=== PATIENT | female | born 2000 | race Caucasian/White ===

== ENCOUNTER 2018-01-02 09:07 | Emergency (ER) | payer SELFPAY ==
[2018-01-02 09:58] LABS: Absolute Lymphocytes (CBC) 2.3 K/uL (0.7-4.9); Absolute Monocytes 0.6 K/uL (0.1-1.3); Absolute Neutrophil 5.9 K/uL (1.8-8.0); Basophils % 0.5 % (0-1.3); Eosinophils % 4.2 % (0-4.4); Hematocrit 41.3 % (36.0-45.0); Lymphocytes % 24.9 % (15.3-44.8); MCV 90.1 fL (80-100); MPV 7.9 fL (7.6-11.3); Monocytes % 6.5 % (3.3-12.3); RBC Red Blood Cell Count 4.58 M/uL (3.86-4.86)
[2018-01-02 10:07] LABS: BUN Blood Urea Nitrogen 8 mg/dL (7-18); Bicarbonate 25 mmol/L (21-32); Glucose Level 84 mg/dL (74-106); Potassium 4.1 mmol/L (3.5-5.1); Sodium Level 141 mmol/L (136-145)
[2018-01-02] MEDS ORDERED: TETANUS & DIPHTHERIA TOX,ADULT 0.5 ML VIAL ONE (10:13)
--- NOTE | 2018-01-02 10:28 | RAD REPORT ---
EXAM DESCRIPTION: RAD - Foot Right 3 View - 01/02/2018 10:10 am CLINICAL HISTORY: puncture, r/o fb Puncture wound to right foot with pain COMPARISON: No comparisons FINDINGS: No fracture, dislocation or radiopaque foreign body involving the right foot is seen. Mild hallux valgus.
[2018-01-02 11:09] LABS: Urine Specific Gravity >1.030 (1.005-1.030)
[2018-01-02] MEDS ORDERED: DOXYCYCLINE 100 MG CAP PO ONE (11:26)
[2018-01-02] MEDS ORDERED: SMZ./TMP. 800/160 MG TABLET ONE (11:26)
--- NOTE | 2018-01-02 11:27 | EDPHYS ---
Physician Documentation [facility] Name: Tyra Fowler Age: 17 yrs Sex: Female : 2000 Arrival Date: 01/02/2018 Time: 09:11 Bed 11 Private MD: None, None ED Physician Veto Faye HPI: 01/02 09:38 This 17 yrs old Female presents to ER via Wheelchair with complaints of jmm Puncture Wound To Foot. 09:38 The patient presents with an injury, pain. The complaints affect the right foot. Onset: jmm The symptoms/episode began/occurred acutely, 2 day(s) ago. Modifying factors: The symptoms are alleviated by nothing, the symptoms are aggravated by weight bearing. This is a 17 year old female that presents to the ED with right foot pain after [place] a piece of [place] the [place]. Patient was no wearing shoes. Unsure of tetanus immunization. patient complains of pain and swelling but denies fever. . Historical: - Allergies: : unknown antibiotic; iw - Immunization history:: Adult Immunizations unknown. - Ebola Screening: : Patient negative for fever greater than or equal to 101.5 degrees Fahrenheit, and additional compatible Ebola Virus Disease symptoms Patient denies exposure to infectious person Patient denies travel to an Ebola-affected area in the 21 days before illness onset No symptoms or risks identified at this time. - Social history:: Smoking status: unknown. ROS: 09:38 Constitutional: Negative for fever, chills, and weight loss, Eyes: Negative for injury, jmm pain, redness, and discharge, Cardiovascular: Negative for chest pain, palpitations, and edema, Respiratory: Negative for shortness of breath, cough, wheezing, and pleuritic chest pain. 09:38 Skin: Positive for puncture. 09:38 All other systems are negative. Exam: 09:38 Head/Face: atraumatic. Eyes: EOMI, no conjunctival erythema appreciated ENT: Moist jmm Mucus Membranes Neck: Trachea midline, Supple Chest/axilla: Normal chest wall appearance and motion. Cardiovascular: Regular rate and rhythm. No edema appreciated Respiratory: Normal respirations, no respiratory distress appreciated 09:38 Constitutional: The patient appears in no acute distress, alert, awake. 09:38 Musculoskeletal/extremity: ROM: intact in all extremities. 09:38 Skin: two punctures noted to the ball of the right foot, ttp, swelling is appreciated. erythema noted to the dorsum of the foot, TTP. 09:38 Neuro: Orientation: is normal, Mentation: is normal, Memory: is normal. 09:38 Psych: Behavior/mood is pleasant, cooperative. Vital Signs: 09:40 BP 128 / 74; Pulse 67; Resp 16; Temp 98.2; Pulse Ox 100% ; Pain 9/10; iw MDM: 09:34 Patient medically screened. [facility] 11:01 Data reviewed: vital signs, nurses notes. [facility] 11:22 Data reviewed: lab test result(s). [facility] 11:25 ED course: PE findings concerning for cellulitis. Labs unremarkable. Patient prescribed [facility] oral antibiotics and given strict return precautions. Patient understood and agrees with the plan of care. . 01/02 09:35 Order name: CBC with Diff; Complete Time: 11:45 [facility] 01/02 09:35 Order name: BMP; Complete Time: 10:18 [facility] 01/02 09:35 Order name: Foot Right 3 View XRAY; Complete Time: 10:48 [facility] 01/02 10:28 Order name: Urine --Ancillary (enter results); Complete Time: 11:12 01/02 10:25 Order name: CBC Smear Scan; Complete Time: 11:45 [facility] 01/02 09:35 Order name: Urine Test (obtain specimen); Complete Time: 10:01 [facility] Administered Medications: 10:07 Drug: Tetanus-Diphtheria Toxoid Adult 0.5 ml {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 Exp: 01/26/2020. Lot #: [id number]. } Route: IM; Site: right deltoid; 10:49 Follow up: Response: No adverse reaction 11:26 Drug: Bactrim (160 mg-800 mg (DS) 1 tablet Route: PO; 11:26 Drug: Doxycycline 100 mg Route: PO; Disposition: 16:38 Co-signature as Attending Physician, Veto Faye MD. rn Disposition: 01/02/18 11:26 Discharged to Home. Impression: Cellulitis of the right foot. - Condition is Stable. - Discharge Instructions: Cellulitis, Adult. - Prescriptions for Doxycycline Hyclate 100 mg Oral Tablet - take 1 tablet by ORAL route every 12 hours; 20 tablet. Bactrim DS 800- 160 mg Oral Tablet - take 1 tablet by ORAL route every 12 hours for 10 days; 20 tablet. Ultracet 37.5- 325 mg Oral Tablet - take 1 tablet by ORAL route every 6 hours - for up to 5 days; do not exceed 8 tablets per day.; 12 tablet. - Medication Reconciliation Form, Thank You Letter, Antibiotic Education, Prescription Opioid Use form. - Follow up: Private Physician; When: 2 - 3 days; Reason: Recheck today's complaints, Continuance of care, Re-evaluation by your physician. Signatures: Dispatcher [employer] EDElif Berger RN RN dm5 Brown Ellis PA PA jmm Williams, Irene, RN RN iw Nieto, Roman, MD MD rn Smirch, Shelby, RN RN ss Corrections: (The following items were deleted from the chart) 11:25 09:38 Skin: two punctures noted to the ball of the right foot, ttp, swelling is cecelia appreciated. cecelia 11:53 11:26 01/02/2018 11:26 Discharged to Home. Impression: Cellulitis of the right foot. dm5 Condition is Stable. Forms are Medication Reconciliation Form, Thank You Letter, Antibiotic Education, Prescription Opioid Use. Follow up: Private Physician; When: 2 - 3 days; Reason: Recheck today's complaints, Continuance of care, Re-evaluation by your physician. cecelia
--- NOTE | 2018-01-02 11:27 | ER ---
Nurse's Notes [facility] Name: Tyra Fowler Age: 17 yrs Sex: Female : 2000 Arrival Date: 01/02/2018 Time: 09:11 Bed 11 Private MD: None, None Diagnosis: Cellulitis of the right foot Presentation: 01/02 09:22 Presenting complaint: Patient states: stepped [place] a [place] the [place], was iw barefoot, now has pain, swelling to foot, unable to bear weight. Care prior to arrival: None. 09:22 Acuity: ARNJIT 4 iw 09:22 Method Of Arrival: Wheelchair iw 09:36 Transition of care: patient was not received from another setting of care. Onset of iw symptoms was December 31, 2017. Risk Assessment: Do you want to hurt yourself or someone else? Patient reports no desire to harm self or others. Initial Sepsis Screen: Does the patient meet any 2 criteria? No. Patient's initial sepsis screen is negative. Does the patient have a suspected source of infection? No. Patient's initial sepsis screen is negative. Historical: - Allergies: : unknown antibiotic; iw - Immunization history:: Adult Immunizations unknown. - Ebola Screening: : Patient negative for fever greater than or equal to 101.5 degrees Fahrenheit, and additional compatible Ebola Virus Disease symptoms Patient denies exposure to infectious person Patient denies travel to an Ebola-affected area in the 21 days before illness onset No symptoms or risks identified at this time. - Social history:: Smoking status: unknown. Screenin:55 Abuse screen: Denies threats or abuse. Denies injuries from another. Nutritional ss screening: No deficits noted. Tuberculosis screening: No symptoms or risk factors identified. Never had TB. Fall Risk None identified. Assessment: 10:20 General: Appears in no apparent distress. Behavior is calm, cooperative. Pain: iw Complains of pain in right foot. Neuro: No deficits noted. Level of Consciousness is awake, alert, obeys commands. 10:55 Reassessment: Patient appears in no apparent distress at this time. Patient and/or ss family updated on plan of care and expected duration. Pain level reassessed. Patient is alert, oriented x 3, equal unlabored respirations, skin warm/dry/pink. Cardiovascular: Capillary refill < 3 seconds is brisk in bilateral fingers. Respiratory: Respiratory effort is even, unlabored. EENT: Nares are clear Throat is clear. Derm: Skin is dry, Skin is pink, warm \T\ dry. normal. Musculoskeletal: Circulation, motion, and sensation intact. Range of motion: intact in all extremities, Swelling present in right foot. Vital Signs: 09:40 BP 128 / 74; Pulse 67; Resp 16; Temp 98.2; Pulse Ox 100% ; Pain 9/10; iw ED Course: 09:11 Patient arrived in ED. sb2 09:12 None, None is Private Physician. sb2 09:22 Marci Alonso, RN is Primary Nurse. iw 09:22 Brown Ellis PA is PHCP. jmm 09:22 Veto Faye MD is Attending Physician. jmm 09:22 Triage completed. iw 09:37 Arm band placed on. iw 10:07 X-ray completed. Portable x-ray completed in exam room. Patient tolerated procedure jb2 well. 10:11 Foot Right 3 View XRAY In Process Unspecified. EDMS 10:49 No provider procedures requiring assistance completed. Patient did not have IV access ss during this emergency room visit. 10:55 Patient has correct armband on for positive identification. Bed in low position. Call ss light in reach. 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 Exp: ss 01/26/2020. Lot #: [id number]. } Route: IM; Site: right deltoid; 10:49 Follow up: Response: No adverse reaction ss 11:26 Drug: Bactrim (160 mg-800 mg (DS) 1 tablet Route: PO; ss 11:26 Drug: Doxycycline 100 mg Route: PO; ss Outcome: 11:26 Discharge ordered by . jmm 11:53 Patient left the ED. dm5 Signatures: Dispatcher [employer] EDMS Elif Munguia, RN DESTIN dm5 Brown Ellis PA PA jmm Buechter, Jesse jb2 Marci Alonso, RN DESTIN Martha Anne RN RN Azucena Mcdowell sb2
[2018-01-02 11:36] LABS: Platelet Estimate ADEQ; Urine White Blood Cell Casts OK
[2018-01-02 11:37] LABS: Blood Morphology Comment NOT SEEN (NOT SEEN)
== END 2018-01-02 11:53 | disposition home or self-care (01) ==
LOC: ER 09:07
DX: L03.115 Cellulitis of right lower limb (principal); Z23 Encounter for immunization; W45.0XXA Nail entering through skin, initial encounter; Y92.832 Beach as the place of occurrence of the external cause
CPT/HCPCS: 36415; 80048; 81025; 85025; 90714; 99283

== ENCOUNTER 2018-01-05 15:38 | Inpatient (IN) | payer BC, SELFPAY ==
[2018-01-05] MEDS ORDERED: NA CHLORIDE 0.9% 1,000 ML ONE (17:30)
[2018-01-05 17:33] LABS: Absolute Lymphocytes (CBC) 2.4 K/uL (0.7-4.9); Absolute Monocytes 0.4 K/uL (0.1-1.3); Absolute Neutrophil 4.6 K/uL (1.8-8.0); Basophils % 0.5 % (0-1.3); Eosinophils % 5.2 % (0-4.4); Lymphocytes % 30.4 % (15.3-44.8); MCH 32.4 pg (27.0-35.0); MCV 90.6 fL (80-100); MPV 7.4 fL (7.6-11.3); Monocytes % 5.3 % (3.3-12.3); RBC Red Blood Cell Count 4.49 M/uL (3.86-4.86)
[2018-01-05 17:35] LABS: Hematocrit 42.7 % (36.0-45.0)
--- NOTE | 2018-01-05 17:41 | RAD REPORT ---
EXAM DESCRIPTION: RAD - Foot Right 3 View - 01/05/2018 5:23 pm CLINICAL HISTORY: Pain and swelling following puncture wound COMPARISON: January 02 FINDINGS: No fracture, dislocation or periosteal reaction. No acute or destructive bone process. No air or foreign body in the soft tissues. No air or foreign body in the soft tissues. IMPRESSION: No new bone finding. No air or foreign body in the soft tissues.
[2018-01-05 17:57] LABS: Potassium 3.9 mmol/L (3.5-5.1)
[2018-01-05] MEDS ORDERED: ONDANSETRON 4 MG/2 ML VIAL IV PRN (18:14)
[2018-01-05] MEDS ORDERED: ACETAMINOPHEN 500 MG TAB PO PRN (18:14)
--- NOTE | 2018-01-05 18:17 | EDPHYS ---
Physician Documentation [facility] Name: Tyra Fowler Age: 17 yrs Sex: Female : 2000 Arrival Date: 01/05/2018 Time: 15:43 Bed 6 Private MD: ED Physician Otoniel Henry HPI: 01/05 18:21 This 17 yrs old Female presents to ER via Wheelchair with complaints of Foot snw Pain. 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 - Social history:: Smoking status: Patient/guardian denies using tobacco. - Ebola Screening: : Patient negative for fever greater than or equal to 101.5 degrees Fahrenheit, and additional compatible Ebola Virus Disease symptoms Patient denies exposure to infectious person Patient denies travel to an Ebola-affected area in the 21 days before illness onset No symptoms or risks identified at this time. ROS: 18:16 Constitutional: Negative for fever, chills, and weight loss, Eyes: Negative for injury, snw pain, redness, and discharge, ENT: Negative for injury, pain, and discharge, Neck: Negative for injury, pain, and swelling, Cardiovascular: Negative for chest pain, palpitations, and edema, Respiratory: Negative for shortness of breath, cough, wheezing, and pleuritic chest pain, Abdomen/GI: Negative for abdominal pain, nausea, vomiting, diarrhea, and constipation, Back: Negative for injury and pain, : Negative for injury, bleeding, discharge, and swelling, MS/Extremity: Negative for injury and deformity, Neuro: Negative for headache, weakness, numbness, tingling, and seizure, Psych: Negative for depression, anxiety, suicide ideation, homicidal ideation, and hallucinations. 18:16 Skin: Positive for cellulitis, ecchymosis, erythema, swelling, of the right foot. Exam: 16:33 Constitutional: This is a well developed, well nourished patient who is awake, alert, snw and in no acute distress. Head/Face: Normocephalic, atraumatic. Eyes: Pupils equal round and reactive to light, extra-ocular motions intact. Lids and lashes normal. Conjunctiva and sclera are non-icteric and not injected. Cornea within normal limits. Periorbital areas with no swelling, redness, or edema. ENT: Nares patent. No nasal discharge, no septal abnormalities noted. Tympanic membranes are normal and external auditory canals are clear. Oropharynx with no redness, swelling, or masses, exudates, or evidence of obstruction, uvula midline. Mucous membranes moist. Neck: Trachea midline, no thyromegaly or masses palpated, and no cervical lymphadenopathy. Supple, full range of motion without nuchal rigidity, or vertebral point tenderness. No Meningismus. Chest/axilla: Normal chest wall appearance and motion. Nontender with no deformity. No lesions are appreciated. Cardiovascular: Regular rate and rhythm with a normal S1 and S2. No gallops, murmurs, or rubs. Normal PMI, no JVD. No pulse deficits. Respiratory: Lungs have equal breath sounds bilaterally, clear to auscultation and percussion. No rales, rhonchi or wheezes noted. No increased work of breathing, no retractions or nasal flaring. Abdomen/GI: Soft, non-tender, with normal bowel sounds. No distension or tympany. No guarding or rebound. No evidence of tenderness throughout. Back: No spinal tenderness. No costovertebral tenderness. Full range of motion. Skin: Warm, dry with normal turgor. Normal color with no rashes, no lesions, and no evidence of cellulitis. Neuro: Awake and alert, GCS 15, oriented to person, place, time, and situation. Cranial nerves II-XII grossly intact. Motor strength 5/5 in all extremities. Sensory grossly intact. Cerebellar exam normal. Normal gait. Psych: Awake, alert, with orientation to person, place and time. Behavior, mood, and affect are within normal limits. 16:33 Musculoskeletal/extremity: Extremities: grossly normal except: noted in the right foot: erythema, pain, swelling, tenderness, two scabbed puncture wounds to plantar surface, surgical scar (Jan 2017) to right lateral ankle, ROM: intact in all extremities, Circulation is intact in all extremities. marked tenderness 16:33 Skin: Appearance: normal except for affected area, right foot. Vital Signs: 16:08 BP 106 / 74; Pulse 98; Resp 16; Temp 98.4; Pulse Ox 98% on R/A; Weight 58.97 kg; Height aj 5 ft. 4 in. (162.56 cm); 17:00 BP 114 / 88; Pulse 95; Resp 15; Pulse Ox 99% ; bp 18:00 BP 108 / 82; Pulse 77; Resp 16; Pulse Ox 99% ; bp 19:39 BP 108 / 83; Pulse 73; Resp 16; Temp 98.4; Pulse Ox 99% on R/A; ak1 16:08 Body Mass Index 22.31 (58.97 kg, 162.56 cm) aj MDM: 16:20 Patient medically screened. snw 18:00 Physician consultation: Gregory Jimenez MD was called at 18:00, was contacted at 18:00, snw regarding consult, declines Consult - consider Ortho. 18:00 Physician consultation: Fausto Mike MD was called at 18:20, was contacted at 18:20, snw regarding consult, Declines consult - consider podiatry. 18:20 Data reviewed: vital signs, nurses notes. Data interpreted: Pulse oximetry: on room air snw is 99 %. Interpretation: normal. Counseling: I had a detailed discussion with the patient and/or guardian regarding: the historical points, exam findings, and any diagnostic results supporting the discharge/admit diagnosis, lab results, radiology results, the need for further work-up and treatment in the hospital. Physician consultation: Osmel Hamilton DO was called at 18:20, was contacted at 18:20, regarding admission, would like medications started, Zosyn. 19:44 ED course: Dr. Mike in to evaluate wound. [facility] 01/05 16:38 Order name: Basic Metabolic Panel; Complete Time: 18:08 [facility] 01/05 16:38 Order name: CBC with Diff; Complete Time: 17:39 [facility] 01/05 16:38 Order name: Blood Culture Adult (2) [facility] 01/05 16:38 Order name: Procalcitonin; Complete Time: 18:34 w 01/05 16:38 Order name: Lactate; Complete Time: 18:08 [facility] 01/05 18:20 Order name: Basic Metabolic Panel [facility] 01/05 18:20 Order name: Basic Metabolic Panel [facility] 01/05 18:20 Order name: Basic Metabolic Panel [facility] 01/05 18:20 Order name: Basic Metabolic Panel [facility] 01/05 18:20 Order name: Magnesium [facility] 01/05 18:20 Order name: Magnesium [facility] 01/05 18:20 Order name: Magnesium [facility] 01/05 18:20 Order name: Magnesium [facility] 01/05 18:44 Order name: Urine Dipstick--Ancillary (enter results) ms 01/05 16:13 Order name: Foot Right 3 View XRAY; Complete Time: 17:47 bp 01/05 16:38 Order name: IV Saline Lock; Complete Time: 17:25 snw 01/05 16:38 Order name: Labs collected and sent; Complete Time: 17:25 snw 01/05 18:21 Order name: CONS Pharmacy Consult [facility] 01/05 18:21 Order name: CONS Physician Consult [facility] 01/05 18:44 Order name: Urine --Ancillary (enter results) ms 01/05 19:00 Order name: Urine --Ancillary; Complete Time: 19:10 [facility] 01/05 19:00 Order name: Urine Dipstick-Ancillary; Complete Time: 19:10 [facility] Administered Medications: 17:25 Drug: NS 0.9% 1000 ml Route: IV; Rate: 125 ml/hr; Site: right antecubital; bp 19:39 Follow up: Response: No adverse reaction; IV Status: Infusion continued upon admission ea 18:30 Drug: TORadol 30 mg Route: IVP; Site: right antecubital; bp 19:45 Follow up: Response: No adverse reaction ak1 19:01 Drug: Zosyn 3.375 grams Route: IVPB; Infused Over: 60 mins; Site: right antecubital; bp 19:44 Follow up: IV Status: Completed infusion ak1 19:44 Drug: vancoMYCIN 1 grams Route: IVPB; Infused Over: 2 hrs; Site: right antecubital; ak1 19:45 Follow up: IV Status: Infusion continued upon admission ak1 Disposition: 01/06 07:44 Co-signature as Attending Physician, Otoniel Henry MD I agree with the assessment and kdr plan of care. Disposition: 01/05/18 18:16 Hospitalization ordered by Osmel Hamilton for Inpatient Admission. Preliminary diagnosis is Infected plantar puncture wound with failed outpatient therapy - right. - Bed requested for Telemetry/MedSurg (Inpatient). - Status is Inpatient Admission. ak1 - Condition is Stable. - Problem is new. - Symptoms have worsened. UTI on Admission? No Signatures: Dispatcher [employer] EDJosy Becker RN RN Jennifer Mackay RN Otoniel Mendoza MD MD kdr Therrien, Shelly, PROCESSING ANALYST-C PROCESSING ANALYST-Csnw Daly Cedeño RN RN ak1 Ottoniel Malin RN RN Ramona Grover RN, ea Corrections: (The following items were deleted from the chart) 01/05 19:12 18:16 Hospitalization Ordered by Osmel Hamilton DO for Inpatient Admission. Preliminary diagnosis is Infected plantar puncture wound with failed outpatient therapy - right. Bed requested for Telemetry/MedSurg (Inpatient). Status is Inpatient Admission. Condition is Stable. Problem is new. Symptoms have worsened. UTI on Admission? No. snw 20:15 19:12 01/05/2018 18:16 Hospitalization Ordered by Osmel Hamilton DO for Inpatient ak1 Admission. Preliminary diagnosis is Infected plantar puncture wound with failed outpatient therapy - right. Bed requested for Telemetry/MedSurg (Inpatient). Status is Inpatient Admission. Condition is Stable. Problem is new. Symptoms have worsened. UTI on Admission? No. kl
--- NOTE | 2018-01-05 18:17 | ER ---
Nurse's Notes [facility] Name: Tyra Fowler Age: 17 yrs Sex: Female : 2000 Arrival Date: 01/05/2018 Time: 15:43 Bed 6 Private MD: Diagnosis: Infected plantar puncture wound with failed outpatient therapy - right Presentation: 01/05 16:06 Presenting complaint: Patient states: Pain and swelling to right foot after stepping on aj a nail 4 days ago. Seen in this ER on Tuesday for same complaint and given RX and tetanus. Transition of care: patient was not received from another setting of care. Onset of symptoms was January 01, 2018. Risk Assessment: Do you want to hurt yourself or someone else? Patient reports no desire to harm self or others. Initial Sepsis Screen: Does the patient meet any 2 criteria? No. Patient's initial sepsis screen is negative. Does the patient have a suspected source of infection? No. Patient's initial sepsis screen is negative. Care prior to arrival: None. 16:06 Method Of Arrival: Wheelchair 16:06 Acuity: RANJIT 3 Triage Assessment: 16:08 General: Appears in no apparent distress. comfortable, Behavior is calm, cooperative, aj appropriate for age. Pain: Complains of pain in right foot. Neuro: Level of Consciousness is awake, alert, obeys commands, Oriented to person, place, time, situation, Appropriate for age. Respiratory: Airway is patent Respiratory effort is even, unlabored, Respiratory pattern is regular, symmetrical. Derm: Skin is intact, is healthy with good turgor, Skin is pink, warm \T\ dry. normal. Musculoskeletal: Swelling present in right foot. 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 - Social history:: Smoking status: Patient/guardian denies using tobacco. - Ebola Screening: : Patient negative for fever greater than or equal to 101.5 degrees Fahrenheit, and additional compatible Ebola Virus Disease symptoms Patient denies exposure to infectious person Patient denies travel to an Ebola-affected area in the 21 days before illness onset No symptoms or risks identified at this time. Screenin:43 Abuse screen: Denies threats or abuse. Denies injuries from another. Nutritional bp screening: No deficits noted. Tuberculosis screening: No symptoms or risk factors identified. Fall Risk None identified. Assessment: 16:13 General: Appears in no apparent distress. uncomfortable, slender, Behavior is calm, bp cooperative, appropriate for age. 16:41 Pain: Complains of pain in right foot. Neuro: Level of Consciousness is awake, alert, bp obeys commands, Oriented to person, place, time, situation, Appropriate for age. Cardiovascular: No deficits noted. Respiratory: Airway is patent Respiratory effort is even, unlabored, Respiratory pattern is regular, symmetrical. GI: No signs and/or symptoms were reported involving the gastrointestinal system. : No signs and/or symptoms were reported regarding the genitourinary system. EENT: No deficits noted. Derm: Wound noted right foot. Musculoskeletal: Circulation, motion, and sensation intact. Range of motion: intact in all extremities, Swelling present in right foot. 18:00 Reassessment: ABX INFUSING, DISPO PENDING. bp 18:40 Reassessment: ADMIT ON HOLD FOR ORTHO EVAL, ADMIT VS TRANSFER. bp Vital Signs: 16:08 BP 106 / 74; Pulse 98; Resp 16; Temp 98.4; Pulse Ox 98% on R/A; Weight 58.97 kg; Height aj 5 ft. 4 in. (162.56 cm); 17:00 BP 114 / 88; Pulse 95; Resp 15; Pulse Ox 99% ; bp 18:00 BP 108 / 82; Pulse 77; Resp 16; Pulse Ox 99% ; bp 19:39 BP 108 / 83; Pulse 73; Resp 16; Temp 98.4; Pulse Ox 99% on R/A; ak1 16:08 Body Mass Index 22.31 (58.97 kg, 162.56 cm) ED Course: 15:43 Patient arrived in ED. mr 16:08 Triage completed. aj 16:08 [facility]C [facility] snw 16:08 Otoniel Henry MD is Attending Physician. snw 16:08 Arm band placed on left wrist. Patient placed in an exam room. aj 16:10 Ottoniel Malin, RN is Primary Nurse. bp 16:43 Patient has correct armband on for positive identification. Bed in low position. Call bp light in reach. Side rails up X2. 17:24 Foot Right 3 View XRAY In Process Unspecified. EDMS 17:25 Inserted saline lock: 20 gauge in right antecubital area, using aseptic technique. bp Blood collected. 18:13 Osmel Hamilton DO is Hospitalizing Provider. snw 19:42 No provider procedures requiring assistance completed. Patient admitted, IV remains in ak1 place. Administered Medications: 17:25 Drug: NS 0.9% 1000 ml Route: IV; Rate: 125 ml/hr; Site: right antecubital; bp 19:39 Follow up: Response: No adverse reaction; IV Status: Infusion continued upon admission ea 18:30 Drug: TORadol 30 mg Route: IVP; Site: right antecubital; bp 19:45 Follow up: Response: No adverse reaction ak1 19:01 Drug: Zosyn 3.375 grams Route: IVPB; Infused Over: 60 mins; Site: right antecubital; bp 19:44 Follow up: IV Status: Completed infusion ak1 19:44 Drug: vancoMYCIN 1 grams Route: IVPB; Infused Over: 2 hrs; Site: right antecubital; ak1 19:45 Follow up: IV Status: Infusion continued upon admission ak1 Outcome: 18:16 Decision to Hospitalize by Provider. snw 19:42 Admitted to Med/surg accompanied by tech, via wheelchair, room 216, with chart. ak1 19:42 Condition: good 19:42 Instructed on the need for admit. 20:15 Patient left the ED. ak1 Signatures: Dispatcher [employer] EDMS Jennifer Cordero, RN RN Andie Ross, NURSE ORTHO-C NURSE ORTHO-Csnw Mayelin Unger Daly Cedeño, RN RN ak1 Ramona Grover, Ottoniel Aleman RN, ea, RN RN bp Corrections: (The following items were deleted from the chart) 16:42 16:13 General: Appears in no apparent distress. uncomfortable, slender, Behavior is bp bp
[2018-01-05] MEDS ORDERED: KETOROLAC 30 MG/ML INJ ONE (18:32)
[2018-01-05] MEDS: PIPER/TAZO/NS 3.375gm 3.375 GM/100 ML BAG IVPB SCH (18:45)
[2018-01-05 18:59] LABS: Urine Blood NEGATIVE (NEG); Urine Glucose NEGATIVE (NEG); Urine Protein NEGATIVE (NEG); Urine Specific Gravity 1.025 (1.005-1.030)
[2018-01-05] MEDS ORDERED: VANCOMYCIN/NS 1 gm 1 GM/250 ML BAG IV SCH (21:00)
[2018-01-05] MEDS: NA CHLORIDE 0.9% 1,000 ML IV SCH (21:51)
[2018-01-06] MEDS: TRAMADOL HCL 50 MG TAB PO PRN ×2 (00:01→11:25)
[2018-01-06] MEDS: PIPER/TAZO/NS 3.375gm 3.375 GM/100 ML BAG IVPB SCH ×3 (00:49→16:24)
--- NOTE | 2018-01-06 03:58 | CON ---
CONSULTATION IN EMERGENCY ROOM Reason For Consultation: Consultation is regarding cellulitis, right foot. History: This 17-year-old female was injured on 12/31/2017, when [place] the beach and stepped on a board that had 2 nails in it that punctured her right forefoot. One puncture is just proximal to the fourth webspace and the other puncture is proximal to the second webspace on the plantar aspect of the forefoot. She came to the emergency room 2 days later with complaints of swelling and pain and inability to ambulate on her right foot. She was evaluated with negative laboratory findings and x-ray, and treated with oral tablets, Bactrim DS bid, and doxycycline 100 mg b.i.d. x 10 days. The patient has returned to the emergency room 3 days later, 5 days after injury with persistent swelling, failure of outpatient p.o. antibiotic therapy. 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 The patient has had a dropfoot possibly since that procedure or before. She indicated that the dropfoot was a problem before she stepped on the nail. Allergies: THERE ARE NO KNOWN ALLERGIES. Past Medical History: Negative except for irregular menses. 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 This was done in [place] by a internet security specialist as a tertiary referral in 2016. Review of Systems: A 10-point review is negative. Physical Examination: Vital Signs: Stable with blood pressure 106/74, pulse 78, respirations 16, temperature 98.4, pulse oximeter is 98% on room air. General: This is a well-nourished, well-developed 17-year-old female, in no acute distress. HEENT: Within normal limits. Neck: Supple. Chest: Clear to auscultation. Heart: Regular rate and rhythm. Abdomen: Soft and nontender. Active bowel sounds are present. Genital and Rectal: Exams are deferred. Extremities: On examination of the right foot and lower extremity, the patient has very cold and slightly clammy right foot. It takes some palpable search to find a dorsal pedis pulse that is 1+. There is also very weak posterior tibialis pulse. The patient has a partial dropfoot with ability to dorsiflex slightly the 4 smaller toes. The big toe does not seem to have dorsiflexion power at all and the patient does not demonstrate dorsiflexion at the ankle. She gives history of that dropfoot being a problem for quite some time well before she stepped on the board on the beach. 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 The patient describes it as insertion of the joint. The patient had recovered from that and was happy with her outcome prior to stepping on a nail while at the beach on last Tuesday. There were 2 nails passed through the board that she stepped on with punctures occurring proximal to the second and fourth web spaces approximately 1-2 cm proximal to the web spaces. She continues to have tenderness to palpation and swelling in the forefoot. The swelling does not seem to extend into the area of the ankle. The punctures are quite tender as well. There is no dramatic protuberance suggesting an abscess collection. As mentioned, the entire foot is cool to the touch. Circulation impairment may have preexisted the recent injury as well as the patient states that her foot is always cold and always has been cold. With the congenital coalition, there may be a vascular impairment as well. The patient is in the emergency room and has been started on Zosyn IV 3.375 g and vancomycin 1 g IV. Lab work done on admission showed a white count on of 9.2. The white count on this admission 01/05 is 7.8. Neutrophil percentage was 64%, and has dropped to 59%. Lactic acid is 1.0. Procalcitonin is less than 0.05. X-rays taken 01/02 and 01/05 show no bony abnormality, no fracture dislocation, no foreign body or gas noted. Assessment: This patient has cellulitis of the right foot from deep puncture by contaminated nails poking through boards on the beach. She has had partial treatment Bactrim DS tablets b.i.d. and doxycycline 100 mg tablets p.o. b.i.d. Plan: The patient is admitted to be kept n.p.o. Recommendation is for MRI scan to be done as soon as possible in the morning to ascertain whether there are fluid collections that can be drained. The patient is admitted and will be observed closely for indications for immediate incision, drainage and irrigation. CHRISTIANE/UNIQUE Voice ID: [id number] Report ID: [id number] MTDD
[2018-01-06] MEDS: NA CHLORIDE 0.9% 1,000 ML IV SCH ×2 (05:00→15:00)
[2018-01-06 05:23] LABS: Absolute Lymphocytes (CBC) 3.2 K/uL (0.7-4.9); Absolute Monocytes 0.5 K/uL (0.1-1.3); Basophils % 0.8 % (0-1.3); Eosinophils % 5.8 % (0-4.4); Hematocrit 38.3 % (36.0-45.0); Lymphocytes % 44.9 % (15.3-44.8); MCH 32.5 pg (27.0-35.0); MCV 90.2 fL (80-100); MPV 7.5 fL (7.6-11.3); Monocytes % 7.2 % (3.3-12.3); RBC Red Blood Cell Count 4.25 M/uL (3.86-4.86)
[2018-01-06 05:44] LABS: BUN Blood Urea Nitrogen 11 mg/dL (7-18); Bicarbonate 24 mmol/L (21-32); Glucose Level 76 mg/dL (74-106); Magnesium 2.1 mg/dL (1.8-2.4); Potassium 4.1 mmol/L (3.5-5.1); Sodium Level 141 mmol/L (136-145)
--- NOTE | 2018-01-06 06:51 | P.HP ---
Certification for Inpatient Patient admitted to: Inpatient With expected LOS: >2 Midnights Patient will require the following post-hospital care: None Practitioner: I am a practitioner with admitting privileges, knowledge of patient current condition, hospital course, and medical plan of care. Services: Services provided to patient in accordance with Admission requirements found in Title 42 Section 412.3 of the Code of Federal Regulations Patient History Date of Service: 01/05/18 Reason for admission: Cellulitis of the foot History of Present Illness: Patient is a 17-year-old female who came to the hospital with cellulitis of the right foot. Patient has stepped on 2 nails while walking on the beach. Apparently the nails were on a board/plank, and she stepped on it. She has severe pain and swelling. The swelling got worse over the next 24 hr. She decided to come to the ER for further evaluation. In the ER she was treated with IV antibiotics. Apparently she had a reaction to the antibiotic she was given. Will monitor her closely at this time. Make sure she gets her tetanus shot as well. Allergies vancomycin Allergy (Verified 01/05/18 22:51) Itching Home Medications: NK [No Home Meds] 01/06/18 - Past Medical/Surgical History Has patient received pneumonia vaccine in the past: No Diabetic: No Past Medical History: Patient denies medical history -: right foot sx - Family History Mother Family History: Reviewed- Non-Contributory - Social History Smoking Status: Never smoker Alcohol use: Yes Place of Residence: Home Review of Systems 10-point ROS is otherwise unremarkable Physical Examination - Vital Signs Temperature: 97.4 F Blood Pressure: 100/56 Pulse: 79 Respirations: 16 Pulse Ox (%): 99 - Physical Exam General: Alert, In no apparent distress, Oriented x3 HEENT: Atraumatic, PERRLA, Mucous membr. moist/pink, EOMI, Sclerae nonicteric Neck: Supple, 2+ carotid pulse no bruit, No LAD, Without JVD or thyroid abnormality Respiratory: Clear to auscultation bilaterally, Normal air movement Cardiovascular: Regular rate/rhythm, Normal S1 S2, No murmurs Gastrointestinal: Normal bowel sounds, Soft and benign, Non-distended, No tenderness Musculoskeletal: No clubbing, No swelling, No tenderness Integumentary: Skin lesion, Tenderness/swelling, Erythema, No ulcers Neurological: Normal gait, Normal speech, Normal strength at 5/5 x4 extr, Normal tone, Sensation intact, Cranial nerves 3-12 intact, Normal affect Lymphatics: No axilla or inguinal lymphadenopathy - Studies Laboratory Data (last 24 hrs) 01/05/18 17:15: WBC 7.8 D, Hgb 14.6, Hct 42.7, Plt Count 231 01/05/18 17:15: Sodium 139, Potassium 3.9, BUN 12, Creatinine 1.00, Glucose 87 Assessment & Plan - Problems (Diagnosis) (1) Cellulitis Current Visit: Yes Status: Acute (2) Puncture wound of skin from metal nail Current Visit: Yes Status: Acute - Plan 1. Continue with IV antibiotic 2. Continue with local wound care 3. Ortho Surgical consultation 4. Gentle IV hydration 5. Monitor CBC 6. Tetanus given 7. Pain control 8. GI and DVT prophylaxis Discharge Plan: Home Plan to discharge in: Greater than 2 days - Advance Directives Does patient have a Living Will: No Does patient have a Durable POA for Healthcare: No - Code Status/Comfort Care Code Status Assessed: Yes Code Status: Full Code Critical Care: No Time Spent Managing PTS Care (In Minutes): 50
[2018-01-06 07:45] LABS: Platelet Estimate ADEQ
[2018-01-06 07:46] LABS: Blood Morphology Comment NOT SEEN (NOT SEEN)
[2018-01-06] MEDS: LINEZOLID 600 MG IVPB 600 MG/300 ML BAG IV SCH ×2 (08:54→21:03)
[2018-01-06] MEDS ORDERED: INFLUENZA VACCINE (for 3y+) 0.5 ML DOSE IMVAC ONE (09:00)
--- NOTE | 2018-01-06 09:19 | P.PN ---
Date of Service: 01/06/18 S: PATIENT IS SLEEPING COMFORTABLY THIS MORNING. SHE IS INDICATING LESS PAIN THAN LAST NIGHT. IN DISCUSSING HISTORY IN MORE DETAIL, THE PATIENT HAS INDICATED HER RIGHT PERONEAL PALSY OCCURRED IMMEDIATELY AFTER THE SURGERY 2 YEARS AGO FOR TALOCALCANEAL COALITION. SHE WENT TO THERAPY FOR 3 MONTHS BEFORE RETURN OF FULL DORSIFLEXION FOR RIGHT ANKLE AND TOES. SHE NOW INDICATES THAT HER FOOT WAS FUNCTIONING NORMALLY WHEN SHE STEPPED ON THE BOARD WITH THE TWO NAILS THAT PUNCTURED HER FOREFOOT ON TUESDAY. BY TUESDAY SHE DESCRIBES HER FOOT WAS DROOPING AND NOT RESPONDING TO HER EFFORTS CAUSING HER TO GO TO THE EMERGENCY ROOM FOR THE FIRST VISIT ON TUESDAY. O: AFEBRILE, VSS,WBC DECREASING TO 7.2 WITH NEUT. 41%. ON INSPECTION THE RIGHT FOREFOOT SWELLING IS VERY SUBTLE WITH SLIGHT ERYTHEMA WHEN COMPARED TO THE LEFT FOOT. THE FOOT IS WARMER EQUAL TO THAT OF THE LEFT FOOT WITH DORSAL PEDIS AND POSTERIOR TIBIALIS PULSES 1+. INSPECTING THE PLANTAR ASPECT OF THE FOOT THERE IS NO ERYTHEMATOUS RING AROUND THE 2 SCABS THAT HAVE FORMED WHERE NAIL PUNCTURES OCCURRED. THERE IS NO BULGING OR DISTENTION OF SKIN IN THE IMMEDIATE AREA AROUND THE PUNCTURES. OVERNIGHT THERE HAS BEEN MARKED IMPROVEMENT IN ABILITY TO DEMONSTRATE DORSIFLEXION FOR THE RIGHT FOOT. NOW THE BIG TOE IS RESPONDING ALONG WITH THE 4 SMALLER TOES. A SLIGHT STROKING OF THE PLANTAR ASPECT OF THE FOOT CAUSES A SIGNIFICANT WITHDRAWAL WITH ALL TOES RAISING 30-40 AND ANKLE DORSIFLEXING 40 WITH VISIBLE TENSION IN THE ANTERIOR TIBIALIS TENDON. SENSATION IS INTACT TO LIGHT TOUCH THROUGHOUT LOWER LEG, ANKLE AND FOOT , AND THE FIRST WEBSPACE HAS NORMAL SENSATION TO TOUCH AND PINCH. DR. JODY BURROWS WAS KIND ENOUGH TO GIVE ME A WET READ OF MRI SCAN RIGHT FOOT PENDING FINAL REPORT TO INDICATE THERE WERE NO FLUID COLLECTIONS SUGGESTING ABSCESS AND NO BONY REACTIONS TO INDICATE INFECTION OR NAIL PUNCTURE DAMAGE. A: PATIENT IS IMPROVING ON IV ANTIBIOTIC THERAPY. P: PATIENT MAY HAVE A DIET. WE WILL CONTINUE CLOSE OBSERVATION, BUT IT IS LOOKING LIKE FASCIOTOMY OR I&D IS UNLIKELY TO BE NECESSARY. PATIENT HAS BEEN ENCOURAGED TO WORK AT [employer] TO IMPROVE RANGE OF MOTION RIGHT ANKLE AND FOOT.
--- NOTE | 2018-01-06 10:26 | RAD REPORT ---
EXAM DESCRIPTION: MRI - Foot Right W/Wo Con - 01/05/2018 11:43 pm CLINICAL HISTORY: Right foot pain and swelling. Puncture wound. COMPARISON: January 05, 2018 x-ray TECHNIQUE: Axial, sagittal, and coronal magnetic images of the right foot obtained. 13 cc MultiHance administered intravenously FINDINGS: Puncture wound to the lateral forefoot is seen. Diffuse edema is present within the subcut aneous tissues No abnormal signal within the bones is seen to suggest osteomyelitis. Abnormal enhancement is visualized within the plantar subcutaneous tissues of forefoot at the punctur e sites. A drainable fluid collection/abscess is not seen IMPRESSION: Cellulitis No evidence of a drainable abscess/osteomyelitis
--- NOTE | 2018-01-06 10:33 | P.PN ---
Subjective Date of Service: 01/06/18 Primary Care Provider: None Chief Complaint: Cellulitis of the foot Subjective: Improving Physical Examination - Vital Signs Temperature: 96.9 F Blood Pressure: 101/55 Pulse: 65 Respirations: 16 Pulse Ox (%): 100 - Physical Exam General: Alert, In no apparent distress, Oriented x3, Cooperative HEENT: Atraumatic Neck: Supple Respiratory: Clear to auscultation bilaterally, Normal air movement Cardiovascular: Normal pulses, Regular rate/rhythm Gastrointestinal: Normal bowel sounds, Soft and benign, Non-distended, No tenderness, No masses, No rebound, No guarding Integumentary: Other (Swelling to the right foot improved. Erythema also improved. Function once noted to the plantar surface. Better range of motion noted to the foot) Neurological: Normal speech, Normal strength at 5/5 x4 extr, Normal tone - Studies Laboratory Data (last 24 hrs) 01/05/18 17:15: WBC 7.8 D, Hgb 14.6, Hct 42.7, Plt Count 231 01/05/18 17:15: Sodium 139, Potassium 3.9, BUN 12, Creatinine 1.00, Glucose 87 Medications List Reviewed: Yes Assessment & Plan Discharge Plan: Home Plan to discharge in: 72 Hours Physician Review Additional Text: Impression: Cellulitis of the right foot from and deep puncture wound by contaminated nails Plan: Cellulitis of the right foot from and deep puncture wound by contaminated nails : Will continue with IV antibiotic therapy. Will continue with pain control. MRI shows no osteomyelitis or collection of fluid. Case discussed at length with orthopedics. No need for intervention at this time. Will continue to monitor closely. Will reassess tomorrow. Time Spent Managing Pts Care (In Minutes): 55
[2018-01-06] MEDS: HYDROCODONE/APAP 7.5/325 MG TAB PO PRN (21:04)
[2018-01-07] MEDS: NA CHLORIDE 0.9% 1,000 ML IV SCH ×2 (00:18→10:18)
[2018-01-07] MEDS: PIPER/TAZO/NS 3.375gm 3.375 GM/100 ML BAG IVPB SCH ×3 (00:19→18:28)
[2018-01-07] MEDS: TRAMADOL HCL 50 MG TAB PO PRN (00:27)
[2018-01-07 05:01] LABS: Absolute Lymphocytes (CBC) 2.2 K/uL (0.7-4.9); Absolute Monocytes 0.4 K/uL (0.1-1.3); Absolute Neutrophil 2.7 K/uL (1.8-8.0); Basophils % 0.9 % (0-1.3); Hematocrit 35.4 % (36.0-45.0); Lymphocytes % 39.3 % (15.3-44.8); MCH 32.8 pg (27.0-35.0); MCV 90.7 fL (80-100); MPV 7.5 fL (7.6-11.3)
[2018-01-07 05:07] LABS: BUN Blood Urea Nitrogen 7 mg/dL (7-18); Bicarbonate 25 mmol/L (21-32); Glucose Level 111 mg/dL (74-106); Magnesium 1.9 mg/dL (1.8-2.4); Potassium 3.9 mmol/L (3.5-5.1); Sodium Level 141 mmol/L (136-145)
[2018-01-07] MEDS: LINEZOLID 600 MG IVPB 600 MG/300 ML BAG IV SCH ×2 (09:33→20:35)
--- NOTE | 2018-01-07 10:30 | P.PN ---
Date of Service: 01/07/18 S: PATIENT IN BEDSIDE CHAIR. C/O 9/10 PAIN WHEN AWAKENS AFTER PAIN PILL. HAS ONLY TAKEN 1 NORCO 7.5MG AND 3 TRAMADOL 50MG SINCE ADMISSION. IV MORPHINE NOT USED. O: AFEBRILE,TEMP HOVERED AROUND 97.0 ALL DAY YESTERDAY, DIASTOLIC~50-55 mg/HG, PULSE~100(70 THIS AM) ,WBC DOWN TO 5.7 W/ NEUT. 47%. 01/05/18 LACTIC ACID WAS 1.0/PROCALCITONIN<0.05. ON INSPECTION, THE RIGHT FOREFOOT SWELLING IS MILDLY INCREASED FROM YESTERDAY WITH NO ERYTHEMA. DORSAL PEDIS AND POSTERIOR TIBIALIS PULSES THREADY FOR BOTH LOWER EXTREMITIES. INSPECTING THE PLANTAR ASPECT OF THE FOOT THERE ARE STILL NO ERYTHEMATOUS RINGS OR PROTUBERANCE AROUND THE 2 SCABS THAT HAVE FORMED WHERE NAIL PUNCTURES OCCURRED. PATIENT CAN STILL DEMONSTRATE DORSIFLEXION FOR THE RIGHT FOOT TOES AND ANKLE, BUT NOT WELL YESTERDAY~30*. SENSATION REMAINS INTACT TO LIGHT TOUCH THROUGHOUT LOWER LEG, ANKLE AND FOOT, AND THE FIRST WEBSPACE HAS NORMAL SENSATION. FINAL REPORT MRI INDICATES THERE WERE NO FLUID COLLECTIONS SUGGESTING ABSCESS AND NO BONY REACTIONS TO INDICATE INFECTION OR NAIL PUNCTURE DAMAGE, BUT DIFFUSE EDEMA IS PRESENT IN SUBCUTANEOUS TISSUES AND PUNCTURE SITES. A: PATIENT IS IMPROVING MORE SLOWLY ON IV ANTIBIOTIC THERAPY VANC & ZOSYN. CONCERN PROMPTED NPO AFTER MIDNIGHT. LAB ORDERED BUT BUMPED TO 12 I INTENDED ADDITION TO ROUTINE DRAW 01/07 AND DIDN'T NOTE PRDER ADDED TO TUESDAY'S DRAW. P: PATIENT ADVISED THAT ADDITIONAL LABS TO BE DONE TO INCLUDE REPEAT LACTATE & PROCALCITONIN PLUS SEDRATE AND T-RP. MAY ORDER DIET FOR LUNCH DEPENDING ON RESULTS. MUST SEE STEADY IMPROVEMENT. TRANSFER TO HIGHER LEVEL OF CARE FOR EXPERIENCED OPERATIVE INTERVENTION DISCUSSED WITH PATIENT WHO WAS ALONE IN ROOM. CONTINUE CLOSE OBSERVATION. PATIENT WILL CONTINUE TO WORK AT [employer] TO IMPROVE RANGE OF MOTION RIGHT ANKLE AND FOOT. ADDENDUM: SEDIMENTATION RATE 11 mm/HR;C-RP< 2.90. NL <3.00; PROCALCITONIN STILL <O.O5; LACTIC ACID 0.8 DOWN FROM 1.0. AUTHORIZED DIET.
--- NOTE | 2018-01-07 13:16 | P.PN ---
Subjective Date of Service: 01/07/18 Primary Care Provider: None Chief Complaint: Cellulitis of the foot Subjective: Doing well Physical Examination - Vital Signs Temperature: 97.8 F Blood Pressure: 87/48 Pulse: 70 Respirations: 20 Pulse Ox (%): 97 - Physical Exam General: Alert, In no apparent distress, Oriented x3, Cooperative HEENT: Atraumatic Neck: Supple Respiratory: Clear to auscultation bilaterally, Normal air movement Cardiovascular: Normal pulses, Regular rate/rhythm Gastrointestinal: Normal bowel sounds, Soft and benign, Non-distended, No tenderness, No masses, No rebound, No guarding Integumentary: Other (Swelling to the right foot improved. Dorsiflexion also improved. Still with pain. Erythema improved.) Neurological: Normal speech, Normal strength at 5/5 x4 extr, Normal tone, Normal affect - Studies Medications List Reviewed: Yes Assessment & Plan Discharge Plan: Home Plan to discharge in: 48 Hours Physician Review Additional Text: Impression: Cellulitis of the right foot from deep puncture wound by contaminated nails Plan: Cellulitis of the right foot from deep puncture wound by contaminated nails: Will continue with IV antibiotic therapy. Will continue with pain control. Encourage physical therapy with increased dorsiflexion. Repeat lab shows no significant change. MRI shows no osteomyelitis or collection of fluid. Will follow along with orthopedics. If no improvement or worsening patient still may require transfer to higher level of care center to further evaluate and possibly treat with debridement. Will discuss further with orthopedics. Time Spent Managing Pts Care (In Minutes): 55
[2018-01-07] MEDS: ENOXAPARIN 40 MG/0.4 ML SQ SCH ×2 (18:30→20:34)
[2018-01-07] MEDS: HYDROCODONE/APAP 7.5/325 MG TAB PO PRN (20:32)
[2018-01-07] MEDS: MORPHINE 2 MG/ML SYR IV PRN (22:20)
[2018-01-08] MEDS ORDERED: PIPER/TAZO/NS 3.375gm 3.375 GM/100 ML BAG ONE (00:22)
[2018-01-08] MEDS: PIPER/TAZO/NS 3.375gm 3.375 GM/100 ML BAG IVPB SCH ×3 (00:40→17:09)
[2018-01-08] MEDS: MORPHINE 2 MG/ML SYR IV PRN (04:04)
[2018-01-08 05:43] LABS: Absolute Lymphocytes (CBC) 2.5 K/uL (0.7-4.9); Absolute Monocytes 0.4 K/uL (0.1-1.3); Absolute Neutrophil 2.5 K/uL (1.8-8.0); Hematocrit 36.4 % (36.0-45.0); Lymphocytes % 42.6 % (15.3-44.8); MCH 31.7 pg (27.0-35.0); MPV 7.3 fL (7.6-11.3); Monocytes % 7.3 % (3.3-12.3); RBC Red Blood Cell Count 4.09 M/uL (3.86-4.86)
[2018-01-08 05:58] LABS: BUN Blood Urea Nitrogen 7 mg/dL (7-18); Bicarbonate 27 mmol/L (21-32); C-Reactive Protein < 2.90 mg/L (<3.00); Glucose Level 86 mg/dL (74-106); Magnesium 2.2 mg/dL (1.8-2.4); Potassium 3.6 mmol/L (3.5-5.1); Sodium Level 141 mmol/L (136-145)
[2018-01-08] MEDS: LINEZOLID 600 MG IVPB 600 MG/300 ML BAG IV SCH ×2 (09:36→20:53)
--- NOTE | 2018-01-08 11:00 | P.PN ---
Date of Service: 01/08/18 S: PATIENT IN BED ASLEEP ON LEFT SIDE. PAIN CHART HAD ALONG STRETCH OF ZEROS YESTERDAY, BUT LAST NIGHT C/O PAIN IN FOOT RADIATING TO HIP AND 1ST TIME WAS GIVEN IV MORPHINE. O: AFEBRILE, VSS. 01/05/18 LACTIC ACID WAS 1.0/PROCALCITONIN<0.05. ON INSPECTION, THE RIGHT FOREFOOT HAS NO SWELLING TODAY/NO ERYTHEMA. NO TENDERNESS TO PALPATION OF CALF, ANTERIOR COMPARTMENT OR ANKLE. STILL NO ERYTHEMA OR PROTUBERANCE AROUND THE NAIL PUNCTURE SITES. PATIENT UPON AWAKENING CAN DEMONSTRATE LIMITED DORSIFLEXION FOR THE RIGHT FOOT, TOES AND ANKLE. SENSATION REMAINS INTACT TO LIGHT TOUCH THROUGHOUT LOWER LEG, ANKLE AND FOOT, AND THE FIRST WEBSPACE HAS NORMAL SENSATION. SEDIMENTATION RATE 11 mm/HR; C-RP < 2.90. NL <3.00; PROCALCITONIN STILL <O.O5; LACTIC ACID 0.8 DOWN FROM 1.0. AUTHORIZED DIET. A: PATIENT TO BE CONVERTED TO P.O. ABX. DISCUSSED WITH DR. MALONEY. PATIENT WILL NEED POSTERIOR SPLINT. ALSO DISCUSSED TREATMENT OF SYMPTOMS WITH NEURONTIN. P: CONTINUE CLOSE OBSERVATION. PATIENT WILL CONTINUE TO WORK AT [employer] FOR NOW TO IMPROVE RANGE OF MOTION RIGHT ANKLE AND FOOT. PREPARING FOR TRANSITION TO OUTPATIENT F/U.
--- NOTE | 2018-01-08 14:58 | P.PN ---
Subjective Date of Service: 01/08/18 Primary Care Provider: None Chief Complaint: Cellulitis of the foot Subjective: Other (Patient reports improvement in pain. Some nerve pain noted) Physical Examination - Vital Signs Temperature: 97.8 F Blood Pressure: 96/53 Pulse: 69 Respirations: 16 Pulse Ox (%): 100 - Physical Exam General: Alert, In no apparent distress, Oriented x3, Cooperative HEENT: Atraumatic Neck: Supple Respiratory: Clear to auscultation bilaterally, Normal air movement Cardiovascular: Normal pulses, Regular rate/rhythm Gastrointestinal: Normal bowel sounds, Soft and benign, Non-distended Integumentary: Other (Erythema, swelling to the right foot improved. Dorsiflexion also improved. Less pain with palpation.) Neurological: Normal speech, Normal strength at 5/5 x4 extr, Normal tone, Normal affect - Studies Medications List Reviewed: Yes Assessment & Plan Discharge Plan: Home Plan to discharge in: 24 Hours Physician Review Additional Text: Impression: Cellulitis of the right foot from deep puncture wound by contaminated nails Neuropathy Plan: Cellulitis of the right foot from deep puncture wound by contaminated nails: Will continue with IV antibiotic therapy. Pain seems to be better controlled. Some neuropathy noted. Will start Neurontin 100 mg 1 pill twice daily. Case discussed at length with orthopedics. Possible discharge tomorrow. Will consult infectious disease for recommendations of antibiotics at discharge. MRI shows no osteomyelitis or collection of fluid. Patient will require splint at discharge. I will turn the service over to Dr. Cain tomorrow. I will go over the plan of care with her. Neuropathy: Will start Neurontin 100 mg 1 pill twice daily Time Spent Managing Pts Care (In Minutes): 55
[2018-01-08] MEDS: GABAPENTIN 100 MG CAP PO SCH ×2 (16:02→20:53)
[2018-01-08] MEDS: ENOXAPARIN 40 MG/0.4 ML SQ SCH ×2 (17:00→21:30)
[2018-01-08] MEDS: HYDROCODONE/APAP 7.5/325 MG TAB PO PRN (18:16)
[2018-01-09] MEDS: PIPER/TAZO/NS 3.375gm 3.375 GM/100 ML BAG IVPB SCH ×3 (00:24→16:09)
[2018-01-09] MEDS: LINEZOLID 600 MG IVPB 600 MG/300 ML BAG IV SCH (09:00)
[2018-01-09] MEDS: GABAPENTIN 100 MG CAP PO SCH (10:24)
[2018-01-09] MEDS: TRAMADOL HCL 50 MG TAB PO PRN (12:35)
[2018-01-09] MEDS: ENOXAPARIN 40 MG/0.4 ML SQ SCH (16:11)
--- NOTE | 2018-01-09 17:14 | P.DS ---
Admission Date: 01/05/18 Discharge Date: 01/09/18 Primary Care Provider: None Disposition: ROUTINE DISCHARGE Discharge Condition: GOOD Reason for Admission: Cellulitis of the foot Consultations: Orthopedics Brief History of Present Illness: Patient is a 17-year-old female who came to the hospital with cellulitis of the right foot. Patient has stepped on 2 nails [place] walking [place] the beach. Apparently the nails were on a board/plank, and she stepped on it. She has severe pain and swelling. The swelling got worse over the next 24 hr. She decided to come to the ER for further evaluation. In the ER she was treated with IV antibiotics. Apparently she had a reaction to the antibiotic she was given. Will monitor her closely at this time. Make sure she gets her tetanus shot as well. Hospital Course: Overall during the hospital stay patient remained stable Patient was initially admitted to the hospital for infected foot injury status post puncture wound on the beach failed outpatient therapy. Patient was admitted to the hospital with orthopedic consult here in the hospital. Patient did not need any surgical intervention while here in the hospital. Patient was kept on IV antibiotics here in the hospital and did overall well here in the hospital. Patient was given a tetanus shot here in the hospital as well. Patient was initially kept on IV Zosyn and was switched over to oral Augmentin on the day of discharge. Once patient was trying to get up patient noticed that she was having some for purple discoloration of her lower extremities. Ultrasound of the lower extremity was done to evaluate for the arterial flow which was negative for any obstruction. Patient then was discharged home under stable condition. And was asked to continue taking her Augmentin for total of 14 days. Vital Signs/Physical Exam: Temp Pulse Resp BP Pulse Ox 97 F 85 16 95/53 L 97 01/09/18 12:00 01/09/18 12:00 01/09/18 12:00 01/09/18 12:00 01/09/18 12:00 General: Alert, In no apparent distress HEENT: Atraumatic, PERRLA, EOMI Neck: Supple, JVD not distended Respiratory: Clear to auscultation bilaterally, Normal air movement Cardiovascular: Regular rate/rhythm, Normal S1 S2 Gastrointestinal: Normal bowel sounds, No tenderness Musculoskeletal: No tenderness Integumentary: No rashes Neurological: Normal speech, Normal tone, Normal affect Lymphatics: No axilla or inguinal lymphadenopathy Laboratory Data at Discharge: WBC 5.8 K/uL (4.3-10.9) 01/08/18 04:51 Hgb 13.0 g/dL (12.0-15.0) 01/08/18 04:51 Hct 36.4 % (36.0-45.0) 01/08/18 04:51 Plt Count 187 K/uL (152-406) 01/08/18 04:51 Sodium 141 mmol/L (136-145) 01/08/18 04:51 Potassium 3.6 mmol/L (3.5-5.1) 01/08/18 04:51 BUN 7 mg/dL (7-18) 01/08/18 04:51 Creatinine 0.60 mg/dL (0.55-1.3) 01/08/18 04:51 Glucose 86 mg/dL (74-106) 01/08/18 04:51 Magnesium 2.2 mg/dL (1.8-2.4) 01/08/18 04:51 Home Medications: Amoxicillin/Potassium Clav [Augmentin 875-125 Tablet] 1 each PO BID #28 tablet 01/09/18 New Medications: Amoxicillin/Potassium Clav [Augmentin 875-125 Tablet] 1 each PO BID #28 tablet Diet: Regular Activity: Ad karissa Followup: Gorge Espinoza MD [ACTIVE - CAN ADMIT] - Fausto Mike MD [ACTIVE - CAN ADMIT] -
--- NOTE | 2018-01-09 17:35 | RAD REPORT ---
EXAM DESCRIPTION: US - Lower Extremity Artery Uni Ltd - 01/09/2018 5:11 pm CLINICAL HISTORY: Right foot pain leg pain COMPARISON: None FINDINGS: Right common femoral artery, superficial femoral artery, popliteal artery, posterior tibia l artery and dorsalis pedis arteries demonstrate triphasic blood flow. A significant stenosis not seen. An occlusion not noted IMPRESSION: Unremarkable exam
--- NOTE | 2018-01-09 18:34 | P.PN ---
Date of Service: 01/09/18 S: PATIENT MUCH IMPROVED TODAY, ANIMATED ABOUT GOING HOME THIS EVENING. TODAY HER CONCERNS ARE FOCUSED ON A PURPLISH HUE TO HER FOREFOOT WHEN IT'S PLACED IN A DEPENDENT POSITION. O: AFEBRILE, VSS. ON INSPECTION, THE RIGHT FOREFOOT HAS NO SWELLING OR ERYTHEMA. STILL NO TENDERNESS TO PALPATION OF CALF, ANTERIOR COMPARTMENT OR ANKLE. TAKING HER FOOT OUT FROM UNDER COVERS AND PLACING IT FOR EXAM DEMONSTRATED DORSIFLEXION FOR TOES AND ANKLE AND MARKEDLY DECREASED SENSITIVITY. ONLY PRESSURE ON THE AREA IMMEDIATELY AROUND THE NAIL PUNCTURES STILL CAUSE THE WITHDRAWAL SYMPTOM. A: PATIENT CONVERTED TO P.O. AUGMENTIN. DISCUSSED FOLLOW UP CARE WITH DR. DRAPER. PATIENT DOES NOT NEED POSTERIOR SPLINT. NEURONTIN 100 mg MAY HAVE HELPED WITH THIS DRAMATIC TURNAROUND. P: OUTPATIENT F/U MY OFFICE IN 1-2 WEEKS. DISCUSSED FENCER'S STRETCH EXERCISES AND INITIATION OF PARTIAL WEIGHT BEARING TOLERATED.
--- NOTE | 2018-01-10 20:13 | CON ---
Date of Consultation: 01/09/2018 Subjective: This is a 17-year-old female, who is coming in with cellulitis of right foot after henry ing on some nails at the beach. The patient denies any headache, nausea, vomiting, chest pain, abdom inal pain, constipation, or diarrhea. Feels much better. Her swelling and discomfort has gone down significantly. She came in with worsening pain of 24 hours. The patient was started on IV antibioti cs. Past Medical History: None. Social History: Nonsmoker and nondrinker. Family History: Noncontributory. Medications: Zosyn. See MARs for other medications. Allergies: VANCOMYCIN CAUSES RASH. Review of Systems: A 10-point review was performed. Objective: Vital Signs: Temperature 98, pulse 78, respirations 16, blood pressure 130/70. HEENT: Unremarkable. Neck: Supple. Lungs: Clear to auscultation. Heart: S1, S2. Regular. Abdomen: Soft, nontender. Bowel sounds positive. Extremities: Trace edema to the right foot with erythematous changes on the plantar aspect of foot. Laboratory Data: Shows WBC 5.8, hemoglobin 13, platelets are 187. Chemistry shows sodium 141, potas sium 3.6, chloride 109 bicarb 27, BUN 7, creatinine 0.6, glucose is 90. Blood cultures are negative for 24 hour. Assessment And Plan: Right foot cellulitis status post stepping on nails. We will recommend Augment in for total of 2 weeks. Continue antibiotic and wound care. [facility] and the surgical team will follow the patient as needed. Thank you, Dr. Linda Cain for consult. SOHEILA/UNIQUE Voice ID: [id number] Report ID: [id number]
== END 2018-01-09 19:45 | disposition home or self-care (01) | DRG 603 ==
LOC: ER 15:38 → ERHOLD 18:14 → 2ND 19:44
PROVIDERS: ADMIT Family Medicine; ATTEND Family Medicine
DX: L03.115 Cellulitis of right lower limb (principal); S91.331D Puncture wound without foreign body, right foot, subsequent encounter; W22.8XXD Striking against or struck by other objects, subsequent encounter; G62.9 Polyneuropathy, unspecified
CPT/HCPCS: 36415; 80048; 81003; 81025; 83605; 83735; 84145; 85025; 85652; 86140; 87040; 93926; 96361; 96365; 96375; 97163; 99285; A9577; G0008; J1650; J2020; J2270; J2405; J2543; J3370; J7030; Q2035

== ENCOUNTER 2018-01-13 13:32 | Emergency (ER) | payer BC ==
[2018-01-13] MEDS ORDERED: NA CHLORIDE 0.9% 1,000 ML ONE ×2 (14:56→16:35)
[2018-01-13 15:46] LABS: BUN Blood Urea Nitrogen 9 mg/dL (7-18); Bicarbonate 27 mmol/L (21-32); Glucose Level 85 mg/dL (74-106); Sodium Level 138 mmol/L (136-145)
[2018-01-13 16:55] LABS: Urine Blood NEGATIVE (NEG); Urine Glucose NEGATIVE (NEG); Urine Protein 1+ (NEG); Urine Specific Gravity 1.025 (1.005-1.030)
--- NOTE | 2018-01-13 17:21 | EDPHYS ---
Physician Documentation [facility] Name: Tyra Fowler Age: 17 yrs Sex: Female : 2000 Arrival Date: 01/13/2018 Time: 13:37 Bed 17 Private MD: None, None ED Physician Otoniel Henry HPI: 01/13 16:29 This 17 yrs old Female presents to ER via Ambulatory with complaints of Foot snw Pain, Vomiting/Diarrhea. 16:29 The patient presents with pain, s/p injury, infection last week. Pt now c/o severe snw nausea, vomiting.. Context: The problem was sustained at home. Onset: The symptoms/episode began/occurred 4 day(s) ago, and became persistent. Associated signs and symptoms: The patient has no apparent associated signs or symptoms. Severity of symptoms: At their worst the symptoms were moderate. It is unknown whether or not the patient has had similar symptoms in the past. The patient has been recently seen at the [facility] Emergency Department, last week, still taking po antibiotics. 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 - Social history:: Smoking status: Patient/guardian denies using tobacco. - Ebola Screening: : No symptoms or risks identified at this time. ROS: 16:27 Constitutional: Negative for fever, chills, and weight loss, Eyes: Negative for injury, snw pain, redness, and discharge, ENT: Negative for injury, pain, and discharge, Neck: Negative for injury, pain, and swelling, Cardiovascular: Negative for chest pain, palpitations, and edema, Respiratory: Negative for shortness of breath, cough, wheezing, and pleuritic chest pain, Back: Negative for injury and pain, : Negative for injury, bleeding, discharge, and swelling, Skin: Negative for injury, rash, and discoloration, Neuro: Negative for headache, weakness, numbness, tingling, and seizure. 16:27 Abdomen/GI: Positive for nausea and vomiting. 16:27 MS/extremity: Positive for pain, of the right foot. Exam: 16:26 Constitutional: This is a well developed, well nourished patient who is awake, alert, snw and in no acute distress. Head/Face: Normocephalic, atraumatic. Eyes: Pupils equal round and reactive to light, extra-ocular motions intact. Lids and lashes normal. Conjunctiva and sclera are non-icteric and not injected. Cornea within normal limits. Periorbital areas with no swelling, redness, or edema. ENT: Nares patent. No nasal discharge, no septal abnormalities noted. Tympanic membranes are normal and external auditory canals are clear. Oropharynx with no redness, swelling, or masses, exudates, or evidence of obstruction, uvula midline. Mucous membranes moist. Neck: Trachea midline, no thyromegaly or masses palpated, and no cervical lymphadenopathy. Supple, full range of motion without nuchal rigidity, or vertebral point tenderness. No Meningismus. Chest/axilla: Normal chest wall appearance and motion. Nontender with no deformity. No lesions are appreciated. Respiratory: Lungs have equal breath sounds bilaterally, clear to auscultation and percussion. No rales, rhonchi or wheezes noted. No increased work of breathing, no retractions or nasal flaring. Abdomen/GI: Soft, non-tender, with normal bowel sounds. No distension or tympany. No guarding or rebound. No evidence of tenderness throughout. Back: No spinal tenderness. No costovertebral tenderness. Full range of motion. Skin: Warm, dry with normal turgor. Normal color with no rashes, no lesions, and no evidence of cellulitis. ecchymosis to foot improved, edema improved, no evidence of erythema MS/ Extremity: Pulses equal, no cyanosis. Neurovascular intact. Full, normal range of motion. Neuro: Awake and alert, GCS 15, oriented to person, place, time, and situation. Cranial nerves II-XII grossly intact. Motor strength 5/5 in all extremities. Sensory grossly intact. Cerebellar exam normal. Normal gait. Psych: Awake, alert, with orientation to person, place and time. Behavior, mood, and affect are within normal limits. 16:26 Cardiovascular: Rate: tachycardic, Rhythm: regular, Pulses: no pulse deficits are appreciated. Vital Signs: 13:42 BP 112 / 87; Pulse 117; Resp 16; Temp 98.1; Pulse Ox 98% on R/A; Pain 8/10; hb 15:00 BP 111 / 74; Pulse 94; Resp 16; Pulse Ox 99% on R/A; Pain 8/10; em 16:00 BP 105 / 73; Pulse 96; Resp 16; Pulse Ox 100% on R/A; Pain 0/10; em 17:19 BP 103 / 68; Pulse 99; Resp 16; Pulse Ox 99% on R/A; Pain 0/10; em MDM: 15:34 Patient medically screened. snw 17:25 Data reviewed: vital signs, nurses notes. Data interpreted: Pulse oximetry: on room air snw is 100 %. Interpretation: normal. Counseling: I had a detailed discussion with the patient and/or guardian regarding: the historical points, exam findings, and any diagnostic results supporting the discharge/admit diagnosis, lab results, the need for outpatient follow up, to return to the emergency department if symptoms worsen or persist or if there are any questions or concerns that arise at home. Special discussion: I discussed in detail with the patient the higher chance of wound infection based on his presenting history. Based on the history and exam findings, there is no indication for further emergent testing or inpatient evaluation. I discussed with the patient/guardian the need to see the primary care provider for further evaluation of the symptoms. 01/13 14:45 Order name: Urine Dipstick--Ancillary (enter results); Complete Time: 17:19 sg 01/13 14:45 Order name: Urine --Ancillary (enter results); Complete Time: 17:19 sg 01/13 15:23 Order name: Chem 7; Complete Time: 16:07 iw Administered Medications: 15:24 Drug: NS 0.9% 1000 ml Route: IV; Rate: 1 bolus; Site: left antecubital; em 16:30 Follow up: IV Status: Completed infusion; IV Intake: 1000ml em 16:36 Drug: NS 0.9% 1000 ml Route: IV; Rate: 1 bolus; Site: left antecubital; em 17:24 Follow up: IV Status: Completed infusion; IV Intake: 1000ml em Disposition: 18:16 Co-signature as Attending Physician, Otoniel Henry MD I agree with the assessment and kdr plan of care. Disposition: 01/13/18 17:20 Discharged to Home. Impression: Volume depletion, Vomiting. - Condition is Stable. - Discharge Instructions: Dehydration, Adult, Nausea and Vomiting, Adult, Rehydration, Adult. - Prescriptions for Zofran 4 mg Oral Tablet - take 1 tablet by ORAL route every 12 hours As needed; 20 tablet. - Medication Reconciliation Form, Thank You Letter, Antibiotic Education, Prescription Opioid Use form. - Follow up: Private Physician; When: 2 - 3 days; Reason: Recheck today's complaints, Continuance of care, Re-evaluation by your physician. Follow up: Emergency Department; When: As needed; Reason: Worsening of condition. Signatures: Dispatcher [employer] EDOtoniel Hernandez MD MD [facility] Andie Jarquin, WATER QUALITY ASSISTANT-C WATER QUALITY ASSISTANT-Csnw Adis Pete, RETAIL PERFORMANCE COACH RETAIL PERFORMANCE COACH em Grace Benton, RN RN Corrections: (The following items were deleted from the chart) 17:40 17:20 01/13/2018 17:20 Discharged to Home. Impression: Volume depletion; Vomiting. em Condition is Stable. Forms are Medication Reconciliation Form, Thank You Letter, Antibiotic Education, Prescription Opioid Use. Follow up: Private Physician; When: 2 - 3 days; Reason: Recheck today's complaints, Continuance of care, Re-evaluation by your physician. Follow up: Emergency Department; When: As needed; Reason: Worsening of condition. snw
--- NOTE | 2018-01-13 17:21 | ER ---
Nurse's Notes [facility] Name: Tyra Fowler Age: 17 yrs Sex: Female : 2000 Arrival Date: 01/13/2018 Time: 13:37 Bed 17 Private MD: None, None Diagnosis: Volume depletion;Vomiting Presentation: 01/13 13:38 Presenting complaint: Patient states: N/V/D x 4 days. On amoxicillin Day 4 for foot hb infection. Transition of care: patient was not received from another setting of care. Onset of symptoms was January 10, 2018. Risk Assessment: Do you want to hurt yourself or someone else? Patient reports no desire to harm self or others. Care prior to arrival: None. 13:38 Method Of Arrival: Ambulatory hb 13:38 Acuity: RANJIT 3 hb 15:44 Initial Sepsis Screen: Does the patient meet any 2 criteria? No. Patient's initial em sepsis screen is negative. Does the patient have a suspected source of infection? No. Patient's initial sepsis screen is negative. 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 - Social history:: Smoking status: Patient/guardian denies using tobacco. - Ebola Screening: : No symptoms or risks identified at this time. Screenin:44 Abuse screen: Denies threats or abuse. Nutritional screening: No deficits noted. em Tuberculosis screening: No symptoms or risk factors identified. Fall Risk None identified. Assessment: 14:30 General: Appears in no apparent distress. comfortable, Behavior is calm, cooperative. em Pain: Complains of pain in right foot Pain currently is 8 out of 10 on a pain scale. Neuro: Level of Consciousness is awake, alert, obeys commands, Oriented to person, place, time, situation. Cardiovascular: Capillary refill < 3 seconds Patient's skin is warm and dry. Respiratory: Airway is patent Respiratory effort is even, unlabored, Respiratory pattern is regular, symmetrical. GI: Abdomen is flat, Reports diarrhea, nausea, vomiting. : Urine is clear. EENT: No signs and/or symptoms were reported regarding the EENT system. Derm: Skin is intact, Skin is pink, warm \T\ dry. Musculoskeletal: Circulation, motion, and sensation intact. Capillary refill < 3 seconds, Range of motion: limited in right ankle Swelling absent. 14:45 Reassessment: Patient appears in no apparent distress at this time. I agree with above iw assessment by Adis Pete LVN. 15:30 Reassessment: Patient appears in no apparent distress at this time. Patient and/or em family updated on plan of care and expected duration. Pain level reassessed. Patient is alert, oriented x 3, equal unlabored respirations, skin warm/dry/pink. 16:00 Reassessment: Patient appears in no apparent distress at this time. Patient and/or em family updated on plan of care and expected duration. Pain level reassessed. Patient is alert, oriented x 3, equal unlabored respirations, skin warm/dry/pink. Patient denies pain at this time. Patient states feeling better. Patient states symptoms have improved. 17:19 Reassessment: Patient appears in no apparent distress at this time. Patient and/or em family updated on plan of care and expected duration. Pain level reassessed. Patient is alert, oriented x 3, equal unlabored respirations, skin warm/dry/pink. Patient denies pain at this time. Patient states feeling better. Vital Signs: 13:42 BP 112 / 87; Pulse 117; Resp 16; Temp 98.1; Pulse Ox 98% on R/A; Pain 8/10; hb 15:00 BP 111 / 74; Pulse 94; Resp 16; Pulse Ox 99% on R/A; Pain 8/10; em 16:00 BP 105 / 73; Pulse 96; Resp 16; Pulse Ox 100% on R/A; Pain 0/10; em 17:19 BP 103 / 68; Pulse 99; Resp 16; Pulse Ox 99% on R/A; Pain 0/10; em ED Course: 13:37 Patient arrived in ED. mr 13:37 None, None is Private Physician. mr 13:42 Triage completed. hb 13:42 Arm band placed on right wrist. hb 14:00 Patient has correct armband on for positive identification. Placed in gown. Bed in low em position. Call light in reach. Side rails up X2. 14:29 Andie Jarquin FNP-C is [facility]. snw 14:29 Otoniel Henry MD is Attending Physician. snw 14:31 Adis Pete LVN is Primary Nurse. em 15:30 Missed attempt(s): 22 gauge in right antecubital area. Bleeding controlled, band aid em applied, catheter tip intact. 15:30 Initial lab(s) drawn, by me, sent to lab. Inserted saline lock: 20 gauge in left em antecubital area, using aseptic technique. Blood collected. 17:29 No provider procedures requiring assistance completed. IV discontinued, intact, em bleeding controlled, No redness/swelling at site. Pressure dressing applied. Administered Medications: 15:24 Drug: NS 0.9% 1000 ml Route: IV; Rate: 1 bolus; Site: left antecubital; em 16:30 Follow up: IV Status: Completed infusion; IV Intake: 1000ml em 16:36 Drug: NS 0.9% 1000 ml Route: IV; Rate: 1 bolus; Site: left antecubital; em 17:24 Follow up: IV Status: Completed infusion; IV Intake: 1000ml em Intake: 16:30 IV: 1000ml; Total: 1000ml. em 17:24 IV: 1000ml; Total: 2000ml. em Outcome: 17:20 Discharge ordered by MD. snw 17:39 Discharged to home with crutches. em 17:39 Condition: good 17:39 Discharge instructions given to patient, Instructed on discharge instructions, follow up and referral plans. medication usage, Demonstrated understanding of instructions, follow-up care, medications, Prescriptions given X 1. 17:40 Patient left the ED. em Signatures: Andie Jarquin, PHOTOGRAPHS CURATOR-C PHOTOGRAPHS CURATOR-Csnw Mayelin Unger Adis Pete LVN LVN em Marci Alonso RN RN Grace Benton RN RN Corrections: (The following items were deleted from the chart) 17:20 14:30 General: Appears in no apparent distress. comfortable, Behavior is calm, em cooperative, Denies fever, em 17:20 14:30 Pain: Complains of pain in right foot em em 17:20 14:30 Neuro: Level of Consciousness is awake, alert, obeys commands, Oriented to em person, place, time, situation, em 17:20 14:30 Cardiovascular: Capillary refill < 3 seconds Patient's skin is warm and dry. em em 17:20 14:30 Respiratory: Airway is patent Respiratory effort is even, unlabored, Respiratory em pattern is regular, symmetrical, Breath sounds are clear bilaterally. em : 14:30 GI: Abdomen is obese, em em : 14:30 : No signs and/or symptoms were reported regarding the genitourinary system. em em : 14:30 EENT: No signs and/or symptoms were reported regarding the EENT system. em em : 14:30 Derm: Wound noted right foot and left foot em em : 14:30 Musculoskeletal: Range of motion: intact in all extremities, Swelling present in em right leg and left leg em : 16:49 Reassessment: Patient appears in no apparent distress at this time. Patient em and/or family updated on plan of care and expected duration. Pain level reassessed. Patient is alert, oriented x 3, equal unlabored respirations, skin warm/dry/pink. ultrasound at bedside em
== END 2018-01-13 17:40 | disposition home or self-care (01) ==
LOC: ER 13:32
DX: E86.9 Volume depletion, unspecified (principal); R11.10 Vomiting, unspecified
CPT/HCPCS: 36415; 80048; 81003; 81025; 96360; 96361; 99284; J7030

== ENCOUNTER 2018-04-15 16:48 | Emergency (ER) | payer BC ==
--- OUTSIDE RECORDS SUMMARY | 2018-04-15 16:56 | XMS REPORT ---
:2000 [facility] Organization [facility] Address [address] [place] [address] Dr. Wilkinson [address] [place] [id number] Care Team Providers Name Role Phone Unavailable Unavailable Unavailable Problems This patient has no known problems. Allergies, Adverse Reactions, Alerts This patient has no known allergies or adverse reactions. Medications This patient has no known medications.
--- NOTE | 2018-04-15 18:18 | ER ---
Nurse's Notes [facility] Name: Tyra Fowler Age: 18 yrs Sex: Female : 2000 Arrival Date: 04/15/2018 Time: 16:48 Bed 14 Private MD: Diagnosis: Acute bronchitis Presentation: 04/15 17:19 Presenting complaint: Patient states: cough, cold, congestion since Tuesday, chest ch pains, feels tight, getting little worse each day. Transition of care: patient was not received from another setting of care. Onset of symptoms was April 11, 2018. Risk Assessment: Do you want to hurt yourself or someone else? Patient reports no desire to harm self or others. Initial Sepsis Screen: Does the patient meet any 2 criteria? No. Patient's initial sepsis screen is negative. Does the patient have a suspected source of infection? No. Patient's initial sepsis screen is negative. Care prior to arrival: None. 17:19 Method Of Arrival: Ambulatory 17:19 Acuity: RANJIT 4 Triage Assessment: 17:21 Headache History: The patient has had previous headaches and this one is similar to previous episodes. General: Appears in no apparent distress. comfortable, Behavior is calm, cooperative, appropriate for age. Pain: Complains of pain in head, throat and chest Pain currently is 3 out of 10 on a pain scale. Neuro: No deficits noted. 17:50 Pain: Pain began Tuesday Also complains of headache. 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 - Social history:: Smoking status: Patient/guardian denies using tobacco, Patient/guardian denies using alcohol, street drugs. - Ebola Screening: : Patient negative for fever greater than or equal to 101.5 degrees Fahrenheit, and additional compatible Ebola Virus Disease symptoms Patient denies exposure to infectious person Patient denies travel to an Ebola-affected area in the 21 days before illness onset No symptoms or risks identified at this time. Screenin:50 Abuse screen: Denies threats or abuse. Nutritional screening: No deficits noted. rb1 Tuberculosis screening: No symptoms or risk factors identified. Fall Risk None identified. Assessment: 17:50 General: Appears in no apparent distress. comfortable, Behavior is calm, cooperative. rb1 Neuro: Level of Consciousness is awake, alert, obeys commands, Oriented to person, place, time, situation. Cardiovascular: Capillary refill < 3 seconds is brisk in bilateral fingers. Respiratory: Reports cough that is Airway is patent Respiratory effort is even, unlabored, Respiratory pattern is regular, symmetrical. EENT: Reports nasal congestion. Derm: Skin is pink, warm \T\ dry. Musculoskeletal: Range of motion: intact in all extremities. 17:50 Pain: Complains of pain in chest and throat and head Pain currently is 3 out of 10 on a [facility] pain scale. Vital Signs: 17:21 BP 100 / 73; Pulse 79; Resp 14; Temp 98.5(O); Pulse Ox 99% on R/A; Weight 56.7 kg; ch Height 5 ft. 3 in. (160.02 cm); Pain 8/10; 17:21 Body Mass Index 22.14 (56.70 kg, 160.02 cm) ED Course: 16:48 Patient arrived in ED. as 17:20 Triage completed. 17:21 Arm band placed on left wrist. Patient placed in waiting room. 17:47 Brown Ellis PA is [facility]. [facility] 17:47 Armani Gale MD is Attending Physician. [facility] 17:50 Patient has correct armband on for positive identification. Bed in low position. Call [facility] light in reach. Side rails up X 1. Pulse ox on. NIBP on. 18:30 Sofia Baltazar, RN is Primary Nurse. [facility] 18:30 No provider procedures requiring assistance completed. Patient did not have IV access [facility] during this emergency room visit. Administered Medications: No medications were administered Outcome: 18:17 Discharge ordered by . [facility] 18:43 Discharged to home ambulatory. [facility] 18:43 Condition: stable [facility] 18:43 Discharge instructions given to patient, Instructed on discharge instructions, follow up and referral plans. medication usage, Demonstrated understanding of instructions, follow-up care, medications, Prescriptions given X 2. 18:43 Patient left the ED. [facility] Signatures: Qing Ribera RN RN Brown Ellis PA PA Aneta Harrell as Sofia Baltazar RN RN rb1 Corrections: (The following items were deleted from the chart) 18:46 18:45 Pain: Also complains of rb1 rb1 18:49 18:48 Patient left the ED. rb1 rb1
--- NOTE | 2018-04-15 18:18 | EDPHYS ---
Physician Documentation [facility] Name: Tyra Fowler Age: 18 yrs Sex: Female : 2000 Arrival Date: 04/15/2018 Time: 16:48 Bed 14 Private MD: ED Physician Armani Gale HPI: 04/15 18:08 This 18 yrs old Female presents to ER via Ambulatory with complaints of jmm Headache, Chest Tightness. 18:08 The patient or guardian reports cough. Onset: The symptoms/episode began/occurred jmm gradually, 3 day(s) ago. Associated signs and symptoms: Pertinent positives: chest pain, with cough. This is a 18 year old female with a history of asthma that presents to the ED with complaints of cough, congestion, chills, chest pain beginning 3 days ago. patient states coworkers have been diagnosed with the flu. . 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 - Social history:: Smoking status: Patient/guardian denies using tobacco, Patient/guardian denies using alcohol, street drugs. - Ebola Screening: : Patient negative for fever greater than or equal to 101.5 degrees Fahrenheit, and additional compatible Ebola Virus Disease symptoms Patient denies exposure to infectious person Patient denies travel to an Ebola-affected area in the 21 days before illness onset No symptoms or risks identified at this time. ROS: 18:08 Cardiovascular: Negative for chest pain, palpitations, and edema. jmm 18:08 Constitutional: Positive for body aches, chills. 18:08 Cardiovascular: Positive for chest pain, with cough. 18:08 Respiratory: Positive for cough. 18:08 Neuro: Positive for headache. 18:08 All other systems are negative. Exam: 18:08 Constitutional: This is a well developed, well nourished patient who is awake, alert, jmm and in no acute distress. Head/Face: atraumatic. Eyes: EOMI, no conjunctival erythema appreciated ENT: Moist Mucus Membranes Neck: Trachea midline, Supple Chest/axilla: Normal chest wall appearance and motion. 18:08 Cardiovascular: Rate: normal, Rhythm: regular. 18:08 Respiratory: the patient does not display signs of respiratory distress, Respirations: normal, Breath sounds: are clear throughout. 18:08 Abdomen/GI: Inspection: abdomen appears normal. 18:08 Back: ROM is normal. 18:08 Musculoskeletal/extremity: ROM: intact in all extremities. 18:08 Skin: Appearance: Color: normal in color. 18:08 Neuro: Orientation: is normal, Mentation: is normal, Memory: is normal. 18:08 Psych: Behavior/mood is pleasant, cooperative. Vital Signs: 17:21 BP 100 / 73; Pulse 79; Resp 14; Temp 98.5(O); Pulse Ox 99% on R/A; Weight 56.7 kg; ch Height 5 ft. 3 in. (160.02 cm); Pain 8/10; 17:21 Body Mass Index 22.14 (56.70 kg, 160.02 cm) ch MDM: 17:49 Patient medically screened. [facility] 18:15 Data reviewed: vital signs, nurses notes. Counseling: I had a detailed discussion with cecelia the patient and/or guardian regarding: the historical points, exam findings, and any diagnostic results supporting the discharge/admit diagnosis, the need for outpatient follow up, to return to the emergency department if symptoms worsen or persist or if there are any questions or concerns that arise at home. ED course: Patient is alert and non toxic in appearance in the ED. I do not suspect acs. Chest pain is with cough. Patient will be prescribed oral antibiotics and given strict return precautions. patient understood and agrees with the plan of care. . 03/ 17:16 Order name: Flu; Complete Time: 18:15 04/15 17:16 Order name: Strep; Complete Time: 18:15 04/15 17:16 Order name: EKG; Complete Time: 17:17 04/15 17:16 Order name: EKG - Nurse/Tech; Complete Time: 17:16 04/15 18:13 Order name: Throat Culture EDMS Administered Medications: No medications were administered Disposition: 04/15/18 18:17 Discharged to Home. Impression: Acute bronchitis. - Condition is Stable. - Discharge Instructions: Acute Bronchitis, Adult. - Prescriptions for Zithromax Z- Latrell 250 mg Oral Tablet - take 1 tablet by ORAL route as directed for 5 days Day 1 - take two (2) tablets one time. Day 2, 3, 4 , 5 take one (1) tablet once daily.; 6 tablet. Albuterol Sulfate 90 mcg/actuation - inhale 1-2 puff by INHALATION route every 4-6 hours; 1 Inhaler. - Medication Reconciliation Form, Thank You Letter, Antibiotic Education, Prescription Opioid Use form. - Follow up: Private Physician; When: 2 - 3 days; Reason: Recheck today's complaints, Continuance of care, Re-evaluation by your physician. Addendum: 04/17/2018 09:30 Co-signature as Attending Physician, Armani Gale MD I agree with the assessment and c arias plan of care. Signatures: Dispatcher [employer] Qing Dennison, RN RN Armani Adler MD MD cha Mickail, Joel, PA PA Sofia Gonzalez, RN RN rb1 Corrections: (The following items were deleted from the chart) 04/15 18:48 18:17 04/15/2018 18:17 Discharged to Home. Impression: Acute bronchitis. Condition is rb1 Stable. Forms are Medication Reconciliation Form, Thank You Letter, Antibiotic Education, Prescription Opioid Use. Follow up: Private Physician; When: 2 - 3 days; Reason: Recheck today's complaints, Continuance of care, Re-evaluation by your physician. cecelia
--- NOTE | 2018-04-16 05:55 | EKG ---
Test Date: 2018-04-15 Test Time: 17:13:45 Entertainment Manager: MILLIE MEASUREMENT RESULTS: Intervals: Rate: 79 OK: 146 QRSD: 84 QT: 378 QTc: 433 New Point: P: 51 OK: 146 QRS: 67 T: 51 INTERPRETIVE STATEMENTS: Normal sinus rhythm Possible Left atrial enlargement Borderline ECG No previous ECG available for comparison Electronically Signed On 04-16-18 05:54:37 CDT by Boubacar Nagy
== END 2018-04-15 18:48 | disposition home or self-care (01) ==
LOC: ER 16:48
DX: J20.9 Acute bronchitis, unspecified (principal); Z88.3 Allergy status to other anti-infective agents
CPT/HCPCS: 87070; 87081; 87804; 93005; 99283

== ENCOUNTER 2018-04-17 11:24 | Emergency (ER) | payer BC ==
--- OUTSIDE RECORDS SUMMARY | 2018-04-17 11:26 | XMS REPORT ---
:2000 [facility] Address [address] [place] [address] Dr. Wilkinson [address] [place] [id number] Care Team Providers Name Role Phone Unavailable Unavailable Unavailable Problems This patient has no known problems. Allergies, Adverse Reactions, Alerts This patient has no known allergies or adverse reactions. Medications This patient has no known medications.
[2018-04-17 13:09] LABS: Absolute Lymphocytes (CBC) 2.5 K/uL (0.7-4.9); Absolute Monocytes 0.4 K/uL (0.1-1.3); Absolute Neutrophil 4.8 K/uL (1.8-8.0); Basophils % 0.2 % (0-1.3); Eosinophils % 2.6 % (0-4.4); Hematocrit 45.3 % (36.0-45.0); Lymphocytes % 31.1 % (15.3-44.8); MPV 7.4 fL (7.6-11.3); Monocytes % 5.6 % (3.3-12.3)
--- NOTE | 2018-04-17 13:10 | RAD REPORT ---
EXAM DESCRIPTION: RAD - Chest Single View - 04/17/2018 1:04 pm CLINICAL HISTORY: Cough;Dyspnea Chest pain. COMPARISON: No comparisons FINDINGS: Portable technique limits examination quality. The lungs are grossly clear. The heart is normal in size. No displaced fractures. IMPRESSION: No acute intrathoracic process suspected.
[2018-04-17 13:21] LABS: ALT/SGPT 17 U/L (12-78); AST/SGOT 14 U/L (15-37); Albumin 4.5 g/dL (3.4-5.0); Alkaline Phosphatase 103 U/L (45-117); BUN Blood Urea Nitrogen 8 mg/dL (7-18); Bicarbonate 26 mmol/L (21-32); Bilirubin Direct 0.1 mg/dL (0-0.2); Bilirubin Total 0.6 mg/dL (0.2-1.0); Glucose Level 82 mg/dL (74-106); Lipase 121 U/L (73-393); Potassium 3.9 mmol/L (3.5-5.1); Protein, Total 8.7 g/dL (6.4-8.2); Sodium Level 138 mmol/L (136-145)
[2018-04-17 13:22] LABS: Urine Blood NEGATIVE (NEG); Urine Glucose NEGATIVE (NEG); Urine Protein NEGATIVE (NEG); Urine pH 5.5 (5.0-7.0)
[2018-04-17 13:38] LABS: Urine Bacteria 20-50 /HPF (<20); Urine Culture Reflex Order REFLEXED; Urine Mucus 2+ /HPF (NONE SEEN); Urine RBC <5 /HPF (NONE SEEN)
[2018-04-17] MEDS ORDERED: NA CHLORIDE 0.9% 1,000 ML ONE (13:40)
--- NOTE | 2018-04-17 14:54 | RAD REPORT ---
EXAM DESCRIPTION: CT - Stone Protocol - 04/17/2018 2:35 pm CLINICAL HISTORY: Flank pain. lower abd pain, UTI COMPARISON: No comparisons TECHNIQUE: Axial images were obtained without oral or IV contrast. Lack of contrast limits solid org an and vascular assessment. The [id number] spans the entirety of the system partially obscuring uppermost abdomen and lung bases. Coronal reformatted images were obtained and reviewed. All CT scans are performed using dose optimization technique as appropriate and may include automated exposure control or mA/KV adjustment according to patient size. FINDINGS: The lower lung ram are clear. Imaged portions of the liver and spleen show no suspicious findings on non-contrast imaging. The panc reas and adrenal glands are normal. No pathologic lymphadenopathy in the abdomen or pelvis. No urinary tract stones or obstructive uropathy. No bowel obstruction, free air, free fluid or abscess. Normal appendix noted. Chronic bilateral spondylolysis L5-S1. Bilateral cystic adnexal masses are present, likely ovarian in origin, on the left measuring 8.6 x 6. 7 cm and on the right measuring 10.2 x 7.9 cm. IMPRESSION: Large bilateral adnexal cystic masses are present, likely arising from the ovaries. Pelv ic ultrasound follow-up could be obtained further workup is clinically desired. Otherwise, unremarkable study.
--- NOTE | 2018-04-17 16:17 | RAD REPORT ---
EXAM DESCRIPTION: US - Transvaginal Study Probe - 04/17/2018 3:48 pm CLINICAL HISTORY: Abdominal pain, pelvic pain COMPARISON: CT study same date TECHNIQUE: Endovaginal sonography was performed. FINDINGS: Endometrial stripe is 10 mm with no mass or polyp identifiable. Normal endometrium - myome trium interface. No myometrial mass. Uterus is 6.6 x 3.8 x 4.7 cm. Large bilateral adnexal cysts are identified matching the CT finding. No sonographic finding for calc ification or fat component. A thin rim of ovarian tissue is identifiable along 1 edge of each of the cystic masses. Doppler evaluation was able to demonstrate blood flow. A normal shaped ovary was not s een. No blood or fluid in the cul de sac. IMPRESSION: Large 8-10 cm cystic masses almost certainly ovarian in origin. Blood flow was identifia ble along with thin rim of ovarian tissue on 1 edge of each cyst. 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 No ovarian abnormality.
--- NOTE | 2018-04-17 16:37 | EDPHYS ---
Physician Documentation [facility] Name: Tyra Fowler Age: 18 yrs Sex: Female : 2000 Arrival Date: 04/17/2018 Time: 11:27 Bed 16 Private MD: None, None ED Physician Veto Faye HPI: 04/17 12:27 This 18 yrs old Female presents to ER via Ambulatory with complaints of rn Abdominal Pain. 12:27 The patient presents with abdominal pain. Onset: The symptoms/episode began/occurred 1 rn week(s) ago. The symptoms do not radiate. Associated signs and symptoms: Pertinent positives: nausea. Modifying factors: The symptoms are alleviated by nothing, the symptoms are aggravated by coughing, touching the area. Severity of pain: At its worst the pain was mild in the emergency department the pain is unchanged. The patient has not experienced similar symptoms in the past. Reports seen recently, told had bronchitis, has been having cough and intermittent abd pain for 1 week, abd pain is cramping, lower, and happening more frequently, reports last menstrual cycle 1 month ago, last preg test she took was 2 months ago, no vaginal discharge, no urinary symptoms. No trauma. No fever. . 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 - Social history:: Smoking status: Patient/guardian denies using tobacco. - Ebola Screening: : Patient denies exposure to infectious person Patient denies travel to an Ebola-affected area in the 21 days before illness onset. - Family history:: not pertinent. - Hospitalizations: : No recent hospitalization is reported. ROS: 12:29 Constitutional: Negative for fever, chills, and weight loss, Eyes: Negative for injury, rn pain, redness, and discharge, Cardiovascular: Negative for chest pain, palpitations, and edema, Respiratory: Negative for wheezing Abdomen/GI: + abd cramping, no vomiting/diarrhea Back: Negative for injury and pain, : Negative for injury, bleeding, discharge, and swelling, MS/Extremity: Negative for injury and deformity, Skin: Negative for injury, rash, and discoloration, Neuro: Negative for headache, weakness, numbness, tingling, and seizure. Exam: 12:29 Constitutional: This is a well developed, well nourished patient who is awake, alert, rn and in no acute distress. Head/Face: Normocephalic, atraumatic. ENT: MMM Cardiovascular: Regular rate and rhythm. No pulse deficits. Respiratory: Lungs have equal breath sounds bilaterally, clear to auscultation. No increased work of breathing, no retractions or nasal flaring. Abdomen/GI: soft, mild RLQ/suprapubic/LLQ tenderness, no rebound/masses, + firmer lower abd. Skin: Warm, dry MS/ Extremity: Pulses equal, no cyanosis. Neurovascular intact. Full, normal range of motion. Equal circumference. Neuro: Awake and alert, GCS 15, oriented to person, place, time, and situation. Motor strength 5/5 in all extremities. Sensory grossly intact. Vital Signs: 11:37 BP 111 / 89; Pulse 71; Resp 16; Temp 97.6(TE); Pulse Ox 100% on R/A; Weight 56.7 kg; ss Pain 8/10; 13:24 BP 104 / 92; Pulse 81; Resp 18; Pulse Ox 100% on R/A; hj 15:04 BP 100 / 71; Pulse 85; Resp 18; Pulse Ox 100% on R/A; hj 16:41 BP 102 / 75; Pulse 84; Resp 18; Pulse Ox 100% on R/A; hj MDM: 12:09 Patient medically screened. rn 14:19 Differential diagnosis: appendicitis, diverticulitis, gastroesophageal reflux disease, rn non-specific abd pain, urinary tract infection. Data reviewed: vital signs, nurses notes, lab test result(s), and as a result, I will discharge patient. 16:35 Counseling: I had a detailed discussion with the patient and/or guardian regarding: the rn historical points, exam findings, and any diagnostic results supporting the discharge/admit diagnosis, lab results, radiology results, the need for outpatient follow up, to return to the emergency department if symptoms worsen or persist or if there are any questions or concerns that arise at home. Special discussion: Based on the patient's Hx, exam, and Dx evaluation, there is no indication for emergent surgery or inpatient Tx. It is understood by the patient/guardian that if the Sx's persist or worsen they need to return immediately for re-evaluation. I discussed with the patient/guardian in detail that at this point there is no indication for admission to the hospital. It is understood, however, that if the symptoms persist or worsen the patient needs to return immediately for re-evaluation. Based on the history and exam findings, there is no indication for further emergent testing or inpatient evaluation. I discussed with the patient/guardian the need to see the OB Gyne specialist for further evaluation of the symptoms. 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 04/17 12:26 Order name: Basic Metabolic Panel; Complete Time: 13:27 rn 04/17 12:26 Order name: CBC with Diff; Complete Time: 13:27 rn 04/17 12:26 Order name: Hepatic Function; Complete Time: 13:27 04/17 12:26 Order name: Lipase; Complete Time: 13:27 rn 04/17 12:26 Order name: Urine Microscopic Only; Complete Time: 14:18 rn 04/17 13:21 Order name: Urine Dipstick--Ancillary (enter results); Complete Time: 13:27 04/17 12:29 Order name: XRAY Chest (1 view); Complete Time: 13:27 rn 04/17 13:21 Order name: Urine --Ancillary (enter results); Complete Time: 13:27 04/17 13:40 Order name: Urine Culture [facility] 04/17 14:20 Order name: CT Stone Protocol; Complete Time: 14:58 rn 04/17 15:47 Order name: Transvaginal Study Probe; Complete Time: 16:34 [facility] 04/17 12:26 Order name: IV Saline Lock; Complete Time: 13:19 rn 04/17 12:26 Order name: Labs collected and sent; Complete Time: 13:19 rn 04/17 12:26 Order name: Urine Test (obtain specimen); Complete Time: 12:47 rn 04/17 12:26 Order name: Urine Dipstick-Ancillary (obtain specimen); Complete Time: 12:47 rn Administered Medications: 13:31 Drug: NS 0.9% 1000 ml Route: IV; Rate: 1000 ml; Site: right hand; 16:28 Drug: Macrobid 100 mg Route: PO; 16:35 Follow up: Response: No adverse reaction Disposition: 04/17/18 16:36 Discharged to Home. Impression: Urinary tract infection, site not specified, Bilateral cystic masses of ovaries. - Condition is Stable. - Discharge Instructions: Ovarian Cyst, Urinary Tract Infection, Adult. - Prescriptions for Macrobid 100 mg Oral Capsule - take 1 capsule by ORAL route every 12 hours for 7 days; 14 capsule. - Medication Reconciliation Form, Thank You Letter, Antibiotic Education, Prescription Opioid Use form. - Follow up: Christine Sumner MD; When: 1 week; Reason: Recheck today's complaints, Re-evaluation by your physician. - Problem is new. - Symptoms have improved. Signatures: Dispatcher [employer] [facility] Veto Faye MD MD rn Calderon, Audri RN RN aa5 Martha Anne RN RN ss Joaquin, Henry, RN RN Corrections: (The following items were deleted from the chart) 15:47 15:00 Pelvis Complete+US.RAD.BRZ ordered. [facility] 16:37 16:36 04/17/2018 16:36 Discharged to Home. Impression: Urinary tract infection, site rn not specified; Bilateral cystic masses of ovaries. Condition is Stable. Forms are Medication Reconciliation Form, Thank You Letter, Antibiotic Education, Prescription Opioid Use. Follow up: Private Physician; When: As needed; Reason: Recheck today's complaints, Re-evaluation by your physician. Problem is new. Symptoms have improved. rn 16:55 16:37 04/17/2018 16:36 Discharged to Home. Impression: Urinary tract infection, site aa5 not specified; Bilateral cystic masses of ovaries. Condition is Stable. Discharge Instructions: Ovarian Cyst, Urinary Tract Infection, Adult. Prescriptions for Macrobid 100 mg Oral Capsule - take 1 capsule by ORAL route every 12 hours for 7 days; 14 capsule. and Forms are Medication Reconciliation Form, Thank You Letter, Antibiotic Education, Prescription Opioid Use. Follow up: Christine Sumner; When: 1 week; Reason: Recheck today's complaints, Re-evaluation by your physician. Problem is new. Symptoms have improved. rn
--- NOTE | 2018-04-17 16:37 | ER ---
Nurse's Notes [facility] Name: Tyra Fowler Age: 18 yrs Sex: Female : 2000 Arrival Date: 04/17/2018 Time: 11:27 Bed 16 Private MD: None, None Diagnosis: Urinary tract infection, site not specified;Bilateral cystic masses of ovaries Presentation: 04/17 11:34 Presenting complaint: Patient states: diagnosed with bronchitis in ED 2 days ago. Pt ss reports that her cough has gotten better, but her chest is hurting on deep breathing and also c/o intermittent abd tightness. Transition of care: patient was not received from another setting of care. Onset of symptoms was April 12, 2018. Risk Assessment: Do you want to hurt yourself or someone else? Patient reports no desire to harm self or others. Initial Sepsis Screen: Does the patient meet any 2 criteria? No. Patient's initial sepsis screen is negative. Does the patient have a suspected source of infection? No. Patient's initial sepsis screen is negative. Care prior to arrival: None. 11:34 Method Of Arrival: Ambulatory ss 11:34 Acuity: RANJIT 4 ss 11:34 Note Pt reports she was given prescriptions, but is unable to pay for her prescriptions.ss Triage Assessment: 13:20 General: Appears in no apparent distress. uncomfortable, Behavior is calm, cooperative, hj appropriate for age. Pain: Complains of pain in abdomen. EENT: No signs and/or symptoms were reported regarding the EENT system. Neuro: Level of Consciousness is awake, alert, obeys commands, Oriented to person, place, time, situation, Appropriate for age. Cardiovascular: Capillary refill < 3 seconds Patient's skin is warm and dry. Respiratory: Airway is patent Respiratory effort is even, unlabored, Respiratory pattern is regular, symmetrical. GI: Reports lower abdominal pain, upper abdominal pain. : No signs and/or symptoms were reported regarding the genitourinary system. Derm: No signs and/or symptoms reported regarding the dermatologic system. Musculoskeletal: No signs and/or symptoms reported regarding the musculoskeletal system. 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 - Social history:: Smoking status: Patient/guardian denies using tobacco. - Ebola Screening: : Patient denies exposure to infectious person Patient denies travel to an Ebola-affected area in the 21 days before illness onset. - Family history:: not pertinent. - Hospitalizations: : No recent hospitalization is reported. Screenin:20 Abuse screen: Denies threats or abuse. Denies injuries from another. Nutritional hj screening: No deficits noted. Tuberculosis screening: No symptoms or risk factors identified. Fall Risk None identified. Assessment: 13:22 GI: Bowel sounds Abd is soft and non tender. hj 14:40 Reassessment: Patient and/or family updated on plan of care and expected duration. Pain hj level reassessed. Patient is alert, oriented x 3, equal unlabored respirations, skin warm/dry/pink. awaiting results and POC;. 15:04 Reassessment: provider in room;. hj 16:41 Reassessment: Patient and/or family updated on plan of care and expected duration. Pain hj level reassessed. Patient is alert, oriented x 3, equal unlabored respirations, skin warm/dry/pink. D/C instructions given;. Vital Signs: 11:37 BP 111 / 89; Pulse 71; Resp 16; Temp 97.6(TE); Pulse Ox 100% on R/A; Weight 56.7 kg; ss Pain 8/10; 13:24 BP 104 / 92; Pulse 81; Resp 18; Pulse Ox 100% on R/A; hj 15:04 BP 100 / 71; Pulse 85; Resp 18; Pulse Ox 100% on R/A; hj 16:41 BP 102 / 75; Pulse 84; Resp 18; Pulse Ox 100% on R/A; hj ED Course: 11:27 Patient arrived in ED. mr 11:27 None, None is Private Physician. mr 11:36 Triage completed. ss 11:37 Arm band placed on right wrist. ss 12:09 Veto Faye MD is Attending Physician. rn 12:31 Olivier Casanova, DESTIN is Primary Nurse. hj 12:47 Initial lab(s) drawn, by nh, sent to lab. Inserted saline lock: 24 gauge in right hj antecubital area, using aseptic technique. Blood collected. 12:55 Radiology exam delayed due to IV insertion attempt and/or patient not having sw appropriate IV at this time. 13:00 Missed attempt(s): 24 gauge in left hand. IV discontinued, intact, bleeding controlled, pc1 No redness/swelling at site. Pressure dressing applied. 13:04 X-ray completed. Portable x-ray completed in exam room. Patient tolerated procedure mh1 well. 13:05 XRAY Chest (1 view) In Process Unspecified. EDMS 13:18 Inserted saline lock: 24 gauge in right hand, using aseptic technique. hj 13:22 Patient has correct armband on for positive identification. Placed in gown. Bed in low hj position. Call light in reach. Side rails up X 1. 14:34 CT completed. Patient tolerated procedure well. Patient moved to CT via wheelchair. Patient moved back from CT. 14:35 CT Stone Protocol In Process Unspecified. EDMS 15:47 Transvaginal Study Probe In Process Unspecified. EDMS 16:37 Christine Sumner MD is Referral Physician. rn 16:42 No provider procedures requiring assistance completed. hj Administered Medications: 13:31 Drug: NS 0.9% 1000 ml Route: IV; Rate: 1000 ml; Site: right hand; hj 16:28 Drug: Macrobid 100 mg Route: PO; hj 16:35 Follow up: Response: No adverse reaction Outcome: 16:36 Discharge ordered by . rn 16:42 Discharged to home ambulatory. hj 16:42 Condition: stable 16:42 Discharge instructions given to patient, Instructed on discharge instructions, follow up and referral plans. medication usage, Demonstrated understanding of instructions, follow-up care, medications, Prescriptions given X 1. 16:55 Patient left the ED. aa5 Signatures: Dispatcher [employer] EDLA Mayelin Unger Martha mh1 Sindhu Christianson Roman, MD MD rn Calderon, Audri RN RN aa5 Martha Anne RN RN ss Warren, Shannon sw Joaquin, Henry, RN RN hj Cantu, Patrick pc1
[2018-04-17] MEDS ORDERED: NITROFURAN MACRO 100 MG CAP PO ONE (16:40)
== END 2018-04-17 16:55 | disposition home or self-care (01) ==
LOC: ER 11:24
DX: N39.0 Urinary tract infection, site not specified (principal); N83.202 Unspecified ovarian cyst, left side; N83.201 Unspecified ovarian cyst, right side; Z88.3 Allergy status to other anti-infective agents
CPT/HCPCS: 36415; 71045; 74176; 76377; 76830; 80048; 80076; 81003; 81015; 81025; 83690; 85025; 87086; 87088; 99284; J7030

== ENCOUNTER 2018-04-19 16:59 | Day surgery (SDC) | payer BC ==
--- OUTSIDE RECORDS SUMMARY | 2018-04-19 17:02 | XMS REPORT ---
:2000 [facility] Address [address] [place] [address] Dr. Wilkinson [address] [place] [id number] Care Team Providers Name Role Phone Unavailable Unavailable Unavailable Problems This patient has no known problems. Allergies, Adverse Reactions, Alerts This patient has no known allergies or adverse reactions. Medications This patient has no known medications.
[2018-04-19 17:25] LABS: Absolute Lymphocytes (CBC) 2.7 K/uL (0.7-4.9); Absolute Monocytes 0.5 K/uL (0.1-1.3); Absolute Neutrophil 8.2 K/uL (1.8-8.0); Basophils % 0.4 % (0-1.3); Eosinophils % 1.4 % (0-4.4); Lymphocytes % 23.5 % (15.3-44.8); MPV 7.2 fL (7.6-11.3); Monocytes % 4.5 % (3.3-12.3); RBC Red Blood Cell Count 4.71 M/uL (3.86-4.86)
[2018-04-19 17:26] LABS: Specific Gravity >= 1.030 (1.005-1.030); Urine Appearance CLOUDY; Urine Bilirubin NEGATIVE (NEG); Urine Blood NEGATIVE (NEG); Urine Color YELLOW; Urine Glucose NEGATIVE (NEG); Urine Protein NEGATIVE (NEG); Urine Specific Gravity >=1.030 (1.005-1.030); Urine Urobilinogen 0.2 mg/dL (0.2-1.0); Urine pH 5.5 (5.0-7.0)
[2018-04-19 17:28] LABS: Urine Microscopic Reflex ORDER UMIC
[2018-04-19 17:40] LABS: Urine Bacteria >50 /HPF (<20); Urine Culture Reflex Order REFLEXED; Urine RBC NONE SEEN /HPF (NONE SEEN)
[2018-04-19] MEDS ORDERED: MIDAZOLAM HCL 2 MG/2 ML INJ ONE (17:41)
[2018-04-19] MEDS ORDERED: GLYCOPYRROLATE 0.2 MG/ML SYR ONE (17:41)
[2018-04-19] MEDS ORDERED: PROPOFOL 200 MG/20 ML VIAL IV ONE (17:41)
[2018-04-19] MEDS ORDERED: FENTANYL CITR 100 MCG/2 ML ONE (17:41)
[2018-04-19] MEDS ORDERED: NEOSTIGMINE 1 MG/ML -10 ML VIAL ONE (17:42)
[2018-04-19] MEDS ORDERED: ONDANSETRON 4 MG/2 ML VIAL ONE (17:42)
[2018-04-19] MEDS ORDERED: MORPHINE 10 MG/ML VIAL ONE (17:42)
[2018-04-19] MEDS ORDERED: ROCURONIUM 50 MG/5 ML VIAL IV ONE ×2 (17:44→20:06)
[2018-04-19] MEDS ORDERED: LIDOCAINE 1% MPF 5 ML VIAL ONE (17:44)
[2018-04-19] MEDS: Ringers Lactate 1,000 ML IV ONE ×2 (17:46→18:26)
[2018-04-19] MEDS ORDERED: SCOPOLAMINE HYDROBROMIDE PATCH TD ONE (18:36)
[2018-04-19] MEDS ORDERED: KETOROLAC 30 MG/ML INJ ONE (20:44)
[2018-04-19] MEDS: HYDROMORPHONE HCL 1 MG/ML INJ ONE ×2 (21:20→21:25)
[2018-04-19] MEDS ORDERED: Ringers Lactate 1,000 ML IV ONE (21:46)
[2018-04-19] MEDS ORDERED: HYDROMORPHONE HCL 1 MG/ML INJ ONE (21:46)
[2018-04-19] MEDS ORDERED: HYDROCODONE/APAP 5/325 MG TAB PO PRN (23:21)
[2018-04-19] MEDS ORDERED: MEPERIDINE HCL 50 MG/ML AMP IM PRN (23:23)
[2018-04-19] MEDS ORDERED: Ringers Lactate 1,000 ML IV SCH (23:45)
[2018-04-20] MEDS: HYDROCODONE/APAP 5/325 MG TAB PO PRN ×3 (00:12→10:25)
--- NOTE | 2018-04-20 06:15 | OP ---
Date of Procedure: 04/19/2018 Surgeon: Christine Sumner MD Administrative Associate: No Bennett. Preoperative Diagnoses: Pelvic pain, bilateral ovarian cysts, possible torsion. Postoperative Diagnoses: Pelvic pain, bilateral ovarian cysts, no torsion. Anesthesia: General endotracheal. Ebl: 150. Specimens: Left and right ovarian cysts, left ovarian capsule, and pelvic washings. Complications: No complications. Drains: No drains. Condition: The patient's condition is stable. Findings: Uterus is small. Larger right ovarian cyst sitting in the posterior cul-de-sac and the le ft ovarian cyst, smaller, sitting in the abdominal cavity lower part. The ovarian capsule smooth on both. No abnormal peritoneal fluid. Liver, gallbladder, appendix unremarkable. Indications: The patient is a 18-year-old, presented with recent onset pelvic pain starting last Tue, got much worse on Tuesday, went to the hospital on Tuesday and back on Tuesday. She was sca nned and found to have bilateral ovarian cysts; one was 10 cm, the other was 8.7 cm, both simple and no free fluid or other abnormal findings like septations. On exam, the masses were palpable abdominally and the patient was in a lot of pain, was unable to katey n sleep well at times. So, we discussed about the options of observation with the elective surgery and if torsion present th at it would be more appropriate to do surgery right away, and the patient wanted to proceed with the surgery immediately. So she was consented for laparoscopy, pelvic washings, bilateral ovarian cystec blas with preservation of the ovaries. She was worried about her family history of ovarian cancer an d so she was reassured that we would send everything to pathology, it is extremely unlikely to have o varian malignancy at this age. Description Of Procedure: After informed consent was verified, the patient was taken back to the OR, placed in supine fashion on the operating table. After general anesthesia was given, she was placed in a dorsal lithotomy position. Both arms were tucked by her sides. Abdomen, vulva, vagina and per ineum were prepped and draped in a sterile fashion. Mora was placed to drain the bladder and diagno stic VCare was introduced into the uterus in the usual fashion and Mora attached to the drainage bag and this area was draped. A 1 cm supraumbilical incision about 5 cm above the umbilicus was made in the midline with the scalpe l. Fascia was dissected, incised, tagged with 0 Vicryl sutures. Then, S retractors placed after per itoneum was entered bluntly. Linwood was introduced. Site of entry was checked and was unremarkable. Upper abdominal surfaces were normal and no fluid. Peritoneal surfaces were all normal. The patie nt was placed in Trendelenburg position. The masses were easily visible but due to the size of them decided to not put a suprapubic port, instead 2 left-sided incisions were made for 5 ports and on the right lower quadrant port for the 5 mm. All the trocars were placed and then a laparoscopic needle was taken and the drainage of the right ovarian cyst was done first, then the left ovarian cyst after pelvic washings were performed with the laparoscopic needle. Then, a tie was placed on each one to hold the fluid in while we were able to dissect. On the left side, the dissection was started with t he monopolar scissors. Incision extended about 5 cm to get access to the cyst wall and the cyst wall was peeled off in a systematic fashion. However, the cyst wall was much more adherent and the base of the cyst wall was mostly at the level of the entry of the infundibulopelvic ligament and the bleed ing started to be heavier. So at this point, the bleeders were coagulated with the help of bipolar c autery. Then after the cyst was peeled, the rest of the capsule in 2 or 3 [address] was coagulated for hemostasis. There was excellent hemostasis. Thorough irrigation and suction were performed. Moved onto the opposite side. The laparoscopic tie was removed and the incision extended from the level of the ovarian capsule. An incision about 7 cm was made. The capsule was held with the help of the 2 trocars and then pulled away with the help of the [place]. It was completely from the base without being peeled on the right side. Once this was all removed, hemostasis was secured with the help of a medium tip bipolar. The ovarian capsule was brought together at the caudal end with the he lp of a grasper and the incision lined up very evenly. So after thorough irrigation and suction were performed, Interceed was placed and this was wrapped. On the opposite side a small part of the ovarian capsule that was excessive and cut in a fashion such that it was a dog-ear was excised with the help of the monopolar scissors. Then, the ovarian capsul e brought together with a buried [id number] 3-0 Vicryl on the FS2 needle. Then, once the needle was removed the rest of it was wrapped in Interceed. After thorough irrigation and suction were per formed, there was excellent hemostasis. No evidence of any electrical, mechanical or thermal injury to the bowel or the ureters. All these were placed in a bag and removed through the umbilical incision. Then all the trocars were removed under direct vision. Fascia closed at the umbilicus with a 0 Vicryl stitch, simple 0 Vicryl in the subcutaneous tissues, interrupted 4-0 Vicryl in all the subcuticular plane. VCare, Mora rem yen. The patient recovered from anesthesia. Instrument, needle and sponge counts x2 were correct a t the end of the case. The patient tolerated the procedure well. She will follow up with me in 1 we ek. She will stay overnight because it is late and she may not have a ride. Prescriptions were give n, instructions were given. GONZALES/UNIQUE Voice ID: [id number] Report ID: [id number]
[2018-04-20] MEDS ORDERED: IBUPROFEN 200 MG TAB PO PRN (07:10)
== END 2018-04-20 11:20 | disposition home or self-care (01) ==
LOC: OR 16:59 → 2ND-WC 18:41 → OR 04-20 11:20
PROVIDERS: ATTEND Obstetrics & Gynecology
PROC: 0UB24ZZ Excision of Bilateral Ovaries, Percutaneous Endoscopic Approach (ICD-10-PCS; principal; 2018-04-19 17:30)
DX: D27.0 Benign neoplasm of right ovary (principal); D27.1 Benign neoplasm of left ovary; N83.02 Follicular cyst of left ovary; R10.2 Pelvic and perineal pain; Z80.41 Family history of malignant neoplasm of ovary
CPT/HCPCS: 36415; 81003; 81015; 81025; 85025; 86850; 86900; 86901; 88108; 88305; J1170; J2175; J2250; J2405; J2704; J2710; J3010

== ENCOUNTER 2018-05-04 18:45 | Emergency (ER) | payer BC ==
--- OUTSIDE RECORDS SUMMARY | 2018-05-04 18:47 | XMS REPORT ---
:2000 [facility] Address [address] [place] [address] Dr. Wilkinson [address] [place] [id number] Care Team Providers Name Role Phone Unavailable Unavailable Unavailable Problems This patient has no known problems. Allergies, Adverse Reactions, Alerts This patient has no known allergies or adverse reactions. Medications This patient has no known medications.
[2018-05-04 20:15] LABS: Absolute Lymphocytes (CBC) 2.2 K/uL (0.7-4.9); Absolute Monocytes 0.4 K/uL (0.1-1.3); Absolute Neutrophil 6.7 K/uL (1.8-8.0); Basophils % 0.4 % (0-1.3); Eosinophils % 1.6 % (0-4.4); Hematocrit 39.9 % (36.0-45.0); Monocytes % 3.9 % (3.3-12.3); RBC Red Blood Cell Count 4.46 M/uL (3.86-4.86)
[2018-05-04 20:43] LABS: BUN Blood Urea Nitrogen 9 mg/dL (7-18); Bicarbonate 27 mmol/L (21-32); Glucose Level 66 mg/dL (74-106); Potassium 3.7 mmol/L (3.5-5.1); Sodium Level 139 mmol/L (136-145)
[2018-05-04 20:47] LABS: HCG, Quantitative 9189 mIU/mL (1-3)
[2018-05-04 21:27] LABS: Urine Blood NEGATIVE (NEG); Urine Glucose NEGATIVE (NEG); Urine Protein NEGATIVE (NEG); Urine Specific Gravity 1.025 (1.005-1.030); Urine pH 5.5 (5.0-7.0)
--- NOTE | 2018-05-04 21:54 | EDPHYS ---
Physician Documentation [facility] Name: Tyra Fowler Age: 18 yrs Sex: Female : 2000 Arrival Date: 05/04/2018 Time: 18:47 Bed 17 Private MD: ED Physician Candido Tompkins HPI: 05/04 19:37 This 18 yrs old Female presents to ER via Ambulatory with complaints of kb Abdominal Pain - unknown weeks . 19:37 The patient presents to the emergency department with abdominal pain, of the right kb lower quadrant and left lower quadrant, that started today, described as constant, nausea and vomiting. course: care: none, Leakage of Fluid: none appreciated, Ultrasound: the patient has not had an ultrasound, Risk/complications: no obvious risks or complications are appreciated. Previous pregnancies: in previous pregnancies patient has had. Associated signs and symptoms: Pertinent positives: abdominal pain, nausea, Pertinent negatives: chest pain, diarrhea, dysuria, fever, frequency, ruptured membranes, seizure, shortness of breath, vaginal bleeding, vaginal discharge, vomiting. The patient has not experienced similar symptoms in the past. The patient has been recently seen by a physician:. Pt reports she went for a post-op follow up yesterday with Dr Sumner and her test came back positive. Had cysts removed from both ovaries 3 weeks ago. Today had lower abd pain and nausea. 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 - Social history:: Smoking status: Patient/guardian denies using tobacco. - Ebola Screening: : No symptoms or risks identified at this time. ROS: 19:34 Constitutional: Negative for fever, chills, and weight loss, Cardiovascular: Negative kb for chest pain, palpitations, and edema, Respiratory: Negative for shortness of breath, cough, wheezing, and pleuritic chest pain, Back: Negative for injury and pain, : Negative for injury, bleeding, discharge, and swelling, MS/Extremity: Negative for injury and deformity, Skin: Negative for injury, rash, and discoloration, Neuro: Negative for headache, weakness, numbness, tingling, and seizure. 19:34 Abdomen/GI: Positive for abdominal pain, nausea, Negative for diarrhea. Exam: 19:36 Constitutional: This is a well developed, well nourished patient who is awake, alert, kb and in no acute distress. Head/Face: Normocephalic, atraumatic. Neck: Trachea midline, no thyromegaly or masses palpated, and no cervical lymphadenopathy. Supple, full range of motion without nuchal rigidity, or vertebral point tenderness. No Meningismus. Chest/axilla: Normal chest wall appearance and motion. Nontender with no deformity. No lesions are appreciated. Cardiovascular: Regular rate and rhythm with a normal S1 and S2. No gallops, murmurs, or rubs. Normal PMI, no JVD. No pulse deficits. Respiratory: Lungs have equal breath sounds bilaterally, clear to auscultation and percussion. No rales, rhonchi or wheezes noted. No increased work of breathing, no retractions or nasal flaring. Back: No spinal tenderness. No costovertebral tenderness. Full range of motion. Skin: Warm, dry with normal turgor. Normal color with no rashes, no lesions, and no evidence of cellulitis. MS/ Extremity: Pulses equal, no cyanosis. Neurovascular intact. Full, normal range of motion. Neuro: Awake and alert, GCS 15, oriented to person, place, time, and situation. Cranial nerves II-XII grossly intact. Motor strength 5/5 in all extremities. Sensory grossly intact. Cerebellar exam normal. Normal gait. 19:36 Abdomen/GI: Inspection: abdomen appears normal, Bowel sounds: normal, in all quadrants, Palpation: soft, in all quadrants, mild abdominal tenderness, in the right lower quadrant and left lower quadrant. Vital Signs: 19:09 BP 106 / 77; Pulse 92; Resp 16; Temp 98.4; Pulse Ox 100% on R/A; Weight 67.13 kg (R); hb Height 5 ft. 4 in. (162.56 cm); Pain 9/10; 20:27 BP 107 / 66; Pulse 80; Resp 16; Pulse Ox 99% on R/A; mt 22:00 BP 111 / 84; Pulse 79; Resp 16; Pulse Ox 99% on R/A; jb4 19:09 Body Mass Index 25.40 (67.13 kg, 162.56 cm) hb MDM: 19:17 Patient medically screened. kb 19:36 Data reviewed: vital signs, nurses notes. Data interpreted: Pulse oximetry: on room air kb is 100 %. Interpretation: normal. 21:41 Data reviewed: old medical records, Hcg level done yesterday, [id number]. kb 21:52 Counseling: I had a detailed discussion with the patient and/or guardian regarding: the kb historical points, exam findings, and any diagnostic results supporting the discharge/admit diagnosis, lab results, radiology results, the need for outpatient follow up, an OB/Gyne specialist, to return to the emergency department if symptoms worsen or persist or if there are any questions or concerns that arise at home. 05/04 19:17 Order name: Quantitative Hcg; Complete Time: 20:56 kb 05/04 19:17 Order name: Abo/rh Typing; Complete Time: 21:36 kb 05/04 19:17 Order name: Basic Metabolic Panel; Complete Time: 20:56 kb 05/04 19:17 Order name: CBC with Diff; Complete Time: 20:25 kb 05/04 20:28 Order name: Urine Dipstick--Ancillary (enter results); Complete Time: 21:28 mw2 05/04 20:28 Order name: Urine --Ancillary (enter results); Complete Time: 21:28 2 05/04 19:17 Order name: Urine Test (obtain specimen); Complete Time: 20:16 kb 05/04 19:17 Order name: IV Saline Lock; Complete Time: 20:09 kb 05/04 19:17 Order name: Labs collected and sent; Complete Time: 20:08 kb 05/04 19:17 Order name: NPO; Complete Time: 19:21 kb 05/04 19:17 Order name: Urine Dipstick-Ancillary (obtain specimen); Complete Time: 20:16 kb 05/04 20:57 Order name: US Transvaginal Ob kb Administered Medications: No medications were administered Disposition: 05/04/18 21:53 Discharged to Home. Impression: Less than 8 weeks gestation of . - Condition is Stable. - Discharge Instructions: First Trimester of , [id number]. - Medication Reconciliation Form, Thank You Letter, Antibiotic Education, Prescription Opioid Use form. - Follow up: Emergency Department; When: As needed; Reason: Worsening of condition. Follow up: Private Physician; When: 2 - 3 days; Reason: Recheck today's complaints, Continuance of care, Re-evaluation by your physician. Signatures: Dispatcher [employer] EDGricel Sylvester, POOLROOM TABLE ATTENDANT-C POOLROOM TABLE ATTENDANT-CkGrace Gibbs, RN RN Chapo Kat RN RN jb4 Corrections: (The following items were deleted from the chart) 19:43 19:37 Pt reports she went for a post-op follow up yesterday with Dr Sumner and her kb test came back positive. Had cysts removed from both ovaries 3 weeks ago. . kb 22:17 21:53 05/04/2018 21:53 Discharged to Home. Impression: Less than 8 weeks gestation of jb4 . Condition is Stable. Forms are Medication Reconciliation Form, Thank You Letter, Antibiotic Education, Prescription Opioid Use. Follow up: Emergency Department; When: As needed; Reason: Worsening of condition. Follow up: Private Physician; When: 2 - 3 days; Reason: Recheck today's complaints, Continuance of care, Re-evaluation by your physician. kb
--- NOTE | 2018-05-04 21:54 | ER ---
Nurse's Notes [facility] Name: Tyra Fowler Age: 18 yrs Sex: Female : 2000 Arrival Date: 05/04/2018 Time: 18:47 Bed 17 Private MD: Diagnosis: Less than 8 weeks gestation of Presentation: 05/04 19:07 Presenting complaint: Patient states: Just found out she was yesterday; States hb today she began having pelvic cramping, denies any discharge; States urinary frequency, nausea. Transition of care: patient was not received from another setting of care. Onset of symptoms was May 04, 2018. Risk Assessment: Do you want to hurt yourself or someone else? Patient reports no desire to harm self or others. Initial Sepsis Screen: Does the patient meet any 2 criteria? No. Patient's initial sepsis screen is negative. Does the patient have a suspected source of infection? No. Patient's initial sepsis screen is negative. Care prior to arrival: None. 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 - Social history:: Smoking status: Patient/guardian denies using tobacco. - Ebola Screening: : No symptoms or risks identified at this time. Screenin:10 Abuse screen: Denies threats or abuse. Denies injuries from another. Nutritional hb screening: No deficits noted. Tuberculosis screening: No symptoms or risk factors identified. Fall Risk None identified. Assessment: 19:45 General: Appears in no apparent distress. uncomfortable, Behavior is calm, cooperative, jb4 appropriate for age. Pain: Complains of pain in abdomen Pain does not radiate. Pain currently is 5 out of 10 on a pain scale. Quality of pain is described as crampy. Neuro: Level of Consciousness is awake, alert, obeys commands, Oriented to person, place, time, situation. Cardiovascular: Patient's skin is warm and dry. Respiratory: Airway is patent Respiratory effort is even, unlabored, Respiratory pattern is regular, symmetrical. GI: Abdomen is flat, non-distended, Bowel sounds present X 4 quads. Abd is soft X 4 quads Abdomen is tender to palpation X 4 quads. Reports lower abdominal pain, upper abdominal pain, nausea. : Reports discharge, from vagina that is white. EENT: No signs and/or symptoms were reported regarding the EENT system. Derm: Skin is intact, Skin is pink, warm \T\ dry. Musculoskeletal: Circulation, motion, and sensation intact. 20:45 Reassessment: Patient appears in no apparent distress at this time. Patient and/or jb4 family updated on plan of care and expected duration. Pain level reassessed. Patient is alert, oriented x 3, equal unlabored respirations, skin warm/dry/pink. 21:45 Reassessment: Ultrasound at the bedside. jb4 22:14 Reassessment: Patient appears in no apparent distress at this time. Patient and/or jb4 family updated on plan of care and expected duration. Pain level reassessed. Patient is alert, oriented x 3, equal unlabored respirations, skin warm/dry/pink. Vital Signs: 19:09 BP 106 / 77; Pulse 92; Resp 16; Temp 98.4; Pulse Ox 100% on R/A; Weight 67.13 kg (R); hb Height 5 ft. 4 in. (162.56 cm); Pain 9/10; 20:27 BP 107 / 66; Pulse 80; Resp 16; Pulse Ox 99% on R/A; mt 22:00 BP 111 / 84; Pulse 79; Resp 16; Pulse Ox 99% on R/A; jb4 19:09 Body Mass Index 25.40 (67.13 kg, 162.56 cm) ED Course: 18:47 Patient arrived in ED. ss4 19:08 Triage completed. 19:17 Chapo Kat, RN is Primary Nurse. jb4 19:17 Gricel Wilson FNP-C [facility]. kb 19:17 Candido Tompkins MD is Attending Physician. kb 20:00 Patient has correct armband on for positive identification. Placed in gown. Bed in low jb4 position. Call light in reach. Side rails up X 1. Pulse ox on. NIBP on. 20:00 Arm band placed on right wrist. jb4 20:00 Inserted saline lock: 24 gauge in left hand, using aseptic technique. Blood collected. jb4 Missed attempt(s): 20 gauge in right antecubital area. 21:53 US Transvaginal Ob In Process Unspecified. EDMS 22:16 No provider procedures requiring assistance completed. IV discontinued, intact, jb4 bleeding controlled. Administered Medications: No medications were administered Outcome: :53 Discharge ordered by . kb 22:16 Discharged to home ambulatory. jb4 22:16 Condition: stable 22:16 Discharge instructions given to patient, Instructed on discharge instructions, follow up and referral plans. Demonstrated understanding of instructions, follow-up care. 22:17 Patient left the ED. jb4 Signatures: Dispatcher [employer] EDMS Gricel Wilson, HVAC TECHNICIAN RESIDENTIAL-C HVAC TECHNICIAN RESIDENTIAL-CkGrace Gibbs RN Chapo Reed RN DESTIN jb4 Madisyn Leary mt, Stephanie ss4
--- NOTE | 2018-05-04 22:40 | RAD REPORT ---
EXAM DESCRIPTION: US - Transvaginal OB - 05/04/2018 9:53 pm CLINICAL HISTORY: with abdominal pain COMPARISON: April 17, 2018 FINDINGS: The uterus 6 x 3 x 5 centimeters. A gestational sac is present within the endometrium. Wi thin this is a yolk sac and pole with a crown-rump length 2 millimeters. Cardiac activity is no t seen The ovaries are normal in size and echotexture. An adnexal mass is not noted. The right ovarian cyst has been resected. No significant free fluid is seen. IMPRESSION: Intrauterine with an estimated gestational age 5 weeks 5 days JUAN M 12/30/2018. Cardiac activity was not detected probably secondary to the early gestation. As a demise can a lso have this appearance it is recommended that patient have a followup ultrasound in 1 week for re-e valuation.
== END 2018-05-04 22:17 | disposition home or self-care (01) ==
LOC: ER 18:45
DX: O26.891 Other specified pregnancy related conditions, first trimester (principal); R10.32 Left lower quadrant pain; R10.31 Right lower quadrant pain; R11.0 Nausea; O99.511 Diseases of the respiratory system complicating pregnancy, first trimester; J45.909 Unspecified asthma, uncomplicated; Z3A.01 Less than 8 weeks gestation of pregnancy; Z88.1 Allergy status to other antibiotic agents
CPT/HCPCS: 36415; 76817; 80048; 81003; 81025; 84702; 85025; 86900; 86901; 99284

== ENCOUNTER 2018-05-11 14:20 | Emergency (ER) | payer BC ==
--- OUTSIDE RECORDS SUMMARY | 2018-05-11 14:21 | XMS REPORT ---
:2000 Author Organization [facility] Address [address] [place] [address] Dr. Wilkinson [address] [place] [id number] Care Team Providers Name Role Phone Unavailable Unavailable Unavailable Problems This patient has no known problems. Allergies, Adverse Reactions, Alerts This patient has no known allergies or adverse reactions. Medications This patient has no known medications.
[2018-05-11] MEDS ORDERED: NA CHLORIDE 0.9% 1,000 ML ONE (14:48)
[2018-05-11] MEDS ORDERED: PROMETHAZINE 25 MG/ML VIAL ONE (14:48)
[2018-05-11 15:05] LABS: Absolute Lymphocytes (CBC) 2.8 K/uL (0.7-4.9); Absolute Monocytes 0.6 K/uL (0.1-1.3); Absolute Neutrophil 6.5 K/uL (1.8-8.0); Basophils % 0.6 % (0-1.3); Eosinophils % 1.9 % (0-4.4); Hematocrit 42.1 % (36.0-45.0); Lymphocytes % 27.5 % (15.3-44.8); MPV 7.5 fL (7.6-11.3); Monocytes % 5.7 % (3.3-12.3); RBC Red Blood Cell Count 4.71 M/uL (3.86-4.86)
[2018-05-11 15:13] LABS: BUN Blood Urea Nitrogen 10 mg/dL (7-18); Bicarbonate 25 mmol/L (21-32); Glucose Level 73 mg/dL (74-106); Potassium 3.7 mmol/L (3.5-5.1); Sodium Level 137 mmol/L (136-145)
[2018-05-11 15:59] LABS: Urine Bacteria 20-50 /HPF (<20); Urine RBC <5 /HPF (NONE SEEN)
[2018-05-11 16:00] LABS: Urine Culture Reflex Order REFLEXED; Urine Mucus 1+ /HPF (NONE SEEN)
[2018-05-11 16:00] LABS: Urine Blood NEGATIVE (NEG); Urine Glucose NEGATIVE (NEG); Urine Protein 2+ (NEG); Urine pH 7.5 (5.0-7.0)
[2018-05-11] MEDS ORDERED: CEFTRIAXONE/SWI 1gm 1 GM/10 ML SYR ONE (16:52)
--- NOTE | 2018-05-11 17:06 | EDPHYS ---
Physician Documentation [facility] Name: Tyra Fowler Age: 18 yrs Sex: Female : 2000 Arrival Date: 05/11/2018 Time: 14:23 Bed 7 Private MD: ED Physician Veto Faye HPI: 05/11 15:21 This 18 yrs old Female presents to ER via Ambulatory with complaints of jr8 Vomiting, . 15:21 The patient presents to the emergency department with nausea, vomiting. Onset: The jr8 symptoms/episode began/occurred gradually, 2 week(s) ago. Possible causes: . The symptoms are aggravated by food , The symptoms are alleviated by nothing. Associated signs and symptoms: The patient has no apparent associated signs or symptoms. Severity of symptoms: At their worst the symptoms were mild in the emergency department the symptoms are unchanged. The patient has not experienced similar symptoms in the past. The patient has not recently seen a physician. 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 - Ebola Screening: : No symptoms or risks identified at this time. - Social history:: Smoking status: Patient/guardian denies using tobacco, Patient/guardian denies using alcohol. ROS: 15:21 Eyes: Negative for injury, pain, redness, and discharge, ENT: Negative for injury, jr8 pain, and discharge, Neck: Negative for injury, pain, and swelling, Cardiovascular: Negative for chest pain, palpitations, and edema, Respiratory: Negative for shortness of breath, cough, wheezing, and pleuritic chest pain, Back: Negative for injury and pain, : Negative for injury, bleeding, discharge, and swelling, MS/Extremity: Negative for injury and deformity, Skin: Negative for injury, rash, and discoloration, Neuro: Negative for headache, weakness, numbness, tingling, and seizure. 15:21 Abdomen/GI: Positive for nausea and vomiting, Negative for abdominal pain, diarrhea, abdominal cramps, abdominal distension, anorexia, dysphagia, hematemesis, black/tarry stool, rectal pain, rectal bleeding, bowel incontinence, flatulence. Exam: 15:21 Eyes: Pupils equal round and reactive to light, extra-ocular motions intact. Lids and jr8 lashes normal. Conjunctiva and sclera are non-icteric and not injected. Cornea within normal limits. Periorbital areas with no swelling, redness, or edema. ENT: Nares patent. No nasal discharge, no septal abnormalities noted. Tympanic membranes are normal and external auditory canals are clear. Oropharynx with no redness, swelling, or masses, exudates, or evidence of obstruction, uvula midline. Mucous membranes moist. Neck: Trachea midline, no thyromegaly or masses palpated, and no cervical lymphadenopathy. Supple, full range of motion without nuchal rigidity, or vertebral point tenderness. No Meningismus. Cardiovascular: Regular rate and rhythm with a normal S1 and S2. No gallops, murmurs, or rubs. Normal PMI, no JVD. No pulse deficits. Respiratory: Lungs have equal breath sounds bilaterally, clear to auscultation and percussion. No rales, rhonchi or wheezes noted. No increased work of breathing, no retractions or nasal flaring. Abdomen/GI: Soft, non-tender, with normal bowel sounds. No distension or tympany. No guarding or rebound. No evidence of tenderness throughout. Back: No spinal tenderness. No costovertebral tenderness. Full range of motion. Skin: Warm, dry with normal turgor. Normal color with no rashes, no lesions, and no evidence of cellulitis. MS/ Extremity: Pulses equal, no cyanosis. Neurovascular intact. Full, normal range of motion. Neuro: Awake and alert, GCS 15, oriented to person, place, time, and situation. Cranial nerves II-XII grossly intact. Motor strength 5/5 in all extremities. Sensory grossly intact. Cerebellar exam normal. Normal gait. Vital Signs: 14:45 BP 106 / 94; Pulse 78; Resp 18; Temp 97.4(O); Pulse Ox 100% on R/A; Weight 60.78 kg; hj Height 5 ft. 4 in. (162.56 cm); Pain 0/10; 15:45 BP 110 / 89; Pulse 75; Resp 18; Pulse Ox 100% on R/A; hj 16:18 BP 99 / 78; Pulse 76; Resp 18; Pulse Ox 99% on R/A; hj 17:00 BP 99 / 76; Pulse 72; Resp 18; Pulse Ox 100% on R/A; hj 14:45 Body Mass Index 23.00 (60.78 kg, 162.56 cm) MDM: 14:28 Patient medically screened. 8 16:40 Data reviewed: vital signs, nurses notes, lab test result(s). Data interpreted: Pulse jr8 oximetry: on room air is 99 %. Interpretation: normal. Counseling: I had a detailed discussion with the patient and/or guardian regarding: the historical points, exam findings, and any diagnostic results supporting the discharge/admit diagnosis, lab results, the need for outpatient follow up, an OB/Gyne specialist, to return to the emergency department if symptoms worsen or persist or if there are any questions or concerns that arise at home. Response to treatment: the patient's symptoms have markedly improved after treatment. ED course: Patient feeling hungry. VS stable. Labs WNL. UTI present. Will send home on antibiotics and nausea medicine. To f/u for next available appointment . 05/11 14:32 Order name: CBC with Diff [facility] 05/11 14:32 Order name: Basic Metabolic Panel [facility] 05/11 14:32 Order name: CBC with Automated Diff; Complete Time: 15:49 [facility] 05/11 14:32 Order name: Basic Metabolic Panel; Complete Time: 15:21 [facility] 05/11 15:35 Order name: Urine Microscopic Only; Complete Time: 16:36 [facility] 05/11 15:39 Order name: Urine Dipstick--Ancillary (enter results); Complete Time: 16:36 05/11 14:32 Order name: Urine Test (obtain specimen); Complete Time: 15:27 [facility] 05/11 14:32 Order name: Urine Dipstick-Ancillary (obtain specimen); Complete Time: 15:27 [facility] 05/11 14:32 Order name: IV; Complete Time: 14:42 [facility] 05/11 15:39 Order name: Urine --Ancillary (enter results); Complete Time: 16:36 05/11 16:01 Order name: Urine Culture EDMS Administered Medications: 14:32 Drug: NS 0.9% 1000 ml Route: IV; Rate: 1000 ml; Site: right hand; 15:27 Follow up: IV Status: Completed infusion hj 14:32 Drug: Promethazine 12.5 mg Route: IVP; Site: right hand; hj 15:27 Follow up: Response: No adverse reaction; Nausea is decreased hj 16:36 Drug: Rocephin 1 grams Route: IV; Rate: calculated rate; Site: right hand; hj 16:44 Follow up: IV Status: Completed infusion hj Disposition: 05/11/18 17:05 Discharged to Home. Impression: Vomiting of , unspecified, Urinary tract infection, site not specified. - Condition is Stable. - Discharge Instructions: Morning Sickness, [id number], Urinary Tract Infection, Adult. - Prescriptions for promethazine 25 mg Oral Tablet - take 1 tablet by ORAL route every 6 hours As needed; 20 tablet. Macrobid 100 mg Oral Capsule - take 1 capsule by ORAL route every 12 hours for 7 days; 14 capsule. - Medication Reconciliation Form, Thank You Letter, Antibiotic Education, Prescription Opioid Use form. - Follow up: Private Physician; When: 2 - 3 days; Reason: Recheck today's complaints, Continuance of care, Re-evaluation by your physician. - Problem is new. - Symptoms have improved. Addendum: 05/15/2018 07:04 Co-signature as Attending Physician, Veto Faye MD. r n Signatures: Dispatcher [employer] EDVeto Frazier MD MD rn Calderon, Audri RN RN aa5 Dale James PA PA jr8 Olivier Casanova RN RN hj Corrections: (The following items were deleted from the chart) 05/11 17:19 17:05 05/11/2018 17:05 Discharged to Home. Impression: Vomiting of , hj unspecified; Urinary tract infection, site not specified. Condition is Stable. Forms are Medication Reconciliation Form, Thank You Letter, Antibiotic Education, Prescription Opioid Use. Follow up: Private Physician; When: 2 - 3 days; Reason: Recheck today's complaints, Continuance of care, Re-evaluation by your physician. Problem is new. Symptoms have improved. jr8
--- NOTE | 2018-05-11 17:06 | ER ---
Nurse's Notes [facility] Name: Tyra Fowler Age: 18 yrs Sex: Female : 2000 Arrival Date: 05/11/2018 Time: 14:23 Bed 7 Private MD: Diagnosis: Vomiting of , unspecified;Urinary tract infection, site not specified Presentation: 05/11 14:29 Presenting complaint: Patient states: reports being 5-7 weeks . Pt reports aa5 vomiting x 1 week ago. Pt states "I can't keep anything down, everything I eat I throw up". Transition of care: patient was not received from another setting of care. Onset of symptoms was May 2018. Risk Assessment: Do you want to hurt yourself or someone else? Patient reports no desire to harm self or others. Initial Sepsis Screen: Does the patient meet any 2 criteria? No. Patient's initial sepsis screen is negative. Does the patient have a suspected source of infection? No. Patient's initial sepsis screen is negative. Care prior to arrival: None. 14:29 Method Of Arrival: Ambulatory aa5 14:29 Acuity: RANJIT 3 aa5 Triage Assessment: 14:32 General: Appears in no apparent distress. uncomfortable, Behavior is calm, cooperative, hj appropriate for age. Pain: Denies pain. GI: Reports nausea, vomiting. 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 - Ebola Screening: : No symptoms or risks identified at this time. - Social history:: Smoking status: Patient/guardian denies using tobacco, Patient/guardian denies using alcohol. Screenin:32 Abuse screen: Denies threats or abuse. Denies injuries from another. Nutritional hj screening: No deficits noted. Tuberculosis screening: No symptoms or risk factors identified. Fall Risk None identified. Assessment: 14:32 GI: Abdomen is non-distended. hj 14:32 General: Appears in no apparent distress. uncomfortable, Behavior is calm, cooperative, hj appropriate for age. Pain: Denies pain. Neuro: Level of Consciousness is awake, alert, obeys commands, Oriented to person, place, time, situation, Appropriate for age. Cardiovascular: Capillary refill < 3 seconds Patient's skin is warm and dry. Respiratory: Airway is patent Respiratory effort is even, unlabored, Respiratory pattern is regular, symmetrical. : No signs and/or symptoms were reported regarding the genitourinary system. EENT: No signs and/or symptoms were reported regarding the EENT system. Derm: No signs and/or symptoms reported regarding the dermatologic system. Musculoskeletal: No signs and/or symptoms reported regarding the musculoskeletal system. 14:49 Reassessment: Patient and/or family updated on plan of care and expected duration. Pain hj level reassessed. Patient is alert, oriented x 3, equal unlabored respirations, skin warm/dry/pink. awaiting results and POC:. 15:30 Reassessment: Patient and/or family updated on plan of care and expected duration. Pain hj level reassessed. Patient is alert, oriented x 3, equal unlabored respirations, skin warm/dry/pink. resting comfortably; awaiting POC:. 16:16 Reassessment: Patient and/or family updated on plan of care and expected duration. Pain hj level reassessed. Patient is alert, oriented x 3, equal unlabored respirations, skin warm/dry/pink. awaiting POC:. 17:00 Reassessment: Patient and/or family updated on plan of care and expected duration. Pain hj level reassessed. Patient is alert, oriented x 3, equal unlabored respirations, skin warm/dry/pink. eating crackers and drinking juice; able to tolerate it;. Vital Signs: 14:45 BP 106 / 94; Pulse 78; Resp 18; Temp 97.4(O); Pulse Ox 100% on R/A; Weight 60.78 kg; Height 5 ft. 4 in. (162.56 cm); Pain 0/10; 15:45 BP 110 / 89; Pulse 75; Resp 18; Pulse Ox 100% on R/A; hj 16:18 BP 99 / 78; Pulse 76; Resp 18; Pulse Ox 99% on R/A; hj 17:00 BP 99 / 76; Pulse 72; Resp 18; Pulse Ox 100% on R/A; hj 14:45 Body Mass Index 23.00 (60.78 kg, 162.56 cm) ED Course: 14:23 Patient arrived in ED. mr 14:25 Olivier Casanova, RN is Primary Nurse. hj 14:28 Dale James PA is PHCP. jr8 14:28 Veto Faye MD is Attending Physician. jr8 14:29 Arm band placed on. aa5 14:31 Triage completed. aa5 14:32 Patient has correct armband on for positive identification. Placed in gown. Bed in low hj position. Call light in reach. Side rails up X 1. 14:45 Initial lab(s) drawn, by me, sent to lab. Inserted saline lock: 24 gauge in right hand, hj using aseptic technique. Blood collected. 17:13 No provider procedures requiring assistance completed. IV discontinued, intact, hj bleeding controlled, No redness/swelling at site. Pressure dressing applied. Administered Medications: 14:32 Drug: NS 0.9% 1000 ml Route: IV; Rate: 1000 ml; Site: right hand; hj 15:27 Follow up: IV Status: Completed infusion hj 14:32 Drug: Promethazine 12.5 mg Route: IVP; Site: right hand; hj 15:27 Follow up: Response: No adverse reaction; Nausea is decreased hj 16:36 Drug: Rocephin 1 grams Route: IV; Rate: calculated rate; Site: right hand; hj 16:44 Follow up: IV Status: Completed infusion hj Outcome: 17:05 Discharge ordered by . jr8 17:13 Discharged to home ambulatory. hj 17:13 Condition: stable 17:13 Discharge instructions given to patient, Instructed on discharge instructions, follow up and referral plans. medication usage, Demonstrated understanding of instructions, follow-up care, medications, Prescriptions given X 2. 17:19 Patient left the ED. Signatures: Mayelin Unger mr MartLuciana, RN RN aa5 Dale James PA PA jr8 Olivier Casanova, RN RN
== END 2018-05-11 17:19 | disposition home or self-care (01) ==
LOC: ER 14:20
DX: O23.41 Unspecified infection of urinary tract in pregnancy, first trimester (principal); Z3A.01 Less than 8 weeks gestation of pregnancy; Z88.3 Allergy status to other anti-infective agents
CPT/HCPCS: 36415; 80048; 81003; 81015; 81025; 85025; 87086; 87088; 96361; 96374; 96375; 99284; J0696; J2550; J7030

== ENCOUNTER 2018-06-02 14:34 | Emergency (ER) | payer BC, OTHER ==
--- OUTSIDE RECORDS SUMMARY | 2018-06-02 14:36 | XMS REPORT ---
:2000 [facility] Address [address] [place] [address] Dr. Wilkinson [address] [place] [id number] Care Team Providers Name Role Phone Unavailable Unavailable Unavailable Problems This patient has no known problems. Allergies, Adverse Reactions, Alerts This patient has no known allergies or adverse reactions. Medications This patient has no known medications.
[2018-06-02] MEDS ORDERED: NA CHLORIDE 0.9% 1,000 ML ONE (15:14)
[2018-06-02 16:06] LABS: Urine Blood 3+ (NEG); Urine Glucose NEGATIVE (NEG); Urine Protein 1+ (NEG)
[2018-06-02 16:34] LABS: Absolute Lymphocytes (CBC) 2.2 K/uL (0.7-4.9); Absolute Monocytes 0.5 K/uL (0.1-1.3); Absolute Neutrophil 7.2 K/uL (1.8-8.0); Basophils % 0.4 % (0-1.3); Eosinophils % 1.8 % (0-4.4); Hematocrit 41.5 % (36.0-45.0); Lymphocytes % 21.9 % (15.3-44.8); MPV 7.3 fL (7.6-11.3); Monocytes % 4.8 % (3.3-12.3)
[2018-06-02] MEDS ORDERED: ACETAMINOPHEN 500 MG TAB ONE (16:54)
--- NOTE | 2018-06-02 17:00 | RAD REPORT ---
EXAM DESCRIPTION: US - Transvaginal OB - 06/02/2018 4:37 pm CLINICAL HISTORY: with vaginal bleeding COMPARISON: May 18, 2018 FINDINGS: The uterus 8 x 6 x 8 centimeters. pole is present within the endometrium measuring 2.6 centimeters. Cardiac activity 167 beats per minute. Ovaries are normal in size and echotexture. Right and left adnexal unremarkable No significant free fluid IMPRESSION: Single live intrauterine with an estimated gestational age 9 weeks 3 days JUAN M 01/02/2019
[2018-06-02 17:17] LABS: BUN Blood Urea Nitrogen 6 mg/dL (7-18); Bicarbonate 25 mmol/L (21-32); Glucose Level 75 mg/dL (74-106); HCG, Quantitative 79461 mIU/mL (1-3); Sodium Level 140 mmol/L (136-145)
--- NOTE | 2018-06-02 17:19 | EDPHYS ---
Physician Documentation [facility] Name: Tyra Fowler Age: 18 yrs Sex: Female : 2000 Arrival Date: 06/02/2018 Time: 14:37 Bed 26 Private MD: ED Physician Ivon Mckeon HPI: 06/02 15:36 This 18 yrs old Female presents to ER via Ambulatory with complaints of kb Vaginal Bleeding, + Preg <12wks, Abdominal Pain. 15:36 The patient presents to the emergency department with vaginal bleeding, that is kb moderate, with no clots. The estimated gestational age is 9 weeks. course: care: private OB physician, Dr. Mendez, Leakage of Fluid: none appreciated, Ultrasound: the patient had an ultrasound, which was normal. Previous pregnancies: the patient has never been . Associated signs and symptoms: Pertinent positives: vaginal bleeding. The patient has not experienced similar symptoms in the past. The patient has not recently seen a physician. Pt reports she was watching tv and felt the urge to urinate. States she got up and there was blood all over the sheets. Pt is [address] Mendez . 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 - Social history:: Smoking status: Patient/guardian denies using tobacco. - Ebola Screening: : No symptoms or risks identified at this time. ROS: 15:40 Constitutional: Negative for fever, chills, and weight loss, Cardiovascular: Negative kb for chest pain, palpitations, and edema, Respiratory: Negative for shortness of breath, cough, wheezing, and pleuritic chest pain, Abdomen/GI: Negative for abdominal pain, nausea, vomiting, diarrhea, and constipation, Back: Negative for injury and pain, MS/Extremity: Negative for injury and deformity, Skin: Negative for injury, rash, and discoloration, Neuro: Negative for headache, weakness, numbness, tingling, and seizure. 15:40 : Positive for vaginal bleeding. Exam: 15:40 Constitutional: This is a well developed, well nourished patient who is awake, alert, kb and in no acute distress. Head/Face: Normocephalic, atraumatic. Chest/axilla: Normal chest wall appearance and motion. Nontender with no deformity. No lesions are appreciated. Cardiovascular: Regular rate and rhythm with a normal S1 and S2. No gallops, murmurs, or rubs. Normal PMI, no JVD. No pulse deficits. Respiratory: Lungs have equal breath sounds bilaterally, clear to auscultation and percussion. No rales, rhonchi or wheezes noted. No increased work of breathing, no retractions or nasal flaring. Abdomen/GI: Soft, non-tender, with normal bowel sounds. No distension or tympany. No guarding or rebound. No evidence of tenderness throughout. Back: No spinal tenderness. No costovertebral tenderness. Full range of motion. Skin: Warm, dry with normal turgor. Normal color with no rashes, no lesions, and no evidence of cellulitis. MS/ Extremity: Pulses equal, no cyanosis. Neurovascular intact. Full, normal range of motion. Neuro: Awake and alert, GCS 15, oriented to person, place, time, and situation. Cranial nerves II-XII grossly intact. Motor strength 5/5 in all extremities. Sensory grossly intact. Cerebellar exam normal. Normal gait. Vital Signs: 14:48 BP 108 / 82; Pulse 113; Resp 18; Temp 97.5(TE); Pulse Ox 98% on R/A; Weight 66.22 kg; hj Height 5 ft. 3 in. (160.02 cm); Pain 0/10; 16:35 BP 110 / 81; Pulse 89; Resp 18 S; Pulse Ox 98% on R/A; ca1 17:20 BP 105 / 79; Pulse 91; Resp 18 S; Pulse Ox 100% on R/A; ca1 14:48 Body Mass Index 25.86 (66.22 kg, 160.02 cm) MDM: 14:54 Patient medically screened. kb 15:40 Data reviewed: vital signs, nurses notes. Data interpreted: Pulse oximetry: on room air kb is 98 %. Interpretation: normal. 16:39 ED course: US revealed IUP [id number] with FHT 167 per US tech. Pt educated on results and kb that she needs to follow up with Dr Mendez. . 17:18 Counseling: I had a detailed discussion with the patient and/or guardian regarding: the kb historical points, exam findings, and any diagnostic results supporting the discharge/admit diagnosis, lab results, radiology results, the need for outpatient follow up, an OB/Gyne specialist, to return to the emergency department if symptoms worsen or persist or if there are any questions or concerns that arise at home. ED course: Pt educated on bed and pelvic rest and to follow up with DR Mendez. Educated to return for any concerns or worsening symtpoms. 06/02 14:48 Order name: Quantitative Hcg; Complete Time: 17:17 kb 06/02 14:48 Order name: Abo/rh Typing kb 06/02 14:48 Order name: Basic Metabolic Panel; Complete Time: 17:17 kb 06/02 14:48 Order name: CBC with Diff; Complete Time: 16:39 kb 06/02 15:33 Order name: Urine Dipstick--Ancillary (enter results) ms 06/02 15:33 Order name: Urine --Ancillary (enter results); Complete Time: 16:10 ms 06/02 14:48 Order name: IV Saline Lock; Complete Time: 15:05 kb 06/02 14:48 Order name: Labs collected and sent; Complete Time: 15:05 kb 06/02 14:48 Order name: NPO; Complete Time: 15:05 kb 06/02 14:48 Order name: Urine Dipstick-Ancillary (obtain specimen); Complete Time: 15:49 kb 06/02 14:58 Order name: US Transvaginal Ob; Complete Time: 17:00 kb 06/02 15:56 Order name: Urine Dipstick-Ancillary; Complete Time: 16:10 EDMS 06/02 15:58 Order name: Labs - recollect needed; Complete Time: 16:30 ms Administered Medications: 16:44 Drug: Tylenol 1000 mg Route: PO; ca1 17:20 Follow up: Response: No adverse reaction; Pain is decreased ca1 17:27 Not Given (Patient Refused): NS 0.9% 1000 ml IV at 1000 ml once ca1 Disposition: 06/02/18 17:18 Discharged to Home. Impression: 9 weeks gestation of , Threatened . - Condition is Stable. - Discharge Instructions: First Trimester of , [id number], Threatened Miscarriage, [id number], Pelvic Rest. - Medication Reconciliation Form, Thank You Letter, Antibiotic Education, Prescription Opioid Use form. - Follow up: Emergency Department; When: As needed; Reason: Worsening of condition. Follow up: Private Physician; When: 2 - 3 days; Reason: Recheck today's complaints, Continuance of care, Re-evaluation by your physician. Addendum: 06/07/2018 14:18 Co-signature as Attending Physician, Ivon Mckeon MD. m a2 Signatures: Dispatcher [employer] EDGricel Sylvester, [facility] [employer] POLICY NURSE-Racquel Bradley msaqOlivier goodson, RN RN Ivon Mckeon MD MD ma2 Ana Maria Rome RN RN ca1 Corrections: (The following items were deleted from the chart) 06/02 17:29 17:18 06/02/2018 17:18 Discharged to Home. Impression: 9 weeks gestation of ; ca1 Threatened . Condition is Stable. Forms are Medication Reconciliation Form, Thank You Letter, Antibiotic Education, Prescription Opioid Use. Follow up: Emergency Department; When: As needed; Reason: Worsening of condition. Follow up: Private Physician; When: 2 - 3 days; Reason: Recheck today's complaints, Continuance of care, Re-evaluation by your physician. kb
--- NOTE | 2018-06-02 17:19 | ER ---
Nurse's Notes [facility] Name: Tyra Fowler Age: 18 yrs Sex: Female : 2000 Arrival Date: 06/02/2018 Time: 14:37 Bed 26 Private MD: Diagnosis: 9 weeks gestation of ;Threatened Presentation: 06/02 14:46 Presenting complaint: Patient states: LMP- 03/19/18, today i was laying down and went to the bathroom and i saw blood all over, reports abd pain; denies N/V; been taking zofran PO at night time; reports dark red blood;. Transition of care: patient was not received from another setting of care. Onset of symptoms was June 02, 2018. Risk Assessment: Do you want to hurt yourself or someone else? Patient reports no desire to harm self or others. Initial Sepsis Screen: Does the patient meet any 2 criteria? No. Patient's initial sepsis screen is negative. Does the patient have a suspected source of infection? No. Patient's initial sepsis screen is negative. Care prior to arrival: None. 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 - Social history:: Smoking status: Patient/guardian denies using tobacco. - Ebola Screening: : No symptoms or risks identified at this time. Screenin:00 Abuse screen: Denies threats or abuse. Denies injuries from another. Nutritional ca1 screening: No deficits noted. Tuberculosis screening: No symptoms or risk factors identified. Fall Risk None identified. Assessment: 15:00 General: Appears in no apparent distress. uncomfortable, Behavior is calm, cooperative, ca1 appropriate for age. Pain: Complains of pain in left lower quadrant Pain does not radiate. Pain currently is 8 out of 10 on a pain scale. Quality of pain is described as crampy, Pain began 1 hour ago. Neuro: Level of Consciousness is awake, alert, obeys commands, Oriented to person, place, time, situation. Cardiovascular: Heart tones S1 S2 present Capillary refill < 3 seconds Patient's skin is warm and dry. Respiratory: Airway is patent Respiratory effort is even, unlabored, Respiratory pattern is regular, symmetrical, Breath sounds are clear bilaterally. GI: Abdomen is round non-distended, Bowel sounds present X 4 quads. Abd is soft X 4 quads Abdomen is tender to palpation in left lower quadrant. : Urine is blood tinged, Reports vaginal bleeding that is brown, moderate flow, since 1400 today. EENT: No deficits noted. No signs and/or symptoms were reported regarding the EENT system. Derm: Skin is intact, is healthy with good turgor, Skin is pink, warm \T\ dry. Musculoskeletal: Circulation, motion, and sensation intact. Capillary refill < 3 seconds. 16:31 Reassessment: Patient appears in no apparent distress at this time. Patient and/or ca1 family updated on plan of care and expected duration. Pain level reassessed. Patient is alert, oriented x 3, equal unlabored respirations, skin warm/dry/pink. IV missed attempts 5x, called lab to draw blood. Put IV insertion on hold. Notified provider. 17:20 Reassessment: Patient appears in no apparent distress at this time. Patient is alert, ca1 oriented x 3, equal unlabored respirations, skin warm/dry/pink. Patient states feeling better. Vital Signs: 14:48 BP 108 / 82; Pulse 113; Resp 18; Temp 97.5(TE); Pulse Ox 98% on R/A; Weight 66.22 kg; hj Height 5 ft. 3 in. (160.02 cm); Pain 0/10; 16:35 BP 110 / 81; Pulse 89; Resp 18 S; Pulse Ox 98% on R/A; ca1 17:20 BP 105 / 79; Pulse 91; Resp 18 S; Pulse Ox 100% on R/A; ca1 14:48 Body Mass Index 25.86 (66.22 kg, 160.02 cm) Vitals: 16:33 Heart Tones 167. ca1 ED Course: 14:37 Patient arrived in ED. rg4 14:40 Gricel Wilson FNP-C is [facility]. kb 14:40 Ivon Mckeon MD is Attending Physician. kb 14:48 Triage completed. hj 14:50 Arm band placed on right wrist. hj 14:51 Acob, Ana Maria, RN is Primary Nurse. ca1 15:00 Patient has correct armband on for positive identification. Placed in gown. Bed in low ca1 position. Call light in reach. Side rails up X 1. Pulse ox on. NIBP on. Warm blanket given. 15:15 Radiology exam delayed due to IV insertion attempt and/or patient not having aa4 appropriate IV at this time. 15:30 Missed attempt(s): 20 gauge in left antecubital area. Bleeding controlled, band aid ca1 applied, catheter tip intact. 16:01 Missed attempt(s): 20 gauge in right antecubital area. cm6 16:02 Missed attempt(s): 20 gauge in right hand. cm6 16:36 US Transvaginal Ob In Process Unspecified. EDMS 17:28 No provider procedures requiring assistance completed. Patient did not have IV access ca1 during this emergency room visit. Administered Medications: 16:44 Drug: Tylenol 1000 mg Route: PO; ca1 17:20 Follow up: Response: No adverse reaction; Pain is decreased ca1 17:27 Not Given (Patient Refused): NS 0.9% 1000 ml IV at 1000 ml once ca1 Outcome: 17:18 Discharge ordered by . kb 17:28 Discharged to home ambulatory, with significant other. ca1 17:28 Condition: stable 17:28 Discharge instructions given to patient, Instructed on discharge instructions, follow up and referral plans. Demonstrated understanding of instructions, follow-up care, medications. 17:29 Patient left the ED. ca1 Signatures: Dispatcher [employer] EDTN Gricel Wilson, JIGNESH BEEBEP-Jennifer Dunlap aa4 Olivier Casanova RN RN hj Garcia, Rubi rg4 Ana Maria Rome RN RN ca1 My Kam cm6 Corrections: (The following items were deleted from the chart) 14:50 14:46 Presenting complaint: Patient states: LMP- 03/19/18, today i was laying down and hj went to the bathroom and i saw blood all over, denies abd pain; denies N/V; been taking zofran PO at night time; reports dark red blood; hj 14:50 14:48 Pulse 113bpm; Resp 18bpm; Pulse Ox 98% RA; Temp 97.5F Temporal; 66.22 kg; Height hj 5 ft. 3 in.; BMI: 25.8; Pain 0/10; hj
== END 2018-06-02 17:29 | disposition home or self-care (01) ==
LOC: ER 14:34
DX: O20.0 Threatened abortion (principal); Z3A.09 9 weeks gestation of pregnancy; Z88.3 Allergy status to other anti-infective agents
CPT/HCPCS: 36415; 76817; 80048; 81003; 81025; 84702; 85025; 86900; 86901; 99284; J7030

== ENCOUNTER 2018-06-05 15:34 | Emergency (ER) | payer BC, OTHER ==
--- OUTSIDE RECORDS SUMMARY | 2018-06-05 15:36 | XMS REPORT ---
:2000 [facility] Address [address] [place] [address] Dr. Wilkinson [address] [place] [id number] Care Team Providers Name Role Phone Unavailable Unavailable Unavailable Problems This patient has no known problems. Allergies, Adverse Reactions, Alerts This patient has no known allergies or adverse reactions. Medications This patient has no known medications.
[2018-06-05 16:48] LABS: Absolute Lymphocytes (CBC) 2.7 K/uL (0.7-4.9); Absolute Monocytes 0.9 K/uL (0.1-1.3); Absolute Neutrophil 8.9 K/uL (1.8-8.0); Basophils % 0.3 % (0-1.3); Eosinophils % 0.5 % (0-4.4); Hematocrit 37.9 % (36.0-45.0); Lymphocytes % 21.5 % (15.3-44.8); MPV 7.2 fL (7.6-11.3); Monocytes % 6.8 % (3.3-12.3); RBC Red Blood Cell Count 4.25 M/uL (3.86-4.86)
[2018-06-05] MEDS ORDERED: METOCLOPRAMIDE 10 MG/2mL INJ ONE (16:56)
[2018-06-05] MEDS ORDERED: NA CHLORIDE 0.9% 1,000 ML ONE (16:56)
[2018-06-05 17:04] LABS: ALT/SGPT 15 U/L (12-78); AST/SGOT 11 U/L (15-37); Albumin 4.1 g/dL (3.4-5.0); Alkaline Phosphatase 58 U/L (45-117); BUN Blood Urea Nitrogen 6 mg/dL (7-18); Bicarbonate 23 mmol/L (21-32); Bilirubin Direct 0.1 mg/dL (0-0.2); Bilirubin Total 0.4 mg/dL (0.2-1.0); Glucose Level 77 mg/dL (74-106); Lipase 70 U/L (73-393); Potassium 3.6 mmol/L (3.5-5.1); Protein, Total 7.4 g/dL (6.4-8.2); Sodium Level 138 mmol/L (136-145)
--- NOTE | 2018-06-05 17:24 | RAD REPORT ---
EXAM DESCRIPTION: US - Abdomen Exam Limited - 06/05/2018 5:17 pm CLINICAL HISTORY: Abdominal pain COMPARISON: CT study April 2018 FINDINGS: No gallstones, sludge or other abnormalities within the gallbladder lumen. There is no wal l thickening or pericholecystic fluid. No common duct stone or biliary tree dilatation identified. IMPRESSION: Normal gallbladder and biliary tree ultrasound.
[2018-06-05] MEDS ORDERED: DIPHENHYDRAMINE 50 MG/ML VIAL ONE (18:04)
--- NOTE | 2018-06-05 19:19 | ER ---
Nurse's Notes [facility] Name: Tyra Fowler Age: 18 yrs Sex: Female : 2000 Arrival Date: 06/05/2018 Time: 15:36 Bed 26 Private MD: Diagnosis: Vomiting Presentation: 06/05 15:56 Presenting complaint: Patient states: "I was here Tuesday because I thought I was having aa5 a miscarriage but I wasn't but Dr. Mendez sent me here because she thinks it's my gallbladder". pt c/o upper abd pain, reports nausea/vomiting. Pt reports being 10 weeks . Transition of care: patient was not received from another setting of care. Onset of symptoms was May 2018. Risk Assessment: Do you want to hurt yourself or someone else? Patient reports no desire to harm self or others. Initial Sepsis Screen: Does the patient meet any 2 criteria? No. Patient's initial sepsis screen is negative. Does the patient have a suspected source of infection? No. Patient's initial sepsis screen is negative. Care prior to arrival: None. 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 - Social history:: Smoking status: Patient/guardian denies using tobacco. - Ebola Screening: : No symptoms or risks identified at this time. Screenin:24 Abuse screen: Denies threats or abuse. Denies injuries from another. Nutritional mg2 screening: No deficits noted. Tuberculosis screening: No symptoms or risk factors identified. Fall Risk IV access (20 points). Assessment: 16:44 General: Appears in no apparent distress. uncomfortable, Behavior is cooperative, mg2 anxious. Pain: Complains of pain in abdomen Pain radiates to back Pain currently is 8 out of 10 on a pain scale. Quality of pain is described as aching, Pain began gradually, 1 day ago. Is intermittent. Neuro: Level of Consciousness is awake, alert, obeys commands, Oriented to person, place, time, situation. Cardiovascular: Capillary refill < 3 seconds Patient's skin is warm and dry. Respiratory: Airway is patent Respiratory effort is even, unlabored, Respiratory pattern is regular, symmetrical. GI: Abdomen is flat, non-distended, Reports nausea, vomiting. : No signs and/or symptoms were reported regarding the genitourinary system. EENT: No signs and/or symptoms were reported regarding the EENT system. Derm: Skin is intact, is healthy with good turgor, Skin is pink, warm \\T\\ dry. normal. Musculoskeletal: Circulation, motion, and sensation intact. Capillary refill < 3 seconds. 19:26 Reassessment: Patient appears in no apparent distress at this time. Patient and/or mg2 family updated on plan of care and expected duration. Pain level reassessed. Patient is alert, oriented x 3, equal unlabored respirations, skin warm/dry/pink. Patient denies pain at this time. Patient states feeling better. Vital Signs: 15:57 BP 112 / 83; Pulse 93; Resp 16 S; Temp 98.2(TE); Pulse Ox 99% on R/A; Weight 69.31 kg aa5 (M); Height 5 ft. 3 in. (160.02 cm) (R); 19:25 BP 120 / 78; Pulse 90; Resp 18; Pulse Ox 100% on R/A; Pain 0/10; mg2 15:57 Body Mass Index 27.07 (69.31 kg, 160.02 cm) aa5 ED Course: 15:36 Patient arrived in ED. as 15:56 Arm band placed on. aa 15:57 Triage completed. [facility] 16:17 Lionel Rojas, DESTIN is Primary Nurse. rv 16:28 Brown Ellis PA is PHCP. [facility] 16:28 Veto Faye MD is Attending Physician. jmm 16:54 No provider procedures requiring assistance completed. Inserted saline lock: 22 gauge mg2 in right wrist, using aseptic technique. Blood collected. 16:55 Patient has correct armband on for positive identification. Pulse ox on. NIBP on. Door mg2 closed. 17:17 US Abdomen Limited In Process Unspecified. EDMS 19:19 Kiley Mendez MD is Referral Physician. [facility] 19:25 IV discontinued, intact, bleeding controlled, No redness/swelling at site. Pressure mg2 dressing applied. Administered Medications: 16:55 Drug: NS 0.9% 1000 ml Route: IV; Rate: 1 bolus; Site: right wrist; rv 19:22 Follow up: Response: No adverse reaction; IV Status: Completed infusion mg2 16:55 Drug: Reglan 10 mg {Note: INCORPORATED IN THE BOLUS.} Route: IVP; Site: right wrist; rv 19:21 Follow up: Response: No adverse reaction; Marked relief of symptoms mg2 17:54 Drug: Benadryl 12.5 mg Route: IVP; Site: right wrist; rv 19:21 Follow up: Response: No adverse reaction; Marked relief of symptoms mg2 Outcome: 19:19 Discharge ordered by MD. cecelia 19:26 Discharged to home ambulatory, with family. mg2 19:26 Condition: stable 19:26 Discharge instructions given to patient, family, Instructed on discharge instructions, follow up and referral plans. medication usage, Demonstrated understanding of instructions, follow-up care, medications, Prescriptions given X 1. 19:26 Patient left the ED. mg2 Signatures: Dispatcher [employer] EDMS Brown Ellis PA PA jmm Martinez, Amelia as Calderon, Audri, DESTIN RN aa5 Edvin Freitas RN RN mg2 Lionel Rojas, DESTIN RN rv Corrections: (The following items were deleted from the chart) 15:58 15:56 Presenting complaint: Patient states: "I was here Jaxon because I thought I was aa5 having a miscarriage but I wasn't but Dr. Mendez sent me here because she thinks it's my gallbladder". pt c/o upper abd pain, reports nausea/vomiting. aa5
--- NOTE | 2018-06-05 19:19 | EDPHYS ---
Physician Documentation [facility] Name: Tyra Fowler Age: 18 yrs Sex: Female : 2000 Arrival Date: 06/05/2018 Time: 15:36 Bed 26 Private MD: ED Physician Veto Faye HPI: 06/05 16:52 This 18 yrs old Female presents to ER via Ambulatory with complaints of jmm Epigastric Pain, Vomiting. 16:52 The patient presents with abdominal pain in the epigastric area. Onset: The jmm symptoms/episode began/occurred acutely, 1 day(s) ago. This is a 18 year old female currently 10 weeks IUP that presents to the ED with complaints of epigastric abdominal pain beginning last night with vomiting. Denies diarrhea. Patient was advised by OB to get US of gallbladder in the ED. . 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 - Social history:: Smoking status: Patient/guardian denies using tobacco. - Ebola Screening: : No symptoms or risks identified at this time. ROS: 16:52 Constitutional: Negative for fever, chills, and weight loss, Cardiovascular: Negative jmm for chest pain, palpitations, and edema, Respiratory: Negative for shortness of breath, cough, wheezing, and pleuritic chest pain. 16:52 Back: Negative for injury and pain, MS/Extremity: Negative for injury and deformity, Skin: Negative for injury, rash, and discoloration, Neuro: Negative for headache, weakness, numbness, tingling, and seizure. 16:52 Abdomen/GI: Positive for abdominal pain, nausea and vomiting. 16:52 All other systems are negative. Exam: 16:52 Constitutional: This is a well developed, well nourished patient who is awake, alert, jmm and in no acute distress. Head/Face: atraumatic. Eyes: EOMI, no conjunctival erythema appreciated ENT: Moist Mucus Membranes Neck: Trachea midline, Supple Chest/axilla: Normal chest wall appearance and motion. Cardiovascular: Regular rate and rhythm. No edema appreciated Respiratory: Normal respirations, no respiratory distress appreciated 16:52 Abdomen/GI: Inspection: abdomen appears normal, Bowel sounds: normal, Palpation: soft, moderate abdominal tenderness, in the left upper quadrant. 16:52 Musculoskeletal/extremity: ROM: intact in all extremities. 16:52 Skin: Appearance: Color: normal in color. 16:52 Neuro: Orientation: is normal, Mentation: is normal, Memory: is normal. 16:52 Psych: Behavior/mood is pleasant, cooperative. Vital Signs: 15:57 BP 112 / 83; Pulse 93; Resp 16 S; Temp 98.2(TE); Pulse Ox 99% on R/A; Weight 69.31 kg aa5 (M); Height 5 ft. 3 in. (160.02 cm) (R); 19:25 BP 120 / 78; Pulse 90; Resp 18; Pulse Ox 100% on R/A; Pain 0/10; mg2 15:57 Body Mass Index 27.07 (69.31 kg, 160.02 cm) aa5 MDM: 16:40 Patient medically screened. cecelia 19:13 Data reviewed: vital signs, nurses notes. Counseling: I had a detailed discussion with cecelia the patient and/or guardian regarding: the historical points, exam findings, and any diagnostic results supporting the discharge/admit diagnosis, radiology results, the need for outpatient follow up, to return to the emergency department if symptoms worsen or persist or if there are any questions or concerns that arise at home. ED course: Patient is able to tolerate PO in the ED. Patient states she feels much better. I do not currently suspect an acute intrabdominal process. Patient advised to follow up with OB for reevaluation. patient understood and agrees with the plan of care. . 06/05 16:24 Order name: Basic Metabolic Panel; Complete Time: 17:11 [facility] [place] 06/05 16:24 Order name: CBC with Diff; Complete Time: 17:11 [facility] [place] 06/05 16:24 Order name: Creatinine for Radiology; Complete Time: 17:11 [facility] [place] 06/05 16:24 Order name: Hepatic Function; Complete Time: 17:11 [facility] [place] 06/05 16:24 Order name: Lipase; Complete Time: 17: [facility] [place] 06/05 16:41 Order name: US Abdomen Limited; Complete Time: 17:27 [facility] 06/05 16:24 Order name: IV Saline Lock; Complete Time: 16:44 mg2 06/05 16:24 Order name: Labs collected and sent; Complete Time: 16:44 mg2 06/05 18:33 Order name: PO challenge; Complete Time: 19:21 [facility] Administered Medications: 16:55 Drug: NS 0.9% 1000 ml Route: IV; Rate: 1 bolus; Site: right wrist; rv 19:22 Follow up: Response: No adverse reaction; IV Status: Completed infusion mg2 16:55 Drug: Reglan 10 mg {Note: INCORPORATED IN THE BOLUS.} Route: IVP; Site: right wrist; rv 19:21 Follow up: Response: No adverse reaction; Marked relief of symptoms mg2 17:54 Drug: Benadryl 12.5 mg Route: IVP; Site: right wrist; rv 19:21 Follow up: Response: No adverse reaction; Marked relief of symptoms mg2 Disposition: 06/05/18 19:19 Discharged to Home. Impression: Vomiting. - Condition is Stable. - Discharge Instructions: Nausea and Vomiting, Adult. - Prescriptions for Zofran ODT 4 mg Oral tablet,disintegrating - place 1 tablet by TRANSLINGUAL route every 4-6 hours; 20 tablet. - Medication Reconciliation Form, Thank You Letter, Antibiotic Education, Prescription Opioid Use form. - Follow up: Kiley Mendez MD; When: 2 - 3 days; Reason: Recheck today's complaints, Continuance of care, Re-evaluation by your physician. Addendum: 06/08/2018 07:57 Co-signature as Attending Physician, Veto Faye MD. r n Signatures: Dispatcher [employer] EDMS Brown Ellis [facility] Veto Faye MD MD rn Calderon, Audri RN RN aa5 Edvin Freitas RN RN mg2 Lionel Rojas RN RN rv Corrections: (The following items were deleted from the chart) 06/05 19:26 19:19 06/05/2018 19:19 Discharged to Home. Impression: Vomiting. Condition is Stable. mg2 Forms are Medication Reconciliation Form, Thank You Letter, Antibiotic Education, Prescription Opioid Use. Follow up: Kiley Mendez; When: 2 - 3 days; Reason: Recheck today's complaints, Continuance of care, Re-evaluation by your physician. juju
== END 2018-06-05 19:26 | disposition home or self-care (01) ==
LOC: ER 15:34
DX: O21.9 Vomiting of pregnancy, unspecified (principal); Z3A.10 10 weeks gestation of pregnancy; Z88.1 Allergy status to other antibiotic agents
CPT/HCPCS: 36415; 76705; 80048; 80076; 83690; 85025; J2765; J7030

== ENCOUNTER 2019-03-04 14:01 | Emergency (ER) | payer OTHER ==
--- OUTSIDE RECORDS SUMMARY | 2019-03-04 14:06 | XMS REPORT ---
:2000 [facility] Address [address] [place] [address] Care Team Providers Name Role Phone Unavailable Unavailable Unavailable Payers Payer Name Policy Type Policy Number Effective Date Expiration Date Problems This patient has no known problems. Allergies, Adverse Reactions, Alerts Allergy Name Allergy Status Severity Reaction(s) Onset Inactive Treating Comments Type Date Date Clinician jacque LEIVA Active [place] 2018-11 00:00:0 0 azithromycin DA Active [place] 2018-10 00:00:0 0 vancomycin DA Active [place] 2018-10 00:00:0 0 Medications This patient has no known medications. Results Test Description Test Time Test Comments Text Results Atomic Results Result Comments - CT ABDOMEN W/CONTRAST 2018-12-06 08:58:00 Patient Name: PARAM BOSWELL Unit No: [id number] EXAMS: CPT CODE: [id number] CT ABDOMEN W/CONTRAST 96225 EXAMINATION: CT scan of the abdomen with contrast 12/05/2018. CLINICAL HISTORY: Enlarged spleen. COMPARISON: Abdominal ultrasound 12/05/2018. TECHNIQUE: CT scan of the abdomen was performed following oral administration of contrast and intravenous administration of 125 mL of Isovue-300. Sagittal and coronal reformatted images were also reviewed. One or more of the following dose techniques were utilized; automated exposure control, adjustment of the mA and/or kV according to patient size, and/or utilization of iterative reconstruction technique. DLP: 170.94 mGy-cm. FINDINGS: The lung bases, liver, gallbladder, pancreas, adrenal glands, and kidneys are within normal limits in appearance. The spleen is moderately to markedly enlarged measuring 11.9 x 8.3 x 13.3 cm. This corresponds to splenic volume of 792 mL. The spleen is also malpositioned, located in the left mid to lower abdomen, consistent with wandering spleen. The splenic vascular pedicle is noted to be rotated. No focal splenic parenchymal abnormalities are evident. There is a moderate amount of retained fecal material throughout the visualized portions of the colon. The ascending colon is displaced medially by the spleen. The appendix is visualized and of normal appearance. There is no lymphadenopathy and no free fluid is evident in the abdomen. The abdominal aorta and IVC are within normal limits in appearance. The visualized osseous structures are within normal limits. The upper portion of the enlarged post uterus is visualized on the lower most images of the examination. IMPRESSION: 1. Moderate to marked splenomegaly. The spleen is located in the left mid to lower abdomen consistent with wandering spleen. The splenic vascular pedicle is rotated. The patient is at risk for [facility] NAME: PARAM BOSWELL Radiology Department PHYS: Michelle Alicea MD [address] : 2000 AGE: 18 SEX: F [place], [place] [address] LOC: Brianna.4602 A PHONE #: [phone] EXAM DATE: 12/05/2018 STATUS: DIS IN FAX #: [phone] RAD NO: Page 1 Signed Report 1 Patient Name: PARAM BOSWELL CRISTIAN Unit No: [id number] EXAMS: CPT CODE: [id number] CT ABDOMEN W/CONTRAST 56259 <Continued> splenic torsion/infarction. There is no evidence of that at this time. 2. Moderate amount of retained fecal material throughout the visualized portions of the colon. at 0858 Reported and signed by: Alyssa Boss MD CC: Michelle Virgen MD Technologist: Sonali Lee, CTDI: DLP: Trnscrbd D/ (0858) [facility] Radiology Department PHYS: Michelle Alicea MD [address] : 2000 AGE: 18 SEX: F [place] [address] LOC: F.4602 A PHONE #: [phone] EXAM DATE: 12/05/2018 STATUS: DIS IN FAX #: [phone] RAD NO: Page 2 Signed Report 1 Patient Name: PARAM BOSWELL Unit No: [id number] EXAMS: CPT CODE: [id number] CT ABDOMEN W/CONTRAST 70552 <Continued> Orig Print D/T: S: 12/06/2018 (0901) [facility] NAME: THEA BOSWELLANI FOSTER Radiology Department PHYS: Michelle Alicea MD [address] : 2000 AGE: 18 SEX: F [place], [place] [address] LOC: F.4602 A PHONE #: [phone] EXAM DATE: 12/05/2018 STATUS: DIS IN FAX #: [phone] RAD NO: Page 3 Signed Report 1 - ABDOMEN [facility] 2018-12-05 16:42:00 Patient Name: PARAM BOSWELL Unit No: [id number] EXAMS: CPT CODE: [id number] ABDOMEN LTD 71896 CLINICAL HISTORY: Enlarged spleen. COMPARISON: October 12, 2018. Limited real-time ultrasound examination was performed for evaluation of spleen. Spleen is enlarged and measures at least 14.7 cm in length. No focal abnormality is seen. Location of spleen is somewhat unusual and is more inferior and anterior than one would normally expect. Blood flow is identified within the spleen. Possibility of mild rotation or mild position of spleen is not excluded. Depending on clinical concern, further evaluation by means of computed tomography is recommended when clinically feasible. IMPRESSION: 1. Splenic enlargement without any focal abnormality. 2. Possible malposition of spleen. Computed tomography is recommended for further evaluation. at 1642 Reported and signed by: Marco Obrien MD CC: Michelle Virgen MD Technologist: Petrona Sykes RDMS Probe: Trnscrbd D/ (0232) DavidYOS Orig Print D/T: S: 12/05/2018 (1592) [facility] NAME: PARAM BOSWELL Radiology Department PHYS: Michelle Alicea MD [address] : 2000 AGE: 18 SEX: F [place] [address] LOC: F.4602 A PHONE #: [phone] EXAM DATE: 12/05/2018 STATUS: ADM IN FAX #: [phone] RAD NO: Page 1 Signed Report Patient Name: VIJICLAUDIAPARAM JUAREZ Unit No: [id number] EXAMS: CPT CODE: [id number] ABDOMEN LTD 59286 <Continued> [facility] NAME: PARAM BOSWELL Radiology Department PHYS: Michelle Alicea MD [address] : 2000 AGE: 18 SEX: F [place] [address] LOC: F.4602 A PHONE #: [phone] EXAM DATE: 12/05/2018 STATUS: ADM IN FAX #: [phone] RAD NO: Page 2 Signed Report [facility] 2018-12-05 14:06:00 ------ RUN DATE: 12/05/18 [facility] PAGE 1 RUN TIME: 1744 Specimen Inquiry RUN USER: INTERFACE PATIENT: PARAM BOSWELL LOC: ROBBIE U #: [id number] AGE/SX: 18/ ROOM: [facility] RE11/30/18REG DR: Michelle Virgen MD : [birth year] BED: A DIS: STATUS: ADM IN TLOC: SPEC #: [id number] RECD: 12/01/18 STATUS: FLAKO FATIMA #: [id number] MAGGIE: 12/01/18- SUBM DR: Michelle Virgen MD ENTERED: 12/04/18 SP TYPE: PLACIII OTHR DR: ORDERED: LEVEL V SURGICA CODES: [id number] - PLACENTA, NOS PROCEDURES: LEVEL V SURGICA (Incomplete) TISSUES: PLACENTA, NOS - PLACENTA CLINICAL HISTORY 18 year old, 36.5 weeks, [id number], vaginal delivery, prematurity (kr) FINAL DIAGNOSIS Placenta, young gestation: - late third trimester villous architecture - umbilical cord: paramarginal insertion, 3-vessel, 23 cm length - decreased placental weight: 357 gms (less than 10th percentile) CPT Code: 65189 cds/wpd 12/05/18 GROSS DESCRIPTION The specimen was received in a container, labeled with the patient's name, unit number and designated "placenta and cord". The following attributes are observed: Cord insertion: 2.5 cm from margin Cord length: 23 cm Number of vessels: 3 Cord color: Blue-barba Other cord findings: None surface findings: Steel blue, wrinkled, glistening Vasculature: Displays unremarkable blood vasculature Membranes rupture site: 5 cm to margin Membrane color: Barba Other membrane findings: Thickened and opaque The trimmed placental weight: 357 gm Disk measurement: 17 x 15 x 3.4 cm in greatest dimension Accessory lobes: None Maternal surface: Lobulated and intact Parenchyma: Red, beefy, and spongy CONTINUED ON NEXT PAGE RUN DATE: 12/05/18 [facility] PAGE 2 RUN TIME: 1744 Specimen Inquiry RUN USER: INTERFACE SPEC #: [id number] PATIENT: PARAM BOSWELLORA #[id number] (Continued) GROSS DESCRIPTION (Continued) Parenchyma lesions: None Cassettes: A1 through A4 hz/wpd 12/04/18 @ 1114 Signed Elver Retana Niels 12/05/18 1406 END OF REPORT CBC W/AUTO DIFF 2018-12-01 22:06:00 Test Item Value Reference Range Comments WHITE BLOOD CELL (test code=WBC) 15.8 K/mm3 6.6-12.1 RED BLOOD CELL (test code=RBC) 3.68 M/mm3 3.45-5.01 HEMOGLOBIN (test code=HGB) 11.0 g/dL 10.7-13.9 HEMATOCRIT (test code=HCT) 33.3 % 32.1-42.1 MEAN CELL VOLUME (test code=MCV) 91 fL 84.1-94.8 MEAN CELL HGB (test code=MCH) 29.9 pg 27-35 MEAN CELL HGB CONCETRATION (test code=MCHC) 33.0 gm/dL 32.2-34.1 RED CELL DISTRIBUTION WIDTH (test code=RDW) 13.4 % 12.4-16.5 PLATELET COUNT (test code=PLT) 115 K/mm3 133-385 IMMATURE PLATELET FRACTION (test code=IPF) 0.0 % 0.0-10.8 MEAN PLATELET VOLUME (test code=MPV) 9.7 fl 9.1-12.7 NEUTROPHIL % (test code=NT%) 89.3 % 56.5-79.4 LYMPHOCYTE % (test code=LY%) 6.1 % 14.3-34.3 MONOCYTE % (test code=MO%) 4.0 % 5.1-10.4 EOSINOPHIL % (test code=EO%) 0.1 % 0.1-3.0 BASOPHIL % (test code=BA%) 0.1 % 0.1-1.0 NEUTROPHIL # (test code=NT#) 14.1 K/mm3 LYMPHOCYTE # (test code=LY#) 1.0 K/mm3 MONOCYTE # (test code=MO#) 0.6 K/mm3 EOSINOPHIL # (test code=EO#) 0.01 K/mm3 BASOPHIL # (test code=BA#) 0.0 K/mm3 RBC MORPHOLOGY REQUIRED (test code=RBCM) NORMAL NORMAL PLATELET MORPHOLOGY REQUIRED (test code=PLTMR) NORMAL NORMAL AG HEPATITIS B [id number] 05:49:00 Test Item Value Reference Range Comments AG HEPATITIS B SURFACE (test code=HBSAG) NONREACTIVE NONREACTIVE IS CONSENT FORM SIGNED FOR HIV TESTING? YAB HEPATITIS C [id number] 05:49: 00 Test Item Value Reference Range Comments AB HEPATITIS C (test code=HCVAB) NONREACTIVE NONREACTIVE SIGNAL TO CUTOFF (test code=CUTOFF) 0.10 <0.80 IS CONSENT FORM SIGNED FOR HIV TESTING? YAB [id number] 05:49:00 Test Item Value Reference Range Comments AB TREPONEMA (test code=TREPAB) NONREACTIVE NONREACTIVE IS CONSENT FORM SIGNED FOR HIV TESTING? YAB HIV 1 05:49:00 Test Item Value Reference Range Comments AB HIV 1 2 (test NONREACTIVE NONREACTIVE Done by [employer] [place] 4th code=YDG71FQ) Gen HIV Ag/Ab Combo Screen IS CONSENT FORM SIGNED FOR HIV TESTING? YCBC W/AUTO [id number] 00:01:00 Test Item Value Reference Range Comments WHITE BLOOD CELL (test code=WBC) 12.4 K/mm3 6.6-12.1 RED BLOOD CELL (test code=RBC) 3.58 M/mm3 3.45-5.01 HEMOGLOBIN (test code=HGB) 10.6 g/dL 10.7-13.9 HEMATOCRIT (test code=HCT) 32.8 % 32.1-42.1 MEAN CELL VOLUME (test code=MCV) 92 fL 84.1-94.8 MEAN CELL HGB (test code=MCH) 29.6 pg 27-35 MEAN CELL HGB CONCETRATION (test code=MCHC) 32.3 gm/dL 32.2-34.1 RED CELL DISTRIBUTION WIDTH (test code=RDW) 13.4 % 12.4-16.5 PLATELET COUNT (test code=PLT) 140 K/mm3 133-385 IMMATURE PLATELET FRACTION (test code=IPF) 0.0 % 0.0-10.8 MEAN PLATELET VOLUME (test code=MPV) 9.5 fl 9.1-12.7 NEUTROPHIL % (test code=NT%) 74.7 % 56.5-79.4 LYMPHOCYTE % (test code=LY%) 18.9 % 14.3-34.3 MONOCYTE % (test code=MO%) 5.1 % 5.1-10.4 EOSINOPHIL % (test code=EO%) 0.3 % 0.1-3.0 BASOPHIL % (test code=BA%) 0.4 % 0.1-1.0 NEUTROPHIL # (test code=NT#) 9.3 K/mm3 LYMPHOCYTE # (test code=LY#) 2.3 K/mm3 MONOCYTE # (test code=MO#) 0.6 K/mm3 EOSINOPHIL # (test code=EO#) 0.04 K/mm3 BASOPHIL # (test code=BA#) 0.1 K/mm3 RBC MORPHOLOGY REQUIRED (test code=RBCM) NORMAL NORMAL PLATELET MORPHOLOGY REQUIRED (test code=PLTMR) NORMAL NORMAL - US FET BIO PH AR W/O [id number] 21:38:00 Patient Name: PARAM BOSWELL Unit No: [id number] EXAMS: CPT CODE: [id number] US FET BIO PH AR W/O NST 29291 PROCEDURE: BIOPHYSICAL PROFILE: INDICATION: 36.4 WKS CRAMPING, DFM COMPARISON: None FINDINGS: Limited scanning of the gravid uterus was performed as part of a biophysical profile. Presentation: Cephalic heart rate: 140 bpm Cervix: 2.3 cm YOVANI: 13.8 cm breathing movements: 2 Gross body movements: 2 tone: 2 Amniotic fluid volume: 2 IMPRESSION: BIOPHYSICAL PROFILE 09/14. SL : LS-H at 2138 Reported and signed by: Kobe Madrigal MD CC: Michelle Virgen MD Technologist: Corinne Dowling RDMS Probe: Trnscrbd D/ (2137) [email or web address] Orig Print D/T: S: (2141) [facility] NAME: THEA BOSWELLANI FOSTER Radiology Department PHYS: Michelle Alicea MD [address] : 2000 AGE: 18 SEX: F [place] [address] LOC: Jean MarieNESSA PHONE #: [phone] EXAM DATE: 11/30/2018 STATUS: REG ER FAX #: [phone] RAD NO: Page 1 Signed Report Patient Name: PARAM BOSWELL UnitNo: [id number] EXAMS: CPT CODE : [id number] US FET BIO PH AR W/O NST 17479 <Continued> [facility] NAME: ELBERTPARAM FOSTER Radiology Department PHYS : Michelle Alicea MD [address] : 2000 AGE : 18 SEX: F [place] [address] LOC : Jean MarieNESSA PHONE #: [phone] EXAM DATE: 11/30/2018 STATUS : REG ER FAX #: [phone] RAD NO: Page 2 Signed ReportURINALYSIS [id number] 20:15:00 Test Item Value Reference Range Comments UA COLOR (test code=COLU) YELLOW YELLOW UA APPEARANCE (test code=APPU) Slightly-Cloudy CLEAR UA GLUCOSE DIPSTICK (test code=DGLUU) NEGATIVE NEG UA BILIRUBIN DIPSTICK (test code=BILU) NEGATIVE NEG UA KETONE DIPSTICK (test code=KETU) 2+ NEG UA SPECIFIC GRAVITY (test code=SGU) 1.015 1.001-1.035 UA BLOOD DIPSTICK (test code=NANDINI) NEG NEG UA PH DIPSTICK (test code=LUNA) 6.0 5-9 UA PROTEIN DIPSTICK (test code=PROU) NEGATIVE NEG UA UROBILINIOGEN DIPSTICK (test code=URO) 4.0 mg/dL NEG UA NITRITE DIPSTICK (test code=ANDREINA) NEG NEG UA LEUKOCYTE ESTERASE DIPSTICK (test 2+ NEG code=LEUU) UA WBC (test code=WBCU) 5-10 #/hpf NONE SEEN UA RBC (test code=RBCU) NONE SEEN #/hpf NONE SEEN UA EPITHELIAL CELLS (test code=EPIU) MODERATE #/HPF RARE-FEW UA BACTERIA (test code=BACU) NEGATIVE /HPF RARE-FEW UA MUCUS (test code=MUCU) 2+ NONE SEEN URINE SAMPLE: CLEAN CATCHAMNISURE (ROM) [id number] 18:44:00 Test Item Value Reference Range Comments AMNISURE (ROM) TEST (test code=AMNI) NON-RUPTURED NON-RUPTURE : *Amnisure QC OK? YESURINALYSIS [id number] 15:24:00 Test Item Value Reference Range Comments UA COLOR (test code=COLU) YELLOW YELLOW UA APPEARANCE (test code=APPU) CLEAR CLEAR UA GLUCOSE DIPSTICK (test code=DGLUU) NEGATIVE NEG UA BILIRUBIN DIPSTICK (test code=BILU) NEGATIVE NEG UA KETONE DIPSTICK (test code=KETU) TRACE NEG UA SPECIFIC GRAVITY (test code=SGU) 1.025 1.001-1.035 UA BLOOD DIPSTICK (test code=NANDINI) NEG NEG UA PH DIPSTICK (test code=LUNA) 6.0 5-9 UA PROTEIN DIPSTICK (test code=PROU) NEGATIVE NEG UA UROBILINIOGEN DIPSTICK (test code=URO) 2.0 mg/dL NEG UA NITRITE DIPSTICK (test code=ANDREINA) NEG NEG UA LEUKOCYTE ESTERASE DIPSTICK (test code=LEUU) NEG NEG UA WBC (test code=WBCU) 3-5 #/hpf NONE SEEN UA RBC (test code=RBCU) 0-2 #/hpf NONE SEEN UA EPITHELIAL CELLS (test code=EPIU) RARE #/HPF RARE-FEW UA BACTERIA (test code=BACU) RARE /HPF RARE-FEW UA MUCUS (test code=MUCU) 3+ NONE SEEN URINE SAMPLE: CLEAN CATCHCOMPREHENSIVE METABOLIC [id number] 13:04:00 Test Item Value Reference Range Comments SODIUM (test code=NA) 139 mEq/L 135-145 POTASSIUM (test code=K) 4.1 mEq/L 3.5-5.0 CHLORIDE (test code=CL) 104 mEq/L 100-115 CARBON DIOXIDE (test code=CO2) 26 mEq/L 22-31 ANION GAP (test code=GAP) 13.20 10-20 GLUCOSE (test code=GLU) 75 mg/dL 65-110 BLOOD UREA NITROGEN (test code=BUN) 6 mg/dL 7-18 GLOMERULAR FILTRATION RATE (test code=GFR) 157 ml/min >60 CREATININE (test code=CREAT) 0.5 mg/dL 0.5-1.0 TOTAL PROTEIN (test code=PROT) 6.1 gm/dL 6.3-8.2 ALBUMIN (test code=ALB) 2.9 gm/dL 3.4-4.8 CALCIUM (test code=CA) 8.1 mg/dL 8.4-10.2 BILIRUBIN TOTAL (test code=BILT) 0.4 mg/dL 0.2-1.0 SGOT/AST (test code=AST) 14 units/L 15-37 SGPT/ALT (test code=ALT) 15 units/L 12-78 ALKALINE PHOSPHATASE TOTAL (test code=ALKP) 113 units/L 46-116 [id number] 13:04:00 Test Item Value Reference Range Comments AMYLASE (test code=KADEN) 34 units/L 30-110 [id number] 13:04:00 Test Item Value Reference Range Comments LIPASE (test code=LIP) 97 units/L 73-393 CBC W/AUTO [id number] 12:55:00 Test Item Value Reference Range Comments WHITE BLOOD CELL (test code=WBC) 14.8 K/mm3 6.6-12.1 RED BLOOD CELL (test code=RBC) 3.61 M/mm3 3.45-5.01 HEMOGLOBIN (test code=HGB) 10.8 g/dL 10.7-13.9 HEMATOCRIT (test code=HCT) 32.2 % 32.1-42.1 MEAN CELL VOLUME (test code=MCV) 89 fL 84.1-94.8 MEAN CELL HGB (test code=MCH) 29.9 pg 27-35 MEAN CELL HGB CONCETRATION (test code=MCHC) 33.5 gm/dL 32.2-34.1 RED CELL DISTRIBUTION WIDTH (test code=RDW) 13.2 % 12.4-16.5 PLATELET COUNT (test code=PLT) 138 K/mm3 133-385 IMMATURE PLATELET FRACTION (test code=IPF) 0.0 % 0.0-10.8 MEAN PLATELET VOLUME (test code=MPV) 9.6 fl 9.1-12.7 NEUTROPHIL % (test code=NT%) 84.3 % 56.5-79.4 LYMPHOCYTE % (test code=LY%) 11.0 % 14.3-34.3 MONOCYTE % (test code=MO%) 3.6 % 5.1-10.4 EOSINOPHIL % (test code=EO%) 0.1 % 0.1-3.0 BASOPHIL % (test code=BA%) 0.3 % 0.1-1.0 NEUTROPHIL # (test code=NT#) 12.5 K/mm3 LYMPHOCYTE # (test code=LY#) 1.6 K/mm3 MONOCYTE # (test code=MO#) 0.5 K/mm3 EOSINOPHIL # (test code=EO#) 0.02 K/mm3 BASOPHIL # (test code=BA#) 0.0 K/mm3 RBC MORPHOLOGY REQUIRED (test code=RBCM) NORMAL NORMAL PLATELET MORPHOLOGY REQUIRED (test code=PLTMR) NORMAL NORMAL AG HEPATITIS B [id number] 05:36:00 Test Item Value Reference Range Comments AG HEPATITIS B SURFACE (test code=HBSAG) NONREACTIVE NONREACTIVE IS CONSENT FORM SIGNED FOR HIV TESTING? YAB HEPATITIS C [id number] 05:36: 00 Test Item Value Reference Range Comments AB HEPATITIS C (test code=HCVAB) NONREACTIVE NONREACTIVE SIGNAL TO CUTOFF (test code=CUTOFF) 0.12 <0.80 IS CONSENT FORM SIGNED FOR HIV TESTING? YAB [id number] 05:36:00 Test Item Value Reference Range Comments AB TREPONEMA (test code=TREPAB) NONREACTIVE NONREACTIVE IS CONSENT FORM SIGNED FOR HIV TESTING? YAB HIV 1 05:36:00 Test Item Value Reference Range Comments AB HIV 1 2 (test NONREACTIVE NONREACTIVE Done by [employer] 4th code=FER35AW) Gen HIV Ag/Ab Combo Screen IS CONSENT FORM SIGNED FOR HIV TESTING? YAG HEPATITIS B [id number] 03:46: 00 Test Item Value Reference Range Comments AG HEPATITIS B SURFACE (test code=HBSAG) NONREACTIVE NONREACTIVE IS CONSENT FORM SIGNED FOR HIV TESTING? YAB HEPATITIS C [id number] 03:46: 00 Test Item Value Reference Range Comments AB HEPATITIS C (test code=HCVAB) NONREACTIVE SIGNAL TO CUTOFF (test code=CUTOFF) <0.80 IS CONSENT FORM SIGNED FOR HIV TESTING? YAB [id number] 03:46:00 Test Item Value Reference Range Comments AB TREPONEMA (test code=TREPAB) NONREACTIVE NONREACTIVE IS CONSENT FORM SIGNED FOR HIV TESTING? YAB HIV 1 03:46:00 Test Item Value Reference Range Comments AB HIV 1 2 (test code=ITU34ZP) NONREACTIVE IS CONSENT FORM SIGNED FOR HIV TESTING? YCBC W/AUTO [id number] 01:18:00 Test Item Value Reference Range Comments WHITE BLOOD CELL (test code=WBC) 14.6 K/mm3 6.6-12.1 RED BLOOD CELL (test code=RBC) 3.72 M/mm3 3.45-5.01 HEMOGLOBIN (test code=HGB) 11.3 g/dL 10.7-13.9 HEMATOCRIT (test code=HCT) 33.8 % 32.1-42.1 MEAN CELL VOLUME (test code=MCV) 91 fL 84.1-94.8 MEAN CELL HGB (test code=MCH) 30.4 pg 27-35 MEAN CELL HGB CONCETRATION (test code=MCHC) 33.4 gm/dL 32.2-34.1 RED CELL DISTRIBUTION WIDTH (test code=RDW) 13.6 % 12.4-16.5 PLATELET COUNT (test code=PLT) 141 K/mm3 133-385 IMMATURE PLATELET FRACTION (test code=IPF) 0.0 % 0.0-10.8 MEAN PLATELET VOLUME (test code=MPV) 9.3 fl 9.1-12.7 NEUTROPHIL % (test code=NT%) 75.2 % 56.5-79.4 LYMPHOCYTE % (test code=LY%) 17.8 % 14.3-34.3 MONOCYTE % (test code=MO%) 5.1 % 5.1-10.4 EOSINOPHIL % (test code=EO%) 0.6 % 0.1-3.0 BASOPHIL % (test code=BA%) 0.3 % 0.1-1.0 NEUTROPHIL # (test code=NT#) 11.0 K/mm3 LYMPHOCYTE # (test code=LY#) 2.6 K/mm3 MONOCYTE # (test code=MO#) 0.7 K/mm3 EOSINOPHIL # (test code=EO#) 0.09 K/mm3 BASOPHIL # (test code=BA#) 0.1 K/mm3 RBC MORPHOLOGY REQUIRED (test code=RBCM) NORMAL NORMAL PLATELET MORPHOLOGY REQUIRED (test code=PLTMR) NORMAL NORMAL URINALYSIS [id number] 19:10:00 Test Item Value Reference Range Comments UA COLOR (test code=COLU) ZARINA YELLOW UA APPEARANCE (test code=APPU) Slightly-Cloudy CLEAR UA GLUCOSE DIPSTICK (test code=DGLUU) NEGATIVE NEG UA BILIRUBIN DIPSTICK (test code=BILU) 1+ NEG UA KETONE DIPSTICK (test code=KETU) NEGATIVE NEG UA SPECIFIC GRAVITY (test code=SGU) 1.020 1.001-1.035 UA BLOOD DIPSTICK (test code=NANDINI) NEG NEG UA PH DIPSTICK (test code=LUNA) 7.0 5-9 UA PROTEIN DIPSTICK (test code=PROU) NEGATIVE NEG UA UROBILINIOGEN DIPSTICK (test code=URO) 4.0 mg/dL NEG UA NITRITE DIPSTICK (test code=ANDREINA) NEG NEG UA LEUKOCYTE ESTERASE DIPSTICK (test TRACE NEG code=LEUU) UA WBC (test code=WBCU) 6-10 #/hpf NONE SEEN UA RBC (test code=RBCU) 0-2 #/hpf NONE SEEN UA EPITHELIAL CELLS (test code=EPIU) FEW #/HPF RARE-FEW UA CALCIUM OXALATE CRYSTALS (test 0-2 #/LPF code=CAOXU) UA MUCUS (test code=MUCU) 4+ NONE SEEN URINE SAMPLE: CLEAN CATCHAG HEPATITIS B [id number] 03:27:00 Test Item Value Reference Range Comments AG HEPATITIS B SURFACE (test code=HBSAG) NONREACTIVE NONREACTIVE AB HEPATITIS C [id number] 03:27:00 Test Item Value Reference Range Comments AB HEPATITIS C (test code=HCVAB) NONREACTIVE NONREACTIVE SIGNAL TO CUTOFF (test code=CUTOFF) 0.12 <0.80 AB [id number] 03:27:00 Test Item Value Reference Range Comments AB TREPONEMA (test code=TREPAB) NONREACTIVE NONREACTIVE CBC W/AUTO [id number] 01:52:00 Test Item Value Reference Range Comments WHITE BLOOD CELL (test code=WBC) 13.7 K/mm3 6.6-12.1 RED BLOOD CELL (test code=RBC) 3.85 M/mm3 3.45-5.01 HEMOGLOBIN (test code=HGB) 11.6 g/dL 10.7-13.9 HEMATOCRIT (test code=HCT) 35.3 % 32.1-42.1 MEAN CELL VOLUME (test code=MCV) 92 fL 84.1-94.8 MEAN CELL HGB (test code=MCH) 30.1 pg 27-35 MEAN CELL HGB CONCETRATION (test code=MCHC) 32.9 gm/dL 32.2-34.1 RED CELL DISTRIBUTION WIDTH (test code=RDW) 13.2 % 12.4-16.5 PLATELET COUNT (test code=PLT) 163 K/mm3 133-385 IMMATURE PLATELET FRACTION (test code=IPF) 0.0 % 0.0-10.8 MEAN PLATELET VOLUME (test code=MPV) 10.0 fl 9.1-12.7 NEUTROPHIL % (test code=NT%) 69.9 % 56.5-79.4 LYMPHOCYTE % (test code=LY%) 21.9 % 14.3-34.3 MONOCYTE % (test code=MO%) 5.8 % 5.1-10.4 EOSINOPHIL % (test code=EO%) 1.0 % 0.1-3.0 BASOPHIL % (test code=BA%) 0.4 % 0.1-1.0 NEUTROPHIL # (test code=NT#) 9.6 K/mm3 LYMPHOCYTE # (test code=LY#) 3.0 K/mm3 MONOCYTE # (test code=MO#) 0.8 K/mm3 EOSINOPHIL # (test code=EO#) 0.13 K/mm3 BASOPHIL # (test code=BA#) 0.1 K/mm3 RBC MORPHOLOGY REQUIRED (test code=RBCM) NORMAL NORMAL PLATELET MORPHOLOGY REQUIRED (test code=PLTMR) NORMAL NORMAL - US PREG UT [id number] 11:57:00 Patient Name: PARAM BOSWELL Unit No: [id number] EXAMS: CPT CODE: [id number] US PREG UT TRANSVAGINAL [id number] [facility] [place] [address] [place], [place] [address] BIOPHYSICAL PROFILE ULTRASOUND REPORT Pat. Name: PARAM BOSWELL Pat. No: [id number] Study Date: 11/10/2018 11:20am , Age: 1 2000, 18 Pregnancies: 2, Para 0 LMP: 03/19/2018 GA by LMP: 33w5d GA Selected: 33w5d (LMP ) JUAN M: 12/24/2018 Referring MD: Michelle Virgen Structurer: Tarun Alonso RDMS, T CPT4: USPRUTTRVG Admitting MD: Michelle Virgen Hist/ Ind: SCAN 1 33 WEEKS DECREASED MOVEMENT Cervical Length: 2.2 cm Heart Rate: 151 bpm Amniotic Fluid Index: 15.1cm (08.2-24.7) Q1: 3.8cm Q2: 4.9cm Q3: 4.6cm Q4: 1.8cm Biophysical Profile: 09/14 Breathin Tone: 2 Movement: 2 AFV: 2 CLINICAL SUMMARY Type of Gestation: Young Intrauterine in vertex presentation. motion and organs seen: heart motion seen body and limb movements observed tone noted breathing movements observed Placental location: Posterior Placental maturity : Grade 2 There is no evidence of placenta previa. Amniotic fluid volume is normal. Uterus and adnexa: No significant abnormality is seen. Thank you for allowing us to participate in the care of this patient. Marco Obrien M.D. Electronic Signature 11/10/2018 11: 57am at 1157 * * Reported and signed by: Marco Obrien MD [facility] NAME: ELBERTPARAM Radiology Department PHYS: Michelle Alicea MD [address] : 2000 AGE: 18 SEX: F [place] [id number] LOC: Jean MarieNESSA PHONE #: [phone] EXAM DATE: STATUS: DEP ER FAX #: [phone] RAD NO: Page 1 Signed Report (CONTINUED) Patient Name: THEA BOSWELLANI FOSTER Unit No: [id number] EXAMS: CPT CODE: [id number] US PREG UT TRANSVAGINAL [address] <Continued> CC: Michelle Virgen MD Technologist: Tarun Alonso RDMS, KEVT Probe: [id number] Trnscrbd D/ (1157) [email or web address] Orig Print D /T: S: 11/15/2018 (1016) [facility] NAME: PARAM BOSWELL Radiology Department PHYS: Michelle Alicea MD [address] : 2000 AGE: 18 SEX: [place] [address] LOC : Jean MarieNESSA PHONE #: [phone] EXAM DATE: 11/10/2018 STATUS : DEP ER FAX #: [phone] RAD NO: Page 2 Signed Report Patient Name: THEA BOSWELLANI FOSTER Unit No: [id number] EXAMS: CPT CODE: [id number] US PREG UT TRANSVAGINAL 82548 <Continued> [facility] NAME: PARAM BOSWELL Radiology Department PHYS: Michelle Alicea MD [address] : 2000 AGE: 18 SEX: [place] [id number] LOC: CAROLIN PHONE #: [phone] EXAM DATE: 11/10/2018 STATUS: DEP ER FAX #: [phone] RAD NO: Page 3 Signed Report- US FET BIO PH AR W/O [id number] 11:57:00 Patient Name: PARAM BOSWELL Unit No: [id number] EXAMS: CPT CODE: [id number] US FET BIO PH AR W/O NST 06432 [facility] [address] [place], [place] [address] BIOPHYSICAL PROFILE ULTRASOUND REPORT Pat. Name: VIJIJANAE PARAM Pat. No: [id number] Study Date: 11/10/2018 11:20am , Age: 01 2000, 18 Pregnancies: 2, Para 0 LMP: 2018 GA by LMP: 33w5d GA Selected: 33w5d (LMP) JUAN M: 12/24/2018 Referring MD: MICHELLE VIRGEN Structurer: Tarun Alonso RDMS, RVT CPT4: USBPPWONST Admitting MD: MICHELLE VIRGEN Hist/Ind: SCAN 1 33 WEEKS DECREASED MOVEMENT Cervical Length: 2.2 cm Heart Rate: 151 bpm Amniotic Fluid Index: 15.1cm (08.2-24.7) Q1: 3.8cm Q2: 4.9cm Q3: 4.6cm Q4: 1.8cm Biophysical Profile: 09/14 Breathin Tone: 2 Movement: 2 AFV: 2 CLINICAL SUMMARY Type of Gestation: Young Intrauterine in vertex presentation. motion and organs seen: heart motion seen body and limb movements observed tone noted breathing movements observed Placental location: Posterior Placental maturity : Grade 2 There is no evidence of placenta previa. Amniotic fluid volume is normal. Uterus and adnexa: No significant abnormality is seen. Thank you for allowing us to participate in the care of this patient. Marco Obrien M.D. -------- --------- Electronic Signature 11/10/2018 11:57am at 1158 Reported and signed by: Marco Obrien MD [facility] NAME: PARAM BOSWELL Radiology Department PHYS: Michelle Alicea MD [address] : 2000 AGE: 18 SEX: F [place], [place] [address] LOC: FJamesNESSA PHONE #: [phone] EXAM DATE: 11/10/2018 STATUS: REG ER FAX #: [phone] RAD NO: Page 1 Signed Report (CONTINUED) Patient Name: PARAM BOSWELL Unit No: [id number] EXAMS: CPT CODE: [id number] US FET BIO PH AR W/O NST 96834 <Continued> CC: Michelle Virgen MD Technologist: Tarun Alonso RDMS, RVT Probe: Trnscrbd D / (0211) Serena Orig Print D/T: S: 11/10/2018 (1158) [facility] NAME: PARAM BOSWELL Radiology Department PHYS: Michelle Alicea MD [address] : 2000 AGE: 18 SEX: F [place], [place] [address] LOC: Jean MarieNESSA PHONE #: [phone] EXAM DATE: 11/10/2018 STATUS: REG ER FAX #: [phone] RAD NO: Page 2 Signed Report Patient Name: PARAM BOSWELL Unit No: [id number] EXAMS: CPT CODE: [id number] US FET BIO PH AR W/O NST 94212 < Continued> [facility] NAME: PARAM BOSWELL Radiology Department PHYS: Michelle Alicea MD [address] : 2000 AGE: 18 SEX : F [place], [place] [address] LOC: Jean MarieNESSA PHONE #: [phone] EXAM DATE: 11/10/2018 STATUS: REG ER FAX #: [phone] RAD NO: Page 3 Signed ReportURINALYSIS [id number] 13:24:00 Test Item Value Reference Range Comments UA COLOR (test code=COLU) ZARINA YELLOW UA APPEARANCE (test code=APPU) CLOUDY CLEAR UA GLUCOSE DIPSTICK (test code=DGLUU) NEGATIVE NEG UA BILIRUBIN DIPSTICK (test code=BILU) 1+ NEG UA KETONE DIPSTICK (test code=KETU) NEGATIVE NEG UA SPECIFIC GRAVITY (test code=SGU) 1.026 1.001-1.035 UA BLOOD DIPSTICK (test code=NANDINI) 1+ NEG UA PH DIPSTICK (test code=LUNA) 6.0 5-9 UA PROTEIN DIPSTICK (test code=PROU) 1+ NEG UA UROBILINIOGEN DIPSTICK (test code=URO) 4.0 mg/dL NEG UA NITRITE DIPSTICK (test code=ANDREINA) NEG NEG UA LEUKOCYTE ESTERASE DIPSTICK (test code=LEUU) 2+ NEG UA WBC (test code=WBCU) 11-15 #/hpf NONE SEEN UA RBC (test code=RBCU) 6-10 #/hpf NONE SEEN UA EPITHELIAL CELLS (test code=EPIU) RARE #/HPF RARE-FEW UA BACTERIA (test code=BACU) RARE /HPF RARE-FEW UA MUCUS (test code=MUCU) 4+ NONE SEEN URINE SAMPLE: CLEAN CATCHURINALYSIS [id number] 12:15:00 Test Item Value Reference Range Comments UA COLOR (test code=COLU) YELLOW YELLOW UA APPEARANCE (test code=APPU) CLEAR CLEAR UA GLUCOSE DIPSTICK (test code=DGLUU) NEGATIVE NEG UA BILIRUBIN DIPSTICK (test code=BILU) NEGATIVE NEG UA KETONE DIPSTICK (test code=KETU) 1+ NEG UA SPECIFIC GRAVITY (test code=SGU) 1.020 1.001-1.035 UA BLOOD DIPSTICK (test code=NANDINI) 2+ NEG UA PH DIPSTICK (test code=LUNA) 6.0 5-9 UA PROTEIN DIPSTICK (test code=PROU) NEGATIVE NEG UA UROBILINIOGEN DIPSTICK (test code=URO) NEGATIVE mg/dL NEG UA NITRITE DIPSTICK (test code=ANDREINA) NEG NEG UA LEUKOCYTE ESTERASE DIPSTICK (test NEG NEG code=LEUU) UA WBC (test code=WBCU) 0-2 #/hpf NONE SEEN UA RBC (test code=RBCU) 0-2 #/hpf NONE SEEN UA EPITHELIAL CELLS (test code=EPIU) RARE #/HPF RARE-FEW UA BACTERIA (test code=BACU) NEGATIVE /HPF RARE-FEW UA MUCUS (test code=MUCU) RARE NONE SEEN URINE SAMPLE: CLEAN CATCHCOMPREHENSIVE METABOLIC [id number] 11:47:00 Test Item Value Reference Range Comments SODIUM (test code=NA) 138 mEq/L 135-145 POTASSIUM (test code=K) 4.8 mEq/L 3.5-5.0 CHLORIDE (test code=CL) 104 mEq/L 100-115 CARBON DIOXIDE (test code=CO2) 25 mEq/L 22-31 ANION GAP (test code=GAP) 14.00 10-20 GLUCOSE (test code=GLU) 70 mg/dL 65-110 BLOOD UREA NITROGEN (test code=BUN) 4 mg/dL 7-18 GLOMERULAR FILTRATION RATE (test code=GFR) 284 ml/min >60 CREATININE (test code=CREAT) 0.3 mg/dL 0.5-1.0 TOTAL PROTEIN (test code=PROT) 6.6 gm/dL 6.3-8.2 ALBUMIN (test code=ALB) 3.0 gm/dL 3.4-4.8 CALCIUM (test code=CA) 8.1 mg/dL 8.4-10.2 BILIRUBIN TOTAL (test code=BILT) 0.4 mg/dL 0.2-1.0 SGOT/AST (test code=AST) 36 units/L 15-37 SGPT/ALT (test code=ALT) 13 units/L 12-78 ALKALINE PHOSPHATASE TOTAL (test code=ALKP) 81 units/L 46-116 BILIRUBIN [id number] 11:47:00 Test Item Value Reference Range Comments BILIRUBIN DIRECT (test code=BILD) <0.1 mg/dL <0.2 [id number] 11:47:00 Test Item Value Reference Range Comments AMYLASE (test code=KADEN) 35 units/L 30-110 [id number] 11:47:00 Test Item Value Reference Range Comments LIPASE (test code=LIP) 128 units/L 73-393 - US ABDOMEN [id number] 10:42:00 Patient Name: PARAM BOSWELL Unit No: [id number] EXAMS: CPT CODE: [id number] US ABDOMEN COMPLETE 88278 ABDOMEN ULTRASOUND COMPLETE 10/12/2018: COMPARISON: None CLINICAL HISTORY : ABDOMINAL PAIN FINDINGS: The liver has a normal sonographic appearance. No focal lesions are seen. Liver measured 15.3 cm in length. The gallbladder contains no calculi and the gallbladder wall is normal in thickness. The common bile duct measures 2.3 mm in diameter. Pancreas was poorly seen due to bowel gas. Both kidneys were seen. No hydronephrosis. The right kidney measures 11.2cm. The left kidney measures 9.2 cm. Spleen is normal in echogenicity. It measures 13.5 cm. Spleen is mildly enlarged. The visualized portions of the abdominal aorta and IVC are normal in caliber. No free fluid noted. IMPRESSION: Mild splenomegaly, otherwise negative abdominal sonogram. at 1042 Reported and signed by: Wilfrid Nielson MD CC: Michelle Virgen MD Technologist: Grace Rodrigues RDMS, RVT Probe: Trnscrbd D/ (1042) [id number] Orig Print D/T: S: 10/12/2018 (1045) [facility] NAME: PARAM BOSWELL Radiology Department PHYS:Michelle Alicea MD [address] : 2000 AGE: 18 SEX: [place] [address] LOC: F.031 A PHONE #: [phone] EXAM DATE: 10/12/2018 STATUS: ADM IN FAX #: [phone] RAD NO: Page 1 Signed Report Patient Name: PARAM BOSWELL Unit No: [id number] EXAMS: CPT CODE: [id number] US ABDOMEN COMPLETE 70591 <Continued> [facility] NAME: PARAM BOSWELL Radiology Department PHYS: Michelle Alicea MD [address] : 2000 AGE: 18 SEX: [place] [address] LOC: F.031 A PHONE #: [phone] EXAM DATE: 10/12/2018 STATUS: ADM IN FAX #: [phone] RAD NO: Page 2 Signed ReportDRUGS OF ABUSE [id number] 00:56:00 Test Item Value Reference Range Comments UR COCAINE (test code=COCAU) NEGATIVE NEGATIVE DETECTION CUT OFF: 150 ng/mL UR CANNABINOIDS (test code=CANU) NEGATIVE NEGATIVE DETECTION CUT OFF: 50 ng/ mL UR AMPHETAMINE (test code=AMPHU) NEGATIVE NEGATIVE DETECTION CUT OFF: 500 ng/mL UR BARBITURATE QUAL (test NEGATIVE NEGATIVE DETECTION CUT OFF: 200 code=BARBQLU) ng/mL UR BENZODIAZEPINE (test NEGATIVE NEGATIVE DETECTION CUT OFF: 150 code=BENZU) ng/mL UR OPIATES QUAL (test NEGATIVE NEGATIVE DETECTION CUT OFF: 100 code=OPIAQLU) ng/mL UR PHENCYCLIDINE (PCP) (test NEGATIVE NEGATIVE DETECTION CUT OFF: 25 ng/mL code=PHENCU) AG HEPATITIS B [id number] 23:17:00 Test Item Value Reference Range Comments AG HEPATITIS B SURFACE (test code=HBSAG) NONREACTIVE NONREACTIVE AB HEPATITIS C [id number] 23:17:00 Test Item Value Reference Range Comments AB HEPATITIS C (test code=HCVAB) NONREACTIVE NONREACTIVE SIGNAL TO CUTOFF (test code=CUTOFF) <0.02 <0.80 AB [id number] 23:17:00 Test Item Value Reference Range Comments AB TREPONEMA (test code=TREPAB) NONREACTIVE NONREACTIVE AG HEPATITIS B [id number] 22:51:00 Test Item Value Reference Range Comments AG HEPATITIS B SURFACE (test code=HBSAG) NONREACTIVE NONREACTIVE AB HEPATITIS C [id number] 22:51:00 Test Item Value Reference Range Comments AB HEPATITIS C (test code=HCVAB) NONREACTIVE SIGNAL TO CUTOFF (test code=CUTOFF) <0.80 AB [id number] 22:51:00 Test Item Value Reference Range Comments AB TREPONEMA (test code=TREPAB) NONREACTIVE NONREACTIVE COMPREHENSIVE METABOLIC [id number] 22:33:00 Test Item Value Reference Range Comments SODIUM (test code=NA) 138 mEq/L 135-145 POTASSIUM (test code=K) 4.8 mEq/L 3.5-5.0 CHLORIDE (test code=CL) 104 mEq/L 100-115 CARBON DIOXIDE (test code=CO2) 25 mEq/L 22-31 ANION GAP (test code=GAP) 14.00 10-20 GLUCOSE (test code=GLU) 70 mg/dL 65-110 BLOOD UREA NITROGEN (test code=BUN) 4 mg/dL 7-18 GLOMERULAR FILTRATION RATE (test code=GFR) 284 ml/min >60 CREATININE (test code=CREAT) 0.3 mg/dL 0.5-1.0 TOTAL PROTEIN (test code=PROT) 6.6 gm/dL 6.3-8.2 ALBUMIN (test code=ALB) 3.0 gm/dL 3.4-4.8 CALCIUM (test code=CA) 8.1 mg/dL 8.4-10.2 BILIRUBIN TOTAL (test code=BILT) 0.4 mg/dL 0.2-1.0 SGOT/AST (test code=AST) 36 units/L 15-37 SGPT/ALT (test code=ALT) 13 units/L 12-78 ALKALINE PHOSPHATASE TOTAL (test code=ALKP) 81 units/L 46-116 BILIRUBIN [id number] 22:33:00 Test Item Value Reference Range Comments BILIRUBIN DIRECT (test code=BILD) <0.1 mg/dL <0.2 CBC W/AUTO [id number] 22:17:00 Test Item Value Reference Range Comments WHITE BLOOD CELL (test code=WBC) 11.5 K/mm3 6.6-12.1 RED BLOOD CELL (test code=RBC) 3.71 M/mm3 3.45-5.01 HEMOGLOBIN (test code=HGB) 11.5 g/dL 10.7-13.9 HEMATOCRIT (test code=HCT) 34.2 % 32.1-42.1 MEAN CELL VOLUME (test code=MCV) 92 fL 84.1-94.8 MEAN CELL HGB (test code=MCH) 31.0 pg 27-35 MEAN CELL HGB CONCETRATION (test code=MCHC) 33.6 gm/dL 32.2-34.1 RED CELL DISTRIBUTION WIDTH (test code=RDW) 13.4 % 12.4-16.5 PLATELET COUNT (test code=PLT) 170 K/mm3 133-385 IMMATURE PLATELET FRACTION (test code=IPF) 0.0 % 0.0-10.8 MEAN PLATELET VOLUME (test code=MPV) 9.3 fl 9.1-12.7 NEUTROPHIL % (test code=NT%) 72.7 % 56.5-79.4 LYMPHOCYTE % (test code=LY%) 19.1 % 14.3-34.3 MONOCYTE % (test code=MO%) 5.2 % 5.1-10.4 EOSINOPHIL % (test code=EO%) 2.2 % 0.1-3.0 BASOPHIL % (test code=BA%) 0.3 % 0.1-1.0 NEUTROPHIL # (test code=NT#) 8.4 K/mm3 LYMPHOCYTE # (test code=LY#) 2.2 K/mm3 MONOCYTE # (test code=MO#) 0.6 K/mm3 EOSINOPHIL # (test code=EO#) 0.25 K/mm3 BASOPHIL # (test code=BA#) 0.0 K/mm3 RBC MORPHOLOGY REQUIRED (test code=RBCM) NORMAL NORMAL PLATELET MORPHOLOGY REQUIRED (test code=PLTMR) NORMAL NORMAL
[2019-03-04 14:51] LABS: Urine Blood 3+ (NEG); Urine Glucose NEGATIVE (NEG); Urine Specific Gravity 1.025 (1.005-1.030)
[2019-03-04 14:52] LABS: Urine Protein NEGATIVE (NEG); Urine pH 7.5 (5.0-7.0)
[2019-03-04 14:57] LABS: Basophils % 0.7 % (0-1.3); Hematocrit 36.1 % (36.0-45.0); Lymphocytes % 26.7 % (15.3-44.8); MPV 7.5 fL (7.6-11.3); RBC Red Blood Cell Count 4.25 M/uL (3.86-4.86)
[2019-03-04 15:23] LABS: BUN Blood Urea Nitrogen 8 mg/dL (7-18); Bicarbonate 27 mmol/L (21-32); Glucose Level 74 mg/dL (74-106); Potassium 3.7 mmol/L (3.5-5.1); Sodium Level 140 mmol/L (136-145)
[2019-03-04 15:51] LABS: HCG, Quantitative 14157 mIU/mL (1-3)
--- NOTE | 2019-03-04 16:09 | RAD REPORT ---
EXAM DESCRIPTION: US - Transvaginal OB - 03/04/2019 3:36 pm CLINICAL HISTORY: with pelvic pain and vaginal bleeding COMPARISON: None. FINDINGS: The uterus measures 8 x 5 x 5 centimeters. The endometrial stripe measures 9 millimeters. A gestational sac is not seen. The right ovary is normal in size and echotexture. The right adnexa unremarkable The left ovary was not visualized secondary to overlying bowel gas. Images of the left adnexa were no t obtained as the patient was in discomfort and wanted to an the exam. No significant free fluid is seen. IMPRESSION: Nonvisualization of a gestational sac within the endometrium. This could represent an ea rly IUP, or even an ectopic . This all should be correlated clinically and with ser ial beta HCG levels. Follow up ultrasound in 1 week recommended for re-evaluation
--- NOTE | 2019-03-04 16:28 | EDPHYS ---
Physician Documentation [facility] Name: Tyra Fowler Age: 18 yrs Sex: Female : 2000 Arrival Date: 03/04/2019 Time: 14:02 Bed 6 Private MD: ED Physician Otoniel Henry HPI: 03/04 15:19 This 18 yrs old Female presents to ER via Ambulatory with complaints of kb Vaginal Bleeding - unk wks preg. 15:19 The patient presents to the emergency department with abdominal pain, of the suprapubic kb area, that started today, vaginal bleeding. course: care: none, Leakage of Fluid: none appreciated, Ultrasound: the patient has not had an ultrasound, Risk/complications: no obvious risks or complications are appreciated. Previous pregnancies: in previous pregnancies patient has had vaginal delivery. Associated signs and symptoms: Pertinent positives: abdominal pain, vaginal bleeding. The patient has not experienced similar symptoms in the past. The patient has not recently seen a physician. Pt reports she is and started having bleeding and cramping at 1300 today. Reports she went to [facility] for diarrhea 2-3 weeks ago and they told her she was . Pt delivered first child in November 2018, stopped having vaginal bleeding 2-3 weeks later and never had a period so she isn't sure how far along she is. 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 - Coronavirus screen:: The patient has NOT traveled to [place], [place], or [place] in the past 14 days. Proceed with normal triage process as indicated. - Social history:: Smoking status: Patient denies any tobacco usage or history of. - Ebola Screening: : No symptoms or risks identified at this time. ROS: 15:18 Constitutional: Negative for fever, chills, and weight loss, Neck: Negative for injury, kb pain, and swelling, Cardiovascular: Negative for chest pain, palpitations, and edema, Respiratory: Negative for shortness of breath, cough, wheezing, and pleuritic chest pain, Back: Negative for injury and pain, MS/Extremity: Negative for injury and deformity, Skin: Negative for injury, rash, and discoloration, Neuro: Negative for headache, weakness, numbness, tingling, and seizure. 15:18 Abdomen/GI: Positive for abdominal cramps. 15:18 : Positive for vaginal bleeding. Exam: 15:18 Constitutional: This is a well developed, well nourished patient who is awake, alert, kb and in no acute distress. Head/Face: Normocephalic, atraumatic. Neck: Trachea midline, no thyromegaly or masses palpated, and no cervical lymphadenopathy. Supple, full range of motion without nuchal rigidity, or vertebral point tenderness. No Meningismus. Chest/axilla: Normal chest wall appearance and motion. Nontender with no deformity. No lesions are appreciated. Cardiovascular: Regular rate and rhythm with a normal S1 and S2. No gallops, murmurs, or rubs. Normal PMI, no JVD. No pulse deficits. Respiratory: Lungs have equal breath sounds bilaterally, clear to auscultation and percussion. No rales, rhonchi or wheezes noted. No increased work of breathing, no retractions or nasal flaring. Abdomen/GI: Soft, non-tender, with normal bowel sounds. No distension or tympany. No guarding or rebound. No evidence of tenderness throughout. Back: No spinal tenderness. No costovertebral tenderness. Full range of motion. Skin: Warm, dry with normal turgor. Normal color with no rashes, no lesions, and no evidence of cellulitis. MS/ Extremity: Pulses equal, no cyanosis. Neurovascular intact. Full, normal range of motion. Neuro: Awake and alert, GCS 15, oriented to person, place, time, and situation. Cranial nerves II-XII grossly intact. Motor strength 5/5 in all extremities. Sensory grossly intact. Cerebellar exam normal. Normal gait. Vital Signs: 14:23 BP 118 / 70; Pulse 91; Resp 16 S; Temp 98.2(O); Pulse Ox 98% on R/A; Weight 60.78 kg jl7 (R); Height 5 ft. 3 in. (160.02 cm) (R); Pain 8/10; 15:30 BP 115 / 70; Pulse 89; Resp 16 S; Pulse Ox 100% on R/A; jl7 14:23 Body Mass Index 23.74 (60.78 kg, 160.02 cm) jl7 MDM: 14:04 Patient medically screened. kb 15:18 Data reviewed: vital signs, nurses notes. Data interpreted: Pulse oximetry: on room air kb is 98 %. Interpretation: normal. Counseling: I had a detailed discussion with the patient and/or guardian regarding: the historical points, exam findings, and any diagnostic results supporting the discharge/admit diagnosis, lab results, radiology results, the need for outpatient follow up, an OB/Gyne specialist, to return to the emergency department if symptoms worsen or persist or if there are any questions or concerns that arise at home. 16:27 ED course: Pt has follow up appt with OB tomorrow. Will keep appt for reevaluation. No kb tenderness upon exam. . 03/04 14:24 Order name: Urine Dipstick--Ancillary (enter results); Complete Time: 14:57 ms 03/04 14:24 Order name: Urine --Ancillary (enter results); Complete Time: 14:57 ms 03/04 14:32 Order name: Quantitative Hcg; Complete Time: 15:51 kb 03/04 14:32 Order name: Abo/rh Typing; Complete Time: 15:51 kb 03/04 14:32 Order name: Basic Metabolic Panel; Complete Time: 15:51 kb 03/04 14:32 Order name: CBC with Diff; Complete Time: 15:04 kb 03/04 14:32 Order name: IV Saline Lock; Complete Time: 15:01 kb 03/04 14:32 Order name: Labs collected and sent; Complete Time: 15:01 kb 03/04 14:33 Order name: NPO; Complete Time: 14:38 kb 03/04 14:37 Order name: US Transvaginal Ob; Complete Time: 16:18 kb Administered Medications: No medications were administered Disposition: :26 Co-signature as Attending Physician, Otoniel Henry MD I agree with the assessment and kdr plan of care. Disposition: 03/04/19 16:28 Discharged to Home. Impression: Threatened . - Condition is Stable. - Discharge Instructions: Vaginal Bleeding During , First Trimester, Threatened Miscarriage, Erxq-iz-Wemm, Pelvic Rest. - Work release form, Medication Reconciliation Form, Thank You Letter, Antibiotic Education, Prescription Opioid Use form. - Follow up: Emergency Department; When: As needed; Reason: Worsening of condition. Follow up: Private Physician; When: 2 - 3 days; Reason: Recheck today's complaints, Continuance of care, Re-evaluation by your physician. Signatures: Dispatcher [employer] EDGricel Sylvester, HERBERT-C TOEING STOCKINGS-Otoniel Thornton MD MD kdr Leal, Jahala, RN RN jl7 Corrections: (The following items were deleted from the chart) 16:43 16:28 03/04/2019 16:28 Discharged to Home. Impression: Threatened . Condition jl7 is Stable. Forms are Medication Reconciliation Form, Thank You Letter, Antibiotic Education, Prescription Opioid Use. Follow up: Emergency Department; When: As needed; Reason: Worsening of condition. Follow up: Private Physician; When: 2 - 3 days; Reason: Recheck today's complaints, Continuance of care, Re-evaluation by your physician. kb
--- NOTE | 2019-03-04 16:28 | ER ---
Nurse's Notes [facility] Name: Tyra Fowler Age: 18 yrs Sex: Female : 2000 Arrival Date: 03/04/2019 Time: 14:02 Bed 6 Private MD: Diagnosis: Threatened Presentation: 03/04 14:20 Presenting complaint: Patient states: "I may be having a miscarriage." Pt reports jl7 cramping with vaginal bleeding since 1300 today, had a baby 3 months ago, no period since then. Went to [facility] 2 or 3 weeks ago with N/V/D and had a positive test. Transition of care: patient was not received from another setting of care. Onset of symptoms was March 04, 2019 at 13:00. Risk Assessment: Do you want to hurt yourself or someone else? Patient reports no desire to harm self or others. Initial Sepsis Screen: Does the patient meet any 2 criteria? No. Patient's initial sepsis screen is negative. Does the patient have a suspected source of infection? No. Patient's initial sepsis screen is negative. Care prior to arrival: None. 14:20 Method Of Arrival: Ambulatory [facility] 14:20 Acuity: RANJIT 3 jl7 Triage Assessment: 14:23 General: Appears in no apparent distress. uncomfortable, Behavior is calm, cooperative, jl7 appropriate for age. Pain: Complains of pain in right lower quadrant and left lower quadrant Pain does not radiate. Pain currently is 8 out of 10 on a pain scale. Quality of pain is described as crampy, Pain began 1 hour ago. Is continuous. Neuro: Level of Consciousness is awake, alert, obeys commands, Oriented to person, place, time, situation. Cardiovascular: Patient's skin is warm and dry. Respiratory: Airway is patent Respiratory effort is even, unlabored, Respiratory pattern is regular, symmetrical. GI: No signs and/or symptoms were reported involving the gastrointestinal system. : Reports vaginal bleeding that is bright red. Derm: Skin is pink, warm \\T\\ dry. 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 - Coronavirus screen:: The patient has NOT traveled to [place], [place], or [place] in the past 14 days. Proceed with normal triage process as indicated. - Social history:: Smoking status: Patient denies any tobacco usage or history of. - Ebola Screening: : No symptoms or risks identified at this time. Screenin:26 Abuse screen: Denies threats or abuse. Denies injuries from another. Nutritional jl7 screening: No deficits noted. Tuberculosis screening: No symptoms or risk factors identified. 15:00 Fall Risk IV access (20 points). Total Cardozo Fall Scale indicates No Risk (0-24 pts). jl7 Assessment: 14:26 General: see triage assessment. jl7 15:30 Reassessment: Patient appears in no apparent distress at this time. No changes from jl7 previously documented assessment. Patient and/or family updated on plan of care and expected duration. Pain level reassessed. Patient is alert, oriented x 3, equal unlabored respirations, skin warm/dry/pink. Vital Signs: 14:23 BP 118 / 70; Pulse 91; Resp 16 S; Temp 98.2(O); Pulse Ox 98% on R/A; Weight 60.78 kg jl7 (R); Height 5 ft. 3 in. (160.02 cm) (R); Pain 8/10; 15:30 BP 115 / 70; Pulse 89; Resp 16 S; Pulse Ox 100% on R/A; jl7 14:23 Body Mass Index 23.74 (60.78 kg, 160.02 cm) jl7 ED Course: 14:02 Patient arrived in ED. as 14:04 Gricel Wilson FNP-C [facility]. kb 14:04 Otoniel Henry MD is Attending Physician. kb 14:12 Lewis Domingo RN is Primary Nurse. jl7 14:23 Triage completed. jl7 14:23 Arm band placed on right wrist. jl7 14:26 Patient has correct armband on for positive identification. Bed in low position. Call jl7 light in reach. Side rails up X 1. Pulse ox on. NIBP on. 14:40 Urine collected: clean catch specimen, cloudy, blood tinged. jb1 15:29 Ultrasound completed. Patient tolerated poorly. Note: pt requested to end exam, unable sg3 to tolerate exam due to cramping pain. 15:36 US Transvaginal Ob In Process Unspecified. EDMS 16:43 No provider procedures requiring assistance completed. IV discontinued, intact, jl7 bleeding controlled, No redness/swelling at site. Pressure dressing applied. Administered Medications: No medications were administered Outcome: 16:28 Discharge ordered by . belkis 16:43 Discharged to home ambulatory. jl7 16:43 Condition: stable 16:43 Discharge instructions given to patient, Instructed on discharge instructions, follow up and referral plans. Demonstrated understanding of instructions, follow-up care. 16:43 Patient left the ED. jl7 Signatures: Dispatcher [employer] Andrew Lugo jb1 Gricel Wilson, TRUCK REPAIR SUPERVISOR-C TRUCK REPAIR SUPERVISOR-Aneta Bull Jahala, RN RN jl7 Naomi Pacheco sg3 Corrections: (The following items were deleted from the chart) 15:30 15:29 Ultrasound completed. Patient tolerated well. sg3 sg3
[2019-03-04 16:56] VITALS: TEMP 98.2
[2019-03-04 16:58] VITALS: BP 115/70; O2SAT 100
== END 2019-03-04 16:43 | disposition home or self-care (01) ==
LOC: ER 14:01
DX: O20.0 Threatened abortion (principal); Z3A.01 Less than 8 weeks gestation of pregnancy
CPT/HCPCS: 36415; 76817; 80048; 81003; 81025; 84702; 85025; 86900; 86901; 99283

== ENCOUNTER 2019-09-03 14:49 | Emergency (ER) | payer OTHER ==
[2019-09-03 16:02] VITALS: BP 117/84; TEMP 98.5; O2SAT 96
--- NOTE | 2019-09-03 21:31 | ER ---
Nurse's Notes [facility] Name: Tyra Fowler Age: 19 yrs Sex: Female : 2000 Arrival Date: 09/03/2019 Time: 14:50 Bed 6 Private MD: Diagnosis: Viral Respiratory Infection Presentation: 09/02 14:58 Chief complaint: Patient states: Exposed to covid positive co-worker this past weekend. ll1 Started to have abdominal cramping and nausea today. Coronavirus screen: Patient denies a cough. Patient denies shortness of breath or difficulty breathing. Patient reports a measured and/or subjective temperature greater than 100.4F. Patient denies travel on a cruise ship or to a country the [facility] currently lists as an affected area. Patient reports contact with known and/or suspected case of COVID-19. Patient instructed to continue to wear a mask when interacting with others. Patient moved to private room, placed in contact and droplet isolation with eye protection until further assessment. Ebola Screen: Patient denies travel to an Ebola-affected area in the 21 days before illness onset. Initial Sepsis Screen: Does the patient meet any 2 criteria? No. Patient's initial sepsis screen is negative. Risk Assessment: Do you want to hurt yourself or someone else? Patient reports no desire to harm self or others. Onset of symptoms was September 03, 2019. 14:58 Method Of Arrival: Ambulatory [facility] 14:58 Acuity: RANJIT 4 ll1 15:12 Initial Sepsis Screen: Does the patient have a suspected source of infection? No. sv Patient's initial sepsis screen is negative. Historical: - Allergies: 15:00 Vancomycin; ll1 15:00 Azithromycin; ll1 - PMHx: 15:00 Asthma; Depression; ll1 - PSHx: 15:00 cyst removal; foot surgery; ll1 - Immunization history:: Flu vaccine is up to date. - Social history:: Smoking status: Patient reports the use of cigarette tobacco products, denies chronic smoking, but will smoke occasionally, Patient uses alcohol, occasionally. only on a social basis. Patient/guardian denies using street drugs. Screenin:07 Abuse screen: Denies threats or abuse. Denies injuries from another. Nutritional sv screening: No deficits noted. Tuberculosis screening: No symptoms or risk factors identified. Fall Risk None identified. Assessment: 15:00 General: Appears in no apparent distress. comfortable, well groomed, well developed, sv Behavior is calm, cooperative, appropriate for age. Pain: Denies pain. Neuro: Level of Consciousness is awake, alert, obeys commands, Oriented to person, place, time, situation, Moves all extremities. Full function Gait is steady, Speech is normal. Respiratory: Airway is patent Respiratory effort is even, unlabored, Respiratory pattern is regular, symmetrical. GI: Reports nausea. Derm: Skin is pink, warm \T\ dry. 15:38 Reassessment: COVID-19 obtained and sent to lab. sv Vital Signs: 14:58 BP 117 / 84; Pulse 82; Resp 17; Temp 98.5; Pulse Ox 96% ; Pain 6/10; ll1 ED Course: 14:50 Patient arrived in ED. fj1 15:00 Triage completed. ll1 15:01 Arm band placed on Patient placed in an exam room, on a stretcher. ll1 15:06 Cassandra Odell RN is Primary Nurse. sv 15:07 Patient has correct armband on for positive identification. Bed in low position. Call sv light in reach. Door closed. Head of bed elevated. 15:08 Awaiting ED provider evaluation. sv 15:09 Brown Ellis PA is PHCP. cecelia 15:09 Veto Faye MD is Attending Physician. kranthi 15:16 Nurse Practitioner and/or Physician Electronic Engineering Technician to see patient. sv 15:38 No provider procedures requiring assistance completed. Patient did not have IV access sv during this emergency room visit. Administered Medications: No medications were administered Outcome: 15:27 Discharge ordered by . [facility] 15:38 Discharged to home ambulatory. sv 15:38 Condition: stable 15:38 Discharge instructions given to patient, Instructed on discharge instructions, follow up and referral plans. Demonstrated understanding of instructions, follow-up care. 15:39 Patient left the ED. sv Addendum: 09/05/2019 15:17 Addendum: COVID-19 Result: Negative result given to RN to notify pt. Attempted to d m5 contact pt regarding negative COVID-19 swab results. Left voice mail. Signatures: Elif Munguia RN RN dm5 Cassandra Odell RN RN Brown Ellis PA PA jmm James, Frank fj1 Susan Muhammad, RN RN ll1
--- NOTE | 2019-09-03 21:32 | EDPHYS ---
Physician Documentation [facility] Name: Tyra Fowler Age: 19 yrs Sex: Female : 2000 Arrival Date: 09/03/2019 Time: 14:50 Bed 6 Private MD: ED Physician Veto Faye HPI: 09/02 15:20 This 19 yrs old Female presents to ER via Ambulatory with complaints of jmm POSSIBLE EXPOSURE. 15:20 Onset: The symptoms/episode began/occurred today. Modifying factors: The symptoms are jmm alleviated by nothing. the symptoms are aggravated by nothing. Associated signs and symptoms: Pertinent negatives: fever. This is a 19 year old female with a history of asthma that presents to the ED with complaints of headache, chills, body aches, nausea beginning today. Patient states a coworker recently was diagnosed with COVID-19. . Historical: - Allergies: 15:00 Vancomycin; ll1 15:00 Azithromycin; ll1 - PMHx: 15:00 Asthma; Depression; ll1 - PSHx: 15:00 cyst removal; foot surgery; ll1 - Immunization history:: Flu vaccine is up to date. - Social history:: Smoking status: Patient reports the use of cigarette tobacco products, denies chronic smoking, but will smoke occasionally, Patient uses alcohol, occasionally. only on a social basis. Patient/guardian denies using street drugs. ROS: 15:20 Neck: Negative for injury, pain, and swelling, Cardiovascular: Negative for chest pain, jmm palpitations, and edema. 15:20 Constitutional: Positive for body aches, chills. 15:20 All other systems are negative. Exam: 15:20 Constitutional: This is a well developed, well nourished patient who is awake, alert, jmm and in no acute distress. Head/Face: atraumatic. Eyes: EOMI, no conjunctival erythema appreciated ENT: Moist Mucus Membranes Neck: Trachea midline, Supple Chest/axilla: Normal chest wall appearance and motion. Cardiovascular: Regular rate and rhythm. No edema appreciated Respiratory: Normal respirations, no respiratory distress appreciated Abdomen/GI: Non distended, soft Back: Normal ROM Skin: General appearance color normal MS/ Extremity: Moves all extremities, no obvious deformities appreciated, no edema noted to the lower extremities Neuro: Awake and alert, normal gait Psych: Behavior is normal, Mood is normal, Patient is cooperative and pleasant 15:20 Abdomen/GI: Inspection: abdomen appears normal, Bowel sounds: normal, Palpation: abdomen is soft and non-tender, in all quadrants. Vital Signs: 14:58 BP 117 / 84; Pulse 82; Resp 17; Temp 98.5; Pulse Ox 96% ; Pain 6/10; ll1 MDM: 15:20 Patient medically screened. [facility] 15:25 Data reviewed: vital signs, nurses notes. Counseling: I had a detailed discussion with cecelia the patient and/or guardian regarding: the historical points, exam findings, and any diagnostic results supporting the discharge/admit diagnosis, the need for outpatient follow up, to return to the emergency department if symptoms worsen or persist or if there are any questions or concerns that arise at home. ED course: Patient is alert and non toxic in appearance in the ED. No signs of resp distress. Patient is given strict return precautions. Patient understood and agrees with the plan of care. . 09/02 15:20 Order name: [facility] Administered Medications: No medications were administered Disposition: 16:22 Co-signature as Attending Physician, Veto Faye MD. rn Disposition: 09/03/19 15:27 Discharged to Home. Impression: Viral Respiratory Infection. - Condition is Stable. - Discharge Instructions: COVID-19. - Medication Reconciliation Form, Thank You Letter, Antibiotic Education, Prescription Opioid Use form. - Follow up: Private Physician; When: 2 - 3 days; Reason: Recheck today's complaints, Continuance of care, Re-evaluation by your physician. - Notes: Please supplement with 2500 IU of vitamin D daily, 50 mg of Zinc. Return to the ED if you develop increased shortness of breath. Signatures: Dispatcher [employer] EDMS Cassandra Odell RN RN sv Mickail, Joel, PA PA Veto Villafuerte MD MD rn Lewis, Lynsay, RN RN ll1 Corrections: (The following items were deleted from the chart) 15:39 15:27 09/03/2019 15:27 Discharged to Home. Impression: Viral Respiratory Infection. sv Condition is Stable. Discharge Instructions: COVID-19. Forms are Medication Reconciliation Form, Thank You Letter, Antibiotic Education, Prescription Opioid Use. Follow up: Private Physician; When: 2 - 3 days; Reason: Recheck today's complaints, Continuance of care, Re-evaluation by your physician. cecelia
--- OUTSIDE RECORDS SUMMARY | 2019-09-03 22:19 | XMS REPORT | Continuity of Care Document ---
:[address] [facility] t Address [address] [place] [address] [place] [address] Care Team Providers Name Role Phone Anita NAVARRO Attending Clinician Payers Payer Name Policy Type Policy Number Effective Date Expiration Date S ource Problems This patient has no known problems. Allergies, Adverse Reactions, Alerts Allergy Allergy Status Severity Reaction(s) Onset Inactive Treating Comm ents Source Name Type Date Date Clinician jacque LEIVA Active [place] 2018- [facility] [place] azithrom DA Active [place] 2018- [facility] [place] vancomyc DA Active [place] 2018-0 [facility] 10-11 [facility] [place] Medications This patient has no known medications. Procedures This patient has no known procedures. Encounters Start End Encounter Admission Attending Care Care Encounter Source Date/Time Date/Time Type Type Clinicians Facility Department ID 2019-08-16 2019-08-16 RAJ Jefferson [id number] 08:54:20 09:41:28 Visit Angus Chen [id number] [facility] [id number] [phone] 044 [facility] Results Test Description Test Time Test Comments Results Result [facility] e Comments - CT ABDOMEN 2018-12-06 Patient Name: W/CONTRAST 08:58:00 THEA BOSWELLIDI CRISTIAN Unit No: [id number] EXAMS: CPT CODE: [id number] CT ABDOMEN W/CONTRAST 10731 EXAMINATION: CT scan of the abdomen with [...] The patient is at risk for [facility] NAME: RAFFYJOSE MIGUELTHEA CARDOSOANI FOSTER Radiology Department PHYS: Michelle Alicea MD [address] : 2000 AGE: 18 SEX: F [place] [address] LOC: F.4602 A PHONE #: [phone] EXAM DATE: 12/05/2018 STATUS: DIS IN FAX #: [phone] RAD NO: Page 1 Signed Report 1 Patient Name: PARAM BOSWELL Unit No: [id number] EXAMS: CPT CODE: [id number] CT ABDOMEN W/CONTRAST 43664 <Continued> splenic torsion/infarction. There is no evidence of that at this time. 2. Moderate amount of retained fecal material throughout the visualized portions of the colon. at 0858 Reported and signed by: Alyssa Boss MD CC: Michelle Virgen MD Technologist: RT Ethel CTDI: DLP: Trnscrbd D/ (0858) [facility] PAR[facility] Radiology Department PHYS: Michelle Alicea MD [address] : 2000 AGE: 18 SEX: F [place] [address] LOC: Dalton2 A PHONE #: [phone] EXAM DATE: 12/05/2018 STATUS: DIS IN FAX #: [phone] RAD NO: Page 2 Signed Report 1 Patient Name: PARAM BOSWELL Unit No: [id number] EXAMS: CPT CODE: [id number] CT ABDOMEN W/CONTRAST 42346 <Continued> Orig Print D/T: S: 12/06/2018 (0901) [facility] NAME: PARAM BOSWELL CRISTIAN Radiology Department PHYS: Michelle Alicea MD [address] : 2000 AGE: 18 SEX: F [place], [place] [address] LOC: F.4602 A PHONE #: [phone] EXAM DATE: 12/05/2018 STATUS: DIS IN FAX #: [phone] RAD NO: Page 3 Signed Report 1 - US ABDOMEN LTD 2018-12-05 Patient Name: 16:42:00 PARAM BOSWELL Unit No: [id number] EXAMS: CPT CODE: [id number] ABDOMEN LTD 46712 CLINICAL HISTORY: Enlarged spleen. COMPARISON: October 12, [...] Technologist: Petrona Sykes RDMS Probe: Trnscrbd D/ (6622) t.SDR.YOS Orig Print D/T: S: 12/05/2018 (3931) [facility] NAME: KOLTONLARRYPARAM Radiology Department PHYS: Michelle Alicea MD [address] : 2000 AGE: 18 SEX: F [place] [address] LOC: F.4602 A PHONE #: [phone] EXAM DATE: 12/05/2018 STATUS: ADM IN FAX #: [phone] RAD NO: Page 1 Signed Report Patient Name: PARAM BOSWELL Unit No: [id number] EXAMS: CPT CODE: [id number] ABDOMEN LTD 98324 <Continued> [facility] NAME: KOLTONLARRYPARAM Radiology Department PHYS: Michelle Alciea MD [address] : 2000 AGE: 18 SEX: F [place] [address] LOC: Matilda A PHONE #: [phone] EXAM DATE: 12/05/2018 STATUS: ADM IN FAX #: [phone] RAD NO: Page 2 Signed Report PLACENTA THIRD 2018-12-05 TRIMESTER 14:06:00 --------RUN DATE: 12/05/18 [facility] PAGE 1 RUN TIME: 1744 Specimen Inquiry RUN USER: INTERFACE --------PATIENT: PARAM BOSWELL LOC: ROBBIE U #: [id number] AGE/SX: 18/F ROOM: [facility]11[facility]30[facility]: Michelle Virgen MD : [birth year] BED: A DIS: STATUS: ADM IN TLOC: -------- SPEC #: [id number] RECD: 12/01/186 STATUS: FLAKO FATIMA #: [id number] MAGGIE: 12/01/18- SUBM DR: Michelle Virgen MD ENTERED: 12/04/18-0756 SP TYPE: PLACIII OTHR DR: ORDERED: LEVEL V SURGICA CODES: [id number] - PLACENTA, NOS PROCEDURES: LEVEL V SURGICA (Incomplete) TISSUES: PLACENTA, NOS - PLACENTA CLINICAL HISTORY 18 year old, 36.5 weeks, [id number], vaginal delivery, prematurity (kr) FINAL DIAGNOSIS Placenta, young gestation: - late third trimester villous architecture - umbilical cord: paramarginal insertion, 3-vessel, 23 cm length - decreased placental weight: 357 gms (less than 10th percentile) CPT Code: 90189 cds/wpd 12/05/18 GROSS DESCRIPTION The specimen was [...] beefy, and spongy CONTINUED ON NEXT PAGE --------RUN DATE: 12/05/18 [facility] PAGE 2 RUN TIME: 1744 Specimen Inquiry RUN USER: INTERFACE --------SPEC #: [id number] PATIENT: PARAM BOSWELL #[id number] (Continued) GROSS DESCRIPTION (Continued) Parenchyma lesions: None Cassettes: A1 through A4 hz/wpd 12/04/18 @ 1114 Signed Elver Retana 12/05/18 1406 -------- END OF REPORT CBC W/AUTO DIFF 2018-12-01 22:06:00 Test Item Value Reference Range Interpretation Comme nts WHITE BLOOD CELL (test code = WBC) 15.8 K/mm3 6.6-12.1 H RED BLOOD CELL (test code = RBC) 3.68 M/mm3 3.45-5.01 N HEMOGLOBIN (test code = HGB) 11.0 g/dL 10.7-13.9 N HEMATOCRIT (test code = HCT) 33.3 % 32.1-42.1 N MEAN CELL VOLUME (test code = MCV) 91 fL 84.1-94.8 N MEAN CELL HGB (test code = MCH) 29.9 pg 27-35 N MEAN CELL HGB CONCETRATION (test code = MCHC) 33.0 gm/dL 32.2-34. 1 N RED CELL DISTRIBUTION WIDTH (test code = RDW) 13.4 % 12.4-16. 5 N PLATELET COUNT (test code = PLT) 115 K/mm3 133-385 L IMMATURE PLATELET FRACTION (test code = IPF) 0.0 % 0.0-10.8 N MEAN PLATELET VOLUME (test code = MPV) 9.7 fl 9.1-12.7 N NEUTROPHIL % (test code = NT%) 89.3 % 56.5-79.4 H LYMPHOCYTE % (test code = LY%) 6.1 % 14.3-34.3 L MONOCYTE % (test code = MO%) 4.0 % 5.1-10.4 L EOSINOPHIL % (test code = EO%) 0.1 % 0.1-3.0 N BASOPHIL % (test code = BA%) 0.1 % 0.1-1.0 N NEUTROPHIL # (test code = NT#) 14.1 K/mm3 LYMPHOCYTE # (test code = LY#) 1.0 K/mm3 MONOCYTE # (test code = MO#) 0.6 K/mm3 EOSINOPHIL # (test code = EO#) 0.01 K/mm3 BASOPHIL # (test code = BA#) 0.0 K/mm3 RBC MORPHOLOGY REQUIRED (test code = RBCM) NORMAL NORMAL PLATELET MORPHOLOGY REQUIRED (test code = PLTMR) NORMAL POLLY L AG HEPATITIS B [id number] 05:49:00 Test Item Value Reference Range Interpretation Comments AG HEPATITIS B SURFACE (test code NONREACTIVE NONREACTIVE = HBSAG) IS CONSENT FORM SIGNED FOR HIV TESTING? YAB HEPATITIS C [id number] 05:49:00 Test Item Value Reference Range Interpretation Comments AB HEPATITIS C (test code = NONREACTIVE NONREACTIVE HCVAB) SIGNAL TO CUTOFF (test code = 0.10 <0.80 N CUTOFF) IS CONSENT FORM SIGNED FOR HIV TESTING? YAB [id number] 05:49:00 Test Item Value Reference Range Interpretation Comments AB TREPONEMA (test code = TREPAB) NONREACTIVE NONREACTIVE IS CONSENT FORM SIGNED FOR HIV TESTING? YAB HIV 1 [id number] 05:49:00 Test Item Value Reference Range Interpretation Comments AB HIV 1 2 (test NONREACTIVE NONREACTIVE Done by Barrett Dempsey code = [id number]) 4th Gen HIV Ag/Ab Combo Screen IS CONSENT FORM SIGNED FOR HIV TESTING? YCBC W/AUTO [id number] 00:01:00 Test Item Value Reference Range Interpretation Comments WHITE BLOOD CELL (test code = WBC) 12.4 K/mm3 6.6-12.1 H RED BLOOD CELL (test code = RBC) 3.58 M/mm3 3.45-5.01 N HEMOGLOBIN (test code = HGB) 10.6 g/dL 10.7-13.9 L HEMATOCRIT (test code = HCT) 32.8 % 32.1-42.1 N MEAN CELL VOLUME (test code = MCV) 92 fL 84.1-94.8 N MEAN CELL HGB (test code = MCH) 29.6 pg 27-35 N MEAN CELL HGB CONCETRATION (test 32.3 gm/dL 32.2-34.1 N code = MCHC) RED CELL DISTRIBUTION WIDTH (test 13.4 % 12.4-16.5 N code = RDW) PLATELET COUNT (test code = PLT) 140 K/mm3 133-385 N IMMATURE PLATELET FRACTION (test 0.0 % 0.0-10.8 N code = IPF) MEAN PLATELET VOLUME (test code = 9.5 fl 9.1-12.7 N MPV) NEUTROPHIL % (test code = NT%) 74.7 % 56.5-79.4 N LYMPHOCYTE % (test code = LY%) 18.9 % 14.3-34.3 N MONOCYTE % (test code = MO%) 5.1 % 5.1-10.4 N EOSINOPHIL % (test code = EO%) 0.3 % 0.1-3.0 N BASOPHIL % (test code = BA%) 0.4 % 0.1-1.0 N NEUTROPHIL # (test code = NT#) 9.3 K/mm3 LYMPHOCYTE # (test code = LY#) 2.3 K/mm3 MONOCYTE # (test code = MO#) 0.6 K/mm3 EOSINOPHIL # (test code = EO#) 0.04 K/mm3 BASOPHIL # (test code = BA#) 0.1 K/mm3 RBC MORPHOLOGY REQUIRED (test code NORMAL NORMAL = RBCM) PLATELET MORPHOLOGY REQUIRED (test NORMAL NORMAL code = PLTMR) - US FET BIO PH MN W/O [id number] 21:38:00 Patient Name: PARAM BOSWELL Unit No: [id number] EXAMS: CPT CODE: [id number] US FET BIO PH MN W/O NST 37750 PROCEDURE: BIOPHYSICAL PROFILE: INDICATION: 36.4 WKS CRAMPING, DFM COMPARISON: None FINDINGS: Limited scanning of the gravid uterus was performed as part of a biophysical profile. Presentation: Cephalic heart rate: 140 bpm Cervix: 2.3 cm YOVANI: 13.8 cm breathing movements: 2 Gross body movements: 2 tone: 2 Amniotic fluid volume: 2 IMPRESSION: BIOPHYSICAL PROFILE 09/14. SL: LS-H at 2138 Reported and signed by: Kobe Madrigal MD CC: Michelle Virgen MD Technologist: Corinne Dowling RDMS Probe: Trnscrbd D/ (2137) t.SDR.LS1 Orig Print D/T: S: 11/30/2018 (2141) [facility] NAME: PARAM BOSWELL CRISTIAN Radiology Department PHYS: Michelle Alicea MD [address] : 2000 AGE: 18 SEX: F [place] [address] LOC: Brianna.NESSA PHONE #: [phone] EXAM DATE: 11/30/2018 STATUS: REG ER FAX #: [phone] RAD NO: Page 1 Signed Report Patient Name: PARAM BOSWELL UnitNo: [id number] EXAMS: CPT CODE: [id number] US FET BIO PH MN W/O NST 33839 <Continued> [facility] NAME: APRAM BOSWELL CRISTIAN Radiology Department PHYS: Michelle Alicea MD [address] : 2000 AGE: 18 SEX: F [place] [address] LOC: CAROLIN PHONE #: [phone] EXAM DATE: 11/30/2018 STATUS: LESIA ER FAX #: [phone] RAD NO: Page 2 Signed ReportURINALYSIS [id number] 20:15:00 Test Item Value Reference Range Interpretation Comments UA COLOR (test code = COLU) YELLOW YELLOW UA APPEARANCE (test code = Slightly-Cloudy CLEAR APPU) UA GLUCOSE DIPSTICK (test NEGATIVE NEG code = DGLUU) UA BILIRUBIN DIPSTICK (test NEGATIVE NEG code = BILU) UA KETONE DIPSTICK (test code 2+ NEG A = KETU) UA SPECIFIC GRAVITY (test 1.015 1.001-1.035 N code = SGU) UA BLOOD DIPSTICK (test code NEG NEG = NANDINI) UA PH DIPSTICK (test code = 6.0 5-9 LUNA) UA PROTEIN DIPSTICK (test NEGATIVE NEG code = PROU) UA UROBILINIOGEN DIPSTICK 4.0 mg/dL NEG A (test code = URO) UA NITRITE DIPSTICK (test NEG NEG code = ANDREINA) UA LEUKOCYTE ESTERASE 2+ NEG A DIPSTICK (test code = LEUU) UA WBC (test code = WBCU) 5-10 #/hpf NONE SEEN A UA RBC (test code = RBCU) NONE SEEN #/hpf NONE SEEN UA EPITHELIAL CELLS (test MODERATE #/HPF RARE-FEW A code = EPIU) UA BACTERIA (test code = NEGATIVE /HPF RARE-FEW BACU) UA MUCUS (test code = MUCU) 2+ NONE SEEN URINE SAMPLE: CLEAN CATCHAMNISURE (ROM) [id number] 18:44:00 Test Item Value Reference Range Interpretation Comments AMNISURE (ROM) TEST (test code = NON-RUPTURED NON-RUPTURE AMNI) : *Amnisure QC OK? YESURINALYSIS [id number] 15:24:00 Test Item Value Reference Range Interpretation Comments UA COLOR (test code = COLU) YELLOW YELLOW UA APPEARANCE (test code = APPU) CLEAR CLEAR UA GLUCOSE DIPSTICK (test code = NEGATIVE NEG DGLUU) UA BILIRUBIN DIPSTICK (test code = NEGATIVE NEG BILU) UA KETONE DIPSTICK (test code = TRACE NEG A KETU) UA SPECIFIC GRAVITY (test code = 1.025 1.001-1.035 N SGU) UA BLOOD DIPSTICK (test code = NEG NEG NANDINI) UA PH DIPSTICK (test code = LUNA) 6.0 5-9 UA PROTEIN DIPSTICK (test code = NEGATIVE NEG PROU) UA UROBILINIOGEN DIPSTICK (test 2.0 mg/dL NEG code = URO) UA NITRITE DIPSTICK (test code = NEG NEG ANDREINA) UA LEUKOCYTE ESTERASE DIPSTICK NEG NEG (test code = LEUU) UA WBC (test code = WBCU) 3-5 #/hpf NONE SEEN A UA RBC (test code = RBCU) 0-2 #/hpf NONE SEEN UA EPITHELIAL CELLS (test code = RARE #/HPF RARE-FEW EPIU) UA BACTERIA (test code = BACU) RARE /HPF RARE-FEW UA MUCUS (test code = MUCU) 3+ NONE SEEN URINE SAMPLE: CLEAN CATCHCOMPREHENSIVE METABOLIC [id number] 13:04:00 Test Item Value Reference Range Interpretation Comments SODIUM (test code = NA) 139 mEq/L 135-145 N POTASSIUM (test code = K) 4.1 mEq/L 3.5-5.0 N CHLORIDE (test code = CL) 104 mEq/L 100-115 N CARBON DIOXIDE (test code = CO2) 26 mEq/L 22-31 N ANION GAP (test code = GAP) 13.20 10-20 N GLUCOSE (test code = GLU) 75 mg/dL 65-110 N BLOOD UREA NITROGEN (test code = 6 mg/dL 7-18 L BUN) GLOMERULAR FILTRATION RATE (test 157 ml/min >60 N code = GFR) CREATININE (test code = CREAT) 0.5 mg/dL 0.5-1.0 N TOTAL PROTEIN (test code = PROT) 6.1 gm/dL 6.3-8.2 L ALBUMIN (test code = ALB) 2.9 gm/dL 3.4-4.8 L CALCIUM (test code = CA) 8.1 mg/dL 8.4-10.2 L BILIRUBIN TOTAL (test code = 0.4 mg/dL 0.2-1.0 N BILT) SGOT/AST (test code = AST) 14 units/L 15-37 L SGPT/ALT (test code = ALT) 15 units/L 12-78 N ALKALINE PHOSPHATASE TOTAL (test 113 units/L 46-116 N code = ALKP) [id number] 13:04:00 Test Item Value Reference Range Interpretation Comments AMYLASE (test code = KADEN) 34 units/L 30-110 N [id number] 13:04:00 Test Item Value Reference Range Interpretation Comments LIPASE (test code = LIP) 97 units/L 73-393 N CBC W/AUTO [id number] 12:55:00 Test Item Value Reference Range Interpretation Comments WHITE BLOOD CELL (test code = WBC) 14.8 K/mm3 6.6-12.1 H RED BLOOD CELL (test code = RBC) 3.61 M/mm3 3.45-5.01 N HEMOGLOBIN (test code = HGB) 10.8 g/dL 10.7-13.9 N HEMATOCRIT (test code = HCT) 32.2 % 32.1-42.1 N MEAN CELL VOLUME (test code = MCV) 89 fL 84.1-94.8 N MEAN CELL HGB (test code = MCH) 29.9 pg 27-35 N MEAN CELL HGB CONCETRATION (test 33.5 gm/dL 32.2-34.1 N code = MCHC) RED CELL DISTRIBUTION WIDTH (test 13.2 % 12.4-16.5 N code = RDW) PLATELET COUNT (test code = PLT) 138 K/mm3 133-385 N IMMATURE PLATELET FRACTION (test 0.0 % 0.0-10.8 N code = IPF) MEAN PLATELET VOLUME (test code = 9.6 fl 9.1-12.7 N MPV) NEUTROPHIL % (test code = NT%) 84.3 % 56.5-79.4 H LYMPHOCYTE % (test code = LY%) 11.0 % 14.3-34.3 L MONOCYTE % (test code = MO%) 3.6 % 5.1-10.4 L EOSINOPHIL % (test code = EO%) 0.1 % 0.1-3.0 N BASOPHIL % (test code = BA%) 0.3 % 0.1-1.0 N NEUTROPHIL # (test code = NT#) 12.5 K/mm3 LYMPHOCYTE # (test code = LY#) 1.6 K/mm3 MONOCYTE # (test code = MO#) 0.5 K/mm3 EOSINOPHIL # (test code = EO#) 0.02 K/mm3 BASOPHIL # (test code = BA#) 0.0 K/mm3 RBC MORPHOLOGY REQUIRED (test code NORMAL NORMAL = RBCM) PLATELET MORPHOLOGY REQUIRED (test NORMAL NORMAL code = PLTMR) AG HEPATITIS B [id number] 05:36:00 Test Item Value Reference Range Interpretation Comments AG HEPATITIS B SURFACE (test code NONREACTIVE NONREACTIVE = HBSAG) IS CONSENT FORM SIGNED FOR HIV TESTING? YAB HEPATITIS C [id number] 05:36:00 Test Item Value Reference Range Interpretation Comments AB HEPATITIS C (test code = NONREACTIVE NONREACTIVE HCVAB) SIGNAL TO CUTOFF (test code = 0.12 <0.80 N CUTOFF) IS CONSENT FORM SIGNED FOR HIV TESTING? YAB [id number] 05:36:00 Test Item Value Reference Range Interpretation Comments AB TREPONEMA (test code = TREPAB) NONREACTIVE NONREACTIVE IS CONSENT FORM SIGNED FOR HIV TESTING? YAB HIV 1 05:36:00 Test Item Value Reference Range Interpretation Comments AB HIV 1 2 (test NONREACTIVE NONREACTIVE Done by Barrett Martinezr code = [id number]) 4th Gen HIV Ag/Ab Combo Screen IS CONSENT FORM SIGNED FOR HIV TESTING? YAG HEPATITIS B [id number] 03:46:00 Test Item Value Reference Range Interpretation Comments AG HEPATITIS B SURFACE (test code NONREACTIVE NONREACTIVE = HBSAG) IS CONSENT FORM SIGNED FOR HIV TESTING? YAB HEPATITIS C [id number] 03:46:00 Test Item Value Reference Range Interpretation Comments AB HEPATITIS C (test code = HCVAB) NONREACTIVE SIGNAL TO CUTOFF (test code = CUTOFF) <0.80 IS CONSENT FORM SIGNED FOR HIV TESTING? YAB [id number] 03:46:00 Test Item Value Reference Range Interpretation Comments AB TREPONEMA (test code = TREPAB) NONREACTIVE NONREACTIVE IS CONSENT FORM SIGNED FOR HIV TESTING? YAB HIV 1 03:46:00 Test Item Value Reference Range Interpretation Comments AB HIV 1 2 (test code = [id number]) NONREACTIVE IS CONSENT FORM SIGNED FOR HIV TESTING? YCBC W/AUTO [id number] 01:18:00 Test Item Value Reference Range Interpretation Comments WHITE BLOOD CELL (test code = WBC) 14.6 K/mm3 6.6-12.1 H RED BLOOD CELL (test code = RBC) 3.72 M/mm3 3.45-5.01 N HEMOGLOBIN (test code = HGB) 11.3 g/dL 10.7-13.9 N HEMATOCRIT (test code = HCT) 33.8 % 32.1-42.1 N MEAN CELL VOLUME (test code = MCV) 91 fL 84.1-94.8 N MEAN CELL HGB (test code = MCH) 30.4 pg 27-35 N MEAN CELL HGB CONCETRATION (test 33.4 gm/dL 32.2-34.1 N code = MCHC) RED CELL DISTRIBUTION WIDTH (test 13.6 % 12.4-16.5 N code = RDW) PLATELET COUNT (test code = PLT) 141 K/mm3 133-385 N IMMATURE PLATELET FRACTION (test 0.0 % 0.0-10.8 N code = IPF) MEAN PLATELET VOLUME (test code = 9.3 fl 9.1-12.7 N MPV) NEUTROPHIL % (test code = NT%) 75.2 % 56.5-79.4 N LYMPHOCYTE % (test code = LY%) 17.8 % 14.3-34.3 N MONOCYTE % (test code = MO%) 5.1 % 5.1-10.4 N EOSINOPHIL % (test code = EO%) 0.6 % 0.1-3.0 N BASOPHIL % (test code = BA%) 0.3 % 0.1-1.0 N NEUTROPHIL # (test code = NT#) 11.0 K/mm3 LYMPHOCYTE # (test code = LY#) 2.6 K/mm3 MONOCYTE # (test code = MO#) 0.7 K/mm3 EOSINOPHIL # (test code = EO#) 0.09 K/mm3 BASOPHIL # (test code = BA#) 0.1 K/mm3 RBC MORPHOLOGY REQUIRED (test code NORMAL NORMAL = RBCM) PLATELET MORPHOLOGY REQUIRED (test NORMAL NORMAL code = PLTMR) URINALYSIS [id number] 19:10:00 Test Item Value Reference Range Interpretation Comments UA COLOR (test code = COLU) ZARINA YELLOW A UA APPEARANCE (test code = Slightly-Cloudy CLEAR APPU) UA GLUCOSE DIPSTICK (test NEGATIVE NEG code = DGLUU) UA BILIRUBIN DIPSTICK (test 1+ NEG A code = BILU) UA KETONE DIPSTICK (test code NEGATIVE NEG = KETU) UA SPECIFIC GRAVITY (test 1.020 1.001-1.035 N code = SGU) UA BLOOD DIPSTICK (test code NEG NEG = NANDINI) UA PH DIPSTICK (test code = 7.0 5-9 LUNA) UA PROTEIN DIPSTICK (test NEGATIVE NEG code = PROU) UA UROBILINIOGEN DIPSTICK 4.0 mg/dL NEG A (test code = URO) UA NITRITE DIPSTICK (test NEG NEG code = ANDREINA) UA LEUKOCYTE ESTERASE TRACE NEG A DIPSTICK (test code = LEUU) UA WBC (test code = WBCU) 6-10 #/hpf NONE SEEN A UA RBC (test code = RBCU) 0-2 #/hpf NONE SEEN UA EPITHELIAL CELLS (test FEW #/HPF RARE-FEW code = EPIU) UA CALCIUM OXALATE CRYSTALS 0-2 #/LPF (test code = CAOXU) UA MUCUS (test code = MUCU) 4+ NONE SEEN URINE SAMPLE: CLEAN CATCHAG HEPATITIS B [id number] 03:27:00 Test Item Value Reference Range Interpretation Comments AG HEPATITIS B SURFACE (test code NONREACTIVE NONREACTIVE = HBSAG) AB HEPATITIS C [id number] 03:27:00 Test Item Value Reference Range Interpretation Comments AB HEPATITIS C (test code = NONREACTIVE NONREACTIVE HCVAB) SIGNAL TO CUTOFF (test code = 0.12 <0.80 N CUTOFF) AB [id number] 03:27:00 Test Item Value Reference Range Interpretation Comments AB TREPONEMA (test code = TREPAB) NONREACTIVE NONREACTIVE CBC W/AUTO [id number] 01:52:00 Test Item Value Reference Range Interpretation Comments WHITE BLOOD CELL (test code = WBC) 13.7 K/mm3 6.6-12.1 H RED BLOOD CELL (test code = RBC) 3.85 M/mm3 3.45-5.01 N HEMOGLOBIN (test code = HGB) 11.6 g/dL 10.7-13.9 N HEMATOCRIT (test code = HCT) 35.3 % 32.1-42.1 N MEAN CELL VOLUME (test code = MCV) 92 fL 84.1-94.8 N MEAN CELL HGB (test code = MCH) 30.1 pg 27-35 N MEAN CELL HGB CONCETRATION (test 32.9 gm/dL 32.2-34.1 N code = MCHC) RED CELL DISTRIBUTION WIDTH (test 13.2 % 12.4-16.5 N code = RDW) PLATELET COUNT (test code = PLT) 163 K/mm3 133-385 N IMMATURE PLATELET FRACTION (test 0.0 % 0.0-10.8 N code = IPF) MEAN PLATELET VOLUME (test code = 10.0 fl 9.1-12.7 N MPV) NEUTROPHIL % (test code = NT%) 69.9 % 56.5-79.4 N LYMPHOCYTE % (test code = LY%) 21.9 % 14.3-34.3 N MONOCYTE % (test code = MO%) 5.8 % 5.1-10.4 N EOSINOPHIL % (test code = EO%) 1.0 % 0.1-3.0 N BASOPHIL % (test code = BA%) 0.4 % 0.1-1.0 N NEUTROPHIL # (test code = NT#) 9.6 K/mm3 LYMPHOCYTE # (test code = LY#) 3.0 K/mm3 MONOCYTE # (test code = MO#) 0.8 K/mm3 EOSINOPHIL # (test code = EO#) 0.13 K/mm3 BASOPHIL # (test code = BA#) 0.1 K/mm3 RBC MORPHOLOGY REQUIRED (test code NORMAL NORMAL = RBCM) PLATELET MORPHOLOGY REQUIRED (test NORMAL NORMAL code = PLTMR) - US PREG TX [id number] 11:57:00 Patient Name: PARAM BOSWELL Unit No: [id number] EXAMS: CPT CODE: [id number] US PREG [place] TRANSVAGINAL [address] [facility] [address], [place] [address] BIOPHYSICAL PROFILE ULTRASOUND REPORT Pat. Name: PARAM BOSWELL Pat. No: [id number] Study Date: 11/10/2018 11:20am , Age: 1 2000, 18 Pregnancies: 2, Para 0 LMP: 03/19/2018 GA by LMP: 33w5d GA Selected: 33w5d (LMP) JUAN M: 12/24/2018 Referring MD: Michelle Virgen Hollow Handle Bench Worker: Tarun Alonso RDMS, RVT CPT4: USPRUTTRVG Admitting MD: Michelle Virgen Hist/Ind: SCAN 1 33 WEEKS DECREASED MOVEMENT [...] patient. Marco Obrien M.D. Electronic Signature 11/10/2018 11:57am at 1157 Reported and signed by: Marco Obrien MD [facility] NAME: PARAM BOSWELL Radiology Department PHYS: Michelle Alicea MD [address] : 2000 AGE: 18 SEX: F [place] [id number] LOC: Jean MarieNESSA PHONE #: [phone] EXAM DATE: 11/10/2018 STATUS: DEP ER FAX #: [phone] RAD NO: Page 1 Signed Report (CONTINUED) Patient Name: PARAM BOSWELL Unit No: [id number] EXAMS: CPT CODE: [id number] US PREG UT TRANSVAGINAL [address] <Continued> CC: Michelle Virgen MD Technologist: Tarun Alonso RDMS, RVT Probe: [id number] Trnscrbd D/ (1157) Serena Orig Print D/T: S: 11/15/2018 (1016) [facility] NAME: RAFFYJOSE MIGUELTHEA CARDOSOANI FOSTER Radiology Department PHYS: Michelle Alicea MD [address] : 2000 AGE: 18 SEX: F [place] [id number] LOC: Jean MarieNESSA PHONE #: [phone] EXAM DATE: 11/10/2018 STATUS: DEP ER FAX #: [phone] RAD NO: Page 2 Signed Report Patient Name: PARAM BOSWELL Unit No: [id number] EXAMS: CPT CODE: [id number] US PREG UT TRANSVAGINAL [address] <Continued> [facility] NAME: RAFFYJOSE MIGUELJANAEPARAM FOSTER Radiology Department PHYS: Michelle Alicea MD [address] : 2000 AGE: 18 SEX: F [place] [id number] LOC: Jean MarieNESSA PHONE #: [phone] EXAM DATE: 11/10/2018 STATUS: DEP ER FAX #: [phone] RAD NO: Page 3 Signed Report- US FET BIO PH MN W/O [id number] 11:57:00 Patient Name: PARAM BOSWELL Unit No: [id number] EXAMS: CPT CODE: [id number] US FET BIO PH MN W/O NST [address] [facility] [address], [place] [address] BIOPHYSICAL PROFILE ULTRASOUND REPORT Pat. Name: PARAM BOSWELL Pat. No: [id number] Study Date: 11/10/2018 11:20am , Age: 1 2000, 18 Pregnancies: 2, Para 0 LMP: 03/19/2018 GA by LMP: 33w5d GA Selected: 33w5d (LMP) JUAN M: 12/24/2018 Referring MD: MICHELLE VIRGEN Hollow Handle Bench Worker: Tarun Alonso RDMS, T CPT4: [id number] Admitting MD: MICHELLE VIRGEN Hist/Ind: SCAN 1 33 WEEKS DECREASED MOVEMENT Cervical Length: 2.2 cm Heart Rate: 151 bpm Amniotic Fluid Index: 15.1cm (08.2- 24.7) Q1: 3.8cm Q2: 4.9cm Q3: 4.6cm Q4: [...] patient. Marco Obrien M.D. Electronic Signature 11/10/2018 11:57am at 1157 Reported and signed by: Marco Obrien MD [facility] NAME: THEA BOSWELLANI FOSTER Radiology Department PHYS: Mcihelle Alicea MD [address] : 2000 AGE: 18 SEX: F [place] [address] LOC: Jean MarieNESSA PHONE #: [phone] EXAM DATE: 11/10/2018 STATUS: REG ER FAX #: [phone] RAD NO: Page 1 Signed Report (CONTINUED) Patient Name: PARAM BOSWELL Unit No: [id number] EXAMS: CPT CODE: [id number] US FET BIO PH MN W/O NST 12900 <Continued> CC: Michelle Virgen MD Technologist: Tarun Alonso RDMS, RVT Probe: Trnscrbd D/ (1157) [email or web address] Orig Print D/T: S: 11/10/2018 (1158) [facility] NAME: ELBERTPARAM Radiology Department PHYS: Michelle Alicea MD [address] : 2000 AGE: 18 SEX: F [place] [address] LOC: Jean MarieNESSA PHONE #: [phone] EXAM DATE: 11/10/2018 STATUS: REG ER FAX #: [phone] RAD NO: Page 2 Signed Report Patient Name: PARAM BOSWELL Unit No: [id number] EXAMS: CPT CODE: [id number] US FET BIO PH MN W/O NST 18241 <Continued> [facility] NAME: PARAM BOSWELL Radiology Department PHYS: Michelle Alicea MD [address] : 2000 AGE: 18 SEX: F [place], [place] [address] LOC: Jean MarieNESSA PHONE #: [phone] EXAM DATE: 11/10/2018 STATUS: REG ER FAX #: [phone] RAD NO: Page 3 Signed ReportURINALYSIS [id number] 13:24:00 Test Item Value Reference Range Interpretation Comments UA COLOR (test code = COLU) ZARINA YELLOW A UA APPEARANCE (test code = APPU) CLOUDY CLEAR A UA GLUCOSE DIPSTICK (test code = NEGATIVE NEG DGLUU) UA BILIRUBIN DIPSTICK (test code 1+ NEG A = BILU) UA KETONE DIPSTICK (test code = NEGATIVE NEG KETU) UA SPECIFIC GRAVITY (test code = 1.026 1.001-1.035 N SGU) UA BLOOD DIPSTICK (test code = 1+ NEG A NANDINI) UA PH DIPSTICK (test code = LUNA) 6.0 5-9 UA PROTEIN DIPSTICK (test code = 1+ NEG A PROU) UA UROBILINIOGEN DIPSTICK (test 4.0 mg/dL NEG A code = URO) UA NITRITE DIPSTICK (test code = NEG NEG ANDREINA) UA LEUKOCYTE ESTERASE DIPSTICK 2+ NEG A (test code = LEUU) UA WBC (test code = WBCU) 11-15 #/hpf NONE SEEN A UA RBC (test code = RBCU) 6-10 #/hpf NONE SEEN A UA EPITHELIAL CELLS (test code = RARE #/HPF RARE-FEW EPIU) UA BACTERIA (test code = BACU) RARE /HPF RARE-FEW UA MUCUS (test code = MUCU) 4+ NONE SEEN URINE SAMPLE: CLEAN CATCHURINALYSIS [id number] 12:15:00 Test Item Value Reference Range Interpretation Comments UA COLOR (test code = COLU) YELLOW YELLOW UA APPEARANCE (test code = CLEAR CLEAR APPU) UA GLUCOSE DIPSTICK (test code NEGATIVE NEG = DGLUU) UA BILIRUBIN DIPSTICK (test NEGATIVE NEG code = BILU) UA KETONE DIPSTICK (test code 1+ NEG A = KETU) UA SPECIFIC GRAVITY (test code 1.020 1.001-1.035 N = SGU) UA BLOOD DIPSTICK (test code = 2+ NEG A NANDINI) UA PH DIPSTICK (test code = 6.0 5-9 LUNA) UA PROTEIN DIPSTICK (test code NEGATIVE NEG = PROU) UA UROBILINIOGEN DIPSTICK NEGATIVE mg/dL NEG (test code = URO) UA NITRITE DIPSTICK (test code NEG NEG = ANDREINA) UA LEUKOCYTE ESTERASE DIPSTICK NEG NEG (test code = LEUU) UA WBC (test code = WBCU) 0-2 #/hpf NONE SEEN UA RBC (test code = RBCU) 0-2 #/hpf NONE SEEN UA EPITHELIAL CELLS (test code RARE #/HPF RARE-FEW = EPIU) UA BACTERIA (test code = BACU) NEGATIVE /HPF RARE-FEW UA MUCUS (test code = MUCU) RARE NONE SEEN URINE SAMPLE: CLEAN CATCHCOMPREHENSIVE METABOLIC [id number] 11:47:00 Test Item Value Reference Range Interpretation Comments SODIUM (test code = NA) 138 mEq/L 135-145 N POTASSIUM (test code = K) 4.8 mEq/L 3.5-5.0 N CHLORIDE (test code = CL) 104 mEq/L 100-115 N CARBON DIOXIDE (test code = CO2) 25 mEq/L 22-31 N ANION GAP (test code = GAP) 14.00 10-20 N GLUCOSE (test code = GLU) 70 mg/dL 65-110 N BLOOD UREA NITROGEN (test code = 4 mg/dL 7-18 L BUN) GLOMERULAR FILTRATION RATE (test 284 ml/min >60 N code = GFR) CREATININE (test code = CREAT) 0.3 mg/dL 0.5-1.0 L TOTAL PROTEIN (test code = PROT) 6.6 gm/dL 6.3-8.2 N ALBUMIN (test code = ALB) 3.0 gm/dL 3.4-4.8 L CALCIUM (test code = CA) 8.1 mg/dL 8.4-10.2 L BILIRUBIN TOTAL (test code = BILT) 0.4 mg/dL 0.2-1.0 N SGOT/AST (test code = AST) 36 units/L 15-37 N SGPT/ALT (test code = ALT) 13 units/L 12-78 N ALKALINE PHOSPHATASE TOTAL (test 81 units/L 46-116 N code = ALKP) BILIRUBIN [id number] 11:47:00 Test Item Value Reference Range Interpretation Comments BILIRUBIN DIRECT (test code = <0.1 mg/dL <0.2 N BILD) [id number] 11:47:00 Test Item Value Reference Range Interpretation Comments AMYLASE (test code = KADEN) 35 units/L 30-110 N [id number] 11:47:00 Test Item Value Reference Range Interpretation Comments LIPASE (test code = LIP) 128 units/L 73-393 N - US ABDOMEN [id number] 10:42:00 Patient Name: PARAM BOSWELL Unit No: [id number] EXAMS: CPT CODE: [id number] US ABDOMEN COMPLETE 89716 ABDOMEN ULTRASOUND COMPLETE 10/12/2018: COMPARISON: None CLINICAL HISTORY: ABDOMINAL PAIN FINDINGS: The liver has a [...] [id number] Orig Print D/T: S: 10/12/2018 (1045) [facility] NAME: PARAM BOSWELL Radiology Department PHYS:Michelle Alicea MD [address] : 2000 AGE: 18 SEX: F [place], [place] [address] LOC: F.031 A PHONE #: [phone] EXAM DATE: 10/12/2018 STATUS: ADM IN FAX #: [phone] RAD NO: Page 1 Signed Report Patient Name: PARAM BOSWELL Unit No: [id number] EXAMS: CPT CODE: [id number] US ABDOMEN COMPLETE 84539 <Continued> [facility] NAME: PARAM BOSWELL Radiology Department PHYS: Michelle Alicea MD [address] : 2000 AGE: 18 SEX: F [place], [place] [address] LOC: F.031 A PHONE #: [phone] EXAM DATE: 10/12/2018 STATUS: ADM IN FAX #: [phone] RAD NO: Page 2 Signed ReportDRUGS OF ABUSE [id number] 00:56:00 Test Item Value Reference Range Interpretation Comments UR COCAINE (test code = NEGATIVE NEGATIVE DETE CTION CUT OFF: COCAU) 150 ng/mL UR CANNABINOIDS (test NEGATIVE NEGATIVE DETECT ION CUT OFF: code = CANU) 50 ng/mL UR AMPHETAMINE (test code NEGATIVE NEGATIVE DE TECTION CUT OFF: = AMPHU) 500 ng/mL UR BARBITURATE QUAL (test NEGATIVE NEGATIVE DE TECTION CUT OFF: code = BARBQLU) 200 ng/mL UR BENZODIAZEPINE (test NEGATIVE NEGATIVE DETE CTION CUT OFF: code = BENZU) 150 ng/mL UR OPIATES QUAL (test NEGATIVE NEGATIVE DETECT ION CUT OFF: code = OPIAQLU) 100 ng/mL UR PHENCYCLIDINE (PCP) NEGATIVE NEGATIVE DETEC TION CUT OFF: (test code = PHENCU) 25 ng/m L AG HEPATITIS B [id number] 23:17:00 Test Item Value Reference Range Interpretation Comments AG HEPATITIS B SURFACE (test code NONREACTIVE NONREACTIVE = HBSAG) AB HEPATITIS C [id number] 23:17:00 Test Item Value Reference Range Interpretation Comments AB HEPATITIS C (test code = NONREACTIVE NONREACTIVE HCVAB) SIGNAL TO CUTOFF (test code = <0.02 <0.80 N CUTOFF) AB [id number] 23:17:00 Test Item Value Reference Range Interpretation Comments AB TREPONEMA (test code = TREPAB) NONREACTIVE NONREACTIVE AG HEPATITIS B [id number] 22:51:00 Test Item Value Reference Range Interpretation Comments AG HEPATITIS B SURFACE (test code NONREACTIVE NONREACTIVE = HBSAG) AB HEPATITIS C [id number] 22:51:00 Test Item Value Reference Range Interpretation Comments AB HEPATITIS C (test code = HCVAB) NONREACTIVE SIGNAL TO CUTOFF (test code = CUTOFF) <0.80 AB [id number] 22:51:00 Test Item Value Reference Range Interpretation Comments AB TREPONEMA (test code = TREPAB) NONREACTIVE NONREACTIVE COMPREHENSIVE METABOLIC [id number] 22:33:00 Test Item Value Reference Range Interpretation Comments SODIUM (test code = NA) 138 mEq/L 135-145 N POTASSIUM (test code = K) 4.8 mEq/L 3.5-5.0 N CHLORIDE (test code = CL) 104 mEq/L 100-115 N CARBON DIOXIDE (test code = CO2) 25 mEq/L 22-31 N ANION GAP (test code = GAP) 14.00 10-20 N GLUCOSE (test code = GLU) 70 mg/dL 65-110 N BLOOD UREA NITROGEN (test code = 4 mg/dL 7-18 L BUN) GLOMERULAR FILTRATION RATE (test 284 ml/min >60 N code = GFR) CREATININE (test code = CREAT) 0.3 mg/dL 0.5-1.0 L TOTAL PROTEIN (test code = PROT) 6.6 gm/dL 6.3-8.2 N ALBUMIN (test code = ALB) 3.0 gm/dL 3.4-4.8 L CALCIUM (test code = CA) 8.1 mg/dL 8.4-10.2 L BILIRUBIN TOTAL (test code = BILT) 0.4 mg/dL 0.2-1.0 N SGOT/AST (test code = AST) 36 units/L 15-37 N SGPT/ALT (test code = ALT) 13 units/L 12-78 N ALKALINE PHOSPHATASE TOTAL (test 81 units/L 46-116 N code = ALKP) BILIRUBIN [id number] 22:33:00 Test Item Value Reference Range Interpretation Comments BILIRUBIN DIRECT (test code = <0.1 mg/dL <0.2 N BILD) CBC W/AUTO [id number] 22:17:00 Test Item Value Reference Range Interpretation Comments WHITE BLOOD CELL (test code = WBC) 11.5 K/mm3 6.6-12.1 N RED BLOOD CELL (test code = RBC) 3.71 M/mm3 3.45-5.01 N HEMOGLOBIN (test code = HGB) 11.5 g/dL 10.7-13.9 N HEMATOCRIT (test code = HCT) 34.2 % 32.1-42.1 N MEAN CELL VOLUME (test code = MCV) 92 fL 84.1-94.8 N MEAN CELL HGB (test code = MCH) 31.0 pg 27-35 N MEAN CELL HGB CONCETRATION (test 33.6 gm/dL 32.2-34.1 N code = MCHC) RED CELL DISTRIBUTION WIDTH (test 13.4 % 12.4-16.5 N code = RDW) PLATELET COUNT (test code = PLT) 170 K/mm3 133-385 N IMMATURE PLATELET FRACTION (test 0.0 % 0.0-10.8 N code = IPF) MEAN PLATELET VOLUME (test code = 9.3 fl 9.1-12.7 N MPV) NEUTROPHIL % (test code = NT%) 72.7 % 56.5-79.4 N LYMPHOCYTE % (test code = LY%) 19.1 % 14.3-34.3 N MONOCYTE % (test code = MO%) 5.2 % 5.1-10.4 N EOSINOPHIL % (test code = EO%) 2.2 % 0.1-3.0 N BASOPHIL % (test code = BA%) 0.3 % 0.1-1.0 N NEUTROPHIL # (test code = NT#) 8.4 K/mm3 LYMPHOCYTE # (test code = LY#) 2.2 K/mm3 MONOCYTE # (test code = MO#) 0.6 K/mm3 EOSINOPHIL # (test code = EO#) 0.25 K/mm3 BASOPHIL # (test code = BA#) 0.0 K/mm3 RBC MORPHOLOGY REQUIRED (test code NORMAL NORMAL = RBCM) PLATELET MORPHOLOGY REQUIRED (test NORMAL NORMAL code = PLTMR)
--- OUTSIDE RECORDS SUMMARY | 2019-09-03 22:19 | XMS REPORT | Summary of Care ---
:2000 Author Organization [facility] Address [address] [place] [id number] Care Team Providers Name Role Phone MD Anita Primary Care Provider Reason for Visit Reason Comments Refill Request Encounter Details Date Type Department Care Team Description 07/15/2019 Refill [facility] Pediatric and Angus Soni MD Refill Request Adult Primary Care- [address] [facility] [address] [place] [address] [address] [place] [address] [phone] Allergies Active Allergy Reactions Severity Noted Date Comments Kiwi Anaphylaxis High 08/02/2018 Macrolide Antibiotics Itching 12/22/2018 Vancomycin Itching 12/22/2018 documented as of this encounter (statuses as of 07/19/2019) Medications Medication Sig Dispensed Refills Start Date End Date Status vit Take by mouth 0 Ac tive calc,iron,folic daily. ( VITAMIN ORAL) lactobacillus Take 1 capsule 14 capsule 0 12/26/2018 Active combination no.4 by mouth (PROBIOTIC) 3 daily. billion cell CapIndications: Furuncle doxycycline 100 mg Take 1 capsule 20 capsule 0 01/02/2019 Active capsuleIndications: by mouth 2 Skin infection, (two) times Furuncle, Urinary daily. incontinence, unspecified type ondansetron (ZOFRAN Take 1 tablet 10 tablet 0 01/17/2019 Active ODT) 4 mg by mouth every disintegrating 8 (eight) tabletIndications: hours as Viral URI with cough needed for Nausea and Vomiting (N/V). ibuprofen 600 mg Take 1 tablet 30 tablet 0 01/17/2019 Active tabletIndications: by mouth every Viral URI with cough 6 (six) hours as needed for Pain (scale 4-6). benzonatate 100 mg Take 1 capsule 20 capsule 0 01/17/2019 Active capsuleIndications: by mouth 3 Viral URI with cough (three) times daily as needed for Cough. SERTRALINE 100 mg TAKE 1 TABLET 90 tablet 0 07/19/2019 Active tabletIndications: BY MOUTH EVERYDAY AT depression, Anxiety, BEDTIME Panic disorder SERTraline (ZOLOFT) Take 1 tablet 90 tablet 1 01/09/201907/18 Discontinued 100 mg by mouth at 0 tabletIndications: bedtime. depression, Anxiety, Panic disorder documented as of this encounter (statuses as of 07/19/2019) Active Problems Problem Noted Date Contusion of left knee, initial encounter 01/09/2019 depression 01/09/2019 Anxiety 01/09/2019 Panic disorder 01/09/2019 Sprain of left knee, initial encounter 01/09/2019 Skin infection 12/30/2018 Urinary incontinence, unspecified type 12/26/2018 Furuncle 12/26/2018 documented as of this encounter (statuses as of 07/19/2019) Social History Tobacco Use Types Packs/Day Years Used Date Never Smoker Smokeless Tobacco: Never Used Alcohol Use Drinks/Week oz/Week Comments Yes socially Sex Assigned at Date Recorded Not on file Job Start Date Occupation Industry Not on file Not on file Not on file Travel History Travel Start Travel End No recent travel history available. documented as of this encounter Last Filed Vital Signs Not on filedocumented in this encounter Plan of Treatment Health Maintenance Due Date Last Done Comments MENINGOCOCCAL B VACCINES (1 of 2 2008 - Risk Bexsero 2-dose series) DTaP,Tdap,and Td Vaccines (1 - 2009 Tdap) HPV VACCINES (1 - Female 2-dose 2009 series) WELL CARE VISIT: 12-21 YEARS 2010 (yearly) CHLAMYDIA SCREENING 2014 PAP SMEAR 2019 INFLUENZA VACCINE (Season Ended) 2019 Depression Screening 02/17/2020 02/16/2019 MENINGOCOCCAL VACCINE Aged Out No longer eligible based on patient's age to complete this topic PNEUMOCOCCAL 0-64 YEARS COMBINED Aged Out No longer eligible based on SERIES patient's age to complete this topic VARICELLA VACCINES Discontinued documented as of this encounter Results Not on filedocumented in this encounter Visit Diagnoses Diagnosis depression Mental disorders of mother, complicating , childbirth, or the puerperium, unspecified as to episode of care Anxiety Anxiety state, unspecified Panic disorder Panic disorder without agoraphobia documented in this encounter Insurance Payer Benefit Plan / Subscriber ID Effective Phone Address [facility] xxxxxxxxx 2019-Daniel [address] [employer] HEALTH CHOICE - HE[place] [id number] 1 MANAGED MEDICAID [place], [place] [id number] documented as of this encounter
--- OUTSIDE RECORDS SUMMARY | 2019-09-03 22:19 | XMS REPORT | Summary of Care ---
:2000 Author Organization [facility] Address [address] [place] [id number] Care Team Providers Name Role Phone MD Anita Primary Care Provider Reason for Visit Reason Comments DYSURIA VAGINAL ITCHING Encounter Details Date Type Department Care Team Description 08/01/2019 Urgent Care [facility] Family Andrew Kelley PA-C [address] [place] [address] Dysuria (Primary Dx); Medicine - [place] Provider, [facility] Missed period; [address] [place] [address] Acute cyst itis with hematuria; Drive Vagina, [place] [address] Allergies Active Allergy Reactions Severity Noted Date Comments Kiwi Anaphylaxis High 08/02/2018 Macrolide Antibiotics Itching 12/22/2018 Vancomycin Itching 12/22/2018 documented as of this encounter (statuses as of 08/01/2019) Medications Medication Sig Dispensed Refills Start Date End Date Status vit Take by mouth 0 Ac tive calc,iron,folic daily. ( VITAMIN ORAL) lactobacillus Take 1 capsule 14 capsule 0 12/26/2018 Active combination no.4 by mouth daily. (PROBIOTIC) 3 billion cell CapIndications: Furuncle doxycycline 100 mg Take 1 capsule 20 capsule 0 01/02/2019 Active capsuleIndications: by mouth 2 Skin infection, (two) times Furuncle, Urinary daily. incontinence, unspecified type ondansetron (ZOFRAN Take 1 tablet 10 tablet 0 01/17/2019 Active ODT) 4 mg by mouth every disintegrating 8 (eight) hours tabletIndications: as needed for Viral URI with cough Nausea and Vomiting (N/V). ibuprofen 600 mg [...] tablet 0 07/19/2019 Active tabletIndications: BY MOUTH depression, EVERYDAY AT Anxiety, Panic BEDTIME disorder hydrOXYzine 50 mg 0 07/23/2019 A ctive tablet traZODone 50 mg tablet 0 07/23/2019 Active escitalopram oxalate 0 07/23/2019 Active 10 mg tablet fluconazole 150 mg Take 1 tablet 3 tablet 0 08/01/20192019 Active tabletIndications: by mouth every Vagina, candidiasis 72 (seventy-two) hours for 3 doses. Nitrofurantoin&Nit. Take 1 capsule 20 capsule 0 08/01/201905/2019 Active Macrocryst 100 mg by mouth 2 capsuleIndications: (two) times Acute cystitis with daily for 10 hematuria days. documented as of this encounter (statuses as of 08/01/2019) Active Problems Problem Noted Date Contusion of left knee, initial encounter 01/09/2019 depression 01/09/2019 Anxiety 01/09/2019 Panic disorder 01/09/2019 Sprain of left knee, initial encounter 01/09/2019 Skin infection 12/30/2018 Urinary incontinence, unspecified type 12/26/2018 Furuncle 12/26/2018 documented as of this encounter (statuses as of 08/01/2019) Social History Tobacco Use Types Packs/Day Years Used Date Current Some Day Smoker Smokeless Tobacco: Never Used Alcohol Use Drinks/Week oz/Week Comments Yes socially Sex Assigned at Date Recorded Not on file Job Start Date Occupation Industry Not on file Not on file Not on file Travel History Travel Start Travel End No recent travel history available. COVID-19 Exposure Response Date Recorded In the last month, have you been in contact with No / Unsure 08/01/2019 11:35 AM CDT someone who was confirmed or suspected to have Coronavirus / COVID-19? documented as of this encounter Last Filed Vital Signs Vital Sign Reading Time Taken Comments Blood Pressure 108/73 08/01/2019 11:48 AM CDT Pulse 77 08/01/2019 11:48 AM CDT Temperature 36.5 C (97.7 F) 08/01/2019 11:48 AM CDT Respiratory Rate 18 08/01/2019 11:48 AM CDT Oxygen Saturation 99% 08/01/2019 11:48 AM CDT Inhaled Oxygen Concentration - - Weight 61.2 kg (135 lb) 08/01/2019 11:48 AM CDT Height 162.6 cm (5' 4") 08/01/2019 11:48 AM CDT Body Mass Index 23.17 08/01/2019 11:48 AM CDT documented in this encounter Progress Notes Daly Hernandez PA-C - 08/01/2019 11:40 AM CDT Cc: Chief Complaint Patient presents with DYSURIA VAGINAL ITCHING Tyra Fowler is a 19 year old female. HPI Patient here for dysuria and vag itching x 1 month and staying the same. Does have whitish discharge. Denies fever, chills, body aches, abd pain, NVD. Her LMP was 2 months ago. She has been sexually active without protection. She is not concerned about std's. Allergies Tyra is allergic to kiwi; mycins [macrolide antibiotics]; and vancomycin. Medications Outpatient Medications Prior to Visit Medication Sig Dispense Refill escitalopram oxalate 10 mg tablet hydrOXYzine 50 mg tablet traZODone 50 mg tablet SERTRALINE 100 mg tablet TAKE 1 TABLET BY MOUTH EVERYDAY AT BEDTIME 90 tablet 0 benzonatate 100 mg capsule Take 1 capsule by mouth 3 (three) times daily as needed for Cough. 20capsule 0 ibuprofen 600 mg tablet Take 1 tablet by mouth every 6 (six) hours as needed for Pain (scale 4-6). 30 tablet 0 ondansetron (ZOFRAN ODT) 4 mg disintegrating tablet Take 1 tablet by mouth every 8 (eight) hoursas needed for Nausea and Vomiting (N/V). 10 tablet 0 doxycycline 100 mg capsule Take 1 capsule by mouth 2 (two) times daily. 20 capsule 0 lactobacillus combination no.4 (PROBIOTIC) 3 billion cell Cap Take 1 capsule by mouth daily. 14 capsule 0 vit calc,iron,folic ( VITAMIN ORAL) Take by mouth daily. No facility-administered medications prior to visit. Histories Past Medical History: Diagnosis Date ADHD Anxiety 01/09/2019 Asthma depression 01/09/2019 Urinary incontinence, unspecified type 12/26/2018 Past Surgical History: Procedure Laterality Date LEG/ANKLE SURGERY PROC UNLISTED 01/2017 Social History Socioeconomic History Marital status: Single Spouse name: Not on file Number of children: Not on file Years of education: Not on file Highest education level: Not on file Occupational History Not on file Social Needs Financial resource strain: Not on file Food insecurity: Worry: Not on file Inability: Not on file Transportation needs: Medical: Not on file Non-medical: Not on file Tobacco Use Smoking status: Current Some Day Smoker Smokeless tobacco: Never Used Substance and Sexual Activity Alcohol use: Yes Comment: socially Drug use: No Sexual activity: Yes Partners: Male control/protection: None Comment: been with partner about 5 weeks Lifestyle Physical activity: Days per week: Not on file Minutes per session: Not on file Stress: Not on file Relationships Social connections: Talks on phone: Not on file Gets together: Not on file Attends buddhism service: Not on file Active member of club or organization: Not on file Attends meetings of clubs or organizations: Not on file Relationship status: Not on file Intimate partner violence: Fear of current or ex partner: Not on file Emotionally abused: Not on file Physically abused: Not on file Forced sexual activity: Not on file Other Topics Concern Not on file Social History Narrative Not on file Family History Problem Relation Age of Onset Arthritis Father High cholesterol Father Heart Father Hypertension Father Breast Cancer Paternal Grandmother unsure of age Asthma NoFHx defects NoFHx Colon Cancer NoFHx Ovarian Cancer NoFHx Uterine Cancer NoFHx Cancer NoFHx Diabetes NoFHx Depression NoFHx Genetic NoFHx Mental retardation NoFHx Neurological NoFHx Osteoporosis NoFHx Psychiatry NoFHx Review of Systems Constitutional: Negative for chills and fever. HENT: Negative for ear pain and sore throat. Respiratory: Negative for cough and shortness of breath. Cardiovascular: Negative for chest pain and palpitations. Gastrointestinal: Negative. Genitourinary: Positive for dysuria and vaginal discharge. Negative for frequency. Vaginal itching Musculoskeletal: Negative for myalgias. Neurological: Negative for headaches. Psychiatric/Behavioral: The patient is not nervous/anxious. All other systems reviewed and are negative. Vital Signs BP 108/73 | Pulse 77 | Temp 36.5 C (97.7 F) (Oral) | Resp 18 | Ht 5' 4" (1.626 m) | Wt 135 lb (61.2 kg) | SpO2 99% | BMI 23.17 kg/m Physical Exam Constitutional: She is oriented to person, place, and time. She appears well- developed and well-nourished. HENT: Right Ear: External ear normal. Left Ear: External ear normal. Nose: Nose normal. Mouth/Throat: Oropharynx is clear and moist. No oropharyngeal exudate. Eyes: Pupils are equal, round, and reactive to light. Neck: Normal range of motion. Cardiovascular: Normal rate and regular rhythm. Pulmonary/Chest: Effort normal and breath sounds normal. Abdominal: Soft. There is no tenderness. Genitourinary: Genitourinary Comments: refused Musculoskeletal: Normal range of motion. Neurological: She is alert and oriented to person, place, and time. Psychiatric: She has a normal mood and affect. Her behavior is normal. Judgment and thought content normal. Nursing note and vitals reviewed. Assessment/Plan 1. Dysuria - POCT URINALYSIS W SPECIFIC GRAVITY 2. Missed period - POCT TEST 3. Acute cystitis with hematuria - URINE CULTURE - Nitrofurantoin&Nit. Macrocryst 100 mg capsule; Take 1 capsule by mouth 2 (two) times daily for10 days. Dispense: 20 capsule; Refill: 0 4. Vagina, candidiasis - fluconazole 150 mg tablet; Take 1 tablet by mouth every 72 (seventy-two) hours for 3 doses. Dispense: 3 tablet; Refill: 0 ER warnings and home care instructions given Return in about 2 weeks (around 08/15/2019), or if symptoms worsen or fail to improve. Mila Wallace RN - 08/01/2019 11:40 AM CDT Tyra Fowler is a 19 year old female Chief Complaint Patient presents with DYSURIA VAGINAL ITCHING Vitals: 08/01/19 1148 BP: 108/73 Pulse: 77 Resp: 18 Temp: 36.5 C (97.7 F) TempSrc: Oral SpO2: 99% Weight: 135 lb (61.2 kg) Height: 5' 4" (1.626 m) [id number] [place] - [address] [address] Patient AAOx4 and in no acute distress. All Vitals taken, allergies and all medications reviewed, fall risk assessed. Pain level 0. documented in this encounter Plan of Treatment Date Type Specialty Care Team Description 08/16/2019 Office Visit Family Medicine Angus Howard MD [address] [place] [address] Dr Valdivia [place], [place] [address] [phone] Name Type Priority Associated Diagnoses Order S chedule URINE CULTURE LAB Routine Acute cystitis with hematur ia Ordered: 08/01/2019 Health Maintenance Due Date Last Done Comments [...] VACCINES Discontinued documented as of this encounter Procedures Procedure Name Priority Date/Time Associated Comments Diagnosis POCT URINALYSIS STAT 08/01/2019 11:55 AM Dysuria Resul ts for this CDT procedure are i n the results section. POCT TEST Routine 08/01/2019 11:53 AM Missed period Results for this CDT procedure are i n the results section. documented in this encounter Results POCT URINALYSIS W SPECIFIC GRAVITY (08/01/2019 11:55 AM CDT) Pathologist Sig nature POCT U SP GRAV 1.025 1.005 - 1.025 mg/dl POCT PH U 5 5 - 8 mg/dl POCT U LEUK EST ++ Negative - Negative POCT U NIT neg Negative - Negative POCT U PROT neg Negative - Negative POCT U GLU norm Negative - Negative POCT U KETONE neg Negative - Negative POCT U UROBILI norm 0.2 - 1 mg/dl POCT U BILI neg Negative - Negative POCT U BLD trace Negative - Negative POCT U COLOR yellow POCT U APPEAR cloudy Specimen Urine - URINE, CLEAN CATCH Narrative Performed At accurate development and interpretation of all interna l controls POCT TEST (08/01/2019 11:53 AM CDT) Pathologist Sig nature POCT PREG Negative On board controls acceptable Yes with C Line POCT PREG LOT # POCT PREG TEST DATE Specimen Urine - URINE, CLEAN CATCH Narrative Performed At accurate development and interpretation of all interna l controls documented in this encounter Visit Diagnoses Diagnosis Dysuria - Primary Missed period Irregular menstrual cycle Acute cystitis with hematuria Acute cystitis Vagina, candidiasis Candidiasis of vulva and vagina documented in this encounter Insurance Payer Benefit Plan / Subscriber ID Effective Phone Address [facility] xxxxxxxxx 2019-Prese [address] Medic aid HEALTH CHOICE - HEALTH CHOICE nt [id number] 1 MANAGED MEDICAID [place], [place]ID [phone] documented as of this encounter
--- OUTSIDE RECORDS SUMMARY | 2019-09-03 22:20 | XMS REPORT | Summary of Care ---
:2000 Author Organization [facility] Address [address] [place] [address] Care Team Providers Name Role Phone MD Anita Primary Care Provider Encounter Details Date Type Department Care Team Description 08/16/2019 Orders Only [facility] Doctor Unassigned, No [address] [facility] [place] [address] [address] [place] [address] Allergies Active Allergy Reactions Severity Noted Date Comments Kiwi Anaphylaxis High 08/02/2018 Macrolide Antibiotics Itching 12/22/2018 Vancomycin Itching 12/22/2018 documented as of this encounter (statuses as of 08/16/2019) Medications Medication Sig Dispensed Refills Start Date End Date Status vit Take by mouth 0 Ac tive calc,iron,folic daily. ( VITAMIN ORAL) lactobacillus Take 1 capsule 14 capsule 0 12/26/2018 Active combination no.4 by mouth daily. (PROBIOTIC) 3 billion cell CapIndications: Furuncle doxycycline 100 mg Take 1 capsule 20 capsule 0 01/02/2019 Active capsuleIndications: by mouth 2 (two) Skin infection, times daily. Furuncle, Urinary incontinence, unspecified type ondansetron (ZOFRAN Take 1 tablet by 10 tablet 0 01/17/2019 Active ODT) 4 mg mouth every 8 disintegrating (eight) hours as tabletIndications: needed for Viral URI with cough Nausea and Vomiting (N/V). ibuprofen 600 mg Take 1 tablet by 30 tablet 0 01/17/2019 Active tabletIndications: mouth every 6 Viral URI with cough (six) hours as needed for Pain (scale 4-6). benzonatate 100 mg Take 1 capsule 20 capsule 0 01/17/2019 Active capsuleIndications: by mouth 3 Viral URI with cough (three) times daily as needed for Cough. SERTRALINE 100 mg TAKE 1 TABLET BY 90 tablet 0 07/19/2019 Active tabletIndications: MOUTH EVERYDAY depression, AT BEDTIME Anxiety, Panic disorder hydrOXYzine 50 mg 0 07/23/2019 A ctive tablet traZODone 50 mg tablet 0 07/23/2019 Active escitalopram oxalate 10 0 07/23/2019 Active mg tablet documented as of this encounter (statuses as of 08/16/2019) Active Problems Problem Noted Date Contusion of left knee, initial encounter 01/09/2019 depression 01/09/2019 Anxiety 01/09/2019 Panic disorder 01/09/2019 Sprain of left knee, initial encounter 01/09/2019 Skin infection 12/30/2018 Urinary incontinence, unspecified type 12/26/2018 Furuncle 12/26/2018 documented as of this encounter (statuses as of 08/16/2019) Social History Tobacco Use Types Packs/Day Years [...] been in contact with No / Unsure 08/16/2019 8:51 AM CDT someone who was confirmed or suspected to have Coronavirus / COVID-19? documented as of this encounter Last Filed Vital Signs Not on filedocumented in this encounter Plan of Treatment Date Type Specialty Care Team Description 08/16/2019 Office Visit Family Medicine Angus Howard MD [address] [place] [address] Dr [place], [place] [address] [phone] Health Maintenance Due Date Last Done Comments PNEUMOCOCCAL 0-64 YEARS COMBINED 2004 SERIES (1 of 1 - PPSV23) MENINGOCOCCAL B VACCINES (1 of 2 2008 - Risk Bexsero 2-dose series) DTaP,Tdap,and Td Vaccines (1 - 2009 Tdap) HPV VACCINES (1 - Female 2-dose 2009 series) WELL CARE VISIT: 12-21 YEARS 2010 (yearly) CHLAMYDIA SCREENING 2014 PAP SMEAR 2019 INFLUENZA VACCINE (#1) 2019 Depression Screening 02/17/2020 02/16/2019 MENINGOCOCCAL VACCINE Aged Out No longer eligible based on patient's age to complete this topic VARICELLA VACCINES Discontinued documented as of this encounter Procedures Procedure Name Priority Date/Time Associated Diagnosis Comme nts ASSIGNMENT OF BENEFITS Routine 08/16/2019 8:53 AM CDT documented in this encounter Results Not on filedocumented in this encounter Insurance Payer Benefit Plan / Subscriber ID Effective Phone Address T e Group Dates [employer] xxxxxxxxx 2019-Prese [address]OX Medic aid HEALTH CHOICE - HEALTH CHOICE nt [id number] 1 [facility] MEDICAID [place], [place]ID [phone] documented as of this encounter
--- OUTSIDE RECORDS SUMMARY | 2019-09-03 22:20 | XMS REPORT | Summary of Care ---
:2000 Author Organization [facility] Address [address] [place] [address] Care Team Providers Name Role Phone MD Anita Primary Care Provider Reason for Referral (Routine) Status Reason Specialty Diagnoses / Referred By Referred To Procedures Contact Contact Pending Review Referring Psychiatry Diagnoses Depression with suicidal ideation depression Anxiety Panic disorder Anita Provider Request Procedures CONSULT/REFERRAL PSYCHIATRY ADULT MD Angus [address] [place] [address] [address] [place] [address] Reason for Visit Reason Comments Follow-up Post Hospital Follow-up ( [facility] ) Refill Request Depression Anxiety Panic Attack Encounter Details Date Type Department Care Team Description 08/16/2019 Office Visit [facility] Pediatric Angus Howard D epression with suicidal ideation (Primary Dx); and Adult Primary MD depression; [address] Anxiety; [address] [place] [address], [address] [place] [address] [place] [phone] [address] [phone] Allergies Active Allergy Reactions Severity Noted Date Comments Kiwi Anaphylaxis High 08/02/2018 Macrolide Antibiotics Itching 12/22/2018 Vancomycin Itching 12/22/2018 documented as of this encounter (statuses as of 08/16/2019) Medications Medication Sig Dispensed Refills Start Date End Date Status traZODone 50 mg Take 1 tablet 90 tablet 0 08/16/2019 Active tabletIndications: by mouth at Depression with bedtime. suicidal ideation, depression, Anxiety, Panic disorder hydrOXYzine 50 mg Take 2 90 tablet 3 08/16/2019 A ctive tabletIndications: tablets by Depression with mouth every 8 suicidal ideation, (eight) hours as needed for depression, Anxiety. Anxiety, Panic disorder escitalopram Take 1 tablet 90 tablet 0 08/16/2019 Ac tive oxalate 10 mg by mouth tabletIndications: daily. Depression with suicidal ideation, depression, Anxiety, Panic disorder vit Take by 0 08/16/19 Discont inued calc,iron,folic mouth daily. 20 ( Patient ( VITAMIN Re ported) ORAL) lactobacillus Take 1 14 capsule 0 12/26/2018 08/16/19 Disc ontinued combination no.4 capsule by 20 (P atient (PROBIOTIC) 3 mouth daily. Rep orted) billion cell CapIndications: Furuncle doxycycline 100 mg Take 1 20 capsule 0 01/02/2019 08/16/19 Discontinued capsuleIndications: capsule by 20 (Patient Skin infection, mouth 2 (two) Reported) Furuncle, Urinary times daily. incontinence, unspecified type ondansetron (ZOFRAN Take 1 tablet 10 tablet 0 01/17/201908/15 Discontinued ODT) 4 mg by mouth 20 (Patient disintegrating every 8 Repor mary) tabletIndications: (eight) hours Viral URI with as needed for cough Nausea and Vomiting (N/V). ibuprofen 600 mg Take 1 tablet 30 tablet 0 01/17/2019 08/16/19 Discontinued tabletIndications: by mouth 20 ( Patient Viral URI with every 6 (six) R eported) cough hours as needed for Pain (scale 4-6). benzonatate 100 mg Take 1 20 capsule 0 01/17/2019 08/16/19 Discontinued capsuleIndications: capsule by 20 (Patient Viral URI with mouth 3 Repor mary) cough (three) times daily as needed for Cough. SERTRALINE 100 mg TAKE 1 TABLET 90 tablet 0 07/19/2019 0 Discontinued tabletIndications: BY MOUTH 20 ( Patient EVERYDAY AT Reporte d) depression, BEDTIME Anxiety, Panic disorder hydrOXYzine 50 mg Take 100 mg 0 07/23/2019 08/16/19 Discontinued tablet by mouth 2 20 (Reorder) (two) times daily. traZODone 50 mg Take 50 mg by 0 07/23/2019 08/16/19 Discontinued tablet mouth at 20 (Reorder) bedtime. escitalopram Take 10 mg by 0 07/23/2019 08/16/19 Di scontinued oxalate 10 mg mouth daily. 20 (Re order) tablet documented as of this encounter (statuses as of 08/16/2019) Active Problems Problem Noted Date Depression with suicidal ideation 08/16/2019 Contusion of left knee, initial encounter 01/09/2019 [...] Sign Reading Time Taken Comments Blood Pressure 110/76 08/16/2019 9:01 AM CDT Pulse 98 08/16/2019 9:01 AM CDT Temperature 36.7 C (98.1 F) 08/16/2019 9:01 AM CDT Respiratory Rate 18 08/16/2019 9:01 AM CDT Oxygen Saturation 98% 08/16/2019 9:01 AM CDT Inhaled Oxygen Concentration - - Weight 73 kg (161 lb) 08/16/2019 9:01 AM CDT Height - - Body Mass Index 27.64 08/01/2019 11:48 AM CDT documented in this encounter Progress Notes Angus Howard MD - 08/16/2019 9:00 AM CDT Cc: Chief Complaint Patient presents with Follow-up Post Hospital Follow-up ( Mental Health ) Refill Request Depression Anxiety Panic Attack Tyra Anaishanika Fowler is a 18 year old female who has a past medical history of ADHD, Anxiety (01/09/2019), Asthma, depression (01/09/2019), and Urinary incontinence, unspecified type (12/26/2018). She also has no past medical history of Abnormal uterine bleeding, Anemia, Anesthesia complication, Autoimmune disorder, Blood dyscrasia, Breast disorder, Cancer, Clotting disorder, Coronary artery disease, Diabetes mellitus, Endocrine disorder, Endometriosis, Female infertility, Genital herpes, Genital warts, Heart murmur, Hormone disorder, Hypertension, Kidney disease, Leiomyoma of uterus, Liver disease, Menstrual disorder, Osteoporosis, Pap smear abnormality of cervix, PID (pelvic inflammatory disease), Rh incompatibility, Seizures, Sickle cell anemia, STD (sexually transmitted disease), Substance abuse, Superficial thrombophlebitis, Thyroid disease, Transfusion history, Trauma, or Tuberculosis. Patient is here for follow s/p hospitalization, at [facility] from 06/19/2019 to 07/30/2019. Patient has hx post depression, anxiety and recurrent panic attacks. Patient reports she feltsuicidal with worsening depression, at the time, could not get in to see a Mental Health Provider, due to COVID-19. Patient called the Police to bring her to the "hospital". Patient was discharged home07/30/2019, reports she is doing better. Patient reports good social support at home, current denies SI/HI/AH/VH. Allergies Tyra is allergic to kiwi; mycins [macrolide antibiotics]; and vancomycin. Medications Outpatient Medications Prior to Visit Medication Sig Dispense Refill escitalopram oxalate 10 mg tablet Take 10 mg by mouth daily. hydrOXYzine 50 mg tablet Take 100 mg by mouth 2 (two) times daily. traZODone 50 mg tablet Take 50 mg by mouth at bedtime. SERTRALINE 100 mg tablet TAKE 1 TABLET [...] file Gets together: Not on file Attends judaism service: Not on file Active member of [...] NoFHx Review of Systems Constitutional: Negative for appetite change, unexpected weight change, weight gain and weight loss. HENT: Negative for ear pain. Eyes: Negative for visual disturbance. Respiratory: Negative for chest tightness and shortness of breath. Cardiovascular: Negative for palpitations. Gastrointestinal: Negative for constipation and diarrhea. Genitourinary: Negative for bladder incontinence. Neurological: Negative. Psychiatric/Behavioral: Negative for decreased concentration, dysphoric mood and suicidal ideas. Thepatient is not nervous/anxious. Depression, anxiety, panic attacks Endocrine: Negative for weight gain and weight loss. Vital Signs BP 110/76 (BP Location: Right arm, Patient Position: Sitting, BP CUFF SIZE: Adult Medium) | Pulse 98 | Temp 36.7 C (98.1 F) (Oral) | Resp 18 | Wt 161 lb (73 kg) | SpO2 98% | BMI 27.64 kg/m Physical Exam Constitutional: She is oriented to person, place, and time. She appears well- developed. No distress. HENT: Head: Normocephalic and atraumatic. Right Ear: External ear normal. Left Ear: External ear normal. Nose: Nose normal. Mouth/Throat: Oropharynx is clear and moist. Eyes: Pupils are equal, round, and reactive to light. EOM are normal. Neck: Normal range of motion. Neck supple. Cardiovascular: Normal rate and regular rhythm. Pulmonary/Chest: Effort normal and breath sounds normal. Abdominal: Soft. Bowel sounds are normal. Musculoskeletal: Normal range of motion. She exhibits no edema. Neurological: She is alert and oriented to person, place, and time. Skin: Skin is warm and dry. Capillary refill takes less than 2 seconds. No rash noted. No erythema. Psychiatric: She has a normal mood and affect. Her behavior is normal. Judgment and thought content normal. Not in crisis, no SI/HI/AH/VH at this time Lab: Reviewed and discussed Imaging: Reviewed and discussed Assessment/Plan Depression with suicidal ideation - Complicated by post- depression, anxiety and panic attacks. Patient was recently hospitalized, DC'd home 07/30/2019. Not currently in crisis. - Medication reconciliation completed, importance of maintaining access to care and mental health discussed. - traZODone 50 mg tablet; Take 1 tablet by mouth at bedtime. Dispense: 90 tablet; Refill: 0 - hydrOXYzine 50 mg tablet; Take 2 tablets by mouth every 8 (eight) hours as needed for Anxiety. Dispense: 90 tablet; Refill: 3 - escitalopram oxalate 10 mg tablet; Take 1 tablet by mouth daily. Dispense: 90 tablet; Refill: 0 - CONSULT/REFERRAL PSYCHIATRY ADULT Preventive Care: Medication reconciliation, patient education and anticipatory guidance completed. All questions and concerns addressed. AVS given, handout provided. Return in about 4 weeks (around 09/13/2019), or if symptoms worsen or fail to improve. Angus Howard MD, MPH, AAHIVS Clinical Spa Experience Coordinator, Department of Family Medicine [facility] Primary & Specialty Care - ADC 08/16/2019 9:36 AM documented in this encounter Plan of Treatment Health [...] filedocumented in this encounter Visit Diagnoses Diagnosis Depression with suicidal ideation - Prim silvio depression Mental disorders of mother, complicating , childbirth, or the puerperium, unspecified as to episode of care Anxiety Anxiety state, unspecified Panic disorder Panic disorder without agoraphobia documented in this encounter Insurance Payer Benefit Plan / Subscriber ID Effective Phone Address T y[employer] [facility] xxxxxxxxx 2019-Prese P[address]O. BOX Medic aid HEALTH CHOICE - [place] [id number] 1 MANAGED MEDICAID [place], [place]ID [phone] documented as of this encounter
--- OUTSIDE RECORDS SUMMARY | 2019-09-03 22:20 | XMS REPORT | Summary of Care ---
:2000 Author Organization [facility] Address [address] [place] [address] Care Team Providers Name Role Phone MD Anita Primary Care Provider Reason for Visit Reason Comments DYSURIA VAGINAL ITCHING Encounter Details Date Type Department Care Team Description 08/01/2019 Urgent Care [facility] Family Andrew Kelley PA-C [address] [place] [address] Dysuria (Primary Dx); Medicine - [place] Provider, [facility] Missed period; [address] [place] [address] Acute cyst itis with hematuria; Drive Vagina, [place] [address] Allergies Active Allergy Reactions Severity [...] file Gets together: Not on file Attends mandaeism service: Not on file Active member of [...] 4" (1.626 m) [id number] [place] - [address] [address] Patient AAOx4 and in no acute distress. All Vitals taken, allergies and all medications reviewed, fall risk assessed. Pain level 0. documented in this encounter Plan of Treatment Date Type Specialty Care Team Description 08/16/2019 Office Visit Family Medicine Angus Howard MD [address] [place] [address] Dr [place], [place] [address] [phone] Name Type Priority Associated Diagnoses Order S [...] Plan / Subscriber ID Effective Phone Address [facility] xxxxxxxxx 2019-Prese P.O. BOX Medic aid [place] [id number] 1 MANA[place]ED MEDICA[place] [phone] documented as of this encounter
--- OUTSIDE RECORDS SUMMARY | 2019-09-03 22:21 | XMS REPORT | Summary of Care ---
:2000 Author Organization [facility] Address [address] [place] [address] Care Team Providers Name Role Phone MD Anita Primary Care Provider Reason for Referral (Routine) Status Reason Specialty Diagnoses / Referred By Referred To Procedures Contact Contact Pending Review Referring Psychiatry Diagnoses Depression with suicidal ideation depression Anxiety Panic disorder Anita Provider Request Procedures CONSULT/REFERRAL PSYCHIATRY ADULT MD Angus [address] [place] [address] [address] [place] [address] Reason for Visit Reason Comments Follow-up Post Hospital Follow-up ( [facility] ) Refill Request Depression Anxiety Panic Attack Encounter Details Date Type Department Care Team Description 08/16/2019 Office Visit [facility] Pediatric Angus Howard D epression with suicidal ideation (Primary Dx); and Adult Primary MD depression; [address] Anxiety; [address] [place] [address], [address] [place] [address] [place], [place] [phone] [address] [phone] Allergies Active Allergy Reactions Severity Noted Date [...] is here for follow s/p hospitalization, at [facility] from 06/19/2019 to 07/30/2019. Patient has hx [...] file Gets together: Not on file Attends jain service: Not on file Active member of [...] improve. Angus Howard MD, MPH, AAHIVS Clinical Receivable Executive, Department of Family Medicine [facility] Primary & Specialty Care - ADC 08/16/2019 [...] ID Effective Phone Address T y[employer] Group [facility] xxxxxxxxx 2019-Prese P.O. BOX Medic aid HEALTH CHOICE - HEALTH CHOICE nt [id number] 1 MANAGED MEDICAID [place]ICAID [phone] documented as of this encounter
--- OUTSIDE RECORDS SUMMARY | 2019-09-03 22:21 | XMS REPORT | Summary of Care ---
:2000 Author Organization [facility] Address [address] [place] [address] Care Team Providers Name Role Phone MD Anita Primary Care Provider Reason for Referral (Routine) Status Reason Specialty Diagnoses / Referred By Referred To Procedures Contact Contact Pending Review Referring Psychiatry Diagnoses Depression with suicidal ideation depression Anxiety Panic disorder Anita Provider Request Procedures CONSULT/REFERRAL PSYCHIATRY ADULT MD Angus [address] [place] [address] [address] [place] [address] Reason for Visit Reason Comments Follow-up Post Hospital Follow-up ( [facility] ) Refill Request Depression Anxiety Panic Attack Encounter Details Date Type Department Care Team Description 08/16/2019 Office Visit [facility] Pediatric Angus Howard D epression with suicidal ideation (Primary Dx); and Adult Primary MD depression; [address] Anxiety; [address] [place] [address], [address] [place] [address] [place], [place] [phone] [address] [phone] Allergies Active Allergy Reactions Severity Noted Date [...] is here for follow s/p hospitalization, at [facility] from 06/19/2019 to 07/30/2019. Patient [...] file Gets together: Not on file Attends oriental orthodox service: Not on file Active member of [...] improve. Angus Howard MD, MPH, AAHIVS Clinical Construction Safety Consultant, Department of Family Medicine [facility] Primary & Specialty Care - [...] aid HEALTH CHOICE - HEALTH CHOICE nt [id number] 1 MANAGED MEDICAID [place], [place] [phone] documented as of this encounter
== END 2019-09-03 15:39 | disposition home or self-care (01) ==
LOC: ER 14:49
DX: J06.9 Acute upper respiratory infection, unspecified (principal); Z20.828 Contact with and (suspected) exposure to other viral communicable diseases; F17.210 Nicotine dependence, cigarettes, uncomplicated
CPT/HCPCS: 99282; U0001

== ENCOUNTER 2020-11-17 16:37 | Emergency (ER) | payer OTHER ==
--- NOTE | 2020-11-17 18:20 | EDPHYS ---
Physician Documentation [facility] Name: Tyra Fowler Age: 20 yrs Sex: Female : 2000 Arrival Date: 11/17/2020 Time: 16:40 Bed 25 Private MD: ED Physician Otoniel Henry HPI: 11/17 18:41 This 20 yrs old Female presents to ER via Ambulatory with complaints of Thigh kb Pain, Nausea. 18:41 The patient presents with pain, that is acute. The complaints affect the right leg and kb left leg. Context: The problem was sustained at home, resulted from an unknown cause, the patient can fully bear weight, the patient is able to ambulate, Problem is a result from a previous injury: No. Onset: The symptoms/episode began/occurred 2 week(s) ago. Modifying factors: The symptoms are alleviated by nothing. the symptoms are aggravated by movement, weight bearing. Associated signs and symptoms: The patient has no apparent associated signs or symptoms. Treatment prior to arrival includes: no previous treatment. Severity of symptoms: At their worst the symptoms were mild, moderate, in the emergency department the symptoms are unchanged. The patient has not experienced similar symptoms in the past. The patient has not recently seen a physician. Pt reports bilateral leg pain for 2 weeks. States it feels like she loses circulation at times when walking. Historical: - Allergies: 16:49 Azithromycin; aa5 16:49 Vancomycin; aa5 - PMHx: 16:49 Asthma; Depression; aa5 - Immunization history:: Client reports having NOT received the Covid vaccine. - Social history:: Smoking status: Patient denies any tobacco usage or history of. ROS: 18:41 Constitutional: Negative for fever, chills, and weight loss. kb 18:41 MS/extremity: Positive for pain, of the right leg and left leg. 18:41 All other systems are negative. Exam: 18:41 Constitutional: This is a well developed, well nourished patient who is awake, alert, kb and in no acute distress. Head/Face: Normocephalic, atraumatic. ENT: Moist Mucous membranes Respiratory: Respirations even and unlabored. No increased work of breathing, no retractions or nasal flaring. Abdomen/GI: Soft, non-tender. No distention Skin: Warm, dry with normal turgor. Normal color. MS/ Extremity: Pulses equal, no cyanosis. Neurovascular intact. Full, normal range of motion. Neuro: Awake and alert, GCS 15, oriented to person, place, time, and situation. Moves all extremities. Normal gait. Psych: Awake, alert, with orientation to person, place and time. Behavior, mood, and affect are within normal limits. Vital Signs: 16:49 BP 120 / 81; Pulse 102; Resp 18 S; Temp 97.9(TE); Pulse Ox 97% on R/A; Weight 67.59 kg aa5 (R); Height 5 ft. 4 in. (162.56 cm) (R); 18:20 BP 106 / 72; Pulse 85; Resp 17; Pulse Ox 100% on R/A; oh 16:49 Body Mass Index 25.58 (67.59 kg, 162.56 cm) aa5 MDM: 16:51 Patient medically screened. kb 18:38 Data reviewed: vital signs, nurses notes. Data interpreted: Pulse oximetry: on room air kb is 100 %. Interpretation: normal. Counseling: I had a detailed discussion with the patient and/or guardian regarding: the historical points, exam findings, and any diagnostic results supporting the discharge/admit diagnosis, radiology results, the need for outpatient follow up, a family practitioner, to return to the emergency department if symptoms worsen or persist or if there are any questions or concerns that arise at home. 11/17 17:00 Order name: Extremity Venous W Compression Chito; Complete Time: 18:24 kb 11/17 17:00 Order name: LE Arterial Bilateral; Complete Time: 18:24 kb Administered Medications: No medications were administered Disposition: 11/18 08:56 Co-signature as Attending Physician, Otoniel Henry MD I agree with the assessment and kdr plan of care. Disposition Summary: 11/17/20 18:20 Discharge Ordered Location: Home kb Condition: Stable kb Diagnosis - Pain in left leg kb - Pain in right leg kb Followup: kb - With: Emergency Department - When: As needed - Reason: Worsening of condition Followup: kb - With: Private Physician - When: 2 - 3 days - Reason: Recheck today's complaints, Continuance of care, Re-evaluation by your physician Discharge Instructions: - Discharge Summary Sheet kb - Musculoskeletal Pain kb Forms: - Medication Reconciliation Form kb - Thank You Letter kb - Antibiotic Education kb - Prescription Opioid Use kb Signatures: Dispatcher [employer] EDMS Gricel Wilson, TRUCK HOPPER-C HERBERT-Otoniel Thornton MD MD [facility] Luciana Mart, RN RN aa5 Rita Redmond RN RN oh Corrections: (The following items were deleted from the chart) 11/17 18:41 18:41 Constitutional: This is a well developed, well nourished patient who is awake, kb alert, and in no acute distress. Head/Face: Normocephalic, atraumatic. ENT: Moist Mucous membranes Respiratory: Respirations even and unlabored. No increased work of breathing, no retractions or nasal flaring. Skin: Warm, dry with normal turgor. Normal color. MS/ Extremity: Pulses equal, no cyanosis. Neurovascular intact. Full, normal range of motion. Neuro: Awake and alert, GCS 15, oriented to person, place, time, and situation. Moves all extremities. Normal gait. Psych: Awake, alert, with orientation to person, place and time. Behavior, mood, and affect are within normal limits. kb
--- NOTE | 2020-11-17 18:20 | ER ---
Nurse's Notes [facility] Name: Tyra Fowler Age: 20 yrs Sex: Female : 2000 Arrival Date: 11/17/2020 Time: 16:40 Bed 25 Private MD: Diagnosis: Pain in left leg;Pain in right leg Presentation: 11/17 16:46 Chief complaint: Patient states: "I get this sharp pains in my legs and yesterday I aa5 went to [facility] and they said I have a UTI". Pt states "my legs get numb if I stand on them too long". Pt also reports headache, nausea. Pt states ". Coronavirus screen: At this time, the client does not indicate any symptoms associated with coronavirus-19. Ebola Screen: Patient negative for fever greater than or equal to 101.5 degrees Fahrenheit, and additional compatible Ebola Virus Disease symptoms. Initial Sepsis Screen: Does the patient meet any 2 criteria? HR > 90 bpm. Does the patient have a suspected source of infection? No. Patient's initial sepsis screen is negative. Risk Assessment: Do you want to hurt yourself or someone else? Patient reports no desire to harm self or others. Onset of symptoms was November 2020. 16:46 Method Of Arrival: Ambulatory aa5 16:46 Acuity: RANJIT 3 aa5 Triage Assessment: 17:31 General: Appears comfortable, Behavior is calm, cooperative, appropriate for age. oh Historical: - Allergies: 16:49 Azithromycin; aa5 16:49 Vancomycin; aa5 - PMHx: 16:49 Asthma; Depression; aa5 - Immunization history:: Client reports having NOT received the Covid vaccine. - Social history:: Smoking status: Patient denies any tobacco usage or history of. Screenin:31 Abuse screen: Denies threats or abuse. Nutritional screening: No deficits noted. oh Tuberculosis screening: No symptoms or risk factors identified. Fall Risk None identified. Assessment: 17:30 Neuro: Reports headache. GI: Reports nausea. Musculoskeletal: Reports pain in right leg oh and left leg when standing. 17:54 General: Reports unable to keep her balance , states her legs get red then she just oh become weak in the legs. state pain starts from top of thigh then shoots down foot. Vital Signs: 16:49 BP 120 / 81; Pulse 102; Resp 18 S; Temp 97.9(TE); Pulse Ox 97% on R/A; Weight 67.59 kg aa5 (R); Height 5 ft. 4 in. (162.56 cm) (R); 18:20 BP 106 / 72; Pulse 85; Resp 17; Pulse Ox 100% on R/A; oh 16:49 Body Mass Index 25.58 (67.59 kg, 162.56 cm) aa5 ED Course: 16:40 Patient arrived in ED. as 16:46 Arm band placed on. aa5 16:49 Triage completed. aa5 16:50 Gricel Wilson F[facility]-C [facility]. kb 16:50 Otoniel Henry MD is Attending Physician. kb 16:59 Rita Redmond, DESTIN is Primary Nurse. oh 17:31 Bed in low position. Call light in reach. oh 18:14 US Extremity Venous W Compression Chito In Process Unspecified. EDMS 18:14 US LE Arterial Bilateral In Process Unspecified. EDMS 18:52 Patient did not have IV access during this emergency room visit. oh Administered Medications: No medications were administered Outcome: 18:20 Discharge ordered by MD. kb 18:52 Discharged to home oh 18:52 Condition: stable 18:52 Discharge instructions given to patient. 18:53 Patient left the ED. oh Signatures: Dispatcher [employer] EDIA Gricel Wilson FNP-C FNP-Ckb Martinez, Amelia as Calderon, Audri RN RN aa Rita Redmond, RN RN oh Corrections: (The following items were deleted from the chart) 16:49 16:46 Chief complaint: Patient states: "I get this sharp pains in my legs and yesterday aa5 I went to [facility] and they said I have a UTI". Pt states "my legs get numb if I stand on them too long". Pt also reports headache, nausea. Pt states " aa5
--- NOTE | 2020-11-17 18:21 | RAD REPORT ---
EXAM DESCRIPTION: USExtrem Venous W Compress Bil11/17/2020 6:14 pm CLINICAL HISTORY: Leg pain COMPARISON: none FINDINGS: The common femoral, superficial femoral, popliteal and posterior tibial veins bilaterally are compressible and demonstrate augmentation. Doppler demonstrates good flow. IMPRESSION: No evidence of deep venous thrombosis involving either lower extremity.
--- NOTE | 2020-11-17 18:23 | RAD REPORT ---
EXAM DESCRIPTION: US - Lower Extremity Arterial Bilat - 11/17/2020 6:14 pm CLINICAL HISTORY: Leg pain COMPARISON: 2018 FINDINGS: The common femoral, superficial femoral and popliteal arteries bilaterally demonstrate triphasic wave forms The posterior tibial and dorsalis pedis arteries demonstrate triphasic waveforms bilaterally. IMPRESSION: Unremarkable exam
[2020-11-17 19:01] VITALS: BP 106/72; O2SAT 100
[2020-11-17 19:03] VITALS: TEMP 97.9
== END 2020-11-17 18:53 | disposition home or self-care (01) ==
LOC: ER 16:37
DX: M79.605 Pain in left leg (principal); M79.604 Pain in right leg; Z88.3 Allergy status to other anti-infective agents
CPT/HCPCS: 93925; 93970; 99283

== ENCOUNTER 2021-01-17 15:06 | Emergency (ER) | payer BC, OTHER ==
--- OUTSIDE RECORDS SUMMARY | 2021-01-17 15:10 | XMS REPORT | Continuity of Care Document ---
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 MarieNESSA PHONE #: [phone] EXAM DATE: 11/10/2018 STATUS: DEP ER FAX #: [phone] RAD NO: Page 3 Signed Report- US FET BIO PH ID W/O [id number] 11:57:00 Patient Name: ELBERTPARAM FOSTER Unit No: [id number] EXAMS: CPT CODE: [id number] US FET BIO PH ID W/O NST [address] [facility] [address], [place] [address] BIOPHYSICAL PROFILE ULTRASOUND REPORT Pat. Name: PARAM BOSWELL Pat. No: [id number] Study Date: 11/10/2018 11:20am , Age: 1 2000, 18 Pregnancies: 2, Para 0 LMP: 03/19/2018 GA by LMP: 33w5d GA Selected: 33w5d (LMP) JUAN M: 12/24/2018 Referring MD: MICHELLE VIRGEN Rn Camp: Tarun Alonso RDMS, RVT CPT4: USBPPWONST Admitting [...] and signed by: Marco Obrien MD [facility] NAME: RAFFYJOSE MIGUELJANAEPARAM Radiology Department PHYS: Michelle Alicea MD [address] : 2000 AGE: 18 SEX: F [place] [address] LOC: Brianna.NESSA PHONE #: [phone] EXAM DATE: 11/10/2018 STATUS: REG ER FAX #: [phone] RAD NO: Page 1 Signed Report (CONTINUED) Patient Name: THEA BOSWELLANI FOSTER Unit No: [id number] EXAMS: CPT CODE: [id number] US FET BIO PH ID W/O NST 72396 <Continued> CC: Michelle Virgen MD Technologist: Tarun Alonso RDMS, RVT Probe: Trnscrbd D/ (1157) [email or web address] Orig Print D/T: S: 11/10/2018 (1158) [facility] NAME: PARAM BOSWELL Radiology Department PHYS: Michelle Alicea MD [address] : 2000 AGE: 18 SEX: F [place] [address] LOC: Jean MarieNESSA PHONE #: [phone] EXAM DATE: 11/10/2018 STATUS: REG ER FAX #: [phone] RAD NO: Page 2 Signed Report Patient Name: THEA BOSWELLANI FOSTER Unit No: [id number] EXAMS: CPT CODE: [id number] US FET BIO PH ID W/O NST 49529 <Continued> [facility] NAME: PARAM BOSWELL Radiology Department PHYS: Michelle Alicea MD [address] : 2000 AGE: 18 SEX: F [place] [address] LOC: Brianna.NESSA PHONE #: [phone] EXAM DATE: 11/10/2018 STATUS: REG ER FAX #: [phone] RAD NO: Page 3 Signed ReportURINALYSIS COMPLETE 2018-11-03 13:24:00 Test Item Value Reference Range Interpretation [...] 4+ NONE SEEN URINE SAMPLE: CLEAN CATCHURINALYSIS [id number] 12:15:00 Test Item Value Reference Range Interpretation [...] NONE SEEN URINE SAMPLE: CLEAN CATCHCOMPREHENSIVE METABOLIC [id number] 11:47:00 Test Item Value Reference Range Interpretation [...] units/L 46-116 N code = ALKP) BILIRUBIN [id number] 11:47:00 Test Item Value Reference Range Interpretation Comments BILIRUBIN DIRECT (test code = <0.1 mg/dL <0.2 N BILD) [id number] 11:47:00 Test Item Value Reference Range Interpretation Comments AMYLASE (test code = KADEN) 35 units/L 30-110 N [id number] 11:47:00 Test Item Value Reference Range Interpretation Comments LIPASE (test code = LIP) 128 units/L 73-393 N - US ABDOMEN [id number] 10:42:00 Patient Name: PARAM BOSWELL Unit No: [id number] EXAMS: CPT CODE: [id number] US ABDOMEN COMPLETE 45384 ABDOMEN ULTRASOUND COMPLETE 10/12/2018: COMPARISON: None CLINICAL [...] Michelle Virgen MD Technologist: Grace Rodrigues RDMS, T Probe: Trnscrbd D/ (1042) [email or web address] Orig Print D/T: S: 10/12/2018 (1045) [facility] NAME: PARAM BOSWELL Radiology Department PHYS:Michelle Alicea MD [address] : 2000 AGE: 18 SEX: F [place], [place] [address] LOC: Markie Cevallos PHONE #: [phone] EXAM DATE: 10/12/2018 STATUS: ADM IN FAX #: [phone] RAD NO: Page 1 Signed Report Patient Name: PARAM BOSWELL Unit No: [id number] EXAMS: CPT CODE: [id number] US ABDOMEN COMPLETE 12142 <Continued> [facility] NAME: PARAM BOSWELL Radiology Department PHYS: Michelle Alicea MD [address] : 2000 AGE: 18 SEX: F [place], [place] [address] LOC: F.031 A PHONE #: [phone] EXAM DATE: 10/12/2018 STATUS: ADM IN FAX #: [phone] RAD NO: Page 2 Signed ReportDRUGS OF ABUSE [id number] 00:56:00 Test Item Value Reference Range Interpretation [...] PHENCU) 25 ng/m L AG HEPATITIS B [id number] 23:17:00 Test Item Value Reference Range Interpretation Comments AG HEPATITIS B SURFACE (test code NONREACTIVE NONREACTIVE = HBSAG) AB HEPATITIS C [id number] 23:17:00 Test Item Value Reference Range Interpretation Comments AB HEPATITIS C (test code = NONREACTIVE NONREACTIVE HCVAB) SIGNAL TO CUTOFF (test code = <0.02 <0.80 N CUTOFF) AB [id number] 23:17:00 Test Item Value Reference Range Interpretation Comments AB TREPONEMA (test code = TREPAB) NONREACTIVE NONREACTIVE AG HEPATITIS B [id number] 22:51:00 Test Item Value Reference Range Interpretation Comments AG HEPATITIS B SURFACE (test code NONREACTIVE NONREACTIVE = HBSAG) AB HEPATITIS C [id number] 22:51:00 Test Item Value Reference Range Interpretation Comments AB HEPATITIS C (test code = HCVAB) NONREACTIVE SIGNAL TO CUTOFF (test code = CUTOFF) <0.80 AB [id number] 22:51:00 Test Item Value Reference Range Interpretation Comments AB TREPONEMA (test code = TREPAB) NONREACTIVE NONREACTIVE COMPREHENSIVE METABOLIC [id number] 22:33:00 Test Item Value Reference Range Interpretation [...] units/L 46-116 N code = ALKP) BILIRUBIN [id number] 22:33:00 Test Item Value Reference Range Interpretation Comments BILIRUBIN DIRECT (test code = <0.1 mg/dL <0.2 N BILD) CBC W/AUTO [id number] 22:17:00 Test Item Value Reference Range Interpretation [...]
[2021-01-17 16:19] LABS: SARS-COV-2 RT PCR NEGATIVE (NEGATIVE)
--- NOTE | 2021-01-17 17:25 | EDPHYS ---
Physician Documentation [facility] Name: Tyra Fowler Age: 20 yrs Sex: Female : 2000 Arrival Date: 01/17/2021 Time: 15:09 Bed 16 Private MD: ED Physician Ivon Mckeon HPI: 01/17 15:30 This 20 yrs old Female presents to ER via Ambulatory with complaints of Sore Throat, cp Cough. 15:30 The patient or guardian reports cough, that is intermittent, sore throat. cp 15:30 Onset: The symptoms/episode began/occurred this morning. Associated signs and symptoms: cp Pertinent negatives: fever. 15:30 Patient reports boyfriend diagnosed with strep and flu yesterday. 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 - Social history:: Smoking status: Reported history of juuling and/or vaping. ROS: 15:35 Constitutional: Negative for chills, fever. cp 15:35 ENT: Positive for sore throat, Negative for drainage from ear(s), ear pain, sinus cp congestion, sinus pain, difficulty swallowing, difficulty handling secretions. 15:35 Cardiovascular: Negative for chest pain. 15:35 Respiratory: Positive for cough, Negative for shortness of breath, wheezing. 15:35 Abdomen/GI: Negative for abdominal pain, nausea, vomiting, and diarrhea. 15:35 Skin: Negative for cellulitis, rash. 15:35 Neuro: Negative for altered mental status, headache, weakness. 15:35 All other systems are negative. Exam: 15:40 Constitutional: The patient appears in no acute distress, alert, awake, non-toxic, well cp developed, well nourished. 15:40 Head/Face: Normocephalic, atraumatic. cp 15:40 Eyes: Periorbital structures: appear normal, Conjunctiva: normal, no exudate, no cp injection, Sclera: no appreciated abnormality, Lids and lashes: appear normal, bilaterally. 15:40 ENT: External ear(s): are unremarkable, Ear canal(s): are normal, clear, TM's: dullness, bilaterally, Nose: is normal, Mouth: Lips: moist, Oral mucosa: pink and intact, moist, Posterior pharynx: Airway: no evidence of obstruction, patent, Tonsils: are normal in appearance, erythema, that is mild, exudate, is not appreciated. 15:40 Neck: ROM/movement: is normal, is supple, no meningismus, no nuchal rigidity, Lymph cp nodes: no appreciated lymphadenopathy. 15:40 Chest/axilla: Inspection: normal, Palpation: is normal, no crepitus, no tenderness. 15:40 Cardiovascular: Rate: normal, Rhythm: regular. 15:40 Respiratory: the patient does not display signs of respiratory distress, Respirations: normal, no use of accessory muscles, no retractions, labored breathing, is not present, Breath sounds: are clear throughout, no decreased breath sounds, no stridor, no wheezing. 15:40 Abdomen/GI: Exam negative for discomfort, distension, guarding, Inspection: abdomen appears normal. Vital Signs: 15:15 BP 110 / 87; Pulse 98; Resp 16; Temp 98.0; Pulse Ox 100% ; Weight 66.22 kg; Height 5 vg1 ft. 4 in. (162.56 cm); Pain 0/10; 15:30 BP 118 / 89; Pulse 92; Resp 14 S; Pulse Ox 99% on R/A; jg9 16:15 BP 98 / 70; Pulse 88; Resp 12 S; Pulse Ox 99% on R/A; jg9 17:15 BP 101 / 70; Pulse 84; Resp 16; Pulse Ox 100% on R/A; jg9 15:15 Body Mass Index 25.06 (66.22 kg, 162.56 cm) vg1 MDM: 15:35 Patient medically screened. cp 17:21 Antibiotic administration: Not indicated, the patient has a suspected viral illness. cp 17:21 Differential diagnosis: bronchitis, flu, URI. Data reviewed: vital signs, nurses notes, cp lab test result(s), and as a result, I will discharge patient. Counseling: I had a detailed discussion with the patient and/or guardian regarding: the historical points, exam findings, and any diagnostic results supporting the discharge/admit diagnosis, lab results, to return to the emergency department if symptoms worsen or persist or if there are any questions or concerns that arise at home. 01/17 15:22 Order name: Strep; Complete Time: 16:02 vg1 01/17 16:02 Interpretation: Reviewed. cp 01/17 15:22 Order name: COVID-19/FLU A+B (Document "Date of Onset" if Symptomatic); Complete Time: vg1 17:18 01/17 17:19 Interpretation: Normal except: INFLUENZA A POSITIVE. cp 01/17 16:02 Order name: Throat Culture EDMS Administered Medications: No medications were administered Disposition: 17:30 Chart complete. cp 01/18 07:09 Co-signature as Attending Physician, Ivon Mckeon MD. ma2 Disposition Summary: 01/17/21 17:23 Discharge Ordered Location: Home cp Problem: new cp Symptoms: are unchanged cp Condition: Stable cp Diagnosis - Influenza due to identified novel influenza A virus with other respiratory cp manifestations Followup: cp - With: Private Physician - When: 2 - 3 days - Reason: Worsening of condition Discharge Instructions: - Discharge Summary Sheet cp - Influenza, Adult cp - Form - Excuse from Work, School, or Physical Activity cp - Form - Return To Work jg9 Forms: - Medication Reconciliation Form cp - Thank You Letter cp - Antibiotic Education cp - Prescription Opioid Use cp Prescriptions: - Tamiflu 75 mg Oral Capsule - take 1 capsule by ORAL route every 12 hours for 5 days; 10 capsule; Refills: 0, cp Product Selection Permitted Signatures: Dispatcher [employer] EDMS Armani Tony PA PA cp Ivon Mckeon MD MD ma2 Kiley Bautista RN RN vg1 Corrections: (The following items were deleted from the chart) 01/17 17:19 17:18 Normal except. cp cp
--- NOTE | 2021-01-17 17:25 | ER ---
Nurse's Notes [facility] Name: Tyra Fowler Age: 20 yrs Sex: Female : 2000 Arrival Date: 01/17/2021 Time: 15:09 Bed 16 Private MD: Diagnosis: Influenza due to identified novel influenza A virus with other respiratory manifestations Presentation: 01/17 15:15 Chief complaint: Patient states: sore throat and cough began today. States boyfriend vg1 was seen in ED yesterday and was positive for strep and flu. Coronavirus screen: Vaccine status: Patient reports being unvaccinated. Client denies travel out of the [place] in the last 14 days. Client presents with at least one sign or symptom that may indicate coronavirus-19. Standard/surgical mask placed on the client. Ebola Screen: Patient negative for fever greater than or equal to 101.5 degrees Fahrenheit, and additional compatible Ebola Virus Disease symptoms. Initial Sepsis Screen: Does the patient meet any 2 criteria? No. Patient's initial sepsis screen is negative. Does the patient have a suspected source of infection? No. Patient's initial sepsis screen is negative. Risk Assessment: Do you want to hurt yourself or someone else? Patient reports no desire to harm self or others. Onset of symptoms was January 16, 2021. 15:15 Method Of Arrival: Ambulatory vg1 15:15 Acuity: RANJIT 4 vg1 Triage Assessment: 15:20 General: Appears in no apparent distress. comfortable, Behavior is calm, cooperative. vg1 Pain: Denies pain. EENT: Throat is reddened. 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 - Social history:: Smoking status: Reported history of juuling and/or vaping. Screenin:30 Abuse screen: Denies threats or abuse. Denies injuries from another. Nutritional jg9 screening: No deficits noted. Tuberculosis screening: No symptoms or risk factors identified. Fall Risk None identified. Assessment: 15:30 General: Appears in no apparent distress. Behavior is calm, cooperative, appropriate jg9 for age. Pain: Complains of pain in neck-c/o sore throat. Neuro: No deficits noted. Cardiovascular: No deficits noted. Respiratory: Reports cough that is non-productive. GI: No deficits noted. : No deficits noted. EENT: No deficits noted. Derm: No deficits noted. Musculoskeletal: No deficits noted. 15:30 Respiratory: Breath sounds are clear bilaterally. jg9 15:30 Respiratory: Airway is patent. jg9 15:30 Respiratory: Respiratory effort is even, unlabored. jg9 Vital Signs: 15:15 BP 110 / 87; Pulse 98; Resp 16; Temp 98.0; Pulse Ox 100% ; Weight 66.22 kg; Height 5 vg1 ft. 4 in. (162.56 cm); Pain 0/10; 15:30 BP 118 / 89; Pulse 92; Resp 14 S; Pulse Ox 99% on R/A; jg9 16:15 BP 98 / 70; Pulse 88; Resp 12 S; Pulse Ox 99% on R/A; jg9 17:15 BP 101 / 70; Pulse 84; Resp 16; Pulse Ox 100% on R/A; jg9 15:15 Body Mass Index 25.06 (66.22 kg, 162.56 cm) vg1 ED Course: 15:09 Patient arrived in ED. as 15:20 Triage completed. vg1 15:20 Arm band placed on. vg1 15:27 COVID swab sent to lab. Flu and/or RSV swab sent to lab. Strep swab sent to lab. vg1 15:29 Armani Tony PA is PHCP. cp 15:29 Ivon Mckeon MD is Attending Physician. cp 15:30 Patient has correct armband on for positive identification. Bed in low position. Call jg9 light in reach. 15:54 Ade Nicole is Primary Nurse. jg9 16:02 Resting quietly. Awaiting lab results. Pt visited by significant other. jg9 16:02 Warm blanket given. jg9 17:26 No provider procedures requiring assistance completed. jg9 Administered Medications: No medications were administered Outcome: 17:23 Discharge ordered by . cp 17:35 Patient left the ED. jg9 Signatures: Aneta Willis Corey, PA PA cp Garcia, Victoria RN RN vg1 Ade Nicole jg9
[2021-01-17 17:41] VITALS: TEMP 98
[2021-01-17 17:45] VITALS: BP 101/70; O2SAT 100
== END 2021-01-17 17:35 | disposition home or self-care (01) ==
LOC: ER 15:06
DX: J11.1 Influenza due to unidentified influenza virus with other respiratory manifestations (principal); F41.8 Other specified anxiety disorders; Z20.822 Contact with and (suspected) exposure to COVID-19
CPT/HCPCS: 87070; 87081; 0240U; 99283

== ENCOUNTER 2021-02-09 12:35 | Emergency (ER) | payer BC, OTHER ==
--- OUTSIDE RECORDS SUMMARY | 2021-02-09 12:41 | XMS REPORT | Continuity of Care Document ---
:2000 Author Organization [facility] t Address [address] [place] [address] Care Team Providers Name Role Phone ANITA Primary Care Physician Unavailable CHICO ROSA Attending Clinician Unavailable CHICO ROSA Attending Clinician Unavailable Chico Rosa MD Attending Clinician Anita NAVARRO Attending Clinician Payers Payer Name Policy Type Policy Number Effective Date Expiration Date S jorje HIM BCBS BLUE [id number] 2020 ADVANTAGE HMO 00:00:00 [facility] [id number] 2019 CHOICE MEDICAID 00:00:00 Problems Condition Condition [...] general 0-14 ity of fatigue fatigue 00:00: [place] 00 Medical Branch Generalize Generalize Disease Active 2020-02 U nivers d muscle d muscle 0-14 ity of weakness weakness 00:00: [place] 00 Medical Branch 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, right eye, [place] 00:[place] [facility] [place] Migraine Migraine Disease Active Unive rs without without 5-12 ity of status status 00:00: [place] migrainosu migrainosu 00 Me dical s, not s, not Branch intractabl intractabl e, e, unspecifie unspecifie d migraine d migraine type type HPV HPV Disease Active 2019-02 Univers vaccine vaccine 2-22 ity of counseling counseling 00:00: [place] 00 [place] Allergic Allergic Disease Active 2019-02 Unive rs contact contact 2-22 ity of dermatitis dermatitis 00:00[place] , , 00 Medical unspecifie unspecifie Br anch d trigger d trigger Hospital Hospital Disease Active 2019-02 Unive rs discharge discharge 2-22 it[place] of follow[place]up [place] Irritant Irritant Disease Active 2019-02 Unive rs contact contact 2-22 ity of dermatitis dermatitis [place] due to due to 00 Medical detergent detergent Bran ch Flu Flu Disease Active 2019-02 Univers vaccine [...] initial initial 00:00: [place] encounter encounter 00 [facility] justo Branch Skin Skin Disease Active 2018-02 [...] ents Source Name Type Date Date Clinician HISTAMIN DRUG Active Other-Cmnt Univ ers E INGREDI 07-05 ity of 00:00: [place] 00 Medical Branch Histamin Propensi Active Other - See "anxiety " Univers e ty to comments 07-05 ity of adverse 00:00: [place] reaction 00 Medical s Branch Macrolid Propensi Active Itching 2018-02 Unive rs e ty to 1-15 ity of Antibiot adverse 00:00: [place] ics reaction 00 Medical s Branch Vancomyc Propensi Active Itching 2018-02 Unive rs in ty to 1-15 ity of adverse 00:00: [place] reaction 00 Medical s Branch MACROLID Drug Active ITCHING 2018-02 Univers E Class 1-15 ity of ANTIBIOT 00:00: [place] ICS 00 Medical Branch VANCOMYC DRUG Active ITCHING 2018-02 Univers IN INGREDI 1-15 ity of 00:00: [place] 00 [facility] kiwi FA Active MO 2018- [facility] 0-21 [facility] [place] azithrom DA Active DC 2019-0 [facility] ycin 9-04 [facility] 00:[facility]: [facility] [place] vancomyc DA Active DC 2019-0 [facility] in 9-04 [facility] 00[facility]: [facility] [place] Kiwi Propensi Active Anaphylaxis 2018-0 Uni vers ty to 6- ity of adverse 00:00: [place] reaction 00 Medical s Branch KIWI DRUG Active High Anaphylaxis 2018- Unive rs INGREDI 6 ity of 00:00: [place] 00 [facility] Social History Social Habit Start Date Stop Date Quantity Comments Source History of tobacco Cigarette Smoker University of use [facility] Exposure to Not sure University of SARS-CoV-2 (event) [facility] Alcohol intake 2020-12-02 2020-12-02 3.14 /d University of 00:00:00 00:00:00 [facility] Cigarettes smoked 2020-02-23 2020-02-23 Univers ity of current (pack per 00:00:00 00:00:00 [place] ) - Reported Branch Cigarette 2020-02-23 2020-02-23 [...] Unive rsity of Connections Phone 00:00:00 00:00:00 [place] M edical Branch History SDOH Social 2020-02-23 2020-02-23 5 Unive rsity of Connections Get 00:00:00 00:00:00 [place] Med ical Together Branch History SDOH Social 2020-02-23 2020-02-23 3 Unive rsity of Connections Evangelical 00:00:00 00:00:00 [place] [facility] History SDOH Social 2020-02-23 2020-02-23 2 Unive rsity of Connections 00:00:00 00:00:00 [place] Medical Membership Branch History SDOH Social 2020-02-23 2020-02-23 1 Unive rsity of Connections 00:00:00 00:00:00 [place] Medical Meetings Branch History SDOH Social 2020-02-23 2020-02-23 8 Unive rsity of Connections Living 00:00:00 00:00:00 [place] [facility] History SDOH 2020-02-23 2020-02-23 7 University o f Physical Activity 00:00:00 00:00:00 [place] M edical DPW Branch History SDOH 2020-02-23 2020-02-23 6 University o f Physical Activity 00:00:00 00:00:00 [place] M edical MPS Branch History SDOH Stress 2020-02-23 2020-02-23 5 Unive rsity of 00:00:00 00:00:00 [place] [facility] History SDOH 2020-02-23 2020-02-23 4 [...] 1 Univers ity of Worry 00:00:00 00:00:00 [place] [facility] History SDOH Food 2020-02-23 2020-02-23 1 Univers ity of Scarcity 00:00:00 00:00:00 [place] [facility] History SDOH 2020-02-23 2020-02-23 2 University o f Transport Med 00:00:00 00:00:00 [place] Medic al Branch History SDOH 2020-02-23 2020-02-23 2 University o f Transport Non-Med 00:00:00 00:00:00 [facility] [place] edical Branch Tobacco Comment 2020-02-23 2020-02-23 1 pack per week, Uni versity of 00:00:00 00:00:00 done when [place] Medical stressed Branch History SDNV 2017-05-02 2017-05-02 University o f Alcohol Comment 00:00:00 00:00:00 [place] Med ical Branch Sex Ass[birth year] At [birth year] Universit y of 00:00:00 00:00:00 [facility] Branch Smoking Status Start Date Stop Date Source Former smoker 2020-02-23 00:00:00 2020-02-23 00:00:00 Universi ty of [place] [facility] Medications Ordered Filled Start Stop Current Ordering Indication Dosage Frequency Signature Comments Components Source Medication Medication Date Date Medication? Clinician (SIG) Name Name ergocalcife 2020-02 Yes [id number] Take 1 Univers rol, 0-22 capsule by ity of vitamin d2, 00:00: mouth [place] 1,250 mcg 00 weekly. Medical (50,000 Branch unit) capsule pravastatin 2020-02 Yes [id number] 10mg Take 1 Univers 10 mg 0-22 tablet by ity of tablet 00:00: mouth at [place] 00 bedtime. Medical Branch calcium 2020-02 Yes [id number] 500mg Take 1 Un hailey carbonate 0-22 tablet by ity o f (CALCIUM 00:00: mouth [place] 500) 500 mg 00 daily. Medica l calcium Branch (1,250 mg) tablet butalbital- 2020-02 Yes [id number] 1{capsu Take 1 Univers aspirin-caf 0-14 le} capsule by it y of feine 00:00: mouth [place] 50-325-40 00 every 4 Medical mg per (four) Branch capsule hours as needed for Pain. ibuprofen 2020-02 Yes [id number] 600mg Take 1 Un hailey (IBU) 600 0-07 tablet by ity o f mg tablet 00:00: mouth [place] 00 every 6 Medical (six) Branch hours as needed for Pain (scale 4-6). hydrOXYzine Yes TAKE 1 Univ ers 50 mg 5-04 TABLET BY ity of tablet 00:00: MOUTH [place] 00 DAILY Medical NEEDED FOR Branch ANXIETY traZODone Yes [id number] 50mg Take 1 U nivers 50 mg 9-09 tablet by ity of tablet 00:00: mouth at [place] 00 bedtime. Medical Branch escitalopra Yes [id number] 10mg Take 1 Univers m oxalate 9-09 tablet by ity o f 10 mg 00:00: mouth [place] tablet 00 daily. Medical Branch Immunizations Ordered Immunization Filled Immunization Date Status Commen ts Source Name Name HPV9 2020-01-29 Completed University of 00:00:00 [facility] Influenza Virus 2019-12-20 Completed Universit y of Vaccine Quad .5 mL 00:00:00 [facility] IM 6+ MO Branch TDAP 2019-12-20 Completed University of 00:00:00 [facility] HPV9 2019-12-20 Completed University of 00:00:00 [facility] Pneumococcal 2019-12-20 Completed University o f Polysaccharide, 00:00:00 [place] Med ical PPSV23 (PNEUMOVAX) Branch Meningococcal B, OMV 2019-12-20 Completed Univ ersity of 00:00:00 [facility] Vital Signs Vital Name Observation Time Observation Value Comments Source Systolic blood 2020-12-02 13:19:00 119 mm[Hg] Univer sity [facility] Diastolic blood 2020-12-02 13:19:00 82 mm[Hg] Univleeanne rsjoseph [facility] Heart rate 2020-12-02 13:19:00 81 /min [facility] Body height 2020-12-02 13:19:00 162.6 cm [facility] Body weight 2020-12-02 13:19:00 72.576 kg [facility] BMI 2020-12-02 13:19:00 27.46 kg/m2 [facility] Procedures This patient has no known procedures. Encounters Start End Encounter Admission Attending Care Care Encounter Source Date/Time Date/Time Type Type Clinicians Facility Department ID 2021-01-22 2021-01-22 Outpatient YARELIS HERRERA [facility] [id number] [facility] 12:30:00 12:30:00 YARELIS ROSA [facility] 2020-12-02 2020-12-02 Office Moe [facility] [id number] 08:17:27 09:16:56 Visit [facility] [id number] Shan [id number] Jeferson as ANTONY?BLEA [phone] [address] MEDICAL OFFICE BUILDING 2020-12-02 2020-12-02 Outpatient YARELIS HERRERA [facility] [id number] [facility] 08:00:00 09:16:[address] [facility] 2019-08-16 2019-08-16 [facility] [id number] 08:54:20 09:41:28 Visit Angus Lugoff [id number] [place] [id number] Professio [phone] [place] [address] Building Results Test Description Test Time Test Comments Results Result [facility] e Comments - CT ABDOMEN 2018-12-06 Patient Name: W/CONTRAST 08:58:00 PARAM BOSWELL Unit No: [id number] EXAMS: CPT CODE: [id number] CT ABDOMEN W/CONTRAST 91684 EXAMINATION: CT scan of the abdomen with [...] The patient is at risk for [facility] NAME: PARAM BOSWELL Radiology Department PHYS: Michelle Alicea MD [address] : 2000 AGE: 18 SEX: F [place], [place] [address] LOC: Jean [address] PHONE #: [phone] EXAM DATE: 12/05/2018 STATUS: DIS IN FAX #: [phone] RAD NO: Page 1 Signed Report 1 Patient Name: PARAM BOSWELL Unit No: [id number] EXAMS: CPT CODE: [id number] CT ABDOMEN W/CONTRAST 75066 <Continued> splenic torsion/infarction. There is no evidence of that at this time. 2. Moderate amount of retained fecal material throughout the visualized portions of the colon. at 0858 Reported and signed by: Alyssa Boss MD CC: Michelle Virgen MD Technologist: RT Ethel CTDI: DLP: Trnscrbd D/ (0858) [facility]: PARAM [facility] Radiology Department PHYS: Michelle Alicea MD [address] : 2000 AGE: 18 SEX: F [place] [address] LOC: F.4[address] A PHONE #: [phone] EXAM DATE: 12/05/2018 STATUS: DIS IN FAX #: [phone] RAD NO: Page 2 Signed Report 1 Patient Name: PARAM BOSWELL Unit No: [id number] EXAMS: CPT CODE: [id number] CT ABDOMEN W/CONTRAST 63819 <Continued> Orig Print D/T: S: 12/06/2018 (0901) [facility] NAME: PARAM BOSWELL CRISTIAN Radiology Department PHYS: Michelle Alicea MD [address] : 2000 AGE: 18 SEX: F [place] [address] LOC: F.4[address] A PHONE #: [phone] EXAM DATE: 12/05/2018 STATUS: DIS IN FAX #: [phone] RAD NO: Page 3 Signed Report 1 - US ABDOMEN LTD 2018-12-05 Patient Name: 16:42:00 PARAM BOSWELL Unit No: [id number] EXAMS: CPT CODE: [id number] US ABDOMEN LTD 70861 CLINICAL HISTORY: Enlarged spleen. COMPARISON: October 12, [...] Technologist: Petrona Sykes RDMS Probe: Trnscrbd D/ (2292) t.[email or web address].YOS Orig Print D/T: S: 12/05/2018 (5531) [facility] NAME: THEA BOSWELLANI FOSTER Radiology Department PHYS: Michelle Alicea MD [address] : 2000 AGE: 18 SEX: F [place] [address] LOC: FDon2 A PHONE #: [phone] EXAM DATE: 12/05/2018 STATUS: ADM IN FAX #: [phone] RAD NO: Page 1 Signed Report Patient Name: PARAM BOSWELLORA Unit No: [id number] EXAMS: CPT CODE: [id number] ABDOMEN LTD 09536 <Continued> [facility] NAME: PARAM BOSWELL Radiology Department PHYS: Michelle Alicea MD [address] : 2000 AGE: 18 SEX: F [place] [address] LOC: F.[address] PHONE #: [phone] EXAM DATE: 12/05/2018 STATUS: ADM IN FAX #: [phone] RAD NO: Page 2 Signed Report PLACENTA THIRD 2018-12-05 TRIMESTER 14:06:00 --------RUN DATE: 12/05/18 [facility] PAGE 1 RUN TIME: 1744 Specimen Inquiry RUN USER: INTERFACE --------PATIENT: PARAM BOSWELL LOC: ROBBIE U #: [id number] AGE/SX: 18/F ROOM: [facility] RE11/30/18REG DR: Michelle Virgen MD : [birth year] BED: A DIS: STATUS: ADM IN TLOC: -------- SPEC #: [id number] RECD: 12/01/18 STATUS: FLAKO REQ #: [id number] MAGGIE: 12/01/18- FREEDOM DR: Michelle Virgen MD ENTERED: 12/04/18 SP TYPE: PLACIII LEFTY DIAZ: ORDERED: LEVEL V SURGICA CODES: IA2348 - PLACENTA, NOS PROCEDURES: LEVEL V SURGICA (Incomplete) TISSUES: PLACENTA, NOS - PLACENTA CLINICAL HISTORY 18 year old, 36.5 weeks, G6D1M5X5R5, vaginal delivery, prematurity (kr) FINAL DIAGNOSIS Placenta, young gestation: - late third trimester villous architecture - umbilical cord: paramarginal insertion, 3-vessel, 23 cm length - decreased placental weight: 357 gms (less than 10th percentile) CPT Code: 45466 cds/wpd 12/05/18 GROSS DESCRIPTION The specimen was [...] Specimen Inquiry RUN USER: INTERFACE --------SPEC #: [id number] PATIENT: RAFFYKRYSTLEPARAM CRISTIAN #[id number] (Continued) GROSS DESCRIPTION (Continued) Parenchyma lesions: None [...] PLTMR) NORMAL POLLY L AG HEPATITIS B [id number] 05:49:00 Test Item Value Reference Range Interpretation Comments AG HEPATITIS B SURFACE (test code NONREACTIVE NONREACTIVE = HBSAG) IS CONSENT FORM SIGNED FOR HIV TESTING? [facility] HEPATITIS C [id number] 05:49:00 Test Item Value Reference Range Interpretation Comments AB HEPATITIS C (test code = NONREACTIVE NONREACTIVE HCVAB) SIGNAL TO CUTOFF (test code = 0.10 <0.80 N CUTOFF) IS CONSENT FORM SIGNED FOR HIV TESTING? B [id number] 05:49:00 Test Item Value Reference Range Interpretation Comments AB TREPONEMA (test code = TREPAB) NONREACTIVE NONREACTIVE IS CONSENT FORM SIGNED FOR HIV TESTING? B HIV 1 05:49:00 Test Item Value Reference Range Interpretation Comments AB HIV 1 2 (test NONREACTIVE NONREACTIVE [facility] code = [id number]) 4th Gen HIV Ag/Ab Combo Screen IS CONSENT FORM SIGNED FOR HIV TESTING? YCBC W/AUTO [id number] 00:01:00 Test Item Value Reference Range Interpretation [...] code = PLTMR) - FET BIO PH MO W/O [id number] 21:38:00 Patient Name: PARAM BOSWELL Unit No: [id number] EXAMS: CPT CODE: [id number] FET BIO PH MO W/O NST 71284 PROCEDURE: BIOPHYSICAL PROFILE: INDICATION: 36.4 WKS CRAMPING, [...] [email or web address] Orig Print D/T: S: 11/30/2018 (2141) [facility] NAME: ELBERTPARAM FOSTER Radiology Department PHYS: Michelle Alicea MD [address] : 2000 AGE: 18 SEX: F [place] [address] LOC: Jean MarieNESSA PHONE #: [phone] EXAM DATE: 11/30/2018 STATUS: REG ER FAX #: [phone] RAD NO: Page 1 Signed Report Patient Name: THEA BOSWELLANI FOSTER UnitNo: [id number] EXAMS: CPT CODE: [id number] US FET BIO PH MO W/O NST 56794 <Continued> [facility] NAME: KOLTONLARRYPARAM Radiology Department PHYS: Michelle Alicea MD [address] : 2000 AGE: 18 SEX: F [place] [address] LOC: Jean MarieNESSA PHONE #: [phone] EXAM DATE: 11/30/2018 STATUS: REG ER FAX #: [phone] RAD NO: Page 2 Signed ReportURINALYSIS [id number] 20:15:00 Test Item Value Reference Range Interpretation [...] NONE SEEN URINE SAMPLE: CLEAN CATCHAMNISURE (ROM) [id number] 18:44:00 Test Item Value Reference Range Interpretation Comments AMNISURE (ROM) TEST (test code = NON-RUPTURED NON-RUPTURE AMNI) : *Amnisure QC OK? YESURINALYSIS [id number] 15:24:00 Test Item Value Reference Range Interpretation [...] NONE SEEN URINE SAMPLE: CLEAN CATCHCOMPREHENSIVE METABOLIC [id number] 13:04:00 Test Item Value Reference Range Interpretation [...] 113 units/L 46-116 N code = ALKP) [id number] 13:04:00 Test Item Value Reference Range Interpretation Comments AMYLASE (test code = KADEN) 34 units/L 30-110 N [id number] 13:04:00 Test Item Value Reference Range Interpretation Comments LIPASE (test code = LIP) 97 units/L 73-393 N CBC W/AUTO [id number] 12:55:00 Test Item Value Reference Range Interpretation [...] NORMAL code = PLTMR) AG HEPATITIS B [id number] 05:36:00 Test Item Value Reference Range Interpretation Comments AG HEPATITIS B SURFACE (test code NONREACTIVE NONREACTIVE = HBSAG) IS CONSENT FORM SIGNED FOR HIV TESTING? YAB HEPATITIS C [id number] 05:36:00 Test Item Value Reference Range Interpretation Comments AB HEPATITIS C (test code = NONREACTIVE NONREACTIVE HCVAB) SIGNAL TO CUTOFF (test code = 0.12 <0.80 N CUTOFF) IS CONSENT FORM SIGNED FOR HIV TESTING? YAB [id number] 05:36:00 Test Item Value Reference Range Interpretation Comments AB TREPONEMA (test code = TREPAB) NONREACTIVE NONREACTIVE IS CONSENT FORM SIGNED FOR HIV TESTING? YAB HIV 1 05:36:00 Test Item Value Reference Range Interpretation Comments AB HIV 1 2 (test NONREACTIVE NONREACTIVE [facility] code = [id number]) 4th Gen HIV Ag/Ab Combo Screen IS CONSENT FORM SIGNED FOR HIV TESTING? YAG HEPATITIS B [id number] 03:46:00 Test Item Value Reference Range Interpretation Comments AG HEPATITIS B SURFACE (test code NONREACTIVE NONREACTIVE = HBSAG) IS CONSENT FORM SIGNED FOR HIV TESTING? [facility] HEPATITIS C [id number] 03:46:00 Test Item Value Reference Range Interpretation Comments AB HEPATITIS C (test code = HCVAB) NONREACTIVE SIGNAL TO CUTOFF (test code = CUTOFF) <0.80 IS CONSENT FORM SIGNED FOR HIV TESTING? TAWNYB [id number] 03:46:00 Test Item Value Reference Range Interpretation Comments AB TREPONEMA (test code = TREPAB) NONREACTIVE NONREACTIVE IS CONSENT FORM SIGNED FOR HIV TESTING? YAB HIV 1 03:46:00 Test Item Value Reference Range Interpretation Comments AB HIV 1 2 (test code = [id number]) NONREACTIVE IS CONSENT FORM SIGNED FOR HIV TESTING? YCBC W/AUTO [id number] 01:18:00 Test Item Value Reference Range Interpretation [...] (test NORMAL NORMAL code = PLTMR) URINALYSIS [id number] 19:10:00 Test Item Value Reference Range Interpretation [...] SEEN URINE SAMPLE: CLEAN CATCHAG HEPATITIS B [id number] 03:27:00 Test Item Value Reference Range Interpretation Comments AG HEPATITIS B SURFACE (test code NONREACTIVE NONREACTIVE = HBSAG) AB HEPATITIS C [id number] 03:27:00 Test Item Value Reference Range Interpretation Comments AB HEPATITIS C (test code = NONREACTIVE NONREACTIVE HCVAB) SIGNAL TO CUTOFF (test code = 0.12 <0.80 N CUTOFF) AB [id number] 03:27:00 Test Item Value Reference Range Interpretation Comments AB TREPONEMA (test code = TREPAB) NONREACTIVE NONREACTIVE CBC W/AUTO [id number] 01:52:00 Test Item Value Reference Range Interpretation [...] code = PLTMR) - US PREG UT [id number] 11:57:00 Patient Name: PARAM BOSWELL Unit No: [id number] EXAMS: CPT CODE: [id number] US PREG UT TRANSVAGINAL [address] [facility] [address] [place] [address] BIOPHYSICAL PROFILE ULTRASOUND REPORT Pat. Name: PARAM BOSWELL Pat. No: [id number] Study Date: 11/10/2018 11:20am , Age: 01 2000, 18 Pregnancies: 2, Para 0 LMP: 03/19/2018 GA by LMP: 33w5d GA Selected: 33w5d (LMP) JUAN M: 12/24/2018 Referring MD: Michelle Virgen Business Services Sales Agent: Tarun Alonso RDMS, RVT CPT4: USPRUTTRVG Admitting [...] Reported and signed by: Marco Obrien MD [facility] NAME: PARAM BOSWELL Radiology Department PHYS: Michelle Alicea MD [address] : 2000 AGE: 18 SEX: F [place], [place] [address] LOC: CAROLIN PHONE #: [phone] EXAM DATE: 11/10/2018 STATUS: DEP ER FAX #: [phone] RAD NO: Page 1 Signed Report (CONTINUED) Patient Name: PARAM BOSWELL Unit No: [id number] EXAMS: CPT CODE: [id number] US PREG UT TRANSVAGINAL [address]24 <Continued> CC: Michelle Virgen MD Technologist: Tarun Alonso RDMS, RVT Probe: [id number] Trnscrbd D/ (1157) AlexS Orig Print D/T: S: 11/15/2018 (1016) [facility] NAME: PARAM BOSWELL Radiology Department PHYS: Michelle Alicea MD [address] : 2000 AGE: 18 SEX: F [place] [address] LOC: Jean MarieNESSA PHONE #: [phone] EXAM DATE: 11/10/2018 STATUS: DEP ER FAX #: [phone] RAD NO: Page 2 Signed Report Patient Name: THEA BOSWELLANI FOSTER Unit No: [id number] EXAMS: CPT CODE: [id number] US PREG UT TRANSVAGINAL [address]2446 <Continued> [facility] NAME: PARAM BOSWELL Radiology Department PHYS: Michelle Alicea MD [address] : 2000 AGE: 18 SEX: F [place] [address] LOC: Jean MarieNESSA PHONE #: [phone] EXAM DATE: 11/10/2018 STATUS: DEP ER FAX #: [phone] RAD NO: Page 3 Signed Report- US FET BIO PH MO W/O [id number] 11:57:00 Patient Name: ELBERTPARAM FOSTER Unit No: [id number] EXAMS: CPT CODE: [id number] US FET BIO PH MO W/O NST [address] [facility] [address] [place], [place] [address] BIOPHYSICAL PROFILE ULTRASOUND REPORT Pat. Name: PARAM BOSWELL Pat. No: [id number] Study Date: 11/10/2018 11:20am , Age: 01 2000, 18 Pregnancies: 2, Para 0 LMP: 03/19/2018 GA by LMP: 33w5d GA Selected: 33w5d (LMP) JUAN M: 12/24/2018 Referring MD: MICHELLE VIRGEN Business Services Sales Agent: Tarun Alonso RDMS, RVT CPT4: USBPPWONST Admitting [...] and signed by: Marco Obrien MD [facility] NAME: RAFFYJOSE MIGUELJANAEPARAM Radiology Department PHYS: Michelle Alicea MD [address] : 2000 AGE: 18 SEX: F [place] [address] LOC: Brianna.NESSA PHONE #: [phone] EXAM DATE: 11/10/2018 STATUS: REG ER FAX #: [phone] RAD NO: Page 1 Signed Report (CONTINUED) Patient Name: THEA BOSWELLANI FOSTRE Unit No: [id number] EXAMS: CPT CODE: [id number] US FET BIO PH MO W/O NST 34159 <Continued> CC: Michelle Virgen MD Technologist: Tarun Alonso RDMS, RVT Probe: Trnscrbd D/ (1157) t.SDR.YOS Orig Print D/T: S: 11/10/2018 (1158) [facility] NAME: PARAM BOSWELL Radiology Department PHYS: Michelle Alicea MD [address] : 2000 AGE: 18 SEX: F [place] [address] LOC: Jean MarieNESSA PHONE #: [phone] EXAM DATE: 11/10/2018 STATUS: REG ER FAX #: [phone] RAD NO: Page 2 Signed Report Patient Name: THEA BOSWELLANI FOSTER Unit No: [id number] EXAMS: CPT CODE: [id number] US FET BIO PH MO W/O NST 52827 <Continued> [facility] NAME: PARAM BOSWELL Radiology Department PHYS: Michelle Alicea MD [address] : 2000 AGE: 18 SEX: F [place] [address] LOC: Brianna.NESSA PHONE #: [phone] EXAM DATE: 11/10/2018 STATUS: REG ER FAX #: [phone] RAD NO: Page 3 Signed ReportURINALYSIS COMPLETE [...] 4+ NONE SEEN URINE SAMPLE: CLEAN CATCHURINALYSIS [id number] 12:15:00 Test Item Value Reference Range Interpretation [...] NONE SEEN URINE SAMPLE: CLEAN CATCHCOMPREHENSIVE METABOLIC [id number] 11:47:00 Test Item Value Reference Range Interpretation [...] units/L 46-116 N code = ALKP) BILIRUBIN [id number] 11:47:00 Test Item Value Reference Range Interpretation Comments BILIRUBIN DIRECT (test code = <0.1 mg/dL <0.2 N BILD) [id number] 11:47:00 Test Item Value Reference Range Interpretation Comments AMYLASE (test code = KADEN) 35 units/L 30-110 N [id number] 11:47:00 Test Item Value Reference Range Interpretation Comments LIPASE (test code = LIP) 128 units/L 73-393 N - US ABDOMEN [id number] 10:42:00 Patient Name: PARAM BOSWELL Unit No: [id number] EXAMS: CPT CODE: [id number] US ABDOMEN COMPLETE 22456 ABDOMEN ULTRASOUND COMPLETE 10/12/2018: COMPARISON: None CLINICAL [...] Orig Print D/T: S: 10/12/2018 (1045) [facility] NAME: PARAM BOSWELL Radiology Department PHYS:Michelle Alicea MD [address] : 2000 AGE: 18 SEX: F [place], [place] [address] LOC: Markie Cevallos PHONE #: [phone] EXAM DATE: 10/12/2018 STATUS: ADM IN FAX #: [phone] RAD NO: Page 1 Signed Report Patient Name: PARAM BOSWELL Unit No: [id number] EXAMS: CPT CODE: [id number] US ABDOMEN COMPLETE [id number] <Continued> [facility] NAME: PARAM BOSWELL Radiology Department PHYS: Michelle Alicea MD [address] : 2000 AGE: 18 SEX: F [place], [place] [address] LOC: F.031 A PHONE #: [phone] EXAM DATE: 10/12/2018 STATUS: ADM IN FAX #: [phone] RAD NO: Page 2 Signed ReportDRUGS OF ABUSE [id number] 00:56:00 Test Item Value Reference Range Interpretation [...] PHENCU) 25 ng/m L AG HEPATITIS B [id number] 23:17:00 Test Item Value Reference Range Interpretation Comments AG HEPATITIS B SURFACE (test code NONREACTIVE NONREACTIVE = HBSAG) AB HEPATITIS C [id number] 23:17:00 Test Item Value Reference Range Interpretation Comments AB HEPATITIS C (test code = NONREACTIVE NONREACTIVE HCVAB) SIGNAL TO CUTOFF (test code = <0.02 <0.80 N CUTOFF) AB [id number] 23:17:00 Test Item Value Reference Range Interpretation Comments AB TREPONEMA (test code = TREPAB) NONREACTIVE NONREACTIVE AG HEPATITIS B [id number] 22:51:00 Test Item Value Reference Range Interpretation Comments AG HEPATITIS B SURFACE (test code NONREACTIVE NONREACTIVE = HBSAG) AB HEPATITIS C [id number] 22:51:00 Test Item Value Reference Range Interpretation Comments AB HEPATITIS C (test code = HCVAB) NONREACTIVE SIGNAL TO CUTOFF (test code = CUTOFF) <0.80 AB [id number] 22:51:00 Test Item Value Reference Range Interpretation Comments AB TREPONEMA (test code = TREPAB) NONREACTIVE NONREACTIVE COMPREHENSIVE METABOLIC [id number] 22:33:00 Test Item Value Reference Range Interpretation [...] units/L 46-116 N code = ALKP) BILIRUBIN [id number] 22:33:00 Test Item Value Reference Range Interpretation Comments BILIRUBIN DIRECT (test code = <0.1 mg/dL <0.2 N BILD) CBC W/AUTO [id number] 22:17:00 Test Item Value Reference Range Interpretation [...]
--- NOTE | 2021-02-09 13:39 | ER ---
Nurse's Notes [facility] Name: Tyra Fowler Age: 20 yrs Sex: Female : 2000 Arrival Date: 02/09/2021 Time: 12:40 Bed Waiting Private MD: Diagnosis: Encounter for screening, unspecified Presentation: 02/09 13:27 Chief complaint: Patient states: my boyfriend tested positive for covid and I want to iw get tested so I can go back to work. I don't have any symptoms, but neither does he. Coronavirus screen: Vaccine status: Patient reports being unvaccinated. Ebola Screen: Patient negative for fever greater than or equal to 101.5 degrees Fahrenheit, and additional compatible Ebola Virus Disease symptoms Patient denies exposure to infectious person. Patient denies travel to an Ebola-affected area in the 21 days before illness onset. No symptoms or risks identified at this time. Initial Sepsis Screen: Does the patient meet any 2 criteria? No. Patient's initial sepsis screen is negative. Does the patient have a suspected source of infection? No. Patient's initial sepsis screen is negative. Risk Assessment: Do you want to hurt yourself or someone else? Patient reports no desire to harm self or others. Onset of symptoms was February 09, 2021. 13:27 Method Of Arrival: Ambulatory iw 13:27 Acuity: RANJIT 5 iw Triage Assessment: 13:29 General: Appears in no apparent distress. comfortable, Behavior is calm, cooperative. iw Pain: Denies pain. Historical: - Allergies: 13:29 HISTAMINE H2 INHIBITORS; iw 13:29 Vancomycin; iw 13:29 Azithromycin; iw 13:29 kiwi; iw - PMHx: 13:29 Anxiety; PTSD; Depression; Asthma; iw - PSHx: 13:29 None; iw - Immunization history:: Adult Immunizations up to date, Client reports having NOT received the Covid vaccine. - Social history:: Smoking status: Patient denies any tobacco usage or history of. Vital Signs: 13: BP 115 / 83; Pulse 80; Resp 18; Temp 97.5; Pulse Ox 100% ; Weight 67.59 kg; Height 5 iw ft. 4 in. (162.56 cm); Pain 0/10; 13:27 Body Mass Index 25.58 (67.59 kg, 162.56 cm) iw ED Course: 12:40 Patient arrived in ED. as 13:03 Gricel Wilson [facility]C [facility]. kb 13:03 Armani Gale MD is Attending Physician. kb 13:28 Triage completed. iw 13:29 Arm band placed on right wrist. iw Administered Medications: No medications were administered Outcome: 13:38 Discharge ordered by . kb 13:39 Patient left the ED. kb Signatures: Gricel Wilson FNP-C FNP-Aneta Bull as Marci Alonso, RN RN iw
--- NOTE | 2021-02-09 13:40 | EDPHYS ---
Physician Documentation [facility] Name: Tyra Fowler Age: 20 yrs Sex: Female : 2000 Arrival Date: 02/09/2021 Time: 12:40 Bed Waiting Private MD: ED Physician Armani Gale HPI: 02/09 13:38 This 20 yrs old Female presents to ER via Ambulatory with complaints of asymptomatic, kb wants covid test for work. 13:38 "My boyfriend tested positive for covid so I need to get tested so I can go back to [employer] work. I don't have any symptoms, but neither does he.". The patient has not experienced similar symptoms in the past. The patient has not recently seen a physician. Historical: - Allergies: 13:29 HISTAMINE H2 INHIBITORS; iw 13:29 Vancomycin; iw 13:29 Azithromycin; iw 13:29 kiwi; iw - PMHx: 13:29 Anxiety; PTSD; Depression; Asthma; iw - PSHx: 13:29 None; iw - Immunization history:: Adult Immunizations up to date, Client reports having NOT received the Covid vaccine. - Social history:: Smoking status: Patient denies any tobacco usage or history of. ROS: 13:37 Constitutional: Negative for fever, chills, and weight loss. kb 13:37 All other systems are negative. Exam: 13:37 Constitutional: This is a well developed, well nourished patient who is awake, alert, kb and in no acute distress. Head/Face: Normocephalic, atraumatic. ENT: Moist Mucous membranes Cardiovascular: Regular rate and rhythm with a normal S1 and S2. No gallops, murmurs, or rubs. No pulse deficits. Respiratory: Respirations even and unlabored. No increased work of breathing. Talking in full sentences Skin: Warm, dry with normal turgor. Normal color. MS/ Extremity: Pulses equal, no cyanosis. Neurovascular intact. Full, normal range of motion. Neuro: Awake and alert, GCS 15, oriented to person, place, time, and situation. Moves all extremities. Normal gait. Psych: Awake, alert, with orientation to person, place and time. Behavior, mood, and affect are within normal limits. Vital Signs: 13:27 BP 115 / 83; Pulse 80; Resp 18; Temp 97.5; Pulse Ox 100% ; Weight 67.59 kg; Height 5 iw ft. 4 in. (162.56 cm); Pain 0/10; 13:27 Body Mass Index 25.58 (67.59 kg, 162.56 cm) iw MDM: 13:19 Patient medically screened. kb 13:37 Data reviewed: vital signs, nurses notes. Data interpreted: Pulse oximetry: on room air kb is 100 %. Interpretation: normal. Counseling: I had a detailed discussion with the patient and/or guardian regarding: the historical points, exam findings, and any diagnostic results supporting the discharge/admit diagnosis, the need for outpatient follow up, a family practitioner, to return to the emergency department if symptoms worsen or persist or if there are any questions or concerns that arise at home. Administered Medications: No medications were administered Disposition: 13:37 Encounter for covid test - asymptomatic. kb 02/10 08:43 Co-signature as Attending Physician, Armani Gale MD I agree with the assessment and tamiko plan of care. Disposition Summary: 02/09/21 13:38 Discharge Ordered Location: Home kb Condition: Stable kb Diagnosis - Encounter for screening, unspecified kb Followup: kb - With: Emergency Department - When: As needed - Reason: Worsening of condition Followup: kb - With: Private Physician - When: 2 - 3 days - Reason: Recheck today's complaints, Continuance of care, Re-evaluation by your physician Forms: - Medication Reconciliation Form kb - Thank You Letter kb - Antibiotic Education kb - Prescription Opioid Use kb Signatures: Gricel Wilson, JIGNESH BEEBEP-Armani Schulz MD MD cha Williams, Irene, RN RN iw
[2021-02-09 14:09] VITALS: BP 115/83; TEMP 97.5; O2SAT 100
== END 2021-02-09 13:39 | disposition home or self-care (01) ==
LOC: ER 12:35
DX: Z20.822 Contact with and (suspected) exposure to COVID-19 (principal)
CPT/HCPCS: 99281

== ENCOUNTER 2021-02-10 16:50 | Emergency (ER) | payer BC, OTHER ==
--- OUTSIDE RECORDS SUMMARY | 2021-02-10 16:54 | XMS REPORT | Continuity of Care Document ---
:[address] [facility] t Address [address] [place] [address] Care Team Providers Name Role Phone ANITA Primary Care Physician Unavailable CHICO ROSA Attending Clinician Unavailable CHICO ROSA Attending Clinician Unavailable Chico Rosa MD Attending Clinician Anita NAVARRO Attending Clinician Payers Payer Name Policy Type Policy Number Effective Date Expiration Date S jorje HIM BCBS BLUE [id number] 2020 ADVANTAGE HMO 00:00:00 [facility] [id number] 2019 CHOICE MEDICAID 00:00:00 Problems Condition Condition [...] general 0-14 ity of fatigue fatigue 00:00: [place] 00 Medical Branch Generalize Generalize Disease Active 2020-02 U nivers d muscle d muscle 0-14 ity of weakness weakness 00:00: [place] 00 Medical Branch 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, right [place] [facility] [place] Migraine Migraine Disease Active Unive rs without without 5-12 ity of status status 00:00: [place] migrainosu migrainosu 00 Me dical s, not [...] initial initial 00:00: [place] encounter encounter 00 [facility] justo Branch Skin Skin Disease Active [...] of adverse 00:00: [place] reaction 00 Medical [facility] HISTAMIN DRUG Active Other-Cmnt Univ ers E [...] Antibiot adverse 00:00: [place] ics reaction 00 [facility] kiwi FA Active MO 2018- [facility] 0-21 [facility] [place] azithrom DA Active DE 2019-0 [facility] ycin 9-04 [facility] 00:[facility] [place] vancomyc DA Active DE 2019-0 [facility] in 9-04 [facility] 00:[facility]: [facility] [place] Kiwi Propensi Active Anaphylaxis 2018-0 Uni vers ty to 6- ity of adverse 00:00: [place] reaction 00 [facility] KIWI DRUG Active High Anaphylaxis 2018- Unive rs INGREDI 6- ity of 00:00: [place] 00 [facility] Social History Social Habit Start Date Stop Date Quantity Comments Source History of tobacco Cigarette Smoker University of use [facility] Exposure to Not sure University of SARS-CoV-2 (event) [facility] Alcohol intake 2020-12-02 2020-12-02 3.14 /d University of 00:00:00 00:00:00 [facility] Cigarettes smoked 2020-02-23 2020-02-23 Univers ity of current (pack per 00:00:00 00:00:00 [facility] ) - Reported Branch Cigarette 2020-02-23 2020-02-23 [...] Unive rsity of Connections Phone 00:00:00 00:00:00 [place] M edical Branch History SDOH Social 2020-02-23 2020-02-23 5 Unive rsity of Connections Get 00:00:00 00:00:00 [place] Med ical Together Branch History SDOH Social 2020-02-23 2020-02-23 3 Unive rsity of Connections Mormonism 00:00:00 00:00:00 [place] [facility] History SDOH Social 2020-02-23 2020-02-23 2 Unive rsity of Connections 00:00:00 00:00:00 [place] [facility] Membership Branch History SDOH Social 2020-02-23 2020-02-23 1 Unive rsity of Connections 00:00:00 00:00:00 [place] [facility] Meetings Branch History SDOH Social 2020-02-23 2020-02-23 8 Unive rsity of Connections Living 00:00:00 00:00:00 [place] [facility] History SDOH 2020-02-23 2020-02-23 7 University o f Physical Activity 00:00:00 00:00:00 [place] M edical DPW Branch History SDOH 2020-02-23 2020-02-23 6 University o f Physical Activity 00:00:00 00:00:00 [place] M edical MPS Branch History SDOH Stress 2020-02-23 2020-02-23 5 Unive rsity of 00:00:00 00:00:00 [place] [facility] History SDOH 2020-02-23 2020-02-23 4 [...] 1 Univers ity of Worry 00:00:00 00:00:00 [place] [facility] History SDOH Food 2020-02-23 2020-02-23 1 Univers ity of Scarcity 00:00:00 00:00:00 [place] [facility] History SDOH 2020-02-23 2020-02-23 2 University o f Transport Med 00:00:00 00:00:00 [place] Medic al Branch History SDOH 2020-02-23 2020-02-23 2 University o f Transport Non-Med 00:00:00 00:00:00 [facility] edical Branch Tobacco Comment 2020-02-23 2020-02-23 1 pack per week, Uni versity of 00:00:00 00:00:00 done when [place] Medical stressed Branch History SDMN 2017-05-02 2017-05-02 University o f Alcohol Comment 00:00:00 00:00:00 [place] Med ical Branch Sex Ass[birth year] At [birth year] Universit y of 00:00:00 00:00:00 [facility] Branch Smoking Status Start Date Stop Date Source Former smoker 2020-02-23 00:00:00 2020-02-23 00:00:00 Universi ty of [place] [facility] Medications Ordered Filled Start Stop Current Ordering Indication Dosage Frequency Signature Comments Components Source Medication Medication Date Date Medication? Clinician (SIG) Name Name ergocalcife 2020-02 Yes [id number] 88951F Take 1 Univers rol, 0-22 capsule by ity of vitamin d2, 00:00: mouth [place] 1,250 mcg 00 weekly. Medical (50,000 Branch unit) capsule pravastatin 2020-02 Yes [id number] 10mg Take 1 Univers 10 mg 0-22 tablet by ity of tablet 00:00: mouth at [place] 00 bedtime. Medical Branch calcium 2020-02 Yes [id number] 500mg Take 1 Un hailey carbonate 0-22 tablet by ity o f (CALCIUM 00:00: mouth [place] 500) 500 mg 00 daily. Medica l calcium Branch (1,250 mg) tablet butalbital- 2020-02 Yes [id number] 1{capsu Take 1 Univers aspirin-caf 0-14 le} capsule by it y of feine 00:00: mouth [place] 50-325-40 00 every 4 Medical mg per (four) Branch capsule hours as needed for Pain. ibuprofen 2020-02 Yes [id number] 600mg Take 1 Un hailey (IBU) 600 0-07 tablet by ity o f mg tablet 00:00: mouth [place] 00 every 6 Medical (six) Branch hours as needed for Pain (scale 4-6). hydrOXYzine Yes TAKE 1 Univ ers 50 mg 5-04 TABLET BY ity of tablet 00:00: MOUTH [place] 00 DAILY Medical NEEDED FOR Branch ANXIETY traZODone Yes [id number] 50mg Take 1 U nivers 50 mg 9-09 tablet by ity of tablet 00:00: mouth at [place] 00 bedtime. Medical Branch escitalopra Yes [id number] 10mg Take 1 Univers m oxalate 9-09 tablet by ity o f 10 mg 00:00: mouth [place] tablet 00 daily. Medical Branch Immunizations Ordered Immunization Filled Immunization Date Status Commen ts Source Name Name HPV9 2020-01-29 Completed University of 00:00:00 [facility] Influenza Virus 2019-12-20 Completed Universit y of Vaccine Quad .5 mL 00:00:00 [facility] IM 6+ MO Branch TDAP 2019-12-20 Completed University of 00:00:00 [facility] HPV9 2019-12-20 Completed University of 00:00:00 [facility] Pneumococcal 2019-12-20 Completed University o f Polysaccharide, 00:00:00 [place] Med ical PPSV23 (PNEUMOVAX) Branch Meningococcal B, OMV 2019-12-20 Completed Univ ersity of 00:00:00 [facility] Vital Signs Vital Name Observation Time Observation Value Comments Source Systolic blood 2020-12-02 13:19:00 119 mm[Hg] Univer sity [facility] Diastolic blood 2020-12-02 13:19:00 82 mm[Hg] Univleeanne rsjoseph [facility] Heart rate 2020-12-02 13:19:00 81 /min [facility] Body height 2020-12-02 13:19:00 162.6 cm [facility] Body weight 2020-12-02 13:19:00 72.576 kg [facility] BMI 2020-12-02 13:19:00 27.46 kg/m2 [facility] Procedures This patient has no known procedures. Encounters Start End Encounter Admission Attending Care Care Encounter Source Date/Time Date/Time Type Type Clinicians Facility Department ID 2021-01-22 2021-01-22 Outpatient [facility] [id number] [facility] [place] [facility] 12:30:00 12:30:00 [facility] 2020-12-02 2020-12-02 Office Moe [facility] [id number] 08:17:27 09:16:56 Visit [facility] [id number] Shan [id number] Jeferson as ANTONY?BLEA [phone] [address] MEDICAL OFFICE BUILDING 2020-12-02 2020-12-02 Outpatient [facility]IS [facility] [id number] [facility] [place] [facility] 08:00:00 09:16:56 YARELIS ROSA david [facility] 2019-08-16 2019-08-16 [facility] [id number] 08:54:20 09:41:28 Visit Angus Toutle [id number] [place] 4.2.7.2.686 Professio [phone] [place] [address] Building Results Test Description Test Time Test Comments Results Result [facility] e Comments - CT ABDOMEN 2018-12-06 Patient Name: W/CONTRAST 08:58:00 PARAM BOSWELL Unit No: [id number] EXAMS: CPT CODE: [id number] CT ABDOMEN W/CONTRAST 29131 EXAMINATION: CT scan of the abdomen with [...] The patient is at risk for [facility] NAME: PARAM BOSWELL Radiology Department PHYS: Michelle Alicea MD [address] : 2000 AGE: 18 SEX: F [place], [place] [address] LOC: Jean [address] PHONE #: [phone] EXAM DATE: 12/05/2018 STATUS: DIS IN FAX #: [phone] RAD NO: Page 1 Signed Report 1 Patient Name: PARAM BOSWELL Unit No: [id number] EXAMS: CPT CODE: [id number] CT ABDOMEN W/CONTRAST 60319 <Continued> splenic torsion/infarction. There is no evidence [...] Radiology Department PHYS: Michelle Alicea MD [address] : 2000 AGE: 18 SEX: F [place] [address] LOC: F.4602 A PHONE #: [phone] EXAM DATE: 12/05/2018 STATUS: DIS IN FAX #: [phone] RAD NO: Page 2 Signed Report 1 Patient Name: PARAM BOSWELL Unit No: [id number] EXAMS: CPT CODE: [id number] CT ABDOMEN W/CONTRAST 21037 <Continued> Orig Print D/T: S: 12/06/2018 (0901) [facility] NAME: PARAM BOSWELL CRISTIAN Radiology Department PHYS: Michelle Alicea MD [address] : 2000 AGE: 18 SEX: F [place] [address] LOC: F.4602 A PHONE #: [phone] EXAM DATE: 12/05/2018 STATUS: DIS IN FAX #: [phone] RAD NO: Page 3 Signed Report 1 - US ABDOMEN LTD 2018-12-05 Patient Name: 16:42:00 PARAM BOSWELL Unit No: [id number] EXAMS: CPT CODE: [id number] US ABDOMEN LTD 72961 CLINICAL HISTORY: Enlarged spleen. COMPARISON: October 12, [...] Technologist: Petrona Sykes RDMS Probe: Trnscrbd D/ (8242) t.[email or web address] Orig Print D/T: S: 12/05/2018 (0715) [facility] [place] [facility] NAME: THEA BOSWELLANI FOSTER Radiology Department PHYS: Michelle Alicea MD [address] : 2000 AGE: 18 SEX: F [place] [address] LOC: FDon2 A PHONE #: [phone] EXAM DATE: 12/05/2018 STATUS: ADM IN FAX #: [phone] RAD NO: Page 1 Signed Report Patient Name: PARAM BOSWELLORA Unit No: [id number] EXAMS: CPT CODE: [id number] ABDOMEN LTD 88059 <Continued> [facility] [place] [facility] NAME: PARAM BOSWELL Radiology Department PHYS: Michelle Alicea MD [address] : 2000 AGE: 18 SEX: F [place] [address] LOC: F.4602 A PHONE #: [phone] EXAM DATE: 12/05/2018 STATUS: ADM IN FAX #: [phone] RAD NO: Page 2 Signed Report PLACENTA THIRD 2018-12-05 TRIMESTER 14:06:00 --------RUN DATE: 12/05/18 [facility] - Laboratory PAGE 1 RUN TIME: 1744 Specimen Inquiry RUN USER: INTERFACE --------PATIENT: PARAM BOSWELL LOC: ROBBIE U #: [id number] AGE/SX: 18/F ROOM: [facility] RE11/30/18REG DR: Michelle Virgen MD : [birth year] BED: A DIS: STATUS: ADM IN TLOC: -------- SPEC #: [id number] RECD: 12/01/18 STATUS: FLAKO REQ #: [id number] MAGGIE: 12/01/18- FREEDOM DR: Michelle Virgen MD ENTERED: 12/04/18 SP TYPE: PLACIII LEFTY DIAZ: ORDERED: LEVEL V SURGICA CODES: [id number] - PLACENTA, NOS PROCEDURES: LEVEL V SURGICA (Incomplete) TISSUES: PLACENTA, NOS - PLACENTA CLINICAL HISTORY 18 year old, 36.5 weeks, [id number], vaginal delivery, prematurity (kr) FINAL DIAGNOSIS Placenta, young gestation: - late third trimester villous architecture - umbilical cord: paramarginal insertion, 3-vessel, 23 cm length - decreased placental weight: 357 gms (less than 10th percentile) CPT Code: 02279 cds/wpd 12/05/18 GROSS DESCRIPTION The specimen was [...] Specimen Inquiry RUN USER: INTERFACE --------SPEC #: [id number] PATIENT: RAFFYKRYSTLEPARAM CRISTIAN #[id number] (Continued) GROSS DESCRIPTION (Continued) Parenchyma lesions: None [...] PLTMR) NORMAL POLLY L AG HEPATITIS B [id number] 05:49:00 Test Item Value Reference Range Interpretation Comments AG HEPATITIS B SURFACE (test code NONREACTIVE NONREACTIVE = HBSAG) IS CONSENT FORM SIGNED FOR HIV TESTING? [facility] HEPATITIS C [id number] 05:49:00 Test Item Value Reference Range Interpretation Comments AB HEPATITIS C (test code = NONREACTIVE NONREACTIVE HCVAB) SIGNAL TO CUTOFF (test code = 0.10 <0.80 N CUTOFF) IS CONSENT FORM SIGNED FOR HIV TESTING? B [id number] 05:49:00 Test Item Value Reference Range Interpretation Comments AB TREPONEMA (test code = TREPAB) NONREACTIVE NONREACTIVE IS CONSENT FORM SIGNED FOR HIV TESTING? B HIV 1 05:49:00 Test Item Value Reference Range Interpretation Comments AB HIV 1 2 (test NONREACTIVE NONREACTIVE [facility] code = [id number]) 4th Gen HIV Ag/Ab Combo Screen IS CONSENT FORM SIGNED FOR HIV TESTING? YCBC W/AUTO [id number] 00:01:00 Test Item Value Reference Range Interpretation [...] code = PLTMR) - FET BIO PH SD W/O [id number] 21:38:00 Patient Name: PARAM BOSWELL Unit No: [id number] EXAMS: CPT CODE: [id number] FET BIO PH SD W/O NST 35952 PROCEDURE: BIOPHYSICAL PROFILE: INDICATION: 36.4 WKS CRAMPING, [...] [email or web address] Orig Print D/T: S: 11/30/2018 (2141) [facility] NAME: ELBERTPARAM FOSTER Radiology Department PHYS: Michelle Alicea MD [address] : 2000 AGE: 18 SEX: F [place] [address] LOC: Jean MarieNESSA PHONE #: [phone] EXAM DATE: 11/30/2018 STATUS: REG ER FAX #: [phone] RAD NO: Page 1 Signed Report Patient Name: THEA BOSWELLANI FOSTER UnitNo: [id number] EXAMS: CPT CODE: [id number] US FET BIO PH SD W/O NST 31832 <Continued> [facility] [place] [facility] NAME: KOLTONLARRYPARAM Radiology Department PHYS: Michelle Alicea MD [address] : 2000 AGE: 18 SEX: F [place] [address] LOC: Jean MarieNESSA PHONE #: [phone] EXAM DATE: 11/30/2018 STATUS: REG ER FAX #: [phone] RAD NO: Page 2 Signed ReportURINALYSIS [id number] 20:15:00 Test Item Value Reference Range Interpretation [...] NONE SEEN URINE SAMPLE: CLEAN CATCHAMNISURE (ROM) [id number] 18:44:00 Test Item Value Reference Range Interpretation Comments AMNISURE (ROM) TEST (test code = NON-RUPTURED NON-RUPTURE AMNI) : *Amnisure QC OK? YESURINALYSIS [id number] 15:24:00 Test Item Value Reference Range Interpretation [...] NONE SEEN URINE SAMPLE: CLEAN CATCHCOMPREHENSIVE METABOLIC [id number] 13:04:00 Test Item Value Reference Range Interpretation [...] 113 units/L 46-116 N code = ALKP) [id number] 13:04:00 Test Item Value Reference Range Interpretation Comments AMYLASE (test code = KADEN) 34 units/L 30-110 N [id number] 13:04:00 Test Item Value Reference Range Interpretation Comments LIPASE (test code = LIP) 97 units/L 73-393 N CBC W/AUTO [id number] 12:55:00 Test Item Value Reference Range Interpretation [...] NORMAL code = PLTMR) AG HEPATITIS B [id number] 05:36:00 Test Item Value Reference Range Interpretation Comments AG HEPATITIS B SURFACE (test code NONREACTIVE NONREACTIVE = HBSAG) IS CONSENT FORM SIGNED FOR HIV TESTING? YAB HEPATITIS C [id number] 05:36:00 Test Item Value Reference Range Interpretation Comments AB HEPATITIS C (test code = NONREACTIVE NONREACTIVE HCVAB) SIGNAL TO CUTOFF (test code = 0.12 <0.80 N CUTOFF) IS CONSENT FORM SIGNED FOR HIV TESTING? YAB [id number] 05:36:00 Test Item Value Reference Range Interpretation Comments AB TREPONEMA (test code = TREPAB) NONREACTIVE NONREACTIVE IS CONSENT FORM SIGNED FOR HIV TESTING? YAB HIV 1 05:36:00 Test Item Value Reference Range Interpretation Comments AB HIV 1 2 (test NONREACTIVE NONREACTIVE Done by [facility] code = [id number]) 4th Gen HIV Ag/Ab Combo Screen IS CONSENT FORM SIGNED FOR HIV TESTING? YAG HEPATITIS B [id number] 03:46:00 Test Item Value Reference Range Interpretation Comments AG HEPATITIS B SURFACE (test code NONREACTIVE NONREACTIVE = HBSAG) IS CONSENT FORM SIGNED FOR HIV TESTING? [facility] HEPATITIS C [id number] 03:46:00 Test Item Value Reference Range Interpretation Comments AB HEPATITIS C (test code = HCVAB) NONREACTIVE SIGNAL TO CUTOFF (test code = CUTOFF) <0.80 IS CONSENT FORM SIGNED FOR HIV TESTING? TAWNYB [id number] 03:46:00 Test Item Value Reference Range Interpretation Comments AB TREPONEMA (test code = TREPAB) NONREACTIVE NONREACTIVE IS CONSENT FORM SIGNED FOR HIV TESTING? YAB HIV 1 03:46:00 Test Item Value Reference Range Interpretation Comments AB HIV 1 2 (test code = [id number]) NONREACTIVE IS CONSENT FORM SIGNED FOR HIV TESTING? YCBC W/AUTO [id number] 01:18:00 Test Item Value Reference Range Interpretation [...] (test NORMAL NORMAL code = PLTMR) URINALYSIS [id number] 19:10:00 Test Item Value Reference Range Interpretation [...] SEEN URINE SAMPLE: CLEAN CATCHAG HEPATITIS B [id number] 03:27:00 Test Item Value Reference Range Interpretation Comments AG HEPATITIS B SURFACE (test code NONREACTIVE NONREACTIVE = HBSAG) AB HEPATITIS C [id number] 03:27:00 Test Item Value Reference Range Interpretation Comments AB HEPATITIS C (test code = NONREACTIVE NONREACTIVE HCVAB) SIGNAL TO CUTOFF (test code = 0.12 <0.80 N CUTOFF) AB [id number] 03:27:00 Test Item Value Reference Range Interpretation Comments AB TREPONEMA (test code = TREPAB) NONREACTIVE NONREACTIVE CBC W/AUTO [id number] 01:52:00 Test Item Value Reference Range Interpretation [...] code = PLTMR) - US PREG UT [id number] 11:57:00 Patient Name: PARAM BOSWELL Unit No: [id number] EXAMS: CPT CODE: [id number] US PREG UT TRANSVAGINAL [address] [facility] [address] [place] [address] BIOPHYSICAL PROFILE ULTRASOUND REPORT Pat. Name: PARAM BOSWELL Pat. No: [id number] Study Date: 11/10/2018 11:20am , Age: 01 2000, 18 Pregnancies: 2, Para 0 LMP: 03/19/2018 GA by LMP: 33w5d GA Selected: 33w5d (LMP) JUAN M: 12/24/2018 Referring MD: Michelle Virgen Ex Chef: Tarun Alonso RDMS, RVT CPT4: USPRUTTRVG Admitting [...] Reported and signed by: Marco Obrien MD [facility] NAME: PARAM BOSWELL Radiology Department PHYS: Michelle Alicea MD [address] : 2000 AGE: 18 SEX: F [place], [place] [address] LOC: CAROLIN PHONE #: [phone] EXAM DATE: 11/10/2018 STATUS: DEP ER FAX #: [phone] RAD NO: Page 1 Signed Report (CONTINUED) Patient Name: PARAM BOSWELL Unit No: [id number] EXAMS: CPT CODE: [id number] US PREG UT TRANSVAGINAL [address] <Continued> CC: Michelle Virgen MD Technologist: Tarun Alonso RDMS, RVT Probe: [id number] Trnscrbd D/ (1157) AlexS Orig Print D/T: S: 11/15/2018 (1016) [facility] [place] [facility] NAME: PARAM BOSWELL Radiology Department PHYS: Michelle Alicea MD [address] : 2000 AGE: 18 SEX: F [place] [address] LOC: Jean MarieNESSA PHONE #: [phone] EXAM DATE: 11/10/2018 STATUS: DEP ER FAX #: [phone] RAD NO: Page 2 Signed Report Patient Name: THEA BOSWELLANI FOSTER Unit No: [id number] EXAMS: CPT CODE: [id number] US PREG UT TRANSVAGINAL [address] <Continued> [facility] NAME: PARAM BOSWELL Radiology Department PHYS: Michelle Alicea MD [address] : 2000 AGE: 18 SEX: F [place] [address] LOC: Jean MarieNESSA PHONE #: [phone] EXAM DATE: 11/10/2018 STATUS: DEP ER FAX #: [phone] RAD NO: Page 3 Signed Report- US FET BIO PH SD W/O [id number] 11:57:00 Patient Name: ELBERTPARAM FOSTER Unit No: [id number] EXAMS: CPT CODE: [id number] US FET BIO PH SD W/O NST [address] [facility] [address], [place] [address] BIOPHYSICAL PROFILE ULTRASOUND REPORT Pat. Name: PARAM BOSWELL Pat. No: [id number] Study Date: 11/10/2018 11:20am , Age: 01 2000, 18 Pregnancies: 2, Para 0 LMP: 03/19/2018 GA by LMP: 33w5d GA Selected: 33w5d (LMP) JUAN M: 12/24/2018 Referring MD: MICHELLE VIRGEN Ex Chef: Tarun Alonso RDMS, RVT CPT4: USBPPWONST Admitting [...] and signed by: Marco Obrien MD [facility] [place] [facility] NAME: RAFFYJOSE MIGUELJANAEPARAM Radiology Department PHYS: Michelle Alicea MD [address] : 2000 AGE: 18 SEX: F [place] [address] LOC: Brianna.NESSA PHONE #: [phone] EXAM DATE: 11/10/2018 STATUS: REG ER FAX #: [phone] RAD NO: Page 1 Signed Report (CONTINUED) Patient Name: THEA BOSWELLANI FOSTER Unit No: [id number] EXAMS: CPT CODE: [id number] US FET BIO PH SD W/O NST 72080 <Continued> CC: Michelle Virgen MD Technologist: Tarun Alonso RDMS, RVT Probe: Trnscrbd D/ (1157) t.SDR.YOS Orig Print D/T: S: 11/10/2018 (1158) [facility] [place] [facility] NAME: PARAM BOSWELL Radiology Department PHYS: Michelle Alicea MD [address] : 2000 AGE: 18 SEX: F [place] [address] LOC: Jean MarieNESSA PHONE #: [phone] EXAM DATE: 11/10/2018 STATUS: REG ER FAX #: [phone] RAD NO: Page 2 Signed Report Patient Name: THEA BOSWELLANI FOSTER Unit No: [id number] EXAMS: CPT CODE: [id number] US FET BIO PH SD W/O NST 06475 <Continued> [facility] [place] [facility] NAME: PARAM BOSWELL Radiology Department PHYS: Michelle Alicea MD [address] : 2000 AGE: 18 SEX: F [place] [address] LOC: Brianna.NESSA PHONE #: [phone] EXAM DATE: 11/10/2018 STATUS: REG ER FAX #: [phone] RAD NO: Page 3 Signed ReportURINALYSIS COMPLETE [...] 4+ NONE SEEN URINE SAMPLE: CLEAN CATCHURINALYSIS [id number] 12:15:00 Test Item Value Reference Range Interpretation [...] NONE SEEN URINE SAMPLE: CLEAN CATCHCOMPREHENSIVE METABOLIC [id number] 11:47:00 Test Item Value Reference Range Interpretation [...] units/L 46-116 N code = ALKP) BILIRUBIN [id number] 11:47:00 Test Item Value Reference Range Interpretation Comments BILIRUBIN DIRECT (test code = <0.1 mg/dL <0.2 N BILD) [id number] 11:47:00 Test Item Value Reference Range Interpretation Comments AMYLASE (test code = KADEN) 35 units/L 30-110 N [id number] 11:47:00 Test Item Value Reference Range Interpretation Comments LIPASE (test code = LIP) 128 units/L 73-393 N - US ABDOMEN [id number] 10:42:00 Patient Name: PARAM BOSWELL Unit No: [id number] EXAMS: CPT CODE: [id number] US ABDOMEN COMPLETE 15489 ABDOMEN ULTRASOUND COMPLETE 10/12/2018: COMPARISON: None CLINICAL [...] Orig Print D/T: S: 10/12/2018 (1045) [facility] [place] [facility] NAME: PARAM BOSWELL Radiology Department PHYS:Michelle Alicea MD [address] : 2000 AGE: 18 SEX: F [place], [place] [address] LOC: Markie Cevallos PHONE #: [phone] EXAM DATE: 10/12/2018 STATUS: ADM IN FAX #: [phone] RAD NO: Page 1 Signed Report Patient Name: PARAM BOSWELL Unit No: [id number] EXAMS: CPT CODE: [id number] US ABDOMEN COMPLETE 20785 <Continued> [facility] NAME: PARAM BOSWELL Radiology Department PHYS: Michelle Alicea MD [address] : 2000 AGE: 18 SEX: F [place], [place] [address] LOC: F.031 A PHONE #: [phone] EXAM DATE: 10/12/2018 STATUS: ADM IN FAX #: [phone] RAD NO: Page 2 Signed ReportDRUGS OF ABUSE [id number] 00:56:00 Test Item Value Reference Range Interpretation [...] PHENCU) 25 ng/m L AG HEPATITIS B [id number] 23:17:00 Test Item Value Reference Range Interpretation Comments AG HEPATITIS B SURFACE (test code NONREACTIVE NONREACTIVE = HBSAG) AB HEPATITIS C [id number] 23:17:00 Test Item Value Reference Range Interpretation Comments AB HEPATITIS C (test code = NONREACTIVE NONREACTIVE HCVAB) SIGNAL TO CUTOFF (test code = <0.02 <0.80 N CUTOFF) AB [id number] 23:17:00 Test Item Value Reference Range Interpretation Comments AB TREPONEMA (test code = TREPAB) NONREACTIVE NONREACTIVE AG HEPATITIS B [id number] 22:51:00 Test Item Value Reference Range Interpretation Comments AG HEPATITIS B SURFACE (test code NONREACTIVE NONREACTIVE = HBSAG) AB HEPATITIS C [id number] 22:51:00 Test Item Value Reference Range Interpretation Comments AB HEPATITIS C (test code = HCVAB) NONREACTIVE SIGNAL TO CUTOFF (test code = CUTOFF) <0.80 AB [id number] 22:51:00 Test Item Value Reference Range Interpretation Comments AB TREPONEMA (test code = TREPAB) NONREACTIVE NONREACTIVE COMPREHENSIVE METABOLIC [id number] 22:33:00 Test Item Value Reference Range Interpretation [...] units/L 46-116 N code = ALKP) BILIRUBIN [id number] 22:33:00 Test Item Value Reference Range Interpretation Comments BILIRUBIN DIRECT (test code = <0.1 mg/dL <0.2 N BILD) CBC W/AUTO [id number] 22:17:00 Test Item Value Reference Range Interpretation [...]
[2021-02-10 17:45] LABS: Urine Blood Negative (Negative); Urine Glucose Negative (Negative); Urine Protein Negative (Negative); Urine Specific Gravity >=1.030 (1.005-1.030); Urine pH 5.5 (5.0-7.0)
[2021-02-10 18:40] LABS: SARS-COV-2 RT PCR NEGATIVE (NEGATIVE)
--- NOTE | 2021-02-10 19:15 | ER ---
Nurse's Notes [facility] Name: Tyra Fowler Age: 20 yrs Sex: Female : 2000 Arrival Date: 02/10/2021 Time: 17:04 Bed 13 Private MD: Diagnosis: Viral Syndrome Presentation: 02/10 17:05 Chief complaint: Patient states: TRUONG, body aches, no appetite, diarrhea, fatigue, sore ll1 throat for 1 day. Coronavirus screen: Vaccine status: Patient reports being unvaccinated. Client denies travel out of the [place] in the last 14 days. fatigue, headache, muscle pain, sore throat. Ebola Screen: Patient denies travel to an Ebola-affected area in the 21 days before illness onset. Initial Sepsis Screen: Does the patient meet any 2 criteria? No. Patient's initial sepsis screen is negative. Does the patient have a suspected source of infection? Yes: Productive cough/pneumonia. Risk Assessment: Do you want to hurt yourself or someone else? Patient reports no desire to harm self or others. Onset of symptoms was February 10, 2021. 17:05 Method Of Arrival: Ambulatory ll1 17:05 Acuity: RANJIT 4 ll1 Triage Assessment: 17:08 General: Appears in no apparent distress. Behavior is calm, cooperative, appropriate ll1 for age. Pain: Complains of pain in head Quality of pain is described as aching. Neuro: Reports headache. Cardiovascular: No deficits noted. Respiratory:. Musculoskeletal: Reports body aches. Historical: - Allergies: 17:06 Azithromycin; ll1 17:06 HISTAMINE H2 INHIBITORS; ll1 17:06 kiwi; ll1 17:06 Vancomycin; ll1 - PMHx: 17:06 Anxiety; Asthma; Depression; PTSD; ll1 - PSHx: 17:06 foot, cyst ovary removed; ll1 - Immunization history:: Client reports having NOT received the Covid vaccine. Flu vaccine status is unknown. - Social history:: Smoking status: Patient denies any tobacco usage or history of. Screenin:30 Abuse screen: Denies threats or abuse. Denies injuries from another. Nutritional ld1 screening: No deficits noted. Tuberculosis screening: No symptoms or risk factors identified. Fall Risk None identified. Assessment: 18:29 General: Appears in no apparent distress. comfortable, Behavior is calm, cooperative, ld1 appropriate for age. Pain: Denies pain. Neuro: Level of Consciousness is awake, alert, obeys commands, Oriented to person, place, time, situation. Cardiovascular: Capillary refill < 3 seconds Patient's skin is warm and dry. Respiratory: Airway is patent Respiratory effort is even, unlabored, Respiratory pattern is regular, symmetrical. GI: Abdomen is flat, non-distended. : No signs and/or symptoms were reported regarding the genitourinary system. EENT: No signs and/or symptoms were reported regarding the EENT system. Derm: No signs and/or symptoms reported regarding the dermatologic system. Musculoskeletal: No signs and/or symptoms reported regarding the musculoskeletal system. 19:49 Reassessment: Patient appears in no apparent distress at this time. No changes from ic1 previously documented assessment. 19:56 Reassessment: Pt d/c. F/u and d/c instructions provided. Pt verbalized understanding. ic1 Left amb in NAD. AAOx4. GCS 15. Vital Signs: 17:05 BP 124 / 92; Pulse 85; Resp 17; Temp 97.5; Pulse Ox 96% ; Weight 67.59 kg; Height 5 ft. ll1 4 in. (162.56 cm); Pain 7/10; 18:29 BP 130 / 88; Pulse 82; Resp 18; Pulse Ox 97% on R/A; ld1 19:49 BP 113 / 85; Pulse 80; Resp 18; Pulse Ox 98% on R/A; ic1 17:05 Body Mass Index 25.58 (67.59 kg, 162.56 cm) ll1 ED Course: 17:04 Patient arrived in ED. ll1 17:06 Triage completed. ll1 17:07 Arm band placed on. ll1 18:05 Brown Ellis PA is PHCP. [facility] 18:05 Veto Faye MD is Attending Physician. [facility] 18:30 Patient has correct armband on for positive identification. Placed in gown. Bed in low ld1 position. Call light in reach. Side rails up X2. threat monitoring analyst on. Pulse ox on. NIBP on. Door closed. Noise minimized. Warm blanket given. 18:30 No provider procedures requiring assistance completed. ld1 18:38 Cathy Carter, DESTIN is Primary Nurse. ld1 19:49 Patient did not have IV access during this emergency room visit. ic1 Administered Medications: No medications were administered Outcome: 19:14 Discharge ordered by . cecelia 19:48 Discharged to home ambulatory. ic1 19:48 Condition: stable 19:48 Discharge instructions given to patient, Instructed on discharge instructions, follow up and referral plans. Demonstrated understanding of instructions, follow-up care. 19:58 Patient left the ED. ic1 Signatures: Brown Ellis PA PA jmm Lewis, Lynsay, RN RN ll1 Cathy Carter RN RN ld1 Monse Cohen RN RN ic1
--- NOTE | 2021-02-10 19:15 | EDPHYS ---
Physician Documentation [facility] Name: Tyra Fowler Age: 20 yrs Sex: Female : 2000 Arrival Date: 02/10/2021 Time: 17:04 Bed 13 Private MD: ED Physician Veto Faye HPI: 02/10 17:08 This 20 yrs old Female presents to ER via Ambulatory with complaints of Cough. jmm 17:08 The patient or guardian reports cough. Onset: The symptoms/episode began/occurred jmm gradually, 3 day(s) ago. Modifying factors: The symptoms are alleviated by nothing, the symptoms are aggravated by nothing. Associated signs and symptoms: Pertinent positives: diarrhea, rhinorrhea, sore throat. It is unknown whether or not the patient has had similar symptoms in the past. boyfriend has similar symptoms. States she tested positive for covid from a [facility] test. . Historical: - Allergies: 17:06 Azithromycin; ll1 17:06 HISTAMINE H2 INHIBITORS; ll1 17:06 kiwi; ll1 17:06 Vancomycin; ll1 - PMHx: 17:06 Anxiety; Asthma; Depression; PTSD; ll1 - PSHx: 17:06 foot, cyst ovary removed; ll1 - Immunization history:: Client reports having NOT received the Covid vaccine. Flu vaccine status is unknown. - Social history:: Smoking status: Patient denies any tobacco usage or history of. ROS: 17:08 Constitutional: Positive for body aches, chills. jmm 17:08 ENT: Positive for sinus congestion, sore throat. 17:08 Respiratory: Positive for cough. 17:08 All other systems are negative. Exam: 17:08 Constitutional: This is a well developed, well nourished patient who is awake, alert, jmm and in no acute distress. Head/Face: atraumatic. Eyes: EOMI, no conjunctival erythema appreciated ENT: Moist Mucus Membranes Neck: Trachea midline, Supple Chest/axilla: Normal chest wall appearance and motion. Cardiovascular: Regular rate and rhythm. No edema appreciated Respiratory: Normal respirations, no respiratory distress appreciated Abdomen/GI: Non distended, soft Back: Normal ROM Skin: General appearance color normal MS/ Extremity: Moves all extremities, no obvious deformities appreciated, no edema noted to the lower extremities Neuro: Awake and alert, normal gait Psych: Behavior is normal, Mood is normal, Patient is cooperative and pleasant Vital Signs: 17:05 BP 124 / 92; Pulse 85; Resp 17; Temp 97.5; Pulse Ox 96% ; Weight 67.59 kg; Height 5 ft. ll1 4 in. (162.56 cm); Pain 7/10; 18:29 BP 130 / 88; Pulse 82; Resp 18; Pulse Ox 97% on R/A; ld1 19:49 BP 113 / 85; Pulse 80; Resp 18; Pulse Ox 98% on R/A; ic1 17:05 Body Mass Index 25.58 (67.59 kg, 162.56 cm) ll1 MDM: 18:54 Patient medically screened. [facility] 19:10 Data reviewed: vital signs, nurses notes. Counseling: I had a detailed discussion with cecelia the patient and/or guardian regarding: the historical points, exam findings, and any diagnostic results supporting the discharge/admit diagnosis, lab results, the need for outpatient follow up, to return to the emergency department if symptoms worsen or persist or if there are any questions or concerns that arise at home. ED course: Patient is alert and non toxic in appearance in the ED. No signs of resp distress. Advised to follow up with pcp and otherwise given strict return precautions. Patient understood and agrees with the plan of care. . 02/10 17:08 Order name: COVID-19/FLU A+B (Document "Date of Onset" if Symptomatic); Complete Time: ll1 18:54 02/10 17:08 Order name: Strep; Complete Time: 18:54 [facility] 02/10 17:45 Order name: Urine Dipstick-Ancillary; Complete Time: 18:54 EDNE 02/10 18:17 Order name: Throat Culture EDNE 02/10 19:52 Order name: Urine --Ancillary (enter results) 3 Administered Medications: No medications were administered Disposition: 02/11 07:21 Co-signature as Attending Physician, Veto Faye MD I agree with the assessment and rn plan of care. Attestation: The patient's history, exam findings, diagnostics, and a summary of any interventions or procedures was reviewed in detail with Brown WELLS. Disposition Summary: 02/10/21 19:14 Discharge Ordered Location: Home [facility] Condition: Stable [facility] Diagnosis - Viral Syndrome jm Followup: jmm - With: Private Physician - When: 2 - 3 days - Reason: Recheck today's complaints, Continuance of care, Re-evaluation by your physician Discharge Instructions: - Discharge Summary Sheet cecelia - Upper Respiratory Infection, Adult cecelia Forms: - Medication Reconciliation Form cecelia - Thank You Letter cecelia - Antibiotic Education cecelia - Prescription Opioid Use cecelia Signatures: Dispatcher [employer] EDBrown Rivera PA PA jmm Nieto, Roman, MD MD rn Lewis, Lynsay, RN RN ll1
[2021-02-10 20:03] VITALS: TEMP 97.5
[2021-02-10 20:06] VITALS: BP 113/85; O2SAT 98
== END 2021-02-10 19:58 | disposition home or self-care (01) ==
LOC: ER 16:50
DX: B34.9 Viral infection, unspecified (principal); Z20.822 Contact with and (suspected) exposure to COVID-19; Z88.1 Allergy status to other antibiotic agents; Z88.8 Allergy status to other drugs, medicaments and biological substances; Z91.018 Allergy to other foods
CPT/HCPCS: 87070; 81025; 87081; 81003; 0240U; 99284

== ENCOUNTER 2021-03-22 10:45 | Emergency (ER) | payer BC, OTHER ==
--- OUTSIDE RECORDS SUMMARY | 2021-03-22 10:50 | XMS REPORT | Continuity of Care Document ---
:[address] [facility] t Address [address] [place] [address] Care Team Providers Name Role Phone ANITA Primary Care Physician Unavailable CHICO ROSA Attending Clinician Unavailable CHICO ROSA Attending Clinician Unavailable Chico Rosa MD Attending Clinician Anita NAVARRO Attending Clinician Payers Payer Name Policy Type Policy Number Effective Date Expiration Date S jorje HIM BCBS BLUE [id number] 2020 ADVANTAGE HMO 00:00:00 [facility] [id number] 2019 CHOICE MEDICAID 00:00:00 Problems Condition Condition [...] general 0-14 ity of fatigue fatigue 00:00: [place] 00 Medical Branch Generalize Generalize Disease Active 2020-02 U nivers d muscle d muscle 0-14 ity of weakness weakness 00:00: [place] 00 Medical Branch 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, right [place] [facility] [place] Migraine Migraine Disease Active Unive rs without without 5-12 ity of status status 00:00: [place] migrainosu migrainosu 00 Me dical s, not [...] initial initial 00:00: [place] encounter encounter 00 [facility] justo Branch Skin Skin Disease Active 2018-02 [...] of adverse 00:00: [place] reaction 00 Medical [facility] HISTAMIN DRUG Active Other-Cmnt Univ ers E [...] Antibiot adverse 00:00: [place] ics reaction 00 [facility] kiwi FA Active MO 2018- [facility] 0-21 [facility] [place] azithrom DA Active NM 2019-0 [facility] ycin 9-04 [facility] [place] vancomyc DA Active NM 2019-0 [facility] in 9-04 [facility] 00:[facility]: [facility] [place] Kiwi Propensi Active Anaphylaxis 2018-0 Uni vers ty to 6- ity of adverse 00:00: [place] reaction 00 [facility] KIWI DRUG Active High Anaphylaxis 2018- Unive rs INGREDI 6- ity of 00:00: [place] 00 [facility] Social History Social Habit Start Date Stop Date Quantity Comments Source History of tobacco Cigarette Smoker University of use [facility] [place] [facility] Exposure to Not sure University of SARS-CoV-2 (event) [facility] [place] [facility] Alcohol intake 2020-12-02 2020-12-02 3.14 /d University of 00:00:00 00:00:00 [facility] [place] [facility] Cigarettes smoked 2020-02-23 2020-02-23 Univers ity of current (pack per 00:00:00 00:00:00 [facility] ) - Reported Branch Cigarette 2020-02-23 2020-02-23 [...] Unive rsity of Connections Phone 00:00:00 00:00:00 [place] M edical Branch History SDOH Social 2020-02-23 2020-02-23 5 Unive rsity of Connections Get 00:00:00 00:00:00 [place] Med ical Together Branch History SDOH Social 2020-02-23 2020-02-23 3 Unive rsity of Connections [facility] 00:00:00 00:00:00 [place] [facility] History SDOH Social 2020-02-23 2020-02-23 2 Unive rsity of Connections 00:00:00 00:00:00 [place] [facility] Membership Branch History SDOH Social 2020-02-23 2020-02-23 1 Unive rsity of Connections 00:00:00 00:00:00 [place] [facility] Meetings Branch History SDOH Social 2020-02-23 2020-02-23 8 Unive rsity of Connections Living 00:00:00 00:00:00 [place] [facility] History SDOH 2020-02-23 2020-02-23 7 University o f Physical Activity 00:00:00 00:00:00 [place] M edical DPW Branch History SDOH 2020-02-23 2020-02-23 6 University o f Physical Activity 00:00:00 00:00:00 [place] M edical MPS Branch History SDOH Stress 2020-02-23 2020-02-23 5 Unive rsity of 00:00:00 00:00:00 [place] [facility] History SDOH 2020-02-23 2020-02-23 4 [...] 1 Univers ity of Worry 00:00:00 00:00:00 [place] [facility] History SDOH Food 2020-02-23 2020-02-23 1 Univers ity of Scarcity 00:00:00 00:00:00 [place] [facility] History SDOH 2020-02-23 2020-02-23 2 University o f Transport Med 00:00:00 00:00:00 [place] Medic al Branch History SDOH 2020-02-23 2020-02-23 2 University o f Transport Non-Med 00:00:00 00:00:00 [facility] edical Branch Tobacco Comment 2020-02-23 2020-02-23 1 pack per week, Uni versity of 00:00:00 00:00:00 done when [place] [facility] stressed Branch History SDNC 2017-05-02 2017-05-02 University o f Alcohol Comment 00:00:00 00:00:00 [place] Med ical Branch Sex Ass[birth year] At [birth year] Universit y of 00:00:00 00:00:00 [facility] Branch Smoking Status Start Date Stop Date Source Former smoker 2020-02-23 00:00:00 2020-02-23 00:00:00 Universi ty of [place] [facility] Medications Ordered Filled Start Stop Current Ordering Indication Dosage Frequency Signature Comments Components Source Medication Medication Date Date Medication? Clinician (SIG) Name Name ergocalcife 2020-02 Yes [id number] 28485F Take 1 Univers rol, 0-22 capsule by ity of vitamin d2, 00:00: mouth [place] 1,250 mcg 00 weekly. Medical (50,000 Branch unit) capsule pravastatin 2020-02 Yes [id number] 10mg Take 1 Univers 10 mg 0-22 tablet by ity of tablet 00:00: mouth at [place] 00 bedtime. Medical Branch calcium 2020-02 Yes [id number] 500mg Take 1 Un hailey carbonate 0-22 tablet by ity o f (CALCIUM 00:00: mouth [place] 500) 500 mg 00 daily. Medica l calcium Branch (1,250 mg) tablet butalbital- 2020-02 Yes [id number] 1{capsu Take 1 Univers aspirin-caf 0-14 le} capsule by it y of feine 00:00: mouth [place] 50-325-40 00 every 4 Medical mg per (four) Branch capsule hours as needed for Pain. ibuprofen 2020-02 Yes [id number] 600mg Take 1 Un hailey (IBU) 600 0-07 tablet by ity o f mg tablet 00:00: mouth [place] 00 every 6 Medical (six) Branch hours as needed for Pain (scale 4-6). hydrOXYzine Yes TAKE 1 Univ ers 50 mg 5-04 TABLET BY ity of tablet 00:00: MOUTH [place] 00 DAILY Medical NEEDED FOR Branch ANXIETY traZODone Yes [id number] 50mg Take 1 U nivers 50 mg 9-09 tablet by ity of tablet 00:00: mouth at [place] 00 bedtime. Medical Branch escitalopra Yes [id number] 10mg Take 1 Univers m oxalate 9-09 tablet by ity o f 10 mg 00:00: mouth [place] tablet 00 daily. Medical Branch Immunizations Ordered Immunization Filled Immunization Date Status Commen ts Source Name Name HPV9 2020-01-29 Completed University of 00:00:00 [facility] [place] [facility] Influenza Virus 2019-12-20 Completed Universit y of Vaccine Quad .5 mL 00:00:00 [facility] IM 6+ MO Branch TDAP 2019-12-20 Completed University of 00:00:00 [facility] [place] [facility] HPV9 2019-12-20 Completed University of 00:00:00 [facility] [place] [facility] Pneumococcal 2019-12-20 Completed University o f Polysaccharide, 00:00:00 [place] Med ical PPSV23 (PNEUMOVAX) Branch Meningococcal B, OMV 2019-12-20 Completed Univ ersity of 00:00:00 [facility] [place] [facility] Vital Signs Vital Name Observation Time Observation Value Comments Source Systolic blood 2020-12-02 13:19:00 119 mm[Hg] Univer sity [facility] Diastolic blood 2020-12-02 13:19:00 82 mm[Hg] Univleeanne rsjoseph [facility] Heart rate 2020-12-02 13:19:00 81 /min [facility] Body height 2020-12-02 13:19:00 162.6 cm [facility] Body weight 2020-12-02 13:19:00 72.576 kg [facility] BMI 2020-12-02 13:19:00 27.46 kg/m2 [facility] Procedures This patient has no known procedures. Encounters Start End Encounter Admission Attending Care Care Encounter Source Date/Time Date/Time Type Type Clinicians Facility Department ID 2021-01-22 2021-01-22 Outpatient YARELIS HERRERA [facility] [id number] [facility] 12:30:00 12:30:00 YARELIS ROSA [facility] 2020-12-02 2020-12-02 Office Moe [facility] [id number] 08:17:27 09:16:56 Visit [facility] [id number] Shan 4.2.7.2.686 Jeferson as ANTONY?BLEA [phone] [address] MEDICAL OFFICE BUILDING 2020-12-02 2020-12-02 Outpatient YARELIS HERRERA [facility] [id number] [facility] 08:00:00 09:16:56 YARELIS ROSA [facility] 2019-08-16 2019-08-16 [facility] [id number] 08:54:20 09:41:28 Visit Angus [place] [id number] [place] 4.2.7.2.686 Professio [phone] [place] [address] Building Results Test Description Test Time Test Comments Results Result [facility] e Comments - CT ABDOMEN 2018-12-06 Patient Name: W/CONTRAST 08:58:00 PARAM BOSWELL Unit No: [id number] EXAMS: CPT CODE: [id number] CT ABDOMEN W/CONTRAST 25969 EXAMINATION: CT scan of the abdomen with [...] The patient is at risk for [facility] NAME: PARAM BOSWELL Radiology Department PHYS: Michelle Alicea MD [address] : 2000 AGE: 18 SEX: F [place], [place] [address] LOC: Jean [address] PHONE #: [phone] EXAM DATE: 12/05/2018 STATUS: DIS IN FAX #: [phone] RAD NO: Page 1 Signed Report 1 Patient Name: PARAM BOSWELL Unit No: [id number] EXAMS: CPT CODE: [id number] CT ABDOMEN W/CONTRAST 51333 <Continued> splenic torsion/infarction. There is no evidence of that at this time. 2. Moderate amount of retained fecal material throughout the visualized portions of the colon. at 0858 Reported and signed by: Alyssa Boss MD CC: Michelle Virgen MD Technologist: RT Ethel CTDI: DLP: Trnscrbd D/ (0858) [facility]: PARAM BOSWELL Radiology Department PHYS: Michelle Alicea MD [address] : 2000 AGE: 18 SEX: F [place] [address] LOC: F.4602 A PHONE #: [phone] EXAM DATE: 12/05/2018 STATUS: DIS IN FAX #: [phone] RAD NO: Page 2 Signed Report 1 Patient Name: PARAM BOSWELL Unit No: [id number] EXAMS: CPT CODE: [id number] CT ABDOMEN W/CONTRAST 92855 <Continued> Orig Print D/T: S: 12/06/2018 (0901) [facility] NAME: PARAM BOSWELL CRISTIAN Radiology Department PHYS: Michelle Alicea MD [address] : 2000 AGE: 18 SEX: F [place] [address] LOC: F.4602 A PHONE #: [phone] EXAM DATE: 12/05/2018 STATUS: DIS IN FAX #: [phone] RAD NO: Page 3 Signed Report 1 - US ABDOMEN LTD 2018-12-05 Patient Name: 16:42:00 PARAM BOSWELL Unit No: [id number] EXAMS: CPT CODE: [id number] US ABDOMEN LTD 34192 CLINICAL HISTORY: Enlarged spleen. COMPARISON: October 12, [...] Technologist: Petrona Sykes RDMS Probe: Trnscrbd D/ (4442) t.[email or web address] Orig Print D/T: S: 12/05/2018 (0288) [facility] NAME: THEA BOSWELLANI FOSTER Radiology Department PHYS: Michelle Alicea MD [address] : 2000 AGE: 18 SEX: F [place] [address] LOC: FDon2 A PHONE #: [phone] EXAM DATE: 12/05/2018 STATUS: ADM IN FAX #: [phone] RAD NO: Page 1 Signed Report Patient Name: PARAM BOSWELLORA Unit No: [id number] EXAMS: CPT CODE: [id number] ABDOMEN LTD 36091 <Continued> [facility] NAME: PARAM BOSWELL Radiology Department PHYS: Michelle Alicea MD [address] : 2000 AGE: 18 SEX: F [place] [address] LOC: F.4602 A PHONE #: [phone] EXAM DATE: 12/05/2018 STATUS: ADM IN FAX #: [phone] RAD NO: Page 2 Signed Report PLACENTA THIRD 2018-12-05 TRIMESTER 14:06:00 --------RUN DATE: 12/05/18 [facility] PAGE 1 RUN TIME: 1744 Specimen Inquiry RUN USER: INTERFACE --------PATIENT: PARAM BOSWELL LOC: ROBBIE U #: [id number] AGE/SX: 18/F ROOM: [facility] RE11/30/18REG DR: Michelle Virgen MD : [birth year] BED: A DIS: STATUS: ADM IN TLOC: -------- SPEC #: [id number] RECD: 12/01/18 STATUS: FLAKO REQ #: [id number] MAGGIE: 12/01/18- FREEDOM DR: Michelle Virgen MD ENTERED: 12/04/18 SP TYPE: PLACIII LEFTY DIAZ: ORDERED: LEVEL V SURGICA CODES: [id number] - PLACENTA, NOS PROCEDURES: LEVEL V SURGICA (Incomplete) TISSUES: PLACENTA, NOS - PLACENTA CLINICAL HISTORY 18 year old, 36.5 weeks, [id number], vaginal delivery, prematurity (kr) FINAL DIAGNOSIS Placenta, young gestation: - late third trimester villous architecture - umbilical cord: paramarginal insertion, 3-vessel, 23 cm length - decreased placental weight: 357 gms (less than 10th percentile) CPT Code: 27692 cds/wpd 12/05/18 GROSS DESCRIPTION The specimen was [...] Specimen Inquiry RUN USER: INTERFACE --------SPEC #: [id number] PATIENT: RAFFYKRYSTLEPARAM CRISTIAN #[id number] (Continued) GROSS DESCRIPTION (Continued) Parenchyma lesions: None [...] PLTMR) NORMAL POLLY L AG HEPATITIS B [id number] 05:49:00 Test Item Value Reference Range Interpretation Comments AG HEPATITIS B SURFACE (test code NONREACTIVE NONREACTIVE = HBSAG) IS CONSENT FORM SIGNED FOR HIV TESTING? [facility] HEPATITIS C [id number] 05:49:00 Test Item Value Reference Range Interpretation Comments AB HEPATITIS C (test code = NONREACTIVE NONREACTIVE HCVAB) SIGNAL TO CUTOFF (test code = 0.10 <0.80 N CUTOFF) IS CONSENT FORM SIGNED FOR HIV TESTING? B [id number] 05:49:00 Test Item Value Reference Range Interpretation Comments AB TREPONEMA (test code = TREPAB) NONREACTIVE NONREACTIVE IS CONSENT FORM SIGNED FOR HIV TESTING? B HIV 1 05:49:00 Test Item Value Reference Range Interpretation Comments AB HIV 1 2 (test NONREACTIVE NONREACTIVE [facility] code = [id number]) 4th Gen HIV Ag/Ab Combo Screen IS CONSENT FORM SIGNED FOR HIV TESTING? YCBC W/AUTO [id number] 00:01:00 Test Item Value Reference Range Interpretation [...] code = PLTMR) - FET BIO PH MS W/O [id number] 21:38:00 Patient Name: PARAM BOSWELL Unit No: [id number] EXAMS: CPT CODE: [id number] FET BIO PH MS W/O NST 99749 PROCEDURE: BIOPHYSICAL PROFILE: INDICATION: 36.4 WKS CRAMPING, [...] Orig Print D/T: S: 11/30/2018 (2141) [facility] NAME: ELBERTPARAM FOSTER Radiology Department PHYS: Michelle Alicea MD [address] : 2000 AGE: 18 SEX: F [place] [address] LOC: Jean MarieNESSA PHONE #: [phone] EXAM DATE: 11/30/2018 STATUS: REG ER FAX #: [phone] RAD NO: Page 1 Signed Report Patient Name: THEA BOSWELLANI FOSTER UnitNo: [id number] EXAMS: CPT CODE: [id number] US FET BIO PH MS W/O NST 03941 <Continued> [facility] NAME: KOLTONLARRYPARAM Radiology Department PHYS: Michelle Alicea MD [address] : 2000 AGE: 18 SEX: F [place] [address] LOC: Jean MarieNESSA PHONE #: [phone] EXAM DATE: 11/30/2018 STATUS: REG ER FAX #: [phone] RAD NO: Page 2 Signed ReportURINALYSIS [id number] 20:15:00 Test Item Value Reference Range Interpretation [...] NONE SEEN URINE SAMPLE: CLEAN CATCHAMNISURE (ROM) [id number] 18:44:00 Test Item Value Reference Range Interpretation Comments AMNISURE (ROM) TEST (test code = NON-RUPTURED NON-RUPTURE AMNI) : *Amnisure QC OK? YESURINALYSIS [id number] 15:24:00 Test Item Value Reference Range Interpretation [...] NONE SEEN URINE SAMPLE: CLEAN CATCHCOMPREHENSIVE METABOLIC [id number] 13:04:00 Test Item Value Reference Range Interpretation [...] 113 units/L 46-116 N code = ALKP) [id number] 13:04:00 Test Item Value Reference Range Interpretation Comments AMYLASE (test code = KADEN) 34 units/L 30-110 N [id number] 13:04:00 Test Item Value Reference Range Interpretation Comments LIPASE (test code = LIP) 97 units/L 73-393 N CBC W/AUTO [id number] 12:55:00 Test Item Value Reference Range Interpretation [...] NORMAL code = PLTMR) AG HEPATITIS B [id number] 05:36:00 Test Item Value Reference Range Interpretation Comments AG HEPATITIS B SURFACE (test code NONREACTIVE NONREACTIVE = HBSAG) IS CONSENT FORM SIGNED FOR HIV TESTING? YAB HEPATITIS C [id number] 05:36:00 Test Item Value Reference Range Interpretation Comments AB HEPATITIS C (test code = NONREACTIVE NONREACTIVE HCVAB) SIGNAL TO CUTOFF (test code = 0.12 <0.80 N CUTOFF) IS CONSENT FORM SIGNED FOR HIV TESTING? YAB [id number] 05:36:00 Test Item Value Reference Range Interpretation Comments AB TREPONEMA (test code = TREPAB) NONREACTIVE NONREACTIVE IS CONSENT FORM SIGNED FOR HIV TESTING? YAB HIV 1 05:36:00 Test Item Value Reference Range Interpretation Comments AB HIV 1 2 (test NONREACTIVE NONREACTIVE [facility] code = [id number]) 4th Gen HIV Ag/Ab Combo Screen IS CONSENT FORM SIGNED FOR HIV TESTING? YAG HEPATITIS B [id number] 03:46:00 Test Item Value Reference Range Interpretation Comments AG HEPATITIS B SURFACE (test code NONREACTIVE NONREACTIVE = HBSAG) IS CONSENT FORM SIGNED FOR HIV TESTING? [facility] HEPATITIS C [id number] 03:46:00 Test Item Value Reference Range Interpretation Comments AB HEPATITIS C (test code = HCVAB) NONREACTIVE SIGNAL TO CUTOFF (test code = CUTOFF) <0.80 IS CONSENT FORM SIGNED FOR HIV TESTING? TAWNYB [id number] 03:46:00 Test Item Value Reference Range Interpretation Comments AB TREPONEMA (test code = TREPAB) NONREACTIVE NONREACTIVE IS CONSENT FORM SIGNED FOR HIV TESTING? YAB HIV 1 03:46:00 Test Item Value Reference Range Interpretation Comments AB HIV 1 2 (test code = [id number]) NONREACTIVE IS CONSENT FORM SIGNED FOR HIV TESTING? YCBC W/AUTO [id number] 01:18:00 Test Item Value Reference Range Interpretation [...] (test NORMAL NORMAL code = PLTMR) URINALYSIS [id number] 19:10:00 Test Item Value Reference Range Interpretation [...] SEEN URINE SAMPLE: CLEAN CATCHAG HEPATITIS B [id number] 03:27:00 Test Item Value Reference Range Interpretation Comments AG HEPATITIS B SURFACE (test code NONREACTIVE NONREACTIVE = HBSAG) AB HEPATITIS C [id number] 03:27:00 Test Item Value Reference Range Interpretation Comments AB HEPATITIS C (test code = NONREACTIVE NONREACTIVE HCVAB) SIGNAL TO CUTOFF (test code = 0.12 <0.80 N CUTOFF) AB [id number] 03:27:00 Test Item Value Reference Range Interpretation Comments AB TREPONEMA (test code = TREPAB) NONREACTIVE NONREACTIVE CBC W/AUTO [id number] 01:52:00 Test Item Value Reference Range Interpretation [...] code = PLTMR) - US PREG UT [id number] 11:57:00 Patient Name: PARAM BOSWELL Unit No: [id number] EXAMS: CPT CODE: [id number] US PREG UT TRANSVAGINAL [address] [facility] [address] [place] [address] BIOPHYSICAL PROFILE ULTRASOUND REPORT Pat. Name: PARAM BOSWELL Pat. No: [id number] Study Date: 11/10/2018 11:20am , Age: 01 2000, 18 Pregnancies: 2, Para 0 LMP: 03/19/2018 GA by LMP: 33w5d GA Selected: 33w5d (LMP) JUAN M: 12/24/2018 Referring MD: Michelle Virgen Jacker Feeder: Tarun Alonso RDMS, RVT CPT4: USPRUTTRVG Admitting [...] signed by: Marco Obrien MD [facility] NAME: PARAM BOSWELL Radiology Department PHYS: Michelle Alicea MD [address] : 2000 AGE: 18 SEX: F [place], [place] [address] LOC: CAROLIN PHONE #: [phone] EXAM DATE: 11/10/2018 STATUS: DEP ER FAX #: [phone] RAD NO: Page 1 Signed Report (CONTINUED) Patient Name: PARAM BOSWELL Unit No: [id number] EXAMS: CPT CODE: [id number] US PREG UT TRANSVAGINAL [address]707 <Continued> CC: Michelle Virgen MD Technologist: Tarun Alonso RDMS, RVT Probe: [id number] Trnscrbd D/ (1157) AlexS Orig Print D/T: S: 11/15/2018 (1016) [facility] NAME: PARAM BOSWELL Radiology Department PHYS: Michelle Alicea MD [address] : 2000 AGE: 18 SEX: F [place] [address] LOC: Jean MarieNESSA PHONE #: [phone] EXAM DATE: 11/10/2018 STATUS: DEP ER FAX #: [phone] RAD NO: Page 2 Signed Report Patient Name: THEA BOSWELLANI FOSTER Unit No: [id number] EXAMS: CPT CODE: [id number] US PREG UT TRANSVAGINAL [address] <Continued> [facility] NAME: PARAM BOSWELL Radiology Department PHYS: Michelle Alicea MD [address] : 2000 AGE: 18 SEX: F [place] [address] LOC: Jean MarieNESSA PHONE #: [phone] EXAM DATE: 11/10/2018 STATUS: DEP ER FAX #: [phone] RAD NO: Page 3 Signed Report- US FET BIO PH MS W/O [id number] 11:57:00 Patient Name: ELBERTPARAM FOSTER Unit No: [id number] EXAMS: CPT CODE: [id number] US FET BIO PH MS W/O NST [address] [facility] [address], [place] [address] BIOPHYSICAL PROFILE ULTRASOUND REPORT Pat. Name: PARAM BOSWELL Pat. No: [id number] Study Date: 11/10/2018 11:20am , Age: 01 2000, 18 Pregnancies: 2, Para 0 LMP: 03/19/2018 GA by LMP: 33w5d GA Selected: 33w5d (LMP) JUAN M: 12/24/2018 Referring MD: MICHELLE VIRGEN Jacker Feeder: Tarun Alonso RDMS, RVT CPT4: USBPPWONST Admitting [...] and signed by: Marco Obrien MD [facility] NAME: RAFFYJOSE MIGUELJANAEPARAM Radiology Department PHYS: Michelle Alicea MD [address] : 2000 AGE: 18 SEX: F [place] [address] LOC: Brianna.NESSA PHONE #: [phone] EXAM DATE: 11/10/2018 STATUS: REG ER FAX #: [phone] RAD NO: Page 1 Signed Report (CONTINUED) Patient Name: THEA BOSWELLANI FOSTER Unit No: [id number] EXAMS: CPT CODE: [id number] US FET BIO PH MS W/O NST 99757 <Continued> CC: Michelle Virgen MD Technologist: Tarun Alonso RDMS, RVT Probe: Trnscrbd D/ (1157) t.SDR.YOS Orig Print D/T: S: 11/10/2018 (1158) [facility] NAME: PARAM BOSWELL Radiology Department PHYS: Michelle Alicea MD [address] : 2000 AGE: 18 SEX: F [place] [address] LOC: Jean MarieNESSA PHONE #: [phone] EXAM DATE: 11/10/2018 STATUS: REG ER FAX #: [phone] RAD NO: Page 2 Signed Report Patient Name: THEA BOSWELLANI FOSTER Unit No: [id number] EXAMS: CPT CODE: [id number] US FET BIO PH MS W/O NST 88747 <Continued> [facility] NAME: PARAM BOSWELL Radiology Department PHYS: Michelle Alicea MD [address] : 2000 AGE: 18 SEX: F [place] [address] LOC: Brianna.NESSA PHONE #: [phone] EXAM DATE: 11/10/2018 STATUS: REG ER FAX #: [phone] RAD NO: Page 3 Signed ReportURINALYSIS COMPLETE [...] 4+ NONE SEEN URINE SAMPLE: CLEAN CATCHURINALYSIS [id number] 12:15:00 Test Item Value Reference Range Interpretation [...] NONE SEEN URINE SAMPLE: CLEAN CATCHCOMPREHENSIVE METABOLIC [id number] 11:47:00 Test Item Value Reference Range Interpretation [...] units/L 46-116 N code = ALKP) BILIRUBIN [id number] 11:47:00 Test Item Value Reference Range Interpretation Comments BILIRUBIN DIRECT (test code = <0.1 mg/dL <0.2 N BILD) [id number] 11:47:00 Test Item Value Reference Range Interpretation Comments AMYLASE (test code = KADEN) 35 units/L 30-110 N [id number] 11:47:00 Test Item Value Reference Range Interpretation Comments LIPASE (test code = LIP) 128 units/L 73-393 N - US ABDOMEN [id number] 10:42:00 Patient Name: PARAM BOSWELL Unit No: [id number] EXAMS: CPT CODE: [id number] US ABDOMEN COMPLETE 94723 ABDOMEN ULTRASOUND COMPLETE 10/12/2018: COMPARISON: None CLINICAL [...] Orig Print D/T: S: 10/12/2018 (1045) [facility] NAME: PARAM BOSWELL Radiology Department PHYS:Michelle Alicea MD [address] : 2000 AGE: 18 SEX: F [place], [place] [address] LOC: Markie Cevallos PHONE #: [phone] EXAM DATE: 10/12/2018 STATUS: ADM IN FAX #: [phone] RAD NO: Page 1 Signed Report Patient Name: PARAM BOSWELL Unit No: [id number] EXAMS: CPT CODE: [id number] US ABDOMEN COMPLETE 42706 <Continued> [facility] NAME: PARAM BOSWELL Radiology Department PHYS: Michelle Alicea MD [address] : 2000 AGE: 18 SEX: F [place], [place] [address] LOC: F.031 A PHONE #: [phone] EXAM DATE: 10/12/2018 STATUS: ADM IN FAX #: [phone] RAD NO: Page 2 Signed ReportDRUGS OF ABUSE [id number] 00:56:00 Test Item Value Reference Range Interpretation [...] PHENCU) 25 ng/m L AG HEPATITIS B [id number] 23:17:00 Test Item Value Reference Range Interpretation Comments AG HEPATITIS B SURFACE (test code NONREACTIVE NONREACTIVE = HBSAG) AB HEPATITIS C [id number] 23:17:00 Test Item Value Reference Range Interpretation Comments AB HEPATITIS C (test code = NONREACTIVE NONREACTIVE HCVAB) SIGNAL TO CUTOFF (test code = <0.02 <0.80 N CUTOFF) AB [id number] 23:17:00 Test Item Value Reference Range Interpretation Comments AB TREPONEMA (test code = TREPAB) NONREACTIVE NONREACTIVE AG HEPATITIS B [id number] 22:51:00 Test Item Value Reference Range Interpretation Comments AG HEPATITIS B SURFACE (test code NONREACTIVE NONREACTIVE = HBSAG) AB HEPATITIS C [id number] 22:51:00 Test Item Value Reference Range Interpretation Comments AB HEPATITIS C (test code = HCVAB) NONREACTIVE SIGNAL TO CUTOFF (test code = CUTOFF) <0.80 AB [id number] 22:51:00 Test Item Value Reference Range Interpretation Comments AB TREPONEMA (test code = TREPAB) NONREACTIVE NONREACTIVE COMPREHENSIVE METABOLIC [id number] 22:33:00 Test Item Value Reference Range Interpretation [...] units/L 46-116 N code = ALKP) BILIRUBIN [id number] 22:33:00 Test Item Value Reference Range Interpretation Comments BILIRUBIN DIRECT (test code = <0.1 mg/dL <0.2 N BILD) CBC W/AUTO [id number] 22:17:00 Test Item Value Reference Range Interpretation [...]
[2021-03-22] MEDS ORDERED: NA CHLORIDE 0.9% 1,000 ML ONE (12:34)
[2021-03-22] MEDS ORDERED: ONDANSETRON 4 MG/2 ML VIAL ONE (12:34)
[2021-03-22 12:52] LABS: Urine Blood Negative (Negative); Urine Glucose Negative (Negative); Urine Protein 1+ (Negative); Urine Specific Gravity >=1.030 (1.005-1.030); Urine pH 6.5 (5.0-7.0)
[2021-03-22 13:30] LABS: Absolute Lymphocytes (CBC) 2.1 K/uL (0.7-4.9); Hematocrit 40.3 % (36.0-45.0); Lymphocytes % 32.9 % (15.3-44.8); MPV 7.2 fL (7.6-11.3); RBC Red Blood Cell Count 4.59 M/uL (3.86-4.86)
[2021-03-22 13:48] LABS: ALT/SGPT 20 U/L (12-78); AST/SGOT 16 U/L (15-37); Albumin 4.1 g/dL (3.4-5.0); Alkaline Phosphatase 89 U/L (45-117); BUN Blood Urea Nitrogen 9 mg/dL (7-18); Bicarbonate 25 mmol/L (21-32); Bilirubin Direct 0.1 mg/dL (0-0.2); Bilirubin Total 0.5 mg/dL (0.2-1.0); Glucose Level 78 mg/dL (74-106); Lipase 85 U/L (73-393); Potassium 3.6 mmol/L (3.5-5.1); Protein, Total 7.9 g/dL (6.4-8.2); Sodium Level 140 mmol/L (136-145)
--- NOTE | 2021-03-22 14:03 | RAD REPORT ---
EXAM DESCRIPTION: CT - Abdomen Pelvis W Contrast - 03/22/2021 1:30 pm CLINICAL HISTORY: ABD PAIN, nausea COMPARISON: No comparisons TECHNIQUE: Biphasic, helical CT imaging of the abdomen and pelvis was performed following 100 ml non -ionic IV contrast. No oral contrast administered. All CT scans are performed using dose optimization technique as appropriate and may include automated exposure control or mA/KV adjustment according to patient size. FINDINGS: No suspicious findings in the lung bases. The liver, pancreas, gallbladder and biliary tree show no suspicious findings. Splenomegaly is presen t to 15 cm with the spleen positioned more in the mid abdomen, however 6 cm more inferiorly than typi rhea seen. This is believed to be normal variant. No surgical clips are present. Splenic vasculature shows tortuosity but acute finding. Symmetric renal function is seen with no hydronephrosis or suspicious renal mass. No pyelonephritis o r acute parenchymal process. No bladder abnormalities. No adrenal abnormalities. Uterus and ovaries s how no suspicious findings for age. Free fluid in the cul de sac is within physiologic limits. No ginger e fluid elsewhere in the peritoneal cavity. No dilated bowel loops or bowel wall thickening. Appendix is normal. No active GI process seen. No free air, pneumatosis, inflammatory stranding or abnormal quantity of free fluid. No hernia, mas s or bulky lymphadenopathy. No suspicious bony findings. IMPRESSION: Splenomegaly is present to 15 cm with the spleen more inferiorly positioned than typical ly seen. The splenic superior margin is approximately 6 cm inferior to typical location. As detailed above, the remainder of the examination shows no significant or suspicious finding
--- NOTE | 2021-03-22 14:56 | ER ---
Nurse's Notes [facility] Name: Tyra Fowler Age: 21 yrs Sex: Female : 2000 Arrival Date: 03/22/2021 Time: 10:49 Bed 11 Private MD: Diagnosis: Abdominal pain, Generalized;Vomiting Presentation: 03/22 11:23 Chief complaint: Patient states: Nasal congestion, TRUONG, nausea x 4 days, denies fever. jl7 "Employer wants me to be tested for COVID.". Coronavirus screen: congestion, headache. Ebola Screen: No symptoms or risks identified at this time. Initial Sepsis Screen: Does the patient meet any 2 criteria? No. Patient's initial sepsis screen is negative. Does the patient have a suspected source of infection? No. Patient's initial sepsis screen is negative. Risk Assessment: Do you want to hurt yourself or someone else? Patient reports no desire to harm self or others. Onset of symptoms was March 18, 2021. 11:23 Method Of Arrival: Ambulatory jl 11:23 Acuity: RANJIT 4 jl7 Triage Assessment: 11:25 General: Appears in no apparent distress. uncomfortable, Behavior is calm, cooperative, jl7 appropriate for age. Pain: Complains of pain in TRUONG Pain currently is 6 out of 10 on a pain scale. GI: Reports nausea. 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 - Social history:: Smoking status: Patient denies any tobacco usage or history of. Screenin:01 Abuse screen: Denies threats or abuse. Denies injuries from another. Nutritional ld1 screening: No deficits noted. Tuberculosis screening: No symptoms or risk factors identified. Fall Risk None identified. Assessment: 12:01 General: Appears in no apparent distress. comfortable, Behavior is calm, cooperative, ld1 appropriate for age. Pain: Denies pain. Neuro: Level of Consciousness is awake, alert, obeys commands, Oriented to person, place, time, situation. Cardiovascular: Capillary refill < 3 seconds Patient's skin is warm and dry. Respiratory: Airway is patent Respiratory effort is even, unlabored, Respiratory pattern is regular, symmetrical. GI: Abdomen is flat, non-distended. GI: Reports diarrhea, nausea, vomiting. : No signs and/or symptoms were reported regarding the genitourinary system. EENT: Reports nasal congestion. Derm: No signs and/or symptoms reported regarding the dermatologic system. Musculoskeletal: No signs and/or symptoms reported regarding the musculoskeletal system. Vital Signs: 11:23 BP 134 / 98; Pulse 87; Resp 17; Temp 97.2; Pulse Ox 99% ; Weight 72.12 kg; Height 5 ft. jl7 4 in. (162.56 cm); Pain 6/10; 13:59 BP 129 / 82; Pulse 81; Resp 18; Pulse Ox 99% on R/A; ld1 11:23 Body Mass Index 27.29 (72.12 kg, 162.56 cm) jl7 ED Course: 10:49 Patient arrived in ED. jj6 11:25 Triage completed. jl7 11:25 Arm band placed on right wrist. jl7 11:26 Lewis Domingo, DESTIN is Primary Nurse. jl7 11:33 Brown Ellis PA is PHCP. [facility] 11:33 Otoniel Henry MD is Attending Physician. m 12:01 Patient has correct armband on for positive identification. Bed in low position. Call ld1 light in reach. Side rails up X2. Pulse ox on. NIBP on. Door closed. Noise minimized. 12:01 No provider procedures requiring assistance completed. ld1 12:52 COVID-19 SARS RT PCR (Document "Date of Onset" if Symptomatic) Sent. ld1 13:23 Basic Metabolic Panel Sent. dh3 13:23 CBC with Diff Sent. dh3 13:23 Hepatic Function Sent. dh3 13:23 Lipase Sent. dh3 13:30 CT Abd/Pelvis - IV Contrast Only In Process Unspecified. EDMS 14:56 Kurtis Tracy MD is Referral Physician. jmm 15:12 IV discontinued, intact, bleeding controlled, No redness/swelling at site. ld1 Administered Medications: 12:52 Drug: NS 0.9% 1000 ml Route: IV; Rate: 1 bolus; Site: left antecubital; ld1 12:52 Drug: Zofran (Ondansetron) 4 mg Route: IVP; Site: left antecubital; ld1 Outcome: 14:56 Discharge ordered by . cecelia 15:11 Discharged to home ambulatory. ld1 15:11 Condition: stable 15:11 Discharge instructions given to patient, Instructed on discharge instructions, follow up and referral plans. medication usage, Demonstrated understanding of instructions, follow-up care, medications, Prescriptions given X 1. 15:12 Patient left the ED. ld1 Signatures: Dispatcher [employer] EDMS Brown Ellis PA PA jmm Leal, Jahala RN RN jl7 Caitlin Reynolds 3 Cathy Carter RN RN ld1 Ade Meadows jj6
--- NOTE | 2021-03-22 14:56 | EDPHYS ---
Physician Documentation [facility] Name: Tyra Fowler Age: 21 yrs Sex: Female : 2000 Arrival Date: 03/22/2021 Time: 10:49 Bed 11 Private MD: ED Physician Otoniel Henry HPI: 03/22 11:27 This 21 yrs old Female presents to ER via Ambulatory with complaints of Chest jmm Congestion, Nausea/Vomiting/Diarrhea, Headache. 11:27 The patient presents to the emergency department with nausea, vomiting. Onset: The jmm symptoms/episode began/occurred gradually, 4 day(s) ago. Possible causes: unknown. The symptoms are aggravated by nothing. The symptoms are alleviated by nothing. Associated signs and symptoms: Pertinent positives: congestion. This is a 21-year-old female with history of anxiety, asthma, depression the presents emerged department with complaints of congestion headache, sore throat began approximately 4 days ago with multiple episodes of nausea and vomiting. Patient denies diarrhea. Patient states having some abdominal pain.. 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 - Social history:: Smoking status: Patient denies any tobacco usage or history of. ROS: 11:27 Cardiovascular: Negative for chest pain, palpitations, and edema, Respiratory: Negative jmm for shortness of breath, cough, wheezing, and pleuritic chest pain. 11:27 Constitutional: Positive for chills. 11:27 ENT: Positive for sinus congestion. 11:27 Abdomen/GI: Positive for abdominal pain, nausea and vomiting. 11:27 All other systems are negative. Exam: 11:27 Constitutional: This is a well developed, well nourished patient who is awake, alert, jmm and in no acute distress. Head/Face: atraumatic. Eyes: EOMI, no conjunctival erythema appreciated ENT: Moist Mucus Membranes Neck: Trachea midline, Supple Chest/axilla: Normal chest wall appearance and motion. Cardiovascular: Regular rate and rhythm. No edema appreciated Respiratory: Normal respirations, no respiratory distress appreciated 11:27 Back: Normal ROM Skin: General appearance color normal MS/ Extremity: Moves all extremities, no obvious deformities appreciated, no edema noted to the lower extremities Neuro: Awake and alert Psych: Behavior is normal, Mood is normal, Patient is cooperative and pleasant 11:27 Abdomen/GI: Inspection: abdomen appears normal, Bowel sounds: normal, Palpation: soft, mild abdominal tenderness, in the right lower quadrant and left lower quadrant. Vital Signs: 11:23 BP 134 / 98; Pulse 87; Resp 17; Temp 97.2; Pulse Ox 99% ; Weight 72.12 kg; Height 5 ft. jl7 4 in. (162.56 cm); Pain 6/10; 13:59 BP 129 / 82; Pulse 81; Resp 18; Pulse Ox 99% on R/A; ld1 11:23 Body Mass Index 27.29 (72.12 kg, 162.56 cm) jl7 MDM: 12:27 Patient medically screened. [facility] 14:54 Data reviewed: vital signs, nurses notes. Counseling: I had a detailed discussion with cecelia the patient and/or guardian regarding: the historical points, exam findings, and any diagnostic results supporting the discharge/admit diagnosis, lab results, radiology results, the need for outpatient follow up, to return to the emergency department if symptoms worsen or persist or if there are any questions or concerns that arise at home. ED course: Patient is alert and non toxic in appearance in the ED. No signs of resp distress. I discussed CT findings with the patient along with the need to follow up with gi. Patient understood and agrees with the plan of care. . 03/22 11:27 Order name: COVID-19 SARS RT PCR (Document "Date of Onset" if Symptomatic); Complete jl7 Time: 13:12 03/22 12:28 Order name: Basic Metabolic Panel; Complete Time: 13:50 [facility] 03/22 12:28 Order name: CBC with Diff; Complete Time: 13:48 [facility] 03/22 12:28 Order name: Hepatic Function; Complete Time: 13:50 [facility] 03/22 12:28 Order name: Lipase; Complete Time: 13:50 [facility] 03/22 12:52 Order name: Urine Dipstick-Ancillary; Complete Time: 12:53 [facility] 03/22 12:28 Order name: IV Saline Lock; Complete Time: 12:52 [facility] 03/22 12:28 Order name: Labs collected and sent; Complete Time: 12:52 [facility] 03/22 12:28 Order name: Urine Test (obtain specimen); Complete Time: 12:52 [facility] 03/22 12:28 Order name: Urine Dipstick-Ancillary (obtain specimen); Complete Time: 12:52 [facility] 03/22 12:28 Order name: CT Abd/Pelvis - IV Contrast Only; Complete Time: 14:04 [facility] 03/22 13:03 Order name: Urine --Ancillary (enter results); Complete Time: 13:12 eb 03/22 13:02 Order name: Labs - recollect needed; Complete Time: 13:21 eb Administered Medications: 12:52 Drug: NS 0.9% 1000 ml Route: IV; Rate: 1 bolus; Site: left antecubital; ld1 12:52 Drug: Zofran (Ondansetron) 4 mg Route: IVP; Site: left antecubital; ld1 Disposition: 19:28 Co-signature as Attending Physician, Otoniel Henry MD I agree with the assessment and kdr plan of care. Disposition Summary: 03/22/21 14:56 Discharge Ordered Location: Home [facility] Condition: Stable [facility] Diagnosis - Abdominal pain, Generalized jmm - Vomiting jmm Followup: [facility] - With: Kurtis Tracy MD - When: 2 - 3 days - Reason: Recheck today's complaints, Continuance of care, Re-evaluation by your physician Discharge Instructions: - Discharge Summary Sheet jmm - Abdominal Pain, Adult jmm - Vomiting, Adult jmm Forms: - Medication Reconciliation Form [facility] - Thank You Letter [facility] - Antibiotic Education m - Prescription Opioid Use [facility] - Work release form ld1 Prescriptions: - ondansetron 4 mg Oral tablet,disintegrating - place 1 tablet by TRANSLINGUAL route every 4-6 hours; 20 tablet; Refills: 0, jmm Product Selection Permitted Signatures: Dispatcher [employer] Otoniel Hurley MD MD kdr Mickail, Joel, PA PA jmm Leal, Jahala RN RN jl7 Lainez, Mary Alice eb Dibbern, Cathy, RN RN ld1
[2021-03-22 16:07] VITALS: BP 129/82; TEMP 97.2; O2SAT 99
== END 2021-03-22 15:12 | disposition home or self-care (01) ==
LOC: ER 10:45
DX: R11.2 Nausea with vomiting, unspecified (principal); R10.84 Generalized abdominal pain; Z20.822 Contact with and (suspected) exposure to COVID-19; Z88.3 Allergy status to other anti-infective agents; Z91.018 Allergy to other foods
CPT/HCPCS: 85025; 80048; 36415; 81025; 80076; 81003; 83690; 74177; 96374; 99284; U0003; Q9967; J7030; J2405

== ENCOUNTER 2021-04-20 07:20 | Emergency (ER) | payer MEDICARE, OTHER ==
--- OUTSIDE RECORDS SUMMARY | 2021-04-20 07:24 | XMS REPORT | Continuity of Care Document ---
:2000 Author Organization [facility] t Address [address] [place] [address] Care Team Providers Name Role Phone ANITA Primary Care Physician Unavailable ANITA Attending Clinician Unavailable CHICO ROSA Attending Clinician Unavailable CHICO ROSA Attending Clinician Unavailable Chico Rosa MD Attending Clinician Anita NAVARRO Attending Clinician Payers Payer Name Policy Type Policy Number Effective Date Expiration Date [facility] [id number] 2019 CHOICE MEDICAID 00:00:00 HIM BCBS BLUE [id number] 2020 ADVANTAGE HMO 00:00:00 Problems Condition Condition Condition Status Onset [...] general 0-14 ity of fatigue fatigue 00:00: [place] 00 Medical Branch Generalize Generalize Disease Active 2020-02 U nivers d muscle d muscle 0-14 ity of weakness weakness 00:00: [place] 00 Medical Branch 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, right [place], [place] Migraine Migraine Disease Active Unive rs without without 5-12 ity of status status 00:00: [place] migrainosu migrainosu 00 Me dical s, not s, not Branch intractabl intractabl e, e, unspecifie unspecifie d migraine d migraine type type Hospital Hospital Disease Active 2019-02 Unive rs discharge discharge 2-22 ity of follow-up follow-up 00:00: [place]yl[place] 00 Medical Branch Irritant Irritant Disease Active [...] trigger d trigger Flu Flu Disease Active 2020-1 Univers vaccine vaccine 1-12 ity of need need 00:00: [place] 00 Medical Branch Vaccine Vaccine Disease Active 2019-02 Univers for human for human -12 ity of papilloma papilloma 00:[place] virus virus 00 Medical (HPV) (HPV) Branch types 6, types 6, 11, 16, 11, 16, and 18 and 18 administer administer ed ed Nicotine Nicotine Disease Active 2019-02 Unive rs dependence dependence -12 it y of , , 00:00: [place] [...] initial initial 00:00: [place] encounter encounter 00 [facility] Branch Skin Skin Disease Active 2018-02 Univers [...] of adverse 00:00: [place] reaction 00 Medical [facility] HISTAMIN DRUG Active Other-Cmnt Univ [...] Medical s Branch MACROLID Drug Active ITCHING 2018- Univers E Class 1-15 ity of ANTIBIOT 00:00: [place] ICS 00 Medical Branch VANCOMYC DRUG Active ITCHING 2018-02 Univers IN INGREDI 1-15 ity of 00:00: [place] 00 [facility] kiwi FA Active MO 2018- [facility] 0-21 [facility] [place] azithrom DA Active NV 2019-0 [facility] ycin 9-04 [facility] 00:[facility]: [facility] [place] vancomyc DA Active NV 2019-0 [facility] in 9-04 [facility] 00:00: [facility] [place] Kiwi Propensi Active Anaphylaxis 2019-0 Uni vers ty to 6-26 ity of adverse 00:00: [place] reaction 00 Medical [facility] KIWI DRUG Active High Anaphylaxis 2018-0 Unive rs INGREDI 6- ity of 00:00: [place] 00 [facility] Social History Social Habit Start Date Stop Date Quantity Comments Source History of tobacco Cigarette Smoker University of use [facility] Exposure to Not sure University of SARS-CoV-2 (event) [facility] Alcohol intake 2020-12-02 2020-12-02 3.14 /d University of 00:00:00 00:00:00 [facility] Cigarettes smoked 2020-02-23 2020-02-23 Univers ity of current (pack per 00:00:00 00:00:00 ) - Reported Branch Cigarette 2020-02-23 2020-02-23 University of pack-years 00:00:00 00:00:00 [place] [facility] Tobacco use and 2020-02-23 2020-02-23 [...] Unive rsity of Connections Phone 00:00:00 00:00:00 [place] M edical Branch History SDOH Social 2020-02-23 2020-02-23 5 Unive rsity of Connections Get 00:00:00 00:00:00 [place] Med ical Together Branch History SDOH Social 2020-02-23 2020-02-23 3 Unive rsity of Connections Christian 00:00:00 00:00:00 [place] [facility] History SDOH Social 2020-02-23 2020-02-23 2 Unive rsity of Connections 00:00:00 00:00:00 [place] Medical Membership Branch History SDOH Social 2020-02-23 2020-02-23 1 Unive rsity of Connections 00:00:00 00:00:00 [place] Medical Meetings Branch History SDOH Social 2020-02-23 2020-02-23 8 Unive rsity of Connections Living 00:00:00 00:00:00 [place] [facility] History SDOH 2020-02-23 2020-02-23 7 University o f Physical Activity 00:00:00 00:00:00 [place] M edical DPW Branch History SDOH 2020-02-23 2020-02-23 6 University o f Physical Activity 00:00:00 00:00:00 [place] M edical MPS Branch History SDOH Stress 2020-02-23 2020-02-23 5 Unive rsity of 00:00:00 00:00:00 [place] [facility] History SDOH 2020-02-23 2020-02-23 4 [...] 1 Univers ity of Worry 00:00:00 00:00:00 [place] [facility] History SDOH Food 2020-02-23 2020-02-23 1 Univers ity of Scarcity 00:00:00 00:00:00 [place] [facility] History SDOH 2020-02-23 2020-02-23 2 University o f Transport Med 00:00:00 00:00:00 [place] Medic al Branch History SDOH 2020-02-23 2020-02-23 2 University o f Transport Non-Med 00:00:00 00:00:00 [place] M edical Branch Tobacco Comment 2020-02-23 2020-02-23 1 pack per week, Uni versity of 00:00:00 00:00:00 done when [place] Medical stressed Branch History SDOH 2017-05-02 2017-05-02 University o f Alcohol Comment 00:00:00 00:00:00 [facility] ical Branch Sex Ass[birth year] At [birth year] Universit y of 00:00:00 00:00:[address] [facility] [place] Branch Smoking Status Start Date Stop Date Source Former smoker 2020-02-23 00:00:00 2020-02-23 00:00:00 Universi ty of [place] [facility] Medications Ordered Filled Start Stop Current Ordering Indication Dosage Frequency Signature Comments Components Source Medication Medication Date Date Medication? Clinician (SIG) Name Name ergchikiscife 2020-02 Yes [id number] Take 1 Univers rol, 0-22 capsule by ity of vitamin d2, 00:00: mouth [place] 1,250 mcg 00 weekly. Medical (50,000 Branch unit) capsule pravastatin 2020-02 Yes [id number] 10mg Take 1 Univers 10 mg 0-22 tablet by ity of tablet 00:00: mouth at [place] 00 bedtime. Medical Branch calcium 2020-02 Yes [id number] 500mg Take 1 Un hailey carbonate 0-22 tablet by ity o f (CALCIUM 00:00: mouth [place] 500) 500 mg 00 daily. Medica l calcium Branch (1,250 mg) tablet butalbital- 2020-02 Yes [id number] 1{capsu Take 1 Univers aspirin-caf 0-14 le} capsule by it y of feine 00:00: mouth [place] 50-325-40 00 every 4 Medical mg per (four) Branch capsule hours as needed for Pain. ibuprofen 2020-02 Yes [id number] 600mg Take 1 Un hailey (IBU) 600 0-07 tablet by ity o f mg tablet 00:00: mouth [place] 00 every 6 Medical (six) Branch hours as needed for Pain (scale 4-6). hydrOXYzine Yes TAKE 1 Univ ers 50 mg 5-04 TABLET BY ity of tablet 00:00: MOUTH [place] 00 DAILY Medical NEEDED FOR Branch ANXIETY traZODone Yes [id number] 50mg Take 1 U nivers 50 mg 9-09 tablet by ity of tablet 00:00: mouth at [place] 00 bedtime. Medical Branch escitalopra 2019- Yes [id number] 10mg Take 1 Univers m oxalate 9-09 tablet by ity o f 10 mg 00:00: mouth [place] tablet 00 daily. [facility] Branch Immunizations Ordered Immunization Filled Immunization Date Status Commen ts Source Name Name HPV9 2020-01-29 Completed University of 00:00:[address] [facility] [place] Branch Meningococcal B, OMV 2019-12-20 Completed Univ ersity of 00:00:00 [facility] Influenza Virus 2019-12-20 Completed Universit y of Vaccine Quad .5 mL 00:00:[address] [facility] IM 6+ MO Branch TDAP 2019-12-20 Completed University of 00:00:[address] [facility] [place] Branch HPV9 2019-12-20 Completed University of 00:00:[address] [facility] [place] Branch Pneumococcal 2019-12-20 Completed University o f Polysaccharide, 00:00:00 [place] Med ical PPSV23 (PNEUMOVAX) [place] Vital Signs Vital Name Observation Time Observation Value Comments Source Systolic blood 2020-12-02 13:19:00 119 mm[Hg] Justina sitdavid [facility] Diastolic blood 2020-12-02 13:19:00 82 mm[Hg] Mary schroeder [facility] Heart rate 2020-12-02 13:19:00 81 /min [facility] Body height 2020-12-02 13:19:00 162.6 cm [facility] Body weight 2020-12-02 13:19:00 72.576 kg [facility] BMI 2020-12-02 13:19:00 27.46 kg/m2 [facility] Procedures This patient has no known procedures. Encounters Start End Encounter Admission Attending Care Care Encounter Source Date/Time Date/Time Type Type Clinicians Facility Department ID 2021-02-27 2021-02-27 Outpatient Reza JONES [facility] [id number] Univers 08:40:00 08:40:00 OBDULIO ruiz [facility] 2021-01-22 2021-01-22 Outpatient RICHIE HERRERA [facility] [id number] [facility] 12:30:00 12:30:00 RICHIE ROSA [facility] 2020-12-02 2020-12-02 Office Moe [facility] [id number] Univers 08:17:27 09:16:56 Visit Richie [facility] [id number] Shan 4.2.7.2.686 Jeferson as ANTONY?BLEA [id number] [address] MEDICAL OFFICE BUILDING 2020-12-02 2020-12-02 Outpatient RICHIE HERRERA [facility] [id number] Univers 08:00:00 09:16:56 RICHIE ROSA david [facility] 2019-08-16 2019-08-16 Office Anita [facility] [id number] 08:54:20 09:41:28 Visit Obdulio [place] [id number] [place] 4.2.7.2.686 [facility] [id number] [facility] 044 Building Results Test Description Test Time Test Comments Results Result [facility] e Comments - CT ABDOMEN 2018-12-06 Patient Name: W/CONTRAST 08:58:00 PARAM BOSWELL Unit No: [id number] EXAMS: CPT CODE: [id number] CT ABDOMEN W/CONTRAST 13140 EXAMINATION: CT scan of the abdomen with [...] The patient is at risk for [facility] NAME: PARAM BOSWELL Radiology Department PHYS: Michelle Alicea MD [address] : 2000 AGE: 18 SEX: F [place], [place] [address] LOC: F.4602 A PHONE #: [phone] EXAM DATE: 12/05/2018 STATUS: DIS IN FAX #: [phone] RAD NO: Page 1 Signed Report 1 Patient Name: PARAM BOSWELL Unit No: [id number] EXAMS: CPT CODE: [id number] CT ABDOMEN W/CONTRAST 55845 <Continued> splenic torsion/infarction. There is no evidence of that at this time. 2. Moderate amount of retained fecal material throughout the visualized portions of the colon. at 0858 Reported and signed by: Alyssa Boss MD CC: Michelle Virgen MD Technologist: RT Ethel CTDI: DLP: Trnscrbd D/ (0858) tLAKSHMI.[facility] NAME: PARAM BOSWELL Radiology Department PHYS: Michelle Alicea MD [address] : 2000 AGE: 18 SEX: F [place] [address] LOC: F.4602 A PHONE #: [phone] EXAM DATE: 12/05/2018 STATUS: DIS IN FAX #: [phone] RAD NO: Page 2 Signed Report 1 Patient Name: PARAM BOSWELL Unit No: [id number] EXAMS: CPT CODE: [id number] CT ABDOMEN W/CONTRAST 59070 <Continued> Orig Print D/T: S: 12/06/2018 (0901) [facility] NAME: PARAM BOSWELL Radiology Department PHYS: Michelle Alicea MD [address] : 2000 AGE: 18 SEX: F [place] [address] LOC: F.4602 A PHONE #: [phone] EXAM DATE: 12/05/2018 STATUS: DIS IN FAX #: [phone] RAD NO: Page 3 Signed Report 1 - US ABDOMEN LTD 2018-12-05 Patient Name: 16:42:00 PARAM BOSWELL Unit No: [id number] EXAMS: CPT CODE: [id number] ABDOMEN LTD 44870 CLINICAL HISTORY: Enlarged spleen. COMPARISON: October 12, [...] tomography is recommended for further evaluation. at 9852 Reported and signed by: Marco Obrien MD CC: Michelle Virgen MD Technologist: Petrona Sykes RDMS Probe: Trnscrbd D/ (0576) [email or web address] Orig Print D/T: S: 12/05/2018 (0283) [facility] NAME: VIJITHEA CARDOSOANI FOSTER Radiology Department PHYS: Michelle Alicea MD [address] : 2000 AGE: 18 SEX: F [place] [address] LOC: F.4602 A PHONE #: [phone] EXAM DATE: 12/05/2018 STATUS: ADM IN FAX #: [phone] RAD NO: Page 1 Signed Report Patient Name: PARAM BOSWELL Unit No: [id number] EXAMS: CPT CODE: [id number] ABDOMEN LTD 56323 <Continued> The [facility] NAME: RAFFYCHELSEYLARRYPARAM FOSTER Radiology Department PHYS: Michelle Alicea MD [address] : 2000 AGE: 18 SEX: F [place] [address] LOC: F.4602 A PHONE #: [phone] EXAM DATE: 12/05/2018 STATUS: ADM IN FAX #: [phone] RAD NO: Page 2 Signed Report PLACENTA THIRD 2018-12-05 TRIMESTER 14:06:00 --------RUN DATE: 12/05/18 [facility] - [facility] PAGE 1 RUN TIME: 1744 Specimen Inquiry RUN USER: INTERFACE --------PATIENT: PARAM BOSWELL LOC: ROBBIE U #: [id number] AGE/SX: 18/F ROOM: [facility] RE11/30/18REG DR: Michelle Virgen MD : [birth year] BED: A DIS: STATUS: ADM IN TLOC: -------- SPEC #: [id number] RECD: 12/01/18 STATUS: FLAKO REQ #: [id number] MAGGIE: 12/01/18- SUBM DR: Michelle Virgen MD ENTERED: 12/04/18 SP TYPE: PLACIII LEFTY DR: ORDERED: LEVEL V SURGICA CODES: HS1109 - PLACENTA, NOS PROCEDURES: LEVEL V SURGICA (Incomplete) TISSUES: PLACENTA, NOS - PLACENTA CLINICAL HISTORY 18 year old, 36.5 weeks, [id number], vaginal delivery, prematurity (kr) FINAL DIAGNOSIS Placenta, young gestation: - late third trimester villous architecture - umbilical cord: paramarginal insertion, 3-vessel, 23 cm length - decreased placental weight: 357 gms (less than 10th percentile) CPT Code: 90702 cds/wpd 12/05/18 GROSS DESCRIPTION The specimen was [...] Specimen Inquiry RUN USER: INTERFACE --------SPEC #: [id number] PATIENT: PARAM BOSWELL #[id number] (Continued) GROSS DESCRIPTION (Continued) Parenchyma lesions: None [...] PLTMR) NORMAL POLLY L AG HEPATITIS B [id number] 05:49:00 Test Item Value Reference Range Interpretation Comments AG HEPATITIS B SURFACE (test code NONREACTIVE NONREACTIVE = HBSAG) IS CONSENT FORM SIGNED FOR HIV TESTING? B HEPATITIS C [id number] 05:49:00 Test Item Value Reference Range Interpretation Comments AB HEPATITIS C (test code = NONREACTIVE NONREACTIVE HCVAB) SIGNAL TO CUTOFF (test code = 0.10 <0.80 N CUTOFF) IS CONSENT FORM SIGNED FOR HIV TESTING? YAB [id number] 05:49:00 Test Item Value Reference Range Interpretation Comments AB TREPONEMA (test code = TREPAB) NONREACTIVE NONREACTIVE IS CONSENT FORM SIGNED FOR HIV TESTING? YAB HIV 1 05:49:00 Test Item Value Reference Range Interpretation Comments AB HIV 1 2 (test NONREACTIVE NONREACTIVE Done by [employer] code = [id number]) 4th Gen HIV Ag/Ab Combo Screen IS CONSENT FORM SIGNED FOR HIV TESTING? YCBC W/AUTO [id number] 00:01:00 Test Item Value Reference Range Interpretation [...] = PLTMR) - US FET BIO PH AZ W/O [id number] 21:38:00 Patient Name: PARAM BOSWELL Unit No: [id number] EXAMS: CPT CODE: [id number] US FET BIO PH AZ W/O NST 48310 PROCEDURE: BIOPHYSICAL PROFILE: INDICATION: 36.4 WKS CRAMPING, [...] [email or web address] Orig Print D/T: S: 11/30/2018 (2141) [facility] NAME: PARAM BOSWELL CRISTIAN Radiology Department PHYS: Michelle Alicea MD [address] : 2000 AGE: 18 SEX: F [place] [address] LOC: Jean MarieNESSA PHONE #: [phone] EXAM DATE: 11/30/2018 STATUS: REG ER FAX #: [phone] RAD NO: Page 1 Signed Report Patient Name: PARAM BOSWELL UnitNo: [id number] EXAMS: CPT CODE: [id number] US FET BIO PH AZ W/O NST 26584 <Continued> [facility] NAME: PARAM BOSWELL CRISTIAN Radiology Department PHYS: Michelle Alicea MD [address] : 2000 AGE: 18 SEX: F [place] [address] LOC: Jean MarieNESSA PHONE #: [phone] EXAM DATE: 11/30/2018 STATUS: REG ER FAX #: [phone] RAD NO: Page 2 Signed ReportURINALYSIS [id number] 20:15:00 Test Item Value Reference Range Interpretation [...] NONE SEEN URINE SAMPLE: CLEAN CATCHAMNISURE (ROM) [id number] 18:44:00 Test Item Value Reference Range Interpretation Comments AMNISURE (ROM) TEST (test code = NON-RUPTURED NON-RUPTURE AMNI) : *Amnisure QC OK? YESURINALYSIS [id number] 15:24:00 Test Item Value Reference Range Interpretation [...] NONE SEEN URINE SAMPLE: CLEAN CATCHCOMPREHENSIVE METABOLIC [id number] 13:04:00 Test Item Value Reference Range Interpretation [...] 113 units/L 46-116 N code = ALKP) [id number] 13:04:00 Test Item Value Reference Range Interpretation Comments AMYLASE (test code = KADEN) 34 units/L 30-110 N [id number] 13:04:00 Test Item Value Reference Range Interpretation Comments LIPASE (test code = LIP) 97 units/L 73-393 N CBC W/AUTO [id number] 12:55:00 Test Item Value Reference Range Interpretation [...] NORMAL code = PLTMR) AG HEPATITIS B [id number] 05:36:00 Test Item Value Reference Range Interpretation Comments AG HEPATITIS B SURFACE (test code NONREACTIVE NONREACTIVE = HBSAG) IS CONSENT FORM SIGNED FOR HIV TESTING? YAB HEPATITIS C [id number] 05:36:00 Test Item Value Reference Range Interpretation Comments AB HEPATITIS C (test code = NONREACTIVE NONREACTIVE HCVAB) SIGNAL TO CUTOFF (test code = 0.12 <0.80 N CUTOFF) IS CONSENT FORM SIGNED FOR HIV TESTING? YAB [id number] 05:36:00 Test Item Value Reference Range Interpretation Comments AB TREPONEMA (test code = TREPAB) NONREACTIVE NONREACTIVE IS CONSENT FORM SIGNED FOR HIV TESTING? YAB HIV 1 05:36:00 Test Item Value Reference Range Interpretation Comments AB HIV 1 2 (test NONREACTIVE NONREACTIVE Done by [facility] code = [id number]) 4th Gen HIV Ag/Ab Combo Screen IS CONSENT FORM SIGNED FOR HIV TESTING? YAG HEPATITIS B [id number] 03:46:00 Test Item Value Reference Range Interpretation Comments AG HEPATITIS B SURFACE (test code NONREACTIVE NONREACTIVE = HBSAG) IS CONSENT FORM SIGNED FOR HIV TESTING? TAWNYB HEPATITIS C [id number] 03:46:00 Test Item Value Reference Range Interpretation Comments AB HEPATITIS C (test code = HCVAB) NONREACTIVE SIGNAL TO CUTOFF (test code = CUTOFF) <0.80 IS CONSENT FORM SIGNED FOR HIV TESTING? YAB [id number] 03:46:00 Test Item Value Reference Range Interpretation Comments AB TREPONEMA (test code = TREPAB) NONREACTIVE NONREACTIVE IS CONSENT FORM SIGNED FOR HIV TESTING? YAB HIV 1 03:46:00 Test Item Value Reference Range Interpretation Comments AB HIV 1 2 (test code = [id number]) NONREACTIVE IS CONSENT FORM SIGNED FOR HIV TESTING? YCBC W/AUTO [id number] 01:18:00 Test Item Value Reference Range Interpretation [...] (test NORMAL NORMAL code = PLTMR) URINALYSIS [id number] 19:10:00 Test Item Value Reference Range Interpretation [...] SEEN URINE SAMPLE: CLEAN CATCHAG HEPATITIS B [id number] 03:27:00 Test Item Value Reference Range Interpretation Comments AG HEPATITIS B SURFACE (test code NONREACTIVE NONREACTIVE = HBSAG) AB HEPATITIS C [id number] 03:27:00 Test Item Value Reference Range Interpretation Comments AB HEPATITIS C (test code = NONREACTIVE NONREACTIVE HCVAB) SIGNAL TO CUTOFF (test code = 0.12 <0.80 N CUTOFF) AB [id number] 03:27:00 Test Item Value Reference Range Interpretation Comments AB TREPONEMA (test code = TREPAB) NONREACTIVE NONREACTIVE CBC W/AUTO [id number] 01:52:00 Test Item Value Reference Range Interpretation [...] code = PLTMR) - US PREG UT [id number] 11:57:00 Patient Name: PARAM BOSWELL Unit No: [id number] EXAMS: CPT CODE: [id number] US [place]REG [place] TRANSVAGINAL [address] [facility] [address], [place] [address] BIOPHYSICAL PROFILE ULTRASOUND REPORT Pat. Name: PARAM BOSWELL Pat. No: [id number] Study Date: 11/10/2018 11:20am , Age: 1 2000, 18 Pregnancies: 2, Para 0 LMP: 03/19/2018 GA by LMP: 33w5d GA Selected: 33w5d (LMP) JUAN M: 12/24/2018 Referring MD: Michelle Virgen Pneumatic Tube Repairer: Tarun Alonso RDMS, T CPT4: USPRUTTRVG Admitting MD: Michelle Virgen Hist/Ind: [...] and signed by: Marco Obrien MD [facility] NAME: PARAM BOSWELL Radiology Department PHYS: Michelle Alicea MD [address] : 2000 AGE: 18 SEX: F [place], [place] [address] LOC: Jean MarieNESSA PHONE #: [phone] EXAM DATE: 11/10/2018 STATUS: DEP ER FAX #: [phone] RAD NO: Page 1 Signed Report (CONTINUED) Patient Name: PARAM BOSWELL Unit No: [id number] EXAMS: CPT CODE: [id number] US PREG UT TRANSVAGINAL [address] <Continued> CC: Michelle Virgen MD Technologist: Tarun Alonso RDMS, RVT Probe: [id number] Trnscrbd D/ (1157) [email or web address] Orig Print D/T: S: 11/15/2018 (1016) [facility] NAME: PARAM BOSWELL CRISTIAN Radiology Department PHYS: Michelle Alicea MD [address] : 2000 AGE: 18 SEX: F [place] [address] LOC: Jean MarieNESSA PHONE #: [phone] EXAM DATE: 11/10/2018 STATUS: [facility] ER FAX #: [phone] RAD NO: Page 2 Signed Report Patient Name: PARAM BOSWELL Unit No: [id number] EXAMS: CPT CODE: [id number] US PREG UT TRANSVAGINAL [address] <Continued> [facility] NAME: PARAM BOSWELL CRISTIAN Radiology Department PHYS: Michelle Alicea MD [address] : 2000 AGE: 18 SEX: F [place] [address] LOC: Jean MarieNESSA PHONE #: [phone] EXAM DATE: 11/10/2018 STATUS: DEP ER FAX #: [phone] RAD NO: Page 3 Signed Report- US FET BIO PH AZ W/O [id number] 11:57:00 Patient Name: PARAM BOSWELL Unit No: [id number] EXAMS: CPT CODE: [id number] US FET BIO PH AZ W/O NST [address] [address] [place] [address] BIOPHYSICAL PROFILE ULTRASOUND REPORT Pat. Name: PARAM BOSWELL Pat. No: [id number] Study Date: 11/10/2018 11:20am , Age: 01 2000, 18 Pregnancies: 2, Para 0 LMP: 03/19/2018 GA by LMP: 33w5d GA Selected: 33w5d (LMP) JUAN M: 12/24/2018 Referring MD: MICHELLE VIRGEN Pneumatic Tube Repairer: Tarun Alonso RDMS, RVT CPT4: USBPPWONST Admitting [...] and signed by: Marco Obrien MD [facility] NAME: KOLTONLARRYPARAM Radiology Department PHYS: Michelle Alicea MD [address] : 2000 AGE: 18 SEX: F [place] [address] LOC: Brianna.NESSA PHONE #: [phone] EXAM DATE: 11/10/2018 STATUS: REG ER FAX #: [phone] RAD NO: Page 1 Signed Report (CONTINUED) Patient Name: PARAM BOSWELL CRISTIAN Unit No: [id number] EXAMS: CPT CODE: [id number] US FET BIO PH AZ W/O NST 62420 <Continued> CC: Michelle Virgen MD Technologist: Tarun Alonso RDMS, RVT Probe: Trnscrbd D/ (1157) Serena Orig Print D/T: S: 11/10/2018 (1158) [facility] NAME: RAFFYJOSE MIGUELJANAEPARAM Radiology Department PHYS: Michelle Alicea MD [address] : 2000 AGE: 18 SEX: F [place] [address] LOC: Brianna.ENSSA PHONE #: [phone] EXAM DATE: 11/10/2018 STATUS: REG ER FAX #: [phone] RAD NO: Page 2 Signed Report Patient Name: PARAM BOSWELLORA Unit No: [id number] EXAMS: CPT CODE: [id number] US FET BIO PH AZ W/O NST [address]371 <Continued> [facility] NAME: RAFFYCHELSEYLARRYPARAM FOSTER Radiology Department PHYS: Michelle Alicea MD [address] : 2000 AGE: 18 SEX: F [place], [place] [address] LOC: CAROLIN PHONE #: [phone] EXAM DATE: 11/10/2018 STATUS: LESIA PEÑA FAX #: [phone] RAD NO: Page 3 Signed ReportURINALYSIS COMPLETE [...] 4+ NONE SEEN URINE SAMPLE: CLEAN CATCHURINALYSIS [id number] 12:15:00 Test Item Value Reference Range Interpretation [...] NONE SEEN URINE SAMPLE: CLEAN CATCHCOMPREHENSIVE METABOLIC [id number] 11:47:00 Test Item Value Reference Range Interpretation [...] units/L 46-116 N code = ALKP) BILIRUBIN [id number] 11:47:00 Test Item Value Reference Range Interpretation Comments BILIRUBIN DIRECT (test code = <0.1 mg/dL <0.2 N BILD) [id number] 11:47:00 Test Item Value Reference Range Interpretation Comments AMYLASE (test code = KADEN) 35 units/L 30-110 N [id number] 11:47:00 Test Item Value Reference Range Interpretation Comments LIPASE (test code = LIP) 128 units/L 73-393 N - US ABDOMEN [id number] 10:42:00 Patient Name: PARAM BOSWELL Unit No: [id number] EXAMS: CPT CODE: [id number] US ABDOMEN COMPLETE 12742 ABDOMEN ULTRASOUND COMPLETE 10/12/2018: COMPARISON: None CLINICAL [...] Rodrigues RDMS, RVT Probe: Trnscrbd D/ (1042) [id number] Orig Print D/T: S: 10/12/2018 (1045) [facility] NAME: PARAM BOSWELL Radiology Department PHYS:Michelle Alicea MD [address] : 2000 AGE: 18 SEX: F [place], [place] [address] LOC: F.031 A PHONE #: [phone] EXAM DATE: 10/12/2018 STATUS: ADM IN FAX #: [phone] RAD NO: Page 1 Signed Report Patient Name: PARAM BOSWELL Unit No: [id number] EXAMS: CPT CODE: [id number] US ABDOMEN COMPLETE [id number] <Continued> [facility] NAME: PARAM BOSWELL Radiology Department PHYS: Michelle Alicea MD [address] : 2000 AGE: 18 SEX: F [place], [place] [address] LOC: F.031 A PHONE #: [phone] EXAM DATE: 10/12/2018 STATUS: ADM IN FAX #: [phone] RAD NO: Page 2 Signed ReportDRUGS OF ABUSE [id number] 00:56:00 Test Item Value Reference Range Interpretation [...] PHENCU) 25 ng/m L AG HEPATITIS B [id number] 23:17:00 Test Item Value Reference Range Interpretation Comments AG HEPATITIS B SURFACE (test code NONREACTIVE NONREACTIVE = HBSAG) AB HEPATITIS C [id number] 23:17:00 Test Item Value Reference Range Interpretation Comments AB HEPATITIS C (test code = NONREACTIVE NONREACTIVE HCVAB) SIGNAL TO CUTOFF (test code = <0.02 <0.80 N CUTOFF) AB [id number] 23:17:00 Test Item Value Reference Range Interpretation Comments AB TREPONEMA (test code = TREPAB) NONREACTIVE NONREACTIVE AG HEPATITIS B [id number] 22:51:00 Test Item Value Reference Range Interpretation Comments AG HEPATITIS B SURFACE (test code NONREACTIVE NONREACTIVE = HBSAG) AB HEPATITIS C [id number] 22:51:00 Test Item Value Reference Range Interpretation Comments AB HEPATITIS C (test code = HCVAB) NONREACTIVE SIGNAL TO CUTOFF (test code = CUTOFF) <0.80 AB [id number] 22:51:00 Test Item Value Reference Range Interpretation Comments AB TREPONEMA (test code = TREPAB) NONREACTIVE NONREACTIVE COMPREHENSIVE METABOLIC [id number] 22:33:00 Test Item Value Reference Range Interpretation [...] units/L 46-116 N code = ALKP) BILIRUBIN [id number] 22:33:00 Test Item Value Reference Range Interpretation Comments BILIRUBIN DIRECT (test code = <0.1 mg/dL <0.2 N BILD) CBC W/AUTO [id number] 22:17:00 Test Item Value Reference Range Interpretation [...]
[2021-04-20 09:08] LABS: SARS-COV-2 RT PCR NEGATIVE (NEGATIVE)
--- NOTE | 2021-04-20 09:12 | EDPHYS ---
Physician Documentation [facility] Name: Tyra Fowler Age: 21 yrs Sex: Female : 2000 Arrival Date: 04/20/2021 Time: 07:22 Bed Waiting Private MD: Angus Howard ED Physician Otoniel Henry HPI: 04/20 07:55 This 21 yrs old Female presents to ER via Ambulatory with complaints of Congestion, pm1 Sore Throat, Sneezing. 07:55 The patient presents with sore throat. The patient describes throat pain as raw, pm1 scratchy. Onset: The symptoms/episode began/occurred 3 day(s) ago. Severity of symptoms: in the emergency department the symptoms are unchanged. Modifying factors: The symptoms are alleviated by nothing, the symptoms are aggravated by swallowing, Patient's oral intake status: good. Associated signs and symptoms: Pertinent positives: cough, sinus pressure and nasal congestion, Pertinent negatives chest pain, fever, shortness of breath. The patient has not recently seen a physician. 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 - Social history:: Smoking status: Patient denies any tobacco usage or history of. ROS: 07:55 Constitutional: Negative for fever, chills, and weight loss, Cardiovascular: Negative pm1 for chest pain, palpitations, and edema. 07:55 Abdomen/GI: Negative for abdominal pain, nausea, vomiting, diarrhea, and constipation. 07:55 MS/Extremity: Negative for injury and deformity, Skin: Negative for injury, rash, and discoloration, Neuro: Negative for headache, weakness, numbness, tingling, and seizure. 07:55 ENT: Positive for nasal discharge, sinus congestion, sore throat. 07:55 Respiratory: Positive for cough, Negative for shortness of breath. 07:55 All other systems are negative. Exam: 07:55 Constitutional: This is a well developed, well nourished patient who is awake, alert, pm1 and in no acute distress. 07:55 Back: No spinal tenderness. No costovertebral tenderness. Full range of motion. Skin: Warm, dry with normal turgor. Normal color with no rashes, no lesions, and no evidence of cellulitis. MS/ Extremity: Pulses equal, no cyanosis. Neurovascular intact. Full, normal range of motion. 07:55 Head/face: Sinus tenderness, that is mild, is located over the right frontal sinus and right maxillary sinus. 07:55 ENT: External ear(s): no acute changes, Ear canal(s): no acute changes, TM's: no acute changes, Posterior pharynx: Airway: no evidence of obstruction, Tonsils: bilaterally enlarged, with erythema, no exudate, no ulcerations, Uvula: midline, non-edematous, erythema, that is mild, peritonsillar mass, is not appreciated. 07:55 Respiratory: Exam negative for acute changes, the patient does not display signs of respiratory distress, Respirations: normal, Breath sounds: are clear throughout. 07:55 Neuro: Exam negative for acute changes, Orientation: is normal, Mentation: is normal, Motor: is normal, moves all fours. Vital Signs: 07:46 BP 119 / 91; Pulse 87; Resp 17; Temp 96.9; Pulse Ox 99% on R/A; Weight 72.12 kg; Height jl7 5 ft. 4 in. (162.56 cm); Pain 6/10; 07:46 Body Mass Index 27.29 (72.12 kg, 162.56 cm) jl7 MDM: 07:52 Patient medically screened. pm1 09:11 Data reviewed: vital signs. Data interpreted: Pulse oximetry: on room air is 99 %. pm1 Interpretation: normal. Counseling: I had a detailed discussion with the patient and/or guardian regarding: the historical points, exam findings, and any diagnostic results supporting the discharge/admit diagnosis, lab results, the need for outpatient follow up, to return to the emergency department if symptoms worsen or persist or if there are any questions or concerns that arise at home. 04/20 07:54 Order name: Strep; Complete Time: 09:05 pm1 04/20 07:54 Order name: COVID-19/FLU A+B (Document "Date of Onset" if Symptomatic); Complete Time: pm1 09:09 04/20 09:01 Order name: Throat Culture EDMS Administered Medications: No medications were administered Disposition: 13:27 Co-signature as Attending Physician, Otoniel Henry MD I agree with the assessment and kdr plan of care. Disposition Summary: 04/20/21 09:11 Discharge Ordered Location: Home pm1 Problem: new pm1 Symptoms: have improved pm1 Condition: Stable pm1 Diagnosis - Acute pharyngitis, unspecified pm1 Followup: pm1 - With: Emergency Department - When: As needed - Reason: Worsening of condition Followup: pm1 - With: Private Physician - When: 2 - 3 days - Reason: Recheck today's complaints, Continuance of care, Re-evaluation by your physician Discharge Instructions: - Discharge Summary Sheet pm1 - Pharyngitis pm1 Forms: - Medication Reconciliation Form pm1 - Thank You Letter pm1 - Antibiotic Education pm1 - Prescription Opioid Use pm1 Prescriptions: - Bromfed DM 2-30-10 mg/5 mL Oral syrup - take 10 milliliter by ORAL route every 4 hours As needed; 240 milliliter; pm1 Refills: 0, Product Selection Permitted Signatures: Dispatcher [employer] EDMS Otoniel Henry MD MD [facility] Margarito Laboy NP ASL INTERPRETER pm1 Lewis Domingo, RN RN jl7
--- NOTE | 2021-04-20 09:12 | ER ---
Nurse's Notes [facility] Name: Tyra Fowler Age: 21 yrs Sex: Female : 2000 Arrival Date: 04/20/2021 Time: 07:22 Bed Waiting Private MD: Angus Howard Diagnosis: Acute pharyngitis, unspecified Presentation: 04/20 07:46 Chief complaint: Patient states: Cough, congestion, sore throat, TRUONG x 3 days, denies jl7 fever. Coronavirus screen: congestion, cough unrelated to allergies, sore throat, Client presents with at least one sign or symptom that may indicate coronavirus-19. Standard/surgical mask placed on the client. Provider contacted for isolation considerations. Ebola Screen: No symptoms or risks identified at this time. Initial Sepsis Screen: Does the patient meet any 2 criteria? No. Patient's initial sepsis screen is negative. Does the patient have a suspected source of infection? No. Patient's initial sepsis screen is negative. Risk Assessment: Do you want to hurt yourself or someone else? Patient reports no desire to harm self or others. Onset of symptoms was April 17, 2021. 07:46 Method Of Arrival: Ambulatory jl7 07:46 Acuity: RANJIT 4 jl7 Triage Assessment: 07:49 General: Appears in no apparent distress. uncomfortable, Behavior is calm, cooperative, jl7 appropriate for age. Pain: Complains of pain in TRUONG, sore throat Pain currently is 6 out of 10 on a pain scale. EENT: Oral mucosa is moist. Throat is clear has enlarged tonsils bilaterally. Cardiovascular: Patient's skin is warm and dry. Respiratory: Airway is patent Respiratory effort is even, unlabored, Respiratory pattern is regular, symmetrical, Breath sounds are clear Denies shortness of breath. Derm: Skin is pink, warm \T\ dry. 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 - Social history:: Smoking status: Patient denies any tobacco usage or history of. Screenin:50 Abuse screen: Denies threats or abuse. Denies injuries from another. Nutritional jl7 screening: No deficits noted. Tuberculosis screening: No symptoms or risk factors identified. Fall Risk None identified. Assessment: 07:50 Reassessment: HAL Pimentel in triage assessing pt. jl7 07:50 Cardiovascular: Rhythm is regular. Respiratory: Airway is patent Respiratory effort is jl7 even, unlabored, Respiratory pattern is regular, symmetrical. Vital Signs: 07:46 BP 119 / 91; Pulse 87; Resp 17; Temp 96.9; Pulse Ox 99% on R/A; Weight 72.12 kg; Height jl7 5 ft. 4 in. (162.56 cm); Pain 6/10; 07:46 Body Mass Index 27.29 (72.12 kg, 162.56 cm) jl7 ED Course: 07:22 Patient arrived in ED. as 07:23 Angus Howard is Private Physician. as 07:46 Otoniel Henry MD is Attending Physician. kdr 07:46 Margarito Laboy [facility]. pm1 07:49 Triage completed. jl7 07:49 Arm band placed on right wrist. jl7 07:50 Patient has correct armband on for positive identification. jl7 07:50 COVID swab sent to lab. Flu and/or RSV swab sent to lab. Strep swab sent to lab. jl7 07:57 Patient placed in waiting room, Patient notified of wait time. jl7 09:36 No provider procedures requiring assistance completed. Patient did not have IV access jl7 during this emergency room visit. Administered Medications: No medications were administered Outcome: 09:11 Discharge ordered by . pm1 09:36 Discharged to home ambulatory. jl7 09:36 Condition: stable 09:36 Discharge instructions given to patient, Instructed on discharge instructions, follow up and referral plans. medication usage, Demonstrated understanding of instructions, follow-up care, medications, Prescriptions given X 1. 09:36 Patient left the ED. jl7 Signatures: Otoniel Henry MD MD kdr Martinez, Amelia as Margarito Laboy NP [employer]FE OR RESTAURANT MANAGER pm1 Lewis Domingo RN RN jl7
[2021-04-20 09:47] VITALS: BP 119/91; TEMP 96.9; O2SAT 99
== END 2021-04-20 09:36 | disposition home or self-care (01) ==
LOC: ER 07:20
DX: J02.9 Acute pharyngitis, unspecified (principal); R05.9 Cough, unspecified; Z20.822 Contact with and (suspected) exposure to COVID-19; Z88.0 Allergy status to penicillin; Z88.3 Allergy status to other anti-infective agents; Z88.8 Allergy status to other drugs, medicaments and biological substances; Z91.018 Allergy to other foods
CPT/HCPCS: 0240U; 87070; 87081; 99283

== ENCOUNTER 2021-06-20 07:23 | Emergency (ER) | payer OTHER ==
--- OUTSIDE RECORDS SUMMARY | 2021-06-20 07:27 | XMS REPORT | Continuity of Care Document ---
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 EXAMS: CPT CODE: [id number] US FET BIO PH PA W/O NST 20966 <Continued> [facility] NAME: PARAM BOSWELL Radiology Department PHYS: Michelle Alicea MD [address] : 2000 AGE: 18 SEX: F [place], [place] [address] LOC: Jean MarieNESSA PHONE #: [phone] EXAM DATE: 11/10/2018 STATUS: REG ER FAX #: [phone] RAD NO: Page 3 Signed ReportURINALYSIS COMPLETE [...] 4+ NONE SEEN URINE SAMPLE: CLEAN CATCHURINALYSIS [id number] 12:15:00 Test Item Value Reference Range Interpretation [...] NONE SEEN URINE SAMPLE: CLEAN CATCHCOMPREHENSIVE METABOLIC [id number] 11:47:00 Test Item Value Reference Range Interpretation [...] units/L 46-116 N code = ALKP) BILIRUBIN [id number] 11:47:00 Test Item Value Reference Range Interpretation Comments BILIRUBIN DIRECT (test code = <0.1 mg/dL <0.2 N BILD) [id number] 11:47:00 Test Item Value Reference Range Interpretation Comments AMYLASE (test code = KADEN) 35 units/L 30-110 N [id number] 11:47:00 Test Item Value Reference Range Interpretation Comments LIPASE (test code = LIP) 128 units/L 73-393 N - US ABDOMEN [id number] 10:42:00 Patient Name: PARAM BOSWELL Unit No: [id number] EXAMS: CPT CODE: [id number] US ABDOMEN COMPLETE 51379 ABDOMEN ULTRASOUND COMPLETE 10/12/2018: COMPARISON: None CLINICAL [...] Grace Rodrigues RDMS, RVT Probe: Trnscrbd D/ (2372) [id number] Orig Print D/T: S: 10/12/2018 (6883) [facility] NAME: THEA BOSWELLANI FOSTER Radiology Department PHYS:Michelle Alicea MD [address] : 2000 AGE: 18 SEX: F [place] [address] LOC: F.Jenn A PHONE #: [phone] EXAM DATE: 10/12/2018 STATUS: ADM IN FAX #: [phone] RAD NO: Page 1 Signed Report Patient Name: PARAM BOSWELL Unit No: [id number] EXAMS: CPT CODE: [id number] US ABDOMEN COMPLETE 13202 <Continued> [facility] NAME: ELBERTPARAM FOSTER Radiology Department PHYS: Michelle Alicea MD [address] : 2000 AGE: 18 SEX: F [place], [place] [address] LOC: F.031 A PHONE #: [phone] EXAM DATE: 10/12/2018 STATUS: ADM IN FAX #: [phone] RAD NO: Page 2 Signed ReportDRUGS OF ABUSE [id number] 00:56:00 Test Item Value Reference Range Interpretation [...] PHENCU) 25 ng/m L AG HEPATITIS B [id number] 23:17:00 Test Item Value Reference Range Interpretation Comments AG HEPATITIS B SURFACE (test code NONREACTIVE NONREACTIVE = HBSAG) AB HEPATITIS C [id number] 23:17:00 Test Item Value Reference Range Interpretation Comments AB HEPATITIS C (test code = NONREACTIVE NONREACTIVE HCVAB) SIGNAL TO CUTOFF (test code = <0.02 <0.80 N CUTOFF) AB [id number] 23:17:00 Test Item Value Reference Range Interpretation Comments AB TREPONEMA (test code = TREPAB) NONREACTIVE NONREACTIVE AG HEPATITIS B [id number] 22:51:00 Test Item Value Reference Range Interpretation Comments AG HEPATITIS B SURFACE (test code NONREACTIVE NONREACTIVE = HBSAG) AB HEPATITIS C [id number] 22:51:00 Test Item Value Reference Range Interpretation Comments AB HEPATITIS C (test code = HCVAB) NONREACTIVE SIGNAL TO CUTOFF (test code = CUTOFF) <0.80 AB [id number] 22:51:00 Test Item Value Reference Range Interpretation Comments AB TREPONEMA (test code = TREPAB) NONREACTIVE NONREACTIVE COMPREHENSIVE METABOLIC [id number] 22:33:00 Test Item Value Reference Range Interpretation [...] units/L 46-116 N code = ALKP) BILIRUBIN [id number] 22:33:00 Test Item Value Reference Range Interpretation Comments BILIRUBIN DIRECT (test code = <0.1 mg/dL <0.2 N BILD) CBC W/AUTO [id number] 22:17:00 Test Item Value Reference Range Interpretation [...]
[2021-06-20 08:03] LABS: Absolute Lymphocytes (CBC) 0.6 K/uL (0.7-4.9); Hematocrit 37.1 % (36.0-45.0); Lymphocytes % 10.5 % (15.3-44.8); MPV 6.8 fL (7.6-11.3); RBC Red Blood Cell Count 4.29 M/uL (3.86-4.86)
[2021-06-20] MEDS ORDERED: ONDANSETRON 4 MG/2 ML VIAL ONE (08:05)
[2021-06-20] MEDS ORDERED: FAMOTIDINE 20 MG/2 ML VIAL IV ONE (08:06)
[2021-06-20] MEDS ORDERED: NA CHLORIDE 0.9% 1,000 ML ONE (08:06)
[2021-06-20 08:21] LABS: Albumin 4.4 g/dL (3.4-5.0); Bilirubin Total 0.4 mg/dL (0.2-1.0); Potassium 3.6 mmol/L (3.5-5.1); Protein, Total 8.2 g/dL (6.4-8.2)
[2021-06-20 08:42] LABS: Urine Blood Negative (Negative); Urine Glucose Negative (Negative); Urine Protein Trace (Negative); Urine Specific Gravity 1.025 (1.005-1.030)
--- NOTE | 2021-06-20 09:01 | RAD REPORT ---
EXAM DESCRIPTION: CTAbdomen Pelvis W Contrast - 06/20/2021 8:50 am CLINICAL HISTORY: Abdominal pain, acute, nonlocalized COMPARISON: Abdomen Pelvis W Contrast dated 01/31/2021bdomen Pelvis W Contrast dated 03/22/2021 TECHNIQUE: CT of the abdomen and pelvis was performed with contrast. All CT scans are performed using dose optimization technique as appropriate and may include automated exposure control or mA/KV adjustment according to patient size. FINDINGS: Lower chest: No acute abnormality. Liver: No acute abnormality or suspicious lesions. Biliary: No biliary ductal dilatation. Stomach: No significant focal abnormality. Duodenum: No significant focal abnormality. Pancreas: No significant abnormality. Spleen: Similar splenomegaly. Adrenal: No suspicious lesions. Kidney/ureter: No hydronephrosis. No renal calculi. Retroperitoneum: No retroperitoneal adenopathy. Vascular: No aneurysm. Bowel: No significant focal abnormality. Peritoneum: No ascites or free air. Bladder: Circumferential bladder wall thickening. Reproductive: No adnexal masses. Tampon. Bones: No acute fracture. Pars defects at L5. Other: Enlarged left inguinal lymph node measuring 11 millimeters. IMPRESSION: Circumferential bladder wall thickening and enhancement concerning for cystitis. Correla te with urinalysis. Nonspecific interval enlargement of a left inguinal lymph node. This may be reactive. Recommend clini justo follow-up Unchanged splenomegaly.
[2021-06-20] MEDS ORDERED: MORPHINE 4 MG/ML SYR ONE (09:06)
[2021-06-20 09:09] LABS: Urine Bacteria 20-50 /HPF (<20); Urine Mucus 2+ /HPF (NONE SEEN); Urine RBC <5 /HPF (NONE SEEN)
--- NOTE | 2021-06-20 09:13 | ER ---
Nurse's Notes [facility] Name: Tyra Fowler Age: 21 yrs Sex: Female : 2000 Arrival Date: 06/20/2021 Time: 07:25 Bed 13 Private MD: Angus Howard Diagnosis: Acute cystitis Presentation: 06/20 07:31 Chief complaint: Patient states: pain in legs and lower abd and whole body in pain, iw stuffy nose, headache , nauseated, fever at home, started 2 weeks ago. Coronavirus screen: Client presents with at least one sign or symptom that may indicate coronavirus-19. Ebola Screen: Patient negative for fever greater than or equal to 101.5 degrees Fahrenheit, and additional compatible Ebola Virus Disease symptoms Patient denies exposure to infectious person. Patient denies travel to an Ebola-affected area in the 21 days before illness onset. No symptoms or risks identified at this time. Initial Sepsis Screen: Does the patient meet any 2 criteria? No. Patient's initial sepsis screen is negative. Does the patient have a suspected source of infection? No. Patient's initial sepsis screen is negative. Risk Assessment: Do you want to hurt yourself or someone else? Patient reports no desire to harm self or others. Onset of symptoms was June 07, 2021. 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 - Social history:: Smoking status: Patient denies any tobacco usage or history of. - Family history:: not pertinent. Screenin:22 Abuse screen: Denies threats or abuse. Nutritional screening: No deficits noted. jd3 Tuberculosis screening: No symptoms or risk factors identified. Fall Risk Ambulatory Aid- None/Bed Rest/Nurse Assist (0 pts). Gait- Normal/Bed Rest/Wheelchair (0 pts) Mental Status- Oriented to own ability (0 pts). Total Cardozo Fall Scale indicates No Risk (0-24 pts). Assessment: 08:21 General: Appears in no apparent distress. uncomfortable, Behavior is calm, cooperative, jd3 appropriate for age. Pain: Complains of pain in abdomen Quality of pain is described as crampy, pressure. Neuro: Espino Agitation-Sedation Scale (RASS): 0 - Alert and Calm Level of Consciousness is awake, alert, obeys commands, Oriented to person, place, time, situation. Cardiovascular: Denies chest pain, Capillary refill < 3 seconds Patient's skin is warm and dry. Respiratory: Airway is patent Respiratory effort is even, unlabored, Respiratory pattern is regular, symmetrical, Denies cough, shortness of breath. GI: Abdomen is non-distended, Abd is soft X 4 quads Abdomen is tender to palpation X 4 quads. Reports lower abdominal pain, upper abdominal pain, nausea. : No signs and/or symptoms were reported regarding the genitourinary system. EENT: No signs and/or symptoms were reported regarding the EENT system. Derm: No signs and/or symptoms reported regarding the dermatologic system. Musculoskeletal: Circulation, motion, and sensation intact. Range of motion: intact in all extremities. 09:24 Reassessment: Patient appears in no apparent distress at this time. Patient and/or jd3 family updated on plan of care and expected duration. Pain level reassessed. Patient is alert, oriented x 3, equal unlabored respirations, skin warm/dry/pink. Patient states feeling better. Vital Signs: 07:31 BP 119 / 87; Pulse 118; Resp 18; Temp 99.3; Pulse Ox 100% on R/A; Weight 72.12 kg; iw Height 5 ft. 4 in. (162.56 cm); 09:25 BP 115 / 78; Pulse 110; Resp 18 S; Pulse Ox 100% on R/A; jd3 07:31 Body Mass Index 27.29 (72.12 kg, 162.56 cm) iw ED Course: 07:25 Patient arrived in ED. as 07:25 Angus Howard is Private Physician. as 07:33 Triage completed. iw 07:33 Arm band placed on Patient placed. iw 07:35 Ivon Mckeon MD is Attending Physician. ma2 07:39 Ranulfo Bella, RN is Primary Nurse. jd3 08:04 SARS-COV-2 RT PCR (Document "Date of Onset" if Symptomatic) Sent. em1 08:16 Bed in low position. Call light in reach. Side rails up X 1. Door closed. Noise mb7 minimized. Warm blanket given. 08:21 Inserted saline lock: 22 gauge in left antecubital area, using aseptic technique. Blood jd3 collected. 08:52 CT Abd/Pelvis - IV Contrast Only In Process Unspecified. EDMS 09:25 No provider procedures requiring assistance completed. IV discontinued, intact, jd3 bleeding controlled, No redness/swelling at site. Pressure dressing applied. Administered Medications: 08:21 Drug: NS 0.9% 1000 ml Route: IV; Rate: 1 bolus; Site: left antecubital; jd3 09:27 Follow up: Response: No adverse reaction; IV Status: Completed infusion jd3 08:21 Drug: Pepcid (famotidine) 20 mg Route: IVP; Site: left antecubital; jd3 09:27 Follow up: Response: No adverse reaction jd3 08:21 Drug: Zofran (Ondansetron) 4 mg Route: IVP; Site: left antecubital; jd3 09:27 Follow up: Response: No adverse reaction jd3 09:00 Drug: morphine 4 mg Route: IVP; Site: left antecubital; jd3 09:27 Follow up: Response: No adverse reaction; RASS: Alert and Calm (0) jd3 Medication: 08:22 VIS not applicable for this client. jd3 Outcome: 09:12 Discharge ordered by . trevor 09:25 Discharged to home ambulatory, with friend. jd3 09:25 Condition: stable 09:25 Discharge instructions given to patient, friend, Instructed on discharge instructions, follow up and referral plans. medication usage, Demonstrated understanding of instructions, follow-up care, medications, Prescriptions given X 4. 09:27 Patient left the ED. jd3 Signatures: Dispatcher [employer] Aneta Santos Irene, RN Javy Cano em1 Ranulfo Bella RN RN jd3 Alzahri, Mohammad, MD MD ma2 Breneman, Mary 7
--- NOTE | 2021-06-20 09:13 | EDPHYS ---
Physician Documentation [facility] Name: Tyra Fowler Age: 21 yrs Sex: Female : 2000 Arrival Date: 06/20/2021 Time: 07:25 Bed 13 Private MD: Angus Howard ED Physician Ivon Mckeon HPI: 06/20 07:43 This 21 yrs old Female presents to ER via Ambulatory with complaints of Abdominal Pain, ma2 Leg Pain, Fever, Headache. 07:43 Onset: The symptoms/episode began/occurred gradually, 1 day(s) ago. Associated signs ma2 and symptoms: Pertinent negatives fever, swelling, vomiting, warmth. Severity of symptoms: At their worst the symptoms were mild, in the emergency department the symptoms are unchanged. [employer]: 07:33 LMP 06/2021 iw Historical: - Allergies: 07:33 Azithromycin; iw 07:33 HISTAMINE H2 INHIBITORS; iw 07:33 kiwi; iw 07:33 PENICILLINS; iw 07:33 Vancomycin; iw - PMHx: 07:33 Anxiety; Asthma; Depression; PTSD; iw - PSHx: 07:33 foot, cyst ovary removed; iw - Immunization history:: Client reports having NOT received the Covid vaccine. - Social history:: Smoking status: Patient denies any tobacco usage or history of. - Family history:: not pertinent. ROS: 07:43 Constitutional: Negative for fever, chills, and weight loss, MS/Extremity: Negative for ma2 injury and deformity. 07:43 All other systems are negative. Exam: 07:43 Constitutional: This is a well developed, well nourished patient who is awake, alert, ma2 and in no acute distress. Head/Face: Normocephalic, atraumatic. Eyes: Pupils equal round and reactive to light, extra-ocular motions intact. Lids and lashes normal. Conjunctiva and sclera are non-icteric and not injected. Cornea within normal limits. Periorbital areas with no swelling, redness, or edema. ENT: Nares patent. No nasal discharge, no septal abnormalities noted. Tympanic membranes are normal and external auditory canals are clear. Oropharynx with no redness, swelling, or masses, exudates, or evidence of obstruction, uvula midline. Mucous membranes moist. Neck: Trachea midline, no thyromegaly or masses palpated, and no cervical lymphadenopathy. Supple, full range of motion without nuchal rigidity, or vertebral point tenderness. No Meningismus. Chest/axilla: Normal chest wall appearance and motion. Nontender with no deformity. No lesions are appreciated. Cardiovascular: Regular rate and rhythm with a normal S1 and S2. No gallops, murmurs, or rubs. Normal PMI, no JVD. No pulse deficits. Respiratory: Lungs have equal breath sounds bilaterally, clear to auscultation and percussion. No rales, rhonchi or wheezes noted. No increased work of breathing, no retractions or nasal flaring. Abdomen/GI: Soft, non-tender, with normal bowel sounds. No distension or tympany. No guarding or rebound. No evidence of tenderness throughout. Skin: Warm, dry with normal turgor. Normal color with no rashes, no lesions, and no evidence of cellulitis. MS/ Extremity: Pulses equal, no cyanosis. Neurovascular intact. Full, normal range of motion. Neuro: Awake and alert, GCS 15, oriented to person, place, time, and situation. Cranial nerves II-XII grossly intact. Motor strength 5/5 in all extremities. Sensory grossly intact. Cerebellar exam normal. Normal gait. Vital Signs: 07:31 BP 119 / 87; Pulse 118; Resp 18; Temp 99.3; Pulse Ox 100% on R/A; Weight 72.12 kg; iw Height 5 ft. 4 in. (162.56 cm); 09:25 BP 115 / 78; Pulse 110; Resp 18 S; Pulse Ox 100% on R/A; jd3 07:31 Body Mass Index 27.29 (72.12 kg, 162.56 cm) iw MDM: 07:35 Patient medically screened. ma2 07:44 Differential diagnosis: dislocation, contusion, abrasion, tendonitis, Patient diagnosis ma2 includes gastritis gastroenteritis irritable bowel syndrome versus constipation. Data reviewed: vital signs, nurses notes, EMS record. 09:11 Response to treatment: the patient's symptoms have mildly improved after treatment. nc2 06/20 07:42 Order name: CBC with Diff; Complete Time: 08:46 [facility] 06/20 07:42 Order name: CMP; Complete Time: 08:46 [facility] 06/20 07:42 Order name: Lipase; Complete Time: 08:46 ma2 06/20 07:42 Order name: Urine Microscopic Only; Complete Time: 09:11 nc2 06/20 07:42 Order name: SARS-COV-2 RT PCR (Document "Date of Onset" if Symptomatic); Complete Time: ma2 09:11 06/20 08:42 Order name: Urine --Ancillary (enter results) eb 06/20 07:42 Order name: CT Abd/Pelvis - IV Contrast Only; Complete Time: 09:11 nc2 06/20 07:42 Order name: IV Saline Lock; Complete Time: 07:59 ma2 06/20 08:42 Order name: Urine Dipstick-Ancillary; Complete Time: 08:46 EDMS 06/20 09:12 Order name: Urine Culture [facility] 06/20 07:42 Order name: Labs collected and sent; Complete Time: 07:59 nc2 06/20 07:42 Order name: Urine Test (obtain specimen); Complete Time: 08:43 ma2 Administered Medications: 08:21 Drug: NS 0.9% 1000 ml Route: IV; Rate: 1 bolus; Site: left antecubital; jd3 09:27 Follow up: Response: No adverse reaction; IV Status: Completed infusion jd3 08:21 Drug: Pepcid (famotidine) 20 mg Route: IVP; Site: left antecubital; jd3 09:27 Follow up: Response: No adverse reaction jd3 08:21 Drug: Zofran (Ondansetron) 4 mg Route: IVP; Site: left antecubital; jd3 09:27 Follow up: Response: No adverse reaction jd3 09:00 Drug: morphine 4 mg Route: IVP; Site: left antecubital; jd3 09:27 Follow up: Response: No adverse reaction; RASS: Alert and Calm (0) jd3 Disposition Summary: 06/20/21 09:12 Discharge Ordered Location: Home ma2 Condition: Stable ma2 Diagnosis - Acute cystitis ma2 Followup: ma2 - With: Private Physician - When: Tomorrow - Reason: If symptoms return, Continuance of care Discharge Instructions: - Discharge Summary Sheet ma2 - Urinary Tract Infection, Adult, [id number] ma2 Forms: - Work release form jd3 - Medication Reconciliation Form ma2 - Thank You Letter ma2 - Antibiotic Education ma2 - Prescription Opioid Use ma2 Prescriptions: - Zofran 4 mg Oral Tablet - take 1 tablet by ORAL route every 12 hours As needed; 20 tablet; Refills: 0, ma2 Product Selection Permitted - Diclofenac Sodium 75 mg Oral Tablet Sustained Release - take 1 tablet by ORAL route 2 times per day; 30 tablet; Refills: 0, Product ma2 Selection Permitted - cefpodoxime 200 mg Oral Tablet - take 1 tablet by ORAL route every 12 hours with food; 20 tablet; Refills: 0, ma2 Product Selection Permitted - Pepcid 20 mg Oral Tablet - take 1 tablet by ORAL route once daily for 10 days; 10 tablet; Refills: 0, ma2 Product Selection Permitted Signatures: Dispatcher [employer] Marci Taylor RN RN iw Davies, Jonathon, RN RN jd3 Alzahri, Mohammad, MD MD nc2
[2021-06-20 09:54] LABS: Urine Specific Gravity/Preg 1.025 (1.005-1.030)
[2021-06-20 18:22] VITALS: TEMP 99.3; O2SAT 100
[2021-06-20 18:24] VITALS: BP 115/78
== END 2021-06-20 09:27 | disposition home or self-care (01) ==
LOC: ER 07:23
DX: N30.00 Acute cystitis without hematuria (principal); Z88.0 Allergy status to penicillin; Z88.1 Allergy status to other antibiotic agents; Z88.8 Allergy status to other drugs, medicaments and biological substances; Z91.018 Allergy to other foods; Z20.822 Contact with and (suspected) exposure to COVID-19
CPT/HCPCS: 96361; 87088; 85025; 87086; 36415; 81025; 87077; 87186; 83690; 80053; 74177; 96375; 96374; 99284; U0003; Q9967; J7030; J2405; J3490; 81003; 81015

== ENCOUNTER 2021-06-22 07:04 | Emergency (ER) | payer OTHER ==
--- OUTSIDE RECORDS SUMMARY | 2021-06-22 07:09 | XMS REPORT | Continuity of Care Document ---
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 Department PHYS:Michelle Alicea MD [address] : 2000 AGE: 18 SEX: F [place] [address] LOC: F.Jenn A PHONE #: [phone] EXAM DATE: 10/12/2018 STATUS: ADM IN FAX #: [phone] RAD NO: Page 1 Signed Report Patient Name: PARAM BOSWELL Unit No: [id number] EXAMS: CPT CODE: [id number] US ABDOMEN COMPLETE 84760 <Continued> [facility] NAME: ELBERTPARAM FOSTER Radiology Department PHYS: Michelle Alicea MD [address] : 2000 AGE: 18 SEX: F [place], [place] [address] LOC: F.031 A PHONE #: [phone] EXAM DATE: 10/12/2018 STATUS: ADM IN FAX #: [phone] RAD NO: Page 2 Signed ReportDRUGS OF ABUSE [id number] 00:56:00 Test Item Value Reference Range Interpretation [...] PHENCU) 25 ng/m L AG HEPATITIS B [id number] 23:17:00 Test Item Value Reference Range Interpretation Comments AG HEPATITIS B SURFACE (test code NONREACTIVE NONREACTIVE = HBSAG) AB HEPATITIS C [id number] 23:17:00 Test Item Value Reference Range Interpretation Comments AB HEPATITIS C (test code = NONREACTIVE NONREACTIVE HCVAB) SIGNAL TO CUTOFF (test code = <0.02 <0.80 N CUTOFF) AB [id number] 23:17:00 Test Item Value Reference Range Interpretation Comments AB TREPONEMA (test code = TREPAB) NONREACTIVE NONREACTIVE AG HEPATITIS B [id number] 22:51:00 Test Item Value Reference Range Interpretation Comments AG HEPATITIS B SURFACE (test code NONREACTIVE NONREACTIVE = HBSAG) AB HEPATITIS C [id number] 22:51:00 Test Item Value Reference Range Interpretation Comments AB HEPATITIS C (test code = HCVAB) NONREACTIVE SIGNAL TO CUTOFF (test code = CUTOFF) <0.80 AB [id number] 22:51:00 Test Item Value Reference Range Interpretation Comments AB TREPONEMA (test code = TREPAB) NONREACTIVE NONREACTIVE COMPREHENSIVE METABOLIC [id number] 22:33:00 Test Item Value Reference Range Interpretation [...] units/L 46-116 N code = ALKP) BILIRUBIN [id number] 22:33:00 Test Item Value Reference Range Interpretation Comments BILIRUBIN DIRECT (test code = <0.1 mg/dL <0.2 N BILD) CBC W/AUTO [id number] 22:17:00 Test Item Value Reference Range Interpretation [...]
[2021-06-22 08:05] LABS: Urine Blood 3+ (Negative); Urine Glucose Negative (Negative); Urine Protein 2+ (Negative); Urine Specific Gravity >=1.030 (1.005-1.030); Urine pH 5.5 (5.0-7.0)
[2021-06-22 08:29] LABS: Absolute Lymphocytes (CBC) 1.5 K/uL (0.7-4.9); Hematocrit 39.4 % (36.0-45.0); Lymphocytes % 29.2 % (15.3-44.8); MPV 7.8 fL (7.6-11.3); RBC Red Blood Cell Count 4.58 M/uL (3.86-4.86)
--- NOTE | 2021-06-22 08:34 | ER ---
Nurse's Notes [facility] Name: Tyra Fowler Age: 21 yrs Sex: Female : 2000 Arrival Date: 06/22/2021 Time: 07:07 Bed 6 Private MD: Diagnosis: UTI/ Urinary tract infection, site not specified;Abdominal tenderness;Other specified abnormal uterine and vaginal bleeding Presentation: 06/22 07:14 Chief complaint: Patient states: Vaginal bleeding started Tuesday. Was seen here ll1 Tuesday, diagnosed with bad UTI. States she was only able to fill the Pepcid and zofran, unable to fill antibiotics. Coronavirus screen: Vaccine status: Patient reports being unvaccinated. Client denies travel out of the [place] in the last 14 days. At this time, the client does not indicate any symptoms associated with coronavirus-19. Ebola Screen: Patient denies travel to an Ebola-affected area in the 21 days before illness onset. Initial Sepsis Screen: Does the patient meet any 2 criteria? No. Patient's initial sepsis screen is negative. Does the patient have a suspected source of infection? No. Patient's initial sepsis screen is negative. Risk Assessment: Do you want to hurt yourself or someone else? Patient reports no desire to harm self or others. Onset of symptoms was June 20, 2021. 07:14 Method Of Arrival: Ambulatory [facility] 07:14 Acuity: RANJIT 3 ll1 Triage Assessment: 07:17 General: Appears uncomfortable, Behavior is cooperative, appropriate for age. Pain: ll1 Complains of pain in abdomen Quality of pain is described as aching. Neuro: No deficits noted. Cardiovascular: No deficits noted. GI: Reports lower abdominal pain, upper abdominal pain, bloating. : Reports burning with urination. Historical: - Allergies: 07:13 Azithromycin; ll1 07:13 HISTAMINE H2 INHIBITORS; ll1 07:13 kiwi; ll1 07:13 PENICILLINS; ll1 07:13 Vancomycin; ll1 07:12 Azithromycin; ph 07:12 HISTAMINE H2 INHIBITORS; ph 07:12 kiwi; ph 07:12 PENICILLINS; ph 07:12 Vancomycin; ph - PMHx: 07:13 Anxiety; Asthma; Depression; PTSD; ll1 07:12 Anxiety; Asthma; Depression; PTSD; ph - PSHx: 07:13 foot, cyst ovary removed; ll1 07:12 foot, cyst ovary removed; ph - Immunization history:: Client reports having NOT received the Covid vaccine. - Social history:: Smoking status: Patient denies any tobacco usage or history of. Screenin:00 Abuse screen: Denies threats or abuse. Denies injuries from another. Nutritional ph screening: No deficits noted. Tuberculosis screening: No symptoms or risk factors identified. Fall Risk None identified. Assessment: 08:00 General: Appears in no apparent distress. Behavior is calm, cooperative, appropriate ph for age. Pain: Complains of pain in abdomen. Neuro: Level of Consciousness is awake, alert, obeys commands, Oriented to person, place, time, situation. Cardiovascular: Capillary refill < 3 seconds in bilateral fingers Patient's skin is warm and dry. Respiratory: Airway is patent Respiratory effort is even, unlabored. : Reports pain in suprapubic area with urination, urinary frequency, vaginal itching, vaginal bleeding that is. Derm: Skin is intact, is healthy with good turgor, Skin is pink, warm \T\ dry. Musculoskeletal: Circulation, motion, and sensation intact. Range of motion: intact in all extremities. 09:00 Reassessment: Patient appears in no apparent distress at this time. Patient and/or ph family updated on plan of care and expected duration. Pain level reassessed. Patient is alert, oriented x 3, equal unlabored respirations, skin warm/dry/pink. Vital Signs: 07:14 BP 118 / 76; Pulse 87; Resp 17; Temp 98.0; Pulse Ox 96% on R/A; Weight 69.85 kg; Height ll1 5 ft. 9 in. (175.26 cm); Pain 8/10; 08:30 BP 122 / 78; Pulse 81; Resp 18; Pulse Ox 99% on R/A; ph 09:30 BP 113 / 76; Pulse 83; Resp 14; Temp 97.9; Pulse Ox 100% on R/A; ph 07:14 Body Mass Index 22.74 (69.85 kg, 175.26 cm) ll1 ED Course: 07:07 Patient arrived in ED. ds1 07:11 Sharon Foreman RN is Primary Nurse. ph 07:13 Arm band placed on Patient placed in an exam room, on a stretcher. ll1 07:17 Triage completed. ll1 07:25 Haile Sifuentes MD is Attending Physician. [facility] 07:47 Attending Physician role handed off by Haile Sifuentes MD [facility] 07:47 Armani Gale MD is Attending Physician. tamiko 08:00 Patient has correct armband on for positive identification. Bed in low position. Call ph light in reach. Side rails up X 1. 08:30 Inserted saline lock: 22 gauge in left antecubital area, using aseptic technique. ph 08:33 Bijan Rodas MD is Referral Physician. tamiko 10:15 No provider procedures requiring assistance completed. IV discontinued, intact, ph bleeding controlled, No redness/swelling at site. Pressure dressing applied. Administered Medications: 09:39 Drug: Rocephin (cefTRIAXone) 1 grams Route: IV; Rate: per protocol; Site: left ph antecubital; 10:00 Follow up: Response: No adverse reaction; IV Status: Completed infusion; IV Intake: 50mlph 09:39 Drug: Cipro (ciprofloxacin) 500 mg Route: PO; ph 10:00 Follow up: Response: No adverse reaction ph 09:40 Drug: Zofran (Ondansetron) 4 mg Route: IVP; Site: left antecubital; ph 10:00 Follow up: Response: No adverse reaction ph 09:40 Drug: Ketorolac 15 mg Route: IVP; Site: left antecubital; ph 10:00 Follow up: Response: No adverse reaction ph Medication: 08:00 VIS not applicable for this client. ph Intake: 10:00 IV: 50ml; Total: 50ml. ph Outcome: 08:33 Discharge ordered by . tamiko 10:17 Patient left the ED. ph 10:17 Discharged to home ambulatory. ph 10:17 Condition: good 10:17 Discharge instructions given to patient, Instructed on discharge instructions, follow up and referral plans. medication usage, Demonstrated understanding of instructions, follow-up care, medications, Prescriptions given X 4. Signatures: Armani Gale MD MD cha Sanford, Demi ds1 Sharon Foreman RN RN Susan Muhammad RN RN 1 Haile Sifuentes MD MD [facility]
--- NOTE | 2021-06-22 08:34 | EDPHYS ---
Physician Documentation [facility] Name: Tyra Fowler Age: 21 yrs Sex: Female : 2000 Arrival Date: 06/22/2021 Time: 07:07 Bed 6 Private MD: ED Physician Armani Gale HPI: 06/22 07:42 This 21 yrs old Female presents to ER via Ambulatory with complaints of Med Reaction- mh7 Bleeding. 07:42 The patient presents with vaginal bleeding that is heavy. Onset: The symptoms/episode mh7 began/occurred 2 day(s) ago. Modifying factors: The symptoms are alleviated by nothing, the symptoms are aggravated by nothing. Associated signs and symptoms: Pertinent negatives: constipation, cramping, diarrhea, dyspareunia, dysuria, fever, hematuria, nausea, urinary frequency, vaginal discharge, vomiting. Severity of symptoms: At their worst the symptoms were moderate, last night, in the emergency department the symptoms have improved, moderately. Historical: - Allergies: 07:13 Azithromycin; ll1 07:13 HISTAMINE H2 INHIBITORS; ll1 07:13 kiwi; ll1 07:13 PENICILLINS; ll1 07:13 Vancomycin; ll1 07:12 Azithromycin; ph 07:12 HISTAMINE H2 INHIBITORS; ph 07:12 kiwi; ph 07:12 PENICILLINS; ph 07:12 Vancomycin; ph - PMHx: 07:13 Anxiety; Asthma; Depression; PTSD; ll1 07:12 Anxiety; Asthma; Depression; PTSD; ph - PSHx: 07:13 foot, cyst ovary removed; ll1 07:12 foot, cyst ovary removed; ph - Immunization history:: Client reports having NOT received the Covid vaccine. - Social history:: Smoking status: Patient denies any tobacco usage or history of. ROS: 07:42 Constitutional: Negative for fever, chills, and weight loss, Eyes: Negative for injury, mh7 pain, redness, and discharge, ENT: Negative for injury, pain, and discharge, Neck: Negative for injury, pain, and swelling, Cardiovascular: Negative for chest pain, palpitations, and edema, Respiratory: Negative for shortness of breath, cough, wheezing, and pleuritic chest pain. 07:42 Back: Negative for injury and pain, MS/Extremity: Negative for injury and deformity, Skin: Negative for injury, rash, and discoloration, Neuro: Negative for headache, weakness, numbness, tingling, and seizure, Psych: Negative for depression, anxiety, suicide ideation, homicidal ideation, and hallucinations, Allergy/Immunology: Negative for hives, rash, and allergies, Endocrine: Negative for neck swelling, polydipsia, polyuria, polyphagia, and marked weight changes, Hematologic/Lymphatic: Negative for swollen nodes, abnormal bleeding, and unusual bruising. 07:42 Abdomen/GI: Positive for abdominal pain. Exam: 07:42 Constitutional: This is a well developed, well nourished patient who is awake, alert, mh7 and in no acute distress. Head/Face: Normocephalic, atraumatic. Eyes: Pupils equal round and reactive to light, extra-ocular motions intact. Lids and lashes normal. Conjunctiva and sclera are non-icteric and not injected. Cornea within normal limits. Periorbital areas with no swelling, redness, or edema. Neck: Trachea midline, no thyromegaly or masses palpated, and no cervical lymphadenopathy. Supple, full range of motion without nuchal rigidity, or vertebral point tenderness. No Meningismus. Chest/axilla: Normal chest wall appearance and motion. Nontender with no deformity. No lesions are appreciated. Cardiovascular: Regular rate and rhythm with a normal S1 and S2. No gallops, murmurs, or rubs. Normal PMI, no JVD. No pulse deficits. Respiratory: Lungs have equal breath sounds bilaterally, clear to auscultation and percussion. No rales, rhonchi or wheezes noted. No increased work of breathing, no retractions or nasal flaring. 07:42 Back: No spinal tenderness. No costovertebral tenderness. Full range of motion. Skin: Warm, dry with normal turgor. Normal color with no rashes, no lesions, and no evidence of cellulitis. MS/ Extremity: Pulses equal, no cyanosis. Neurovascular intact. Full, normal range of motion. Neuro: Awake and alert, GCS 15, oriented to person, place, time, and situation. Cranial nerves II-XII grossly intact. Motor strength 5/5 in all extremities. Sensory grossly intact. Cerebellar exam normal. Normal gait. Psych: Awake, alert, with orientation to person, place and time. Behavior, mood, and affect are within normal limits. 07:42 Abdomen/GI: Inspection: abdomen appears normal, Bowel sounds: normal, in all quadrants, Palpation: moderate abdominal tenderness, in the suprapubic area, right lower quadrant and left lower quadrant, mass, is not appreciated, rebound tenderness, is not appreciated, voluntary guarding, is not appreciated, involuntary guarding, is not appreciated, no appreciated organomegaly, Rectal exam: the exam is deferred, because of patient request, Indicators: McBurney's point is not tender, Gil's sign is negative, Rovsing's sign is negative, Obturator sign is negative, Psoas sign is negative, Liver: no appreciated palpable abnormalities, Hernia: not appreciated. Vital Signs: 07:14 BP 118 / 76; Pulse 87; Resp 17; Temp 98.0; Pulse Ox 96% on R/A; Weight 69.85 kg; Height ll1 5 ft. 9 in. (175.26 cm); Pain 8/10; 08:30 BP 122 / 78; Pulse 81; Resp 18; Pulse Ox 99% on R/A; ph 09:30 BP 113 / 76; Pulse 83; Resp 14; Temp 97.9; Pulse Ox 100% on R/A; ph 07:14 Body Mass Index 22.74 (69.85 kg, 175.26 cm) ll1 MDM: 07:48 Patient medically screened. tamiko 08:34 Differential diagnosis: nonspecific abdominal pain, urinary tract infection. Data tamiko reviewed: vital signs, nurses notes, lab test result(s), radiologic studies. Data interpreted: compliance monitor: not applicable for this patient encounter. rate is 87 beats/min, rhythm is regular, Pulse oximetry: on room air is 96 %. Test interpretation: by ED physician or midlevel provider:. Counseling: I had a detailed discussion with the patient and/or guardian regarding: the historical points, exam findings, and any diagnostic results supporting the discharge/admit diagnosis, lab results, radiology results, the need for outpatient follow up, for definitive care, an OB/Gyne specialist. 06/22 07:42 Order name: CBC with Diff; Complete Time: 08:32 mh7 06/22 08:05 Order name: Urine Dipstick-Ancillary; Complete Time: 08:19 EDMS 06/22 07:42 Order name: IV Saline Lock; Complete Time: 08:52 mh7 06/22 07:42 Order name: Labs collected and sent; Complete Time: 08:52 [facility] 06/22 07:42 Order name: NPO; Complete Time: 07:49 [facility] 06/22 07:42 Order name: Urine Dipstick-Ancillary (obtain specimen); Complete Time: 08:13 [facility] 06/22 07:42 Order name: Urine Test (obtain specimen); Complete Time: 08:13 [facility] Administered Medications: 09:39 Drug: Rocephin (cefTRIAXone) 1 grams Route: IV; Rate: per protocol; Site: left ph antecubital; 10:00 Follow up: Response: No adverse reaction; IV Status: Completed infusion; IV Intake: 50mlph 09:39 Drug: Cipro (ciprofloxacin) 500 mg Route: PO; ph 10:00 Follow up: Response: No adverse reaction ph 09:40 Drug: Zofran (Ondansetron) 4 mg Route: IVP; Site: left antecubital; ph 10:00 Follow up: Response: No adverse reaction ph 09:40 Drug: Ketorolac 15 mg Route: IVP; Site: left antecubital; ph 10:00 Follow up: Response: No adverse reaction ph Disposition Summary: 06/22/21 08:33 Discharge Ordered Location: Home tamiko Problem: new tamiko Symptoms: have improved tamiko Condition: Stable tamiko Diagnosis - UTI/ Urinary tract infection, site not specified tamiko - Abdominal tenderness tamiko - Other specified abnormal uterine and vaginal bleeding tamiko Followup: tamiko - With: Private Physician - When: 2 - 3 days - Reason: Recheck today's complaints, Continuance of care, Re-evaluation by your physician Followup: tamiko - With: Bijan Rodas MD - When: 2 - 3 days - Reason: Recheck today's complaints, Continuance of care, Re-evaluation by your physician Discharge Instructions: - Discharge Summary Sheet tamiko - Abdominal Pain, Adult tamiko - Abnormal Uterine Bleeding tamiko - Dysuria tamiko - Urinary Tract Infection, Adult tamiko - Urinary Tract Infection, Adult, Eekn-bb-[id number] tamiko - Abdominal Pain, Adult, [id number]-Azgv tamiko Forms: - Medication Reconciliation Form tamiko - Thank You Letter tamiko - Antibiotic Education tamiko - Prescription Opioid Use tamiko Prescriptions: - Cipro 250 mg Oral Tablet - take 1 tablet by ORAL route every 12 hours; 14 tablet; Refills: 0, Product tamiko Selection Permitted - Pyridium 200 mg Oral Tablet - take 1 tablet by ORAL route every 8 hours for 3 days; 9 tablet; Refills: 0, [facility] Product Selection Permitted - Diflucan 150 mg Oral Tablet - take 1 tablet by ORAL route one time for 1 day; 1 tablet; Refills: 0, Product tamiko Selection Permitted - Flagyl 500 mg Oral Tablet - take 1 tablet by ORAL route every 12 hours for 7 days; 14 tablet; Refills: 0, [facility] Product Selection Permitted Signatures: Dispatcher [employer] Armani Salinas MD MD cha Hall, Patricia, RN RN ph JbSusan RN RN ll1 Haile Sifuentes MD MD 7
[2021-06-22] MEDS ORDERED: KETOROLAC 30 MG/ML INJ ONE (09:21)
[2021-06-22] MEDS ORDERED: CEFTRIAXONE 1000 MG/VIAL ONE (09:21)
[2021-06-22] MEDS ORDERED: CIPROFLOXACIN HCL 500 MG TAB ONE (09:21)
[2021-06-22] MEDS ORDERED: ONDANSETRON 4 MG/2 ML VIAL ONE (09:21)
[2021-06-22] MEDS ORDERED: NA CHLORIDE 0.9% 50 ML ONE (09:21)
[2021-06-22 10:24] VITALS: BP 118/76; TEMP 98; O2SAT 96
== END 2021-06-22 10:17 | disposition home or self-care (01) ==
LOC: ER 07:04
DX: N39.0 Urinary tract infection, site not specified (principal); N93.9 Abnormal uterine and vaginal bleeding, unspecified; R10.819 Abdominal tenderness, unspecified site; Z88.0 Allergy status to penicillin; Z88.1 Allergy status to other antibiotic agents; Z88.3 Allergy status to other anti-infective agents; Z91.018 Allergy to other foods; F41.9 Anxiety disorder, unspecified; J45.909 Unspecified asthma, uncomplicated; F43.10 Post-traumatic stress disorder, unspecified
CPT/HCPCS: 96365; 85025; 81003; 96375; 99283; J2405

== ENCOUNTER 2021-06-26 07:13 | Emergency (ER) | payer BC, OTHER ==
--- OUTSIDE RECORDS SUMMARY | 2021-06-26 07:17 | XMS REPORT | Continuity of Care Document ---
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 [facility] NAME: THEA BOSWELLANI FOSTER Radiology Department PHYS:Michelle Alicea MD [address] : 2000 AGE: 18 SEX: F [place] [address] LOC: F.Jenn A PHONE #: [phone] EXAM DATE: 10/12/2018 STATUS: ADM IN FAX #: [phone] RAD NO: Page 1 Signed Report Patient Name: PARAM BOSWELL Unit No: [id number] EXAMS: CPT CODE: [id number] US ABDOMEN COMPLETE 77304 <Continued> [facility] NAME: ELBERTPARAM FOSTER Radiology Department PHYS: Michelle Alicea MD [address] : 2000 AGE: 18 SEX: F [place], [place] [address] LOC: F.031 A PHONE #: [phone] EXAM DATE: 10/12/2018 STATUS: ADM IN FAX #: [phone] RAD NO: Page 2 Signed ReportDRUGS OF ABUSE [id number] 00:56:00 Test Item Value Reference Range Interpretation [...] PHENCU) 25 ng/m L AG HEPATITIS B [id number] 23:17:00 Test Item Value Reference Range Interpretation Comments AG HEPATITIS B SURFACE (test code NONREACTIVE NONREACTIVE = HBSAG) AB HEPATITIS C [id number] 23:17:00 Test Item Value Reference Range Interpretation Comments AB HEPATITIS C (test code = NONREACTIVE NONREACTIVE HCVAB) SIGNAL TO CUTOFF (test code = <0.02 <0.80 N CUTOFF) AB [id number] 23:17:00 Test Item Value Reference Range Interpretation Comments AB TREPONEMA (test code = TREPAB) NONREACTIVE NONREACTIVE AG HEPATITIS B [id number] 22:51:00 Test Item Value Reference Range Interpretation Comments AG HEPATITIS B SURFACE (test code NONREACTIVE NONREACTIVE = HBSAG) AB HEPATITIS C [id number] 22:51:00 Test Item Value Reference Range Interpretation Comments AB HEPATITIS C (test code = HCVAB) NONREACTIVE SIGNAL TO CUTOFF (test code = CUTOFF) <0.80 AB [id number] 22:51:00 Test Item Value Reference Range Interpretation Comments AB TREPONEMA (test code = TREPAB) NONREACTIVE NONREACTIVE COMPREHENSIVE METABOLIC [id number] 22:33:00 Test Item Value Reference Range Interpretation [...] units/L 46-116 N code = ALKP) BILIRUBIN [id number] 22:33:00 Test Item Value Reference Range Interpretation Comments BILIRUBIN DIRECT (test code = <0.1 mg/dL <0.2 N BILD) CBC W/AUTO [id number] 22:17:00 Test Item Value Reference Range Interpretation [...]
[2021-06-26 07:57] LABS: Absolute Lymphocytes (CBC) 2.2 K/uL (0.7-4.9); Hematocrit 38.7 % (36.0-45.0); Lymphocytes % 28.6 % (15.3-44.8); MPV 7.5 fL (7.6-11.3)
[2021-06-26 08:13] LABS: Albumin 3.9 g/dL (3.4-5.0); Bilirubin Total 0.2 mg/dL (0.2-1.0); Potassium 3.9 mmol/L (3.5-5.1); Protein, Total 7.6 g/dL (6.4-8.2)
[2021-06-26] MEDS ORDERED: NA CHLORIDE 0.9% 1,000 ML ONE (09:43)
[2021-06-26 10:59] LABS: Urine Blood Trace-intact (Negative); Urine Glucose Trace (Negative); Urine Protein Negative (Negative); Urine Specific Gravity >=1.030 (1.005-1.030); Urine pH 5.5 (5.0-7.0)
[2021-06-26 11:34] LABS: Urine Bacteria >50 /HPF (<20); Urine Mucus LIGHT /HPF (NONE SEEN); Urine RBC <5 /HPF (NONE SEEN)
--- NOTE | 2021-06-26 12:26 | EDPHYS ---
Physician Documentation [facility] Name: Tyra Fowler Age: 21 yrs Sex: Female : 2000 Arrival Date: 06/26/2021 Time: 07:17 Bed 20 Private MD: ED Physician Ivon Mckeon HPI: 06/26 09:34 This 21 yrs old Female presents to ER via Ambulatory with complaints of Abdominal Pain, ma2 Dizziness. 09:34 1-year-old female with vaginal bleeding and discharge for 3 weeks, she states she is ma2 also been feeling lightheaded, no other symptom at this time, symptoms been chronic and unchanged for weeks, no dysuria. RAW MATERIAL PLANNER: 07:27 LMP 06/04/2021 ap3 Historical: - Allergies: 07:24 Azithromycin; ap3 07:24 HISTAMINE H2 INHIBITORS; ap3 07:24 kiwi; ap3 07:24 PENICILLINS; ap3 07:24 Vancomycin; ap3 - PMHx: 07:24 Anxiety; Asthma; Depression; PTSD; ap3 - PSHx: 07:24 foot, cyst ovary removed; ap3 - Immunization history:: Client reports having NOT received the Covid vaccine. Flu vaccine is not up to date. - Social history:: Smoking status: Patient denies any tobacco usage or history of. - Family history:: not pertinent. ROS: 09:34 Constitutional: Negative for fever, chills, and weight loss. ma2 09:34 All other systems are negative. Exam: 09:34 Constitutional: This is a well developed, well nourished patient who is awake, alert, ma2 and in no acute distress. Neck: Trachea midline, no thyromegaly or masses palpated, and no cervical lymphadenopathy. Supple, full range of motion without nuchal rigidity, or vertebral point tenderness. No Meningismus. Chest/axilla: Normal chest wall appearance and motion. Nontender with no deformity. No lesions are appreciated. Cardiovascular: Regular rate and rhythm with a normal S1 and S2. No gallops, murmurs, or rubs. Normal PMI, no JVD. No pulse deficits. Respiratory: Lungs have equal breath sounds bilaterally, clear to auscultation and percussion. No rales, rhonchi or wheezes noted. No increased work of breathing, no retractions or nasal flaring. Abdomen/GI: Soft, non-tender, with normal bowel sounds. No distension or tympany. No guarding or rebound. No evidence of tenderness throughout. Back: No spinal tenderness. No costovertebral tenderness. Full range of motion. Skin: Warm, dry with normal turgor. Normal color with no rashes, no lesions, and no evidence of cellulitis. MS/ Extremity: Pulses equal, no cyanosis. Neurovascular intact. Full, normal range of motion. Neuro: Awake and alert, GCS 15, oriented to person, place, time, and situation. Cranial nerves II-XII grossly intact. Motor strength 5/5 in all extremities. Sensory grossly intact. Cerebellar exam normal. Normal gait. Vital Signs: 07:21 BP 101 / 80; Pulse 83; Temp 98.3; Pulse Ox 100% ; Weight 63.5 kg; Height 5 ft. 4 in. ap3 (162.56 cm); 07:21 Body Mass Index 24.03 (63.50 kg, 162.56 cm) ap3 MDM: 09:34 Differential diagnosis: A, UTI versus dehydration versus electrolyte abnormalities. ma2 Vaginal bleeding patient to follow-up with equipment inspector for further evaluation. Data reviewed: vital signs, nurses notes. Counseling: I had a detailed discussion with the patient and/or guardian regarding: the historical points, exam findings, and any diagnostic results supporting the discharge/admit diagnosis, the presence of at least one elevated blood pressure reading (>120/80) during this emergency department visit, the need for outpatient follow up. Response to treatment: the patient's symptoms have markedly improved after treatment. 12:25 Patient medically screened. [facility] 06/26 07:21 Order name: CBC with Diff; Complete Time: 09: [facility] 06/26 07:21 Order name: CMP; Complete Time: 09: [facility] 06/26 07:21 Order name: Lipase; Complete Time: 09: [facility] 06/26 07:21 Order name: Urine Microscopic Only [facility] 06/26 11:00 Order name: Urine Dipstick-Ancillary; Complete Time: 11:24 EDMS 06/26 07:21 Order name: IV Saline Lock; Complete Time: 07:57 [facility] 06/26 07:21 Order name: Labs collected and sent; Complete Time: 07:57 [facility] 06/26 07:21 Order name: Urine Test (obtain specimen); Complete Time: 12:06 ma2 06/26 11:37 Order name: Urine Culture EDMS Administered Medications: 09:40 Drug: NS 0.9% 1000 ml Route: IV; Rate: 1 bolus; Site: left hand; arias Disposition Summary: 06/26/21 12:25 Discharge Ordered Location: Home ma2 Condition: Stable ma2 Diagnosis - Other specified abnormal uterine and vaginal bleeding ma2 Followup: ma2 - With: - When: Tomorrow - Reason: If symptoms return, Continuance of care Discharge Instructions: - Discharge Summary Sheet ma2 - Abnormal Uterine Bleeding, [id number] ma2 Forms: - Medication Reconciliation Form ma2 - Thank You Letter ma2 - Antibiotic Education ma2 - Prescription Opioid Use ma2 Signatures: Dispatcher [employer] EDMS Ivon Mckeon MD MD ma2 Jennifer Snachez RN RN [facility] Grace Holman RN RN
--- NOTE | 2021-06-26 12:26 | ER ---
Nurse's Notes [facility] Name: Tyra Fowler Age: 21 yrs Sex: Female : 2000 Arrival Date: 06/26/2021 Time: 07:17 Bed 20 Private MD: Diagnosis: Other specified abnormal uterine and vaginal bleeding Presentation: 06/26 07:21 Chief complaint: Patient states: she has been seen a few times in this ER recently for ap3 lower abdominal pain, and she has been dx with "a really bad UTI". Patient reports a foul smell in her urine as well as a "fishy" smell after she showers. Patient reports her symptoms have not been improving over the last three weeks, and she is growing concerned. Patient states she was prescribed antibiotics at one of her previous visits, but has yet to complete them. Coronavirus screen: At this time, the client does not indicate any symptoms associated with coronavirus-19. Ebola Screen: No symptoms or risks identified at this time. Initial Sepsis Screen: Does the patient meet any 2 criteria? No. Patient's initial sepsis screen is negative. Does the patient have a suspected source of infection? No. Patient's initial sepsis screen is negative. Risk Assessment: Do you want to hurt yourself or someone else? Patient reports no desire to harm self or others. Onset of symptoms was June 05, 2021. 07:21 Method Of Arrival: Ambulatory ap3 07:27 Acuity: RANJIT 3 ap3 Triage Assessment: 07:24 General: Appears in no apparent distress. Behavior is calm, cooperative, appropriate ap3 for age. Pain: Complains of pain in lower abdominal pain Pain currently is 7 out of 10 on a pain scale. Neuro: Level of Consciousness is awake, alert, obeys commands, Oriented to person, place, time, situation, Appropriate for age Gait is steady, Speech is normal. Cardiovascular: Patient's skin is warm and dry. Respiratory: Airway is patent Respiratory effort is even, unlabored, Respiratory pattern is regular, symmetrical. GI: Reports nausea. : Reports pain in bilateral lower quadrant(s) urinary frequency, foul smell with urine and in genital area post shower. NURSE MONITORING: 07:27 LMP 06/04/2021 ap3 Historical: - Allergies: 07:24 Azithromycin; ap3 07:24 HISTAMINE H2 INHIBITORS; ap3 07:24 kiwi; ap3 07:24 PENICILLINS; ap3 07:24 Vancomycin; ap3 - PMHx: 07:24 Anxiety; Asthma; Depression; PTSD; ap3 - PSHx: 07:24 foot, cyst ovary removed; ap3 - Immunization history:: Client reports having NOT received the Covid vaccine. Flu vaccine is not up to date. - Social history:: Smoking status: Patient denies any tobacco usage or history of. - Family history:: not pertinent. Screenin:26 Abuse screen: Denies threats or abuse. Nutritional screening: No deficits noted. ap3 Tuberculosis screening: No symptoms or risk factors identified. Fall Risk None identified. Assessment: 07:31 Reassessment: patient provided with urine specimen cup and education on proper urine ap3 collection. patient verbalized understanding. 07:36 Reassessment: patient states she attempted to give urine sample, however she was ap3 unsuccessful. 07:38 : Reports burning with urination, pain urinary frequency. arias 07:39 GI: Bowel sounds present X 4 quads. Abd is soft and non tender. arias 07:39 Neuro: Reports dizziness. arias Vital Signs: 07:21 BP 101 / 80; Pulse 83; Temp 98.3; Pulse Ox 100% ; Weight 63.5 kg; Height 5 ft. 4 in. ap3 (162.56 cm); 07:21 Body Mass Index 24.03 (63.50 kg, 162.56 cm) ap3 ED Course: 07:17 Patient arrived in ED. ds1 07:21 Ivon Mckeon MD is Attending Physician. ma2 07:24 Triage completed. ap3 07:27 Jennifer Sanchez, RN is Primary Nurse. ap3 07:27 Arm band placed on left wrist. ap3 07:38 Grace Holman, DESTIN is Primary Nurse. arias 07:38 Patient has correct armband on for positive identification. Bed in low position. arias 07:38 No provider procedures requiring assistance completed. arias 12:25 Bijan Rodas MD is Referral Physician. ma2 12:37 IV discontinued, intact, Pressure dressing applied. arias Administered Medications: 09:40 Drug: NS 0.9% 1000 ml Route: IV; Rate: 1 bolus; Site: left hand; arias Medication: 07:27 VIS not applicable for this client. ap3 Outcome: 12:25 Discharge ordered by . claire2 12:37 Discharged to home ambulatory. arias 12:37 Condition: good 12:37 Discharge instructions given to patient. 12:37 Patient left the ED. arias Signatures: Pili Shaw ds1 Ivon Mckeon MD MD ma2 Jennifer Sanchez RN RN ap3 Grace Holman RN RN arias Corrections: (The following items were deleted from the chart) 07: 07:21 Acuity: RANJIT 4 ap3 ap3
[2021-06-26 12:42] VITALS: BP 101/80; TEMP 98.3; O2SAT 100
== END 2021-06-26 12:37 | disposition home or self-care (01) ==
LOC: ER 07:13
DX: N93.8 Other specified abnormal uterine and vaginal bleeding (principal); Z88.0 Allergy status to penicillin; Z88.1 Allergy status to other antibiotic agents; Z88.3 Allergy status to other anti-infective agents; Z88.8 Allergy status to other drugs, medicaments and biological substances; Z91.018 Allergy to other foods
CPT/HCPCS: 87088; 85025; 87086; 36415; 83690; 80053; 99282; J7030; 81003; 81015

== ENCOUNTER 2021-07-11 18:36 | Emergency (ER) | payer OTHER ==
--- OUTSIDE RECORDS SUMMARY | 2021-07-11 18:41 | XMS REPORT | Continuity of Care Document ---
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 00:56:00 Test Item Value Reference Range Interpretation [...] PHENCU) 25 ng/m L AG HEPATITIS B [id number] 23:17:00 Test Item Value Reference Range Interpretation Comments AG HEPATITIS B SURFACE (test code NONREACTIVE NONREACTIVE = HBSAG) AB HEPATITIS C [id number] 23:17:00 Test Item Value Reference Range Interpretation Comments AB HEPATITIS C (test code = NONREACTIVE NONREACTIVE HCVAB) SIGNAL TO CUTOFF (test code = <0.02 <0.80 N CUTOFF) AB [id number] 23:17:00 Test Item Value Reference Range Interpretation Comments AB TREPONEMA (test code = TREPAB) NONREACTIVE NONREACTIVE AG HEPATITIS B [id number] 22:51:00 Test Item Value Reference Range Interpretation Comments AG HEPATITIS B SURFACE (test code NONREACTIVE NONREACTIVE = HBSAG) AB HEPATITIS C [id number] 22:51:00 Test Item Value Reference Range Interpretation Comments AB HEPATITIS C (test code = HCVAB) NONREACTIVE SIGNAL TO CUTOFF (test code = CUTOFF) <0.80 AB [id number] 22:51:00 Test Item Value Reference Range Interpretation Comments AB TREPONEMA (test code = TREPAB) NONREACTIVE NONREACTIVE COMPREHENSIVE METABOLIC [id number] 22:33:00 Test Item Value Reference Range Interpretation [...] units/L 46-116 N code = ALKP) BILIRUBIN [id number] 22:33:00 Test Item Value Reference Range Interpretation Comments BILIRUBIN DIRECT (test code = <0.1 mg/dL <0.2 N BILD) CBC W/AUTO [id number] 22:17:00 Test Item Value Reference Range Interpretation [...]
--- NOTE | 2021-07-11 19:24 | EDPHYS ---
Physician Documentation [facility] Name: Tyra Fowler Age: 21 yrs Sex: Female : 2000 Arrival Date: 07/11/2021 Time: 18:38 Bed 4 Private MD: ED Physician Davin Jack HPI: 07/11 19:25 This 21 yrs old Female presents to ER via Ambulatory with complaints of Mouth Swelling, ms3 Headache, Nausea. 19:25 The patient presents with pain. The problem is located in the Right upper and lower ms3 back molars. Onset: The symptoms/episode began/occurred 1 week(s) ago. Duration: The symptoms are continuous, and are steadily getting worse. Modifying factors: The symptoms are alleviated by nothing, the symptoms are aggravated by nothing. Associated signs and symptoms: The patient has no apparent associated signs or symptoms. Severity of symptoms: At their worst the symptoms were moderate, in the emergency department the symptoms are unchanged. 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 - Social history:: Smoking status: Patient denies any tobacco usage or history of. ROS: 19:25 Constitutional: Negative for fever, and chills. Neck: Negative for injury, pain, and ms3 swelling, Cardiovascular: Negative for chest pain, and palpitations. Respiratory: Negative for shortness of breath, cough, wheezing, and pleuritic chest pain, Abdomen/GI: Negative for abdominal pain, nausea, vomiting, diarrhea, and constipation, MS/Extremity: Negative for injury and deformity, Skin: Negative for injury, rash, and discoloration. 19:25 ENT: Positive for dental pain. 19:25 All other systems are negative. Exam: 19:25 Constitutional: This is a well developed, well nourished patient who is awake, alert, ms3 and in no acute distress. Eyes: Pupils equal round and reactive to light, extra-ocular motions intact. Lids and lashes normal. Conjunctiva and sclera are non-icteric and not injected. Periorbital areas with no swelling, redness, or edema. Neck: Trachea midline, no cervical lymphadenopathy. Supple, full range of motion without nuchal rigidity, or vertebral point tenderness. No Meningismus. Chest/axilla: Normal chest wall appearance and motion. Nontender with no deformity. Cardiovascular: Regular rate and rhythm with a normal S1 and S2. No gallops, murmurs, or rubs. Normal PMI, no JVD. No pulse deficits. Respiratory: Lungs have equal breath sounds bilaterally, clear to auscultation and percussion. No rales, rhonchi or wheezes noted. No increased work of breathing, no retractions or nasal flaring. Abdomen/GI: Soft, non-tender, with normal bowel sounds. No distension or tympany. No guarding or rebound. No evidence of tenderness throughout. Psych: Awake, alert, with orientation to person, place and time. Behavior, mood, and affect are within normal limits. 19:25 ENT: Mouth: Gums: swollen, on the upper right third molar. Vital Signs: 18:49 BP 107 / 82; Pulse 86; Resp 16; Temp 98.2; Pulse Ox 96% on R/A; Weight 69.85 kg; Height ll1 5 ft. 4 in. (162.56 cm); Pain 9/10; 18:49 Body Mass Index 26.43 (69.85 kg, 162.56 cm) ll1 MDM: 19:18 Patient medically screened. ms3 19:28 Differential diagnosis: dental caries, gingivitis. Data reviewed: vital signs, nurses ms3 notes. Counseling: I had a detailed discussion with the patient and/or guardian regarding: the historical points, exam findings, and any diagnostic results supporting the discharge/admit diagnosis, the need for outpatient follow up, to return to the emergency department if symptoms worsen or persist or if there are any questions or concerns that arise at home. ED course: Discussed labs, chest x-ray, physical exam findings with patient. Patient to follow-up with [facility] [place] in 2 to 3 days. Patient understands and agrees with plan. All questions were answered. Return precautions discussed include worsening symptoms, or any other concerns. . Administered Medications: 19:25 Drug: Ibuprofen 600 mg Route: PO; tw5 19:31 Follow up: Response: No adverse reaction tw5 Disposition Summary: 07/11/21 19:23 Discharge Ordered Location: Home ms3 Condition: Stable ms3 Diagnosis - Dental pain ms3 Followup: ms3 - With: Lexa Lundberg DDS - When: 2 - 3 days - Reason: Re-evaluation by your physician Discharge Instructions: - Discharge Summary Sheet ms3 - Dental Pain ms3 Forms: - Medication Reconciliation Form ms3 - Work release form bb - Thank You Letter ms3 - Antibiotic Education ms3 - Prescription Opioid Use ms3 Prescriptions: - Clindamycin HCl 300 mg Oral Capsule - take 1 capsule by ORAL route every 6 hours for 10 days; 40 capsule; Refills: 0, ms3 Product Selection Permitted - Ibuprofen 600 mg Oral Tablet - take 1 tablet by ORAL route every 6 hours As needed take with food; 30 tablet; ms3 Refills: 0, Product Selection Permitted Signatures: Susan Muhammad RN RN ll1 Davin Jack DO DO ms3 Charisma Cancino tw5
--- NOTE | 2021-07-11 19:24 | ER ---
Nurse's Notes [facility] Name: Tyra Fowler Age: 21 yrs Sex: Female : 2000 Arrival Date: 07/11/2021 Time: 18:38 Bed 4 Private MD: Diagnosis: Dental pain Presentation: 07/11 18:49 Chief complaint: Patient states: TRUONG, N/V, R upper jaw pain for 2-3 days. Needs work ll1 release. Coronavirus screen: Vaccine status: Patient reports being unvaccinated. Client denies travel out of the [place] in the last 14 days. fatigue, headache, nausea, vomiting. Client presents with at least one sign or symptom that may indicate coronavirus-19. Standard/surgical mask placed on the client. Ebola Screen: Patient denies travel to an Ebola-affected area in the 21 days before illness onset. Initial Sepsis Screen: Does the patient meet any 2 criteria? No. Patient's initial sepsis screen is negative. Does the patient have a suspected source of infection? No. Patient's initial sepsis screen is negative. Risk Assessment: Do you want to hurt yourself or someone else? Patient reports no desire to harm self or others. Onset of symptoms was July 09, 2021. 18:49 Method Of Arrival: Ambulatory ll1 18:49 Acuity: RANJIT 3 ll1 Triage Assessment: 19:24 Headache History: The patient has had previous headaches and this one is different than tw5 previous episodes. General: Appears in no apparent distress. Behavior is calm, cooperative, appropriate for age. Pain: Pain began gradually, Also complains of nausea. 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 - Social history:: Smoking status: Patient denies any tobacco usage or history of. Screenin:22 Abuse screen: Denies threats or abuse. Denies injuries from another. Nutritional tw5 screening: No deficits noted. Tuberculosis screening: No symptoms or risk factors identified. Fall Risk None identified. Assessment: 19:22 General: Reports "I think that my wisdom tooth is coming in an it is very painful. I tw5 have been having nausea and vomiting for the past week and I cannot handle it anymore.". Pain: Complains of pain in right zygomatic area Pain currently is 8 out of 10 on a pain scale. Neuro: Level of Consciousness is awake, alert, obeys commands, Oriented to person, place, time, situation. Respiratory: Airway is patent Trachea midline Respiratory effort is even, unlabored, Respiratory pattern is regular. Vital Signs: 18:49 BP 107 / 82; Pulse 86; Resp 16; Temp 98.2; Pulse Ox 96% on R/A; Weight 69.85 kg; Height ll1 5 ft. 4 in. (162.56 cm); Pain 9/10; 18:49 Body Mass Index 26.43 (69.85 kg, 162.56 cm) ll1 ED Course: 18:38 Patient arrived in ED. jj6 18:51 Triage completed. ll1 18:51 Arm band placed on Patient placed in an exam room, on a stretcher. ll1 19:05 Davin Jack DO is Attending Physician. ms3 19:07 Charisma Cancino is Primary Nurse. tw5 19:20 Lexa Lundberg DDS is Referral Physician. ms3 19:22 Patient has correct armband on for positive identification. Bed in low position. tw5 19:22 No provider procedures requiring assistance completed. Patient did not have IV access tw5 during this emergency room visit. Administered Medications: 19:25 Drug: Ibuprofen 600 mg Route: PO; tw5 19:31 Follow up: Response: No adverse reaction tw5 Medication: 19:22 VIS not applicable for this client. tw5 Outcome: 19:23 Discharge ordered by MD. ms3 19:31 Discharged to home ambulatory. tw5 19:31 Condition: good 19:31 Discharge instructions given to patient, Instructed on discharge instructions, follow up and referral plans. Demonstrated understanding of instructions, follow-up care, medications, Prescriptions given X 2. 19:31 Patient left the ED. tw5 Signatures: Susan Muhammad RN RN ll1 Davin Jack DO DO ms3 Charisma Cancino tw5 Ade Meadows jj6
[2021-07-11] MEDS ORDERED: IBUPROFEN 200 MG TAB PO ONE (19:27)
[2021-07-11] MEDS ORDERED: IBUPROFEN 400 MG TAB ONE (19:27)
[2021-07-11 19:44] VITALS: BP 107/82; TEMP 98.2; O2SAT 96
== END 2021-07-11 19:31 | disposition home or self-care (01) ==
LOC: ER 18:36
DX: K08.89 Other specified disorders of teeth and supporting structures (principal); Z88.0 Allergy status to penicillin; Z88.3 Allergy status to other anti-infective agents; J45.909 Unspecified asthma, uncomplicated; F41.8 Other specified anxiety disorders; F43.10 Post-traumatic stress disorder, unspecified
CPT/HCPCS: 99283

== ENCOUNTER 2021-07-24 02:09 | Emergency (ER) | payer OTHER ==
--- OUTSIDE RECORDS SUMMARY | 2021-07-24 02:13 | XMS REPORT | Continuity of Care Document ---
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 [id number] 00:56:00 Test Item Value Reference Range Interpretation [...] PHENCU) 25 ng/m L AG HEPATITIS B [id number] 23:17:00 Test Item Value Reference Range Interpretation Comments AG HEPATITIS B SURFACE (test code NONREACTIVE NONREACTIVE = HBSAG) AB HEPATITIS C [id number] 23:17:00 Test Item Value Reference Range Interpretation Comments AB HEPATITIS C (test code = NONREACTIVE NONREACTIVE HCVAB) SIGNAL TO CUTOFF (test code = <0.02 <0.80 N CUTOFF) AB [id number] 23:17:00 Test Item Value Reference Range Interpretation Comments AB TREPONEMA (test code = TREPAB) NONREACTIVE NONREACTIVE AG HEPATITIS B [id number] 22:51:00 Test Item Value Reference Range Interpretation Comments AG HEPATITIS B SURFACE (test code NONREACTIVE NONREACTIVE = HBSAG) AB HEPATITIS C [id number] 22:51:00 Test Item Value Reference Range Interpretation Comments AB HEPATITIS C (test code = HCVAB) NONREACTIVE SIGNAL TO CUTOFF (test code = CUTOFF) <0.80 AB [id number] 22:51:00 Test Item Value Reference Range Interpretation Comments AB TREPONEMA (test code = TREPAB) NONREACTIVE NONREACTIVE COMPREHENSIVE METABOLIC [id number] 22:33:00 Test Item Value Reference Range Interpretation [...] units/L 46-116 N code = ALKP) BILIRUBIN [id number] 22:33:00 Test Item Value Reference Range Interpretation Comments BILIRUBIN DIRECT (test code = <0.1 mg/dL <0.2 N BILD) CBC W/AUTO [id number] 22:17:00 Test Item Value Reference Range Interpretation [...]
[2021-07-24 03:24] LABS: Absolute Lymphocytes (CBC) 2.5 K/uL (0.7-4.9); Hematocrit 36.1 % (36.0-45.0); Lymphocytes % 28.4 % (15.3-44.8); MPV 7.3 fL (7.6-11.3); Protime INR 1.08; RBC Red Blood Cell Count 4.17 M/uL (3.86-4.86)
--- NOTE | 2021-07-24 03:37 | ER ---
Nurse's Notes [facility] Name: Tyra Fowler Age: 21 yrs Sex: Female : 2000 Arrival Date: 07/24/2021 Time: 02:11 Bed 19 Private MD: Diagnosis: Contusion of eyelid and periocular area Presentation: 07/24 02:22 Chief complaint: Patient states: Bruising to left upper eyelid, patient reports not lp1 knowing how it occurred, noticed by coworkers; Denies any vision changes. Coronavirus screen: At this time, the client does not indicate any symptoms associated with coronavirus-19. Ebola Screen: No symptoms or risks identified at this time. Initial Sepsis Screen: Does the patient meet any 2 criteria? No. Patient's initial sepsis screen is negative. Does the patient have a suspected source of infection? No. Patient's initial sepsis screen is negative. Risk Assessment: Do you want to hurt yourself or someone else? Patient reports no desire to harm self or others. Onset of symptoms was July 24, 2021. 02:22 Method Of Arrival: Ambulatory lp1 02:22 Acuity: RANJIT 5 lp1 Triage Assessment: 02:30 General: Appears in no apparent distress. Behavior is calm, cooperative, appropriate vc1 for age. 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 - Social history:: Smoking status: Reported history of juuling and/or vaping. - Family history:: not pertinent. Screenin:25 Abuse screen: Denies threats or abuse. Denies injuries from another. Nutritional lp1 screening: No deficits noted. Tuberculosis screening: No symptoms or risk factors identified. Fall Risk None identified. Assessment: 02:30 General: Appears in no apparent distress. Behavior is calm, cooperative, appropriate vc1 for age. Pain: Denies pain. Neuro: Level of Consciousness is awake, alert, obeys commands, Oriented to person, place, time, situation, Appropriate for age. Cardiovascular: Patient's skin is warm and dry. Respiratory: Airway is patent Respiratory effort is even, unlabored, Respiratory pattern is regular, symmetrical. GI: No signs and/or symptoms were reported involving the gastrointestinal system. : No deficits noted. Derm: Bruising that is dark purple, on left eye. 03:30 Reassessment: No changes from previously documented assessment. vc1 Vital Signs: 02:22 BP 115 / 83; Pulse 90; Resp 18; Temp 99(O); Pulse Ox 99% on R/A; Weight 63.5 kg (R); lp1 Height 5 ft. 1 in. (154.94 cm); 02:22 Body Mass Index 26.45 (63.50 kg, 154.94 cm) lp1 ED Course: 02:11 Patient arrived in ED. bp1 02:22 Arm band placed on right wrist. lp1 02:24 Triage completed. lp1 02:25 Patient has correct armband on for positive identification. lp1 02:28 Armani Gale MD is Attending Physician. tamiko 03:21 Vandana Honeycutt RN is Primary Nurse. vc1 03:30 No provider procedures requiring assistance completed. Patient did not have IV access vc1 during this emergency room visit. Administered Medications: No medications were administered Medication: 02:25 VIS not applicable for this client. lp1 Outcome: 03:37 Discharge ordered by . tamiko 03:50 Discharged to home ambulatory. vc1 03:50 Condition: good 03:50 Discharge instructions given to patient, Instructed on discharge instructions, follow up and referral plans. Demonstrated understanding of instructions, follow-up care. 03:55 Patient left the ED. vc1 Signatures: Armani Gale MD MD cha Pena, Laura, RN RN lp1 Cadence Ragsdale bp1 Vandana Honeycutt, DESTIN RN vc1
--- NOTE | 2021-07-24 03:37 | EDPHYS ---
Physician Documentation [facility] Name: Tyra Fowler Age: 21 yrs Sex: Female : 2000 Arrival Date: 07/24/2021 Time: 02:11 Bed 19 Private MD: HOOD Physician Armani Gale HPI: 07/24 02:43 This 21 yrs old Female presents to ER via Ambulatory with complaints of Eye tamiko Problem. 02:43 The patient sustained Unknown. to the left eye. Onset: The symptoms/episode tamiko began/occurred 3 day(s) ago. Duration: the symptoms DAYS. Aggravated by nothing. Alleviated by nothing. Associated signs and symptoms: Pertinent positives: None. Pertinent negatives: None. The patient has not experienced similar symptoms in the past. 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 - Social history:: Smoking status: Reported history of juuling and/or vaping. - Family history:: not pertinent. ROS: 02:43 Constitutional: Negative for fever, chills, and weight loss, Eyes: Negative for injury, tamiko pain, redness, and discharge, ENT: Negative for injury, pain, and discharge, Neck: Negative for injury, pain, and swelling, Cardiovascular: Negative for chest pain, palpitations, and edema, Respiratory: Negative for shortness of breath, cough, wheezing, and pleuritic chest pain, Abdomen/GI: Negative for abdominal pain, nausea, vomiting, diarrhea, and constipation, Back: Negative for injury and pain, : Negative for injury, bleeding, discharge, and swelling, MS/Extremity: Negative for injury and deformity, Neuro: Negative for headache, weakness, numbness, tingling, and seizure, Psych: Negative for depression, anxiety, suicide ideation, homicidal ideation, and hallucinations, Allergy/Immunology: Negative for hives, rash, and allergies, Endocrine: Negative for neck swelling, polydipsia, polyuria, polyphagia, and marked weight changes, Hematologic/Lymphatic: Negative for swollen nodes, abnormal bleeding, and unusual bruising. 02:43 Skin: Positive for hematoma, LEFT UPPER EYELID TRAUMA. Exam: 02:43 Constitutional: This is a well developed, well nourished patient who is awake, alert, tamiko and in no acute distress. Head/Face: Normocephalic, atraumatic. Eyes: Pupils equal round and reactive to light, extra-ocular motions intact. Lids and lashes normal. Conjunctiva and sclera are non-icteric and not injected. Cornea within normal limits. Periorbital areas with no swelling, redness, or edema. ENT: Nares patent. No nasal discharge, no septal abnormalities noted. Tympanic membranes are normal and external auditory canals are clear. Oropharynx with no redness, swelling, or masses, exudates, or evidence of obstruction, uvula midline. Mucous membranes moist. Neck: Trachea midline, no thyromegaly or masses palpated, and no cervical lymphadenopathy. Supple, full range of motion without nuchal rigidity, or vertebral point tenderness. No Meningismus. Chest/axilla: Normal chest wall appearance and motion. Nontender with no deformity. No lesions are appreciated. Cardiovascular: Regular rate and rhythm with a normal S1 and S2. No gallops, murmurs, or rubs. Normal PMI, no JVD. No pulse deficits. Respiratory: Lungs have equal breath sounds bilaterally, clear to auscultation and percussion. No rales, rhonchi or wheezes noted. No increased work of breathing, no retractions or nasal flaring. Abdomen/GI: Soft, non-tender, with normal bowel sounds. No distension or tympany. No guarding or rebound. No evidence of tenderness throughout. Back: No spinal tenderness. No costovertebral tenderness. Full range of motion. MS/ Extremity: Pulses equal, no cyanosis. Neurovascular intact. Full, normal range of motion. Neuro: Awake and alert, GCS 15, oriented to person, place, time, and situation. Cranial nerves II-XII grossly intact. Motor strength 5/5 in all extremities. Sensory grossly intact. Cerebellar exam normal. Normal gait. Psych: Awake, alert, with orientation to person, place and time. Behavior, mood, and affect are within normal limits. 02:43 Eyes: Pupils: no acute changes, equal, round, and reactive to light and accomodation, Extraocular movements: intact throughout, Conjunctiva: normal, no acute changes, Corneas: are normal, no acute changes, Sclera: no appreciated abnormality, no acute changes, Anterior chamber: normal, Lids and lashes: appear normal, no acute changes, funduscopic exam reveals no obvious abnormalities, Visual ram: are intact, Nystagmus: is not appreciated. Vital Signs: 02:22 BP 115 / 83; Pulse 90; Resp 18; Temp 99(O); Pulse Ox 99% on R/A; Weight 63.5 kg (R); lp1 Height 5 ft. 1 in. (154.94 cm); 02:22 Body Mass Index 26.45 (63.50 kg, 154.94 cm) lp1 MDM: 02:28 Patient medically screened. tamiko 02:43 Differential diagnosis: CONTUSION. Data reviewed: vital signs, nurses notes, lab test tamiko result(s). 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 Counseling: I had a detailed discussion with the patient and/or guardian regarding: the historical points, exam findings, and any diagnostic results supporting the discharge/admit diagnosis, lab results, the need for outpatient follow up, for definitive care, a family practitioner. 07/24 02:31 Order name: CBC with Diff; Complete Time: 03:36 tamiko 07/24 02:31 Order name: BMP tamiko 07/24 02:31 Order name: PT-INR; Complete Time: 03:36 tamiko Administered Medications: No medications were administered Disposition Summary: 07/24/21 03:37 Discharge Ordered Location: Home tamiko Problem: new tamiko Symptoms: have improved tamiko Condition: Stable tamiko Diagnosis - Contusion of eyelid and periocular area tamiko Followup: tamiko - With: Private Physician - When: 2 - 3 days - Reason: Recheck today's complaints, Continuance of care, Re-evaluation by your physician Discharge Instructions: - Discharge Summary Sheet tamiko - Contusion tamiko - Eye Contusion tamiko - Contusion, [id number] tamiko - Eye Contusion, [id number] tamiko Forms: - Medication Reconciliation Form tamiko - Thank You Letter tamiko - Antibiotic Education tamiko - Prescription Opioid Use tamiko Signatures: Dispatcher [employer] EDMS Baljinder, Armani, MD MD tamiko Garrison, Corinne, RN RN lp1
[2021-07-24 03:43] LABS: Potassium 3.5 mmol/L (3.5-5.1)
[2021-07-24 04:11] VITALS: BP 115/83; TEMP 99; O2SAT 99
== END 2021-07-24 03:55 | disposition home or self-care (01) ==
LOC: ER 02:09
DX: S00.12XA Contusion of left eyelid and periocular area, initial encounter (principal); Z88.0 Allergy status to penicillin; Z88.3 Allergy status to other anti-infective agents; Z88.8 Allergy status to other drugs, medicaments and biological substances; Z91.018 Allergy to other foods
CPT/HCPCS: 36415; 80048; 85025; 85610; 99281

== ENCOUNTER 2021-08-03 17:21 | Emergency (ER) | payer OTHER ==
--- OUTSIDE RECORDS SUMMARY | 2021-08-03 17:27 | XMS REPORT | Continuity of Care Document ---
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 [...] PHENCU) 25 ng/m L AG HEPATITIS B [id number] 23:17:00 Test Item Value Reference Range Interpretation Comments AG HEPATITIS B SURFACE (test code NONREACTIVE NONREACTIVE = HBSAG) AB HEPATITIS C [id number] 23:17:00 Test Item Value Reference Range Interpretation Comments AB HEPATITIS C (test code = NONREACTIVE NONREACTIVE HCVAB) SIGNAL TO CUTOFF (test code = <0.02 <0.80 N CUTOFF) AB [id number] 23:17:00 Test Item Value Reference Range Interpretation Comments AB TREPONEMA (test code = TREPAB) NONREACTIVE NONREACTIVE AG HEPATITIS B [id number] 22:51:00 Test Item Value Reference Range Interpretation Comments AG HEPATITIS B SURFACE (test code NONREACTIVE NONREACTIVE = HBSAG) AB HEPATITIS C [id number] 22:51:00 Test Item Value Reference Range Interpretation Comments AB HEPATITIS C (test code = HCVAB) NONREACTIVE SIGNAL TO CUTOFF (test code = CUTOFF) <0.80 AB [id number] 22:51:00 Test Item Value Reference Range Interpretation Comments AB TREPONEMA (test code = TREPAB) NONREACTIVE NONREACTIVE COMPREHENSIVE METABOLIC [id number] 22:33:00 Test Item Value Reference Range Interpretation [...] units/L 46-116 N code = ALKP) BILIRUBIN [id number] 22:33:00 Test Item Value Reference Range Interpretation Comments BILIRUBIN DIRECT (test code = <0.1 mg/dL <0.2 N BILD) CBC W/AUTO [id number] 22:17:00 Test Item Value Reference Range Interpretation [...]
[2021-08-03] MEDS ORDERED: ONDANSETRON 4 MG (ODT) TAB ONE (17:55)
[2021-08-03 18:00] LABS: Urine Blood Negative (Negative); Urine Glucose Negative (Negative); Urine Protein Negative (Negative); Urine Specific Gravity <=1.005 (1.005-1.030)
--- NOTE | 2021-08-03 19:29 | EDPHYS ---
Physician Documentation [facility] Name: Tyra Fowler Age: 21 yrs Sex: Female : 2000 Arrival Date: 08/03/2021 Time: 17:25 Bed 9 Private MD: ED Physician Veto Faye HPI: 08/03 18:30 This 21 yrs old Female presents to ER via Ambulatory with complaints of kb Nausea/Vomiting, Headache. 18:30 The patient presents to the emergency department with nausea, vomiting. Onset: The kb symptoms/episode began/occurred 4 day(s) ago. Possible causes: sick contacts. The symptoms are aggravated by nothing. The symptoms are alleviated by nothing. Associated signs and symptoms: Pertinent positives: nausea, vomiting, Pertinent negatives: abdominal pain, fever. Severity of symptoms: At their worst the symptoms were moderate in the emergency department the symptoms are unchanged. The patient has not experienced similar symptoms in the past. The patient has not recently seen a physician. Pt c/o nausea, vomiting, headache and nasal congestion that started 4 days ago. States she was recently exposed to covid and is concerned that she has it. . HOT WALKER: 17:46 LMP N/A - Irregular menses aa5 Historical: - Allergies: 17:45 Azithromycin; aa5 17:45 HISTAMINE H2 INHIBITORS; aa5 17:45 kiwi; aa5 17:45 PENICILLINS; aa5 17:45 Vancomycin; aa5 - PMHx: 17:45 Anxiety; Asthma; Depression; PTSD; aa5 - PSHx: 17:45 foot, cyst ovary removed; aa5 - Immunization history:: Adult Immunizations unknown. - Social history:: Smoking status: Patient denies any tobacco usage or history of. ROS: 18:30 Constitutional: Negative for fever, chills, and weight loss. kb 18:30 ENT: Positive for sinus congestion. 18:30 Abdomen/GI: Positive for nausea and vomiting, Negative for abdominal pain. 18:30 Neuro: Positive for headache. 18:30 All other systems are negative. Exam: 18:30 Constitutional: This is a well developed, well nourished patient who is awake, alert, kb and in no acute distress. Head/Face: Normocephalic, atraumatic. ENT: Moist Mucous membranes Cardiovascular: Regular rate and rhythm with a normal S1 and S2. No gallops, murmurs, or rubs. No pulse deficits. Respiratory: Respirations even and unlabored. No increased work of breathing. Talking in full sentences Abdomen/GI: Soft, non-tender. No distention Skin: Warm, dry with normal turgor. Normal color. MS/ Extremity: Pulses equal, no cyanosis. Neurovascular intact. Full, normal range of motion. Neuro: Awake and alert, GCS 15, oriented to person, place, time, and situation. Moves all extremities. Normal gait. Psych: Awake, alert, with orientation to person, place and time. Behavior, mood, and affect are within normal limits. Vital Signs: 17:46 BP 126 / 85; Pulse 91; Resp 18 S; Temp 98.5(TE); Pulse Ox 99% on R/A; Weight 66.22 kg aa5 (R); Height 5 ft. 4 in. (162.56 cm) (R); 19:42 BP 104 / 77; Pulse 72; Resp 16; Temp 97.8(T); Pulse Ox 99% on R/A; Pain 0/10; kl 17:46 Body Mass Index 25.06 (66.22 kg, 162.56 cm) aa5 MDM: 17:46 Patient medically screened. kb 18:32 Data reviewed: vital signs, nurses notes. Data interpreted: Pulse oximetry: on room air kb is 99 %. Interpretation: normal. 19:26 Counseling: I had a detailed discussion with the patient and/or guardian regarding: the kb historical points, exam findings, and any diagnostic results supporting the discharge/admit diagnosis, lab results, the need for outpatient follow up, a family practitioner, to return to the emergency department if symptoms worsen or persist or if there are any questions or concerns that arise at home. 19:27 ED course: Pt tolerating po intake. . kb 08/03 17:49 Order name: Flu; Complete Time: 18:21 kb 08/03 17:49 Order name: COVID-19 SARS RT PCR (Document "Date of Onset" if Symptomatic); Complete kb Time: 19:12 08/03 17:49 Order name: Urine Dipstick-Ancillary (obtain specimen); Complete Time: 18:00 kb 08/03 18:00 Order name: Urine Dipstick-Ancillary; Complete Time: 18:09 EDMS 08/03 19:12 Order name: PO challenge; Complete Time: 19:36 kb Administered Medications: 18:00 Drug: Zofran (Ondansetron) 4 mg Route: PO; aa5 19:41 Drug: Tylenol 1000 mg Route: PO; michelle Disposition: 08/04 07:00 Co-signature as Attending Physician, Veto Faye MD. rn Disposition Summary: 08/03/21 19:28 Discharge Ordered Location: Home kb Condition: Stable kb Diagnosis - Nausea with vomiting, unspecified kb Followup: kb - With: Emergency Department - When: As needed - Reason: Worsening of condition Followup: kb - With: Private Physician - When: 2 - 3 days - Reason: Recheck today's complaints, Continuance of care, Re-evaluation by your physician Discharge Instructions: - Discharge Summary Sheet kb - Nausea and Vomiting, Adult, [id number] kb Forms: - Medication Reconciliation Form kb - Thank You Letter kb - Work release form kb - Antibiotic Education kb - Prescription Opioid Use kb Prescriptions: - Zofran 4 mg Oral Tablet - take 1 tablet by ORAL route every 6 hours As needed; 10 tablet; Refills: 0, kb Product Selection Permitted Signatures: Dispatcher [employer] EDFL Gricel Wilson, GRAPHICS INTERN-C GRAPHICS INTERN-Josy Paul, RN Veto King MD MD rn Calderon, Audri, RN RN aa5
--- NOTE | 2021-08-03 19:29 | ER ---
Nurse's Notes [facility] Name: Tyra Fowler Age: 21 yrs Sex: Female : 2000 Arrival Date: 08/03/2021 Time: 17:25 Bed 9 Private MD: Diagnosis: Nausea with vomiting, unspecified Presentation: 08/03 17:44 Chief complaint: Patient states: nausea/vomiting/diarrhea, nasal congestion, headache aa5 that began 3-4 days ago. Coronavirus screen: congestion, nausea, vomiting. Ebola Screen: Patient denies travel to an Ebola-affected area in the 21 days before illness onset. Initial Sepsis Screen: Does the patient meet any 2 criteria? HR > 90 bpm. Does the patient have a suspected source of infection? No. Patient's initial sepsis screen is negative. Risk Assessment: Do you want to hurt yourself or someone else? Patient reports no desire to harm self or others. Onset of symptoms was July 2021. 17:44 Acuity: RANJIT 3 aa5 17:44 Method Of Arrival: Ambulatory aa5 19:44 Note pt given gingerale and glass of water tolerated well no complaints of nausea or kl vomiting. Triage Assessment: 19:43 General: Appears in no apparent distress. comfortable, Behavior is calm, cooperative, kl appropriate for age. Pain: Denies pain. GI: Reports nausea, vomiting. PROCESSING SPEC: 17:46 LMP N/A - Irregular menses aa5 Historical: - Allergies: 17:45 Azithromycin; aa5 17:45 HISTAMINE H2 INHIBITORS; aa5 17:45 kiwi; aa5 17:45 PENICILLINS; aa5 17:45 Vancomycin; aa5 - PMHx: 17:45 Anxiety; Asthma; Depression; PTSD; aa5 - PSHx: 17:45 foot, cyst ovary removed; aa5 - Immunization history:: Adult Immunizations unknown. - Social history:: Smoking status: Patient denies any tobacco usage or history of. Screenin:42 Abuse screen: Denies threats or abuse. Nutritional screening: No deficits noted. kl Tuberculosis screening: No symptoms or risk factors identified. Fall Risk None identified. Assessment: 18:00 Reassessment: Patient is alert, oriented x 3, equal unlabored respirations, skin aa5 warm/dry/pink. 19:44 GI: Abdomen is flat, Pt is actively vomiting Reports intolerance of fluids. Vital Signs: 17:46 BP 126 / 85; Pulse 91; Resp 18 S; Temp 98.5(TE); Pulse Ox 99% on R/A; Weight 66.22 kg aa5 (R); Height 5 ft. 4 in. (162.56 cm) (R); 19:42 BP 104 / 77; Pulse 72; Resp 16; Temp 97.8(T); Pulse Ox 99% on R/A; Pain 0/10; kl 17:46 Body Mass Index 25.06 (66.22 kg, 162.56 cm) aa5 ED Course: 17:25 Patient arrived in ED. rg4 17:34 Gricel Wilson FNP-C [facility]. kb 17:34 Veto Faye MD is Attending Physician. kb 17:45 Triage completed. aa5 17:46 Arm band placed on. aa5 18:00 COVID swab sent to lab. Flu and/or RSV swab sent to lab. aa5 19:44 No provider procedures requiring assistance completed. Patient did not have IV access kl during this emergency room visit. 19:45 Patient has correct armband on for positive identification. kl Administered Medications: 18:00 Drug: Zofran (Ondansetron) 4 mg Route: PO; aa5 19:41 Drug: Tylenol 1000 mg Route: PO; Medication: 19:45 VIS not applicable for this client. Outcome: 19:28 Discharge ordered by . kb 19:42 Discharged to home ambulatory. 19:42 Condition: good 19:42 Discharge instructions given to patient, Instructed on discharge instructions, follow up and referral plans. medication usage, Demonstrated understanding of instructions, follow-up care, medications, Prescriptions given X 1. 19:45 Patient left the ED. Signatures: Gricel Wilson FNP-C FNP-Ckb Lewis, Kimberly, RN RN kl Calderon, Audri RN Regla Cole rg4
[2021-08-03] MEDS ORDERED: ACETAMINOPHEN 500 MG TAB ONE (19:44)
[2021-08-03 20:10] VITALS: O2SAT 99
[2021-08-03 20:12] VITALS: BP 104/77; TEMP 97.8
== END 2021-08-03 19:45 | disposition home or self-care (01) ==
LOC: ER 17:21
DX: R11.2 Nausea with vomiting, unspecified (principal); R51.9 Headache, unspecified; Z20.822 Contact with and (suspected) exposure to COVID-19; Z88.0 Allergy status to penicillin; Z88.3 Allergy status to other anti-infective agents; Z91.018 Allergy to other foods
CPT/HCPCS: 81003; 87804 ×2; U0003; Q0162

== ENCOUNTER 2022-06-26 00:21 | Emergency (ER) | payer OTHER ==
--- OUTSIDE RECORDS SUMMARY | 2022-06-26 00:28 | XMS REPORT | Continuity of Care Document ---
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 9-09 tablet by ity of tablet 00:00: mouth at [place] 00 bedtime. Medical Branch escitalopra 2019-0 Yes [id number] 10mg Take 1 Univers m oxalate 9-09 tablet by ity o f 10 mg 00:00: mouth [place] tablet 00 daily. Medical Branch traZODone 2019-0 Yes [id number] 50mg Take 1 U nivers 50 mg 9-09 tablet by ity of tablet 00:00: mouth at [place] 00 bedtime. Medical Branch escitalopra 2019- Yes [id number] 10mg Take 1 Univers m oxalate 10-16 tablet by ity o f 10 mg 00:00: mouth [place] tablet 00 daily. Medical Branch traZODone 2022- No [id number] 50mg Take 1 Univers 50 mg 10-16 tablet by ity of tablet 00:00: 00:00 mouth at [place] 00 :00 bedtime. Medical Branch escitalopra 0 2022- No [id number] 10mg Take 1 Univers m oxalate 10-16 tablet by ity of 10 mg 00:00: 00:00 mouth [place] tablet 00 :00 daily. [facility] Immunizations Ordered Immunization Filled Immunization Date Status Commen ts Source Name Name HPV9 2021-11-10 Completed University of 00:00:00 [facility] Influenza Virus 2021-11-10 Completed Universit y of Vaccine Quad IM, 00:00:00 [facility] dical Preserv and ABX Free Bran ch 6 MO-64 YRS HPV9 2021-11-10 Completed University of 00:00:00 [facility] Influenza Virus 2021-11-10 Completed Universit y of Vaccine Quad IM, 00:00:00 [place] [facility] dical Preserv and ABX Free Bran ch 6 MO-64 YRS HPV9 2021-11-10 Completed University of 00:00:00 [facility] Influenza Virus 2021-11-10 Completed Universit y of Vaccine Quad IM, 00:00:00 [place] [facility] dical Preserv and ABX Free Bran ch 6 MO-64 YRS HPV9 2021-11-10 Completed University of 00:00:00 [facility] Influenza Virus 2021-11-10 Completed Universit y of Vaccine Quad IM, 00:00:00 [place] [facility] dical Preserv and ABX Free Bran ch 6 MO-64 YRS HPV9 2021-11-10 Completed University of 00:00:00 [facility] Influenza Virus 2021-11-10 Completed Universit y of Vaccine Quad IM, 00:00:00 [place] [facility] dical Preserv and ABX Free Bran ch 6 MO-64 YRS HPV9 2021-11-10 Completed University of 00:00:00 [facility] Influenza Virus 2021-11-10 Completed Universit y of Vaccine Quad IM, 00:00:00 [place] Me dical Preserv and ABX Free Bran ch 6 MO-64 YRS HPV9 2021-11-10 Completed University of 00:00:00 [facility] Influenza Virus 2021-11-10 Completed Universit y of Vaccine Quad IM, 00:00:00 [facility] dical Preserv and ABX Free Bran ch 6 MO-64 YRS HPV9 2020-01-29 Completed University of 00:00:00 [facility] HPV9 2020-01-29 Completed University of 00:00:00 [facility] HPV9 2020-01-29 Completed University of 00:00:00 [facility] HPV9 2020-01-29 Completed University of 00:00:00 [facility] HPV9 2020-01-29 Completed University of 00:00:00 [facility] HPV9 2020-01-29 Completed University of 00:00:00 [facility] HPV9 2020-01-29 Completed University of 00:00:00 [facility] HPV9 2020-01-29 Completed University of 00:00:00 [facility] HPV9 2020-01-29 Completed University of 00:00:00 [facility] HPV9 2020-01-29 Completed University of 00:00:00 [facility] HPV9 2020-01-29 Completed University of 00:00:00 [facility] Influenza Virus 2019-12-20 Completed Universit y of Vaccine Quad .5 mL 00:00:00 [facility] 6+ MO Branch TDAP 2019-12-20 Completed University of 00:00:00 [facility] HPV9 2019-12-20 Completed University of 00:00:00 [facility] Pneumococcal 2019-12-20 Completed University o f Polysaccharide, 00:00:00 [place] Med ical PPSV23 (PNEUMOVAX) Branch Meningococcal B, OMV 2019-12-20 Completed Univ ersity of 00:00:00 [facility] Influenza Virus 2019-12-20 Completed Universit y of Vaccine Quad .5 mL 00:00:00 [facility] IM 6+ MO Branch TDAP 2019-12-20 Completed University of 00:00:00 [facility] HPV9 2019-12-20 Completed University of 00:00:00 [facility] Pneumococcal 2019-12-20 Completed University o f Polysaccharide, 00:00:00 [place] [facility] ical PPSV23 (PNEUMOVAX) Branch Meningococcal B, OMV 2019-12-20 Completed Univ ersity of 00:00:00 [facility] Influenza Virus 2019-12-20 Completed Universit y of Vaccine Quad .5 mL 00:00:00 [place] [facility] IM 6+ MO Branch TDAP 2019-12-20 Completed University of 00:00:00 [facility] Branch HPV9 2019-12-20 Completed University of 00:00:00 [facility] Pneumococcal 2019-12-20 Completed University o f Polysaccharide, 00:00:00 [place] [facility] ical PPSV23 (PNEUMOVAX) Branch Meningococcal B, OMV 2019-12-20 Completed Univ ersity of 00:00:00 [facility] Influenza Virus 2019-12-20 Completed Universit y of Vaccine Quad .5 mL 00:00:00 [facility] IM 6+ MO Branch TDAP 2019-12-20 Completed University of 00:00:00 [facility] HPV9 2019-12-20 Completed University of 00:00:00 [facility] Pneumococcal 2019-12-20 Completed University o f Polysaccharide, 00:00:00 [place] [facility] ical PPSV23 (PNEUMOVAX) Branch Meningococcal B, OMV 2019-12-20 Completed Univ ersity of 00:00:00 [facility] Influenza Virus 2019-12-20 Completed Universit y of Vaccine Quad .5 mL 00:00:00 [facility] IM 6+ MO Branch TDAP 2019-12-20 Completed University of 00:00:00 [facility] HPV9 2019-12-20 Completed University of 00:00:00 [facility] Pneumococcal 2019-12-20 Completed University o f Polysaccharide, 00:00:00 [place] [facility] ical PPSV23 (PNEUMOVAX) Branch Meningococcal B, OMV 2019-12-20 Completed Univ ersity of 00:00:00 [facility] Influenza Virus 2019-12-20 Completed Universit y of Vaccine Quad .5 mL 00:00:00 [facility] IM 6+ MO Branch TDAP 2019-12-20 Completed University of 00:00:00 [facility] HPV9 2019-12-20 Completed University of 00:00:00 [facility] Pneumococcal 2019-12-20 Completed University o f Polysaccharide, 00:00:00 [place] [facility] ical PPSV23 (PNEUMOVAX) Branch Meningococcal B, OMV 2019-12-20 Completed Univ ersity of 00:00:00 [facility] Influenza Virus 2019-12-20 Completed Universit y of Vaccine Quad .5 mL 00:00:00 [place] [facility] IM 6+ MO Branch TDAP 2019-12-20 Completed University of 00:00:00 [facility] Branch HPV9 2019-12-20 Completed University of 00:00:00 [facility] Pneumococcal 2019-12-20 Completed University o f Polysaccharide, 00:00:00 [place] [facility] ical PPSV23 (PNEUMOVAX) Branch Meningococcal B, OMV 2019-12-20 Completed Univ ersity of 00:00:00 [facility] Influenza Virus 2019-12-20 Completed Universit y of Vaccine Quad .5 mL 00:00:00 [facility] IM 6+ MO Branch TDAP 2019-12-20 Completed University of 00:00:00 [facility] Branch HPV9 2019-12-20 Completed University of 00:00:00 [facility] Pneumococcal 2019-12-20 Completed University o f Polysaccharide, 00:00:00 [place] [facility] ical PPSV23 (PNEUMOVAX) Branch Meningococcal B, OMV 2019-12-20 Completed Univ ersity of 00:00:00 [facility] Influenza Virus 2019-12-20 Completed Universit y of Vaccine Quad .5 mL 00:00:00 [facility] 6+ MO Branch TDAP 2019-12-20 Completed University of 00:00:00 [facility] HPV9 2019-12-20 Completed University of 00:00:00 [facility] Pneumococcal 2019-12-20 Completed University o f Polysaccharide, 00:00:00 [facility] ical PPSV23 (PNEUMOVAX) Branch Meningococcal B, OMV 2019-12-20 Completed Univ ersity of 00:00:00 [facility] Influenza Virus 2019-12-20 Completed Universit y of Vaccine Quad .5 mL 00:00:00 [facility] 6+ MO Branch TDAP 2019-12-20 Completed University of 00:00:00 [facility] HPV9 2019-12-20 Completed University of 00:00:00 [facility] Pneumococcal 2019-12-20 Completed University o f Polysaccharide, 00:00:00 [place] [facility] ical PPSV23 (PNEUMOVAX) Branch Meningococcal B, OMV 2019-12-20 Completed Univ ersity of 00:00:00 [facility] Influenza Virus 2019-12-20 Completed Universit y of Vaccine Quad .5 mL 00:00:00 [facility] IM 6+ MO Branch TDAP 2019-12-20 Completed University of 00:00:00 [facility] Branch HPV9 2019-12-20 Completed University of 00:00:00 [facility] Pneumococcal 2019-12-20 Completed University o f Polysaccharide, 00:00:00 [facility] ical PPSV23 (PNEUMOVAX) Branch Meningococcal B, OMV 2019-12-20 Completed Univ ersity of 00:00:00 [facility] Vital Signs Vital Name Observation Time Observation Value Comments Source Systolic blood 2022-06-10 18:23:00 118 mm[Hg] Univer sity of pressure [facility] Diastolic blood 2022-06-10 18:23:00 80 mm[Hg] Unive rsity of [facility] Heart rate 2022-06-10 18:23:00 86 /min Universi ty of [facility] Respiratory rate 2022-06-10 18:23:00 18 /min Univ ersity [facility] Body height 2022-06-10 18:23:00 162.[address] [facility] Body weight 2022-06-10 18:23:00 74.[address] [facility] BMI 2022-06-10 18:23:00 28.24 kg/m2 Universi ty [facility] Oxygen saturation in 2022-06-10 18:23:00 99 /min [facility] Arterial blood by [facility] Pulse oximetry Branch Systolic blood 2022-02-21 06:31:00 118 mm[Hg] Univer sity of pressure [facility] Diastolic blood 2022-02-21 06:31:00 82 mm[Hg] Unive rsity of [facility] Heart rate 2022-02-21 06:31:00 107 /min Universi ty of [facility] Body temperature 2022-02-21 06:31:00 37.22 Zuly Univ ersity [facility] Respiratory rate 2022-02-21 06:31:00 18 /min Univ ersity of [facility] Body height 2022-02-21 06:31:00 162.[address] [facility] Body weight 2022-02-21 06:31:[address] [facility] BMI 2022-02-21 06:31:00 27.81 kg/m2 Universi ty of [place] [facility] Oxygen saturation in 2022-02-21 06:31:00 98 /min University of Arterial blood by [place] [facility] justo Pulse oximetry Branch Systolic blood 2021-11-19 01:46:00 115 mm[Hg] Univer sity of pressure [place] [facility] Diastolic blood 2021-11-19 01:46:00 80 mm[Hg] Unive rsity of pressure [place] [facility] Heart rate 2021-11-19 01:46:00 97 /min Universi ty of [place] [facility] Body temperature 2021-11-19 01:46:00 36.89 Zuly Univ ersity of [place] [facility] Respiratory rate 2021-11-19 01:46:00 17 /min Univ ersity of [place] [facility] Body height 2021-11-19 01:46:00 162.6 cm Universi ty of [place] [facility] Body weight 2021-11-19 01:46:00 81.647 kg Universi ty of [place] [facility] BMI 2021-11-19 01:46:00 30.90 kg/m2 Universi ty of [place] [facility] Oxygen saturation in 2021-11-19 01:46:00 97 /min University of Arterial blood by [place] [employer] justo Pulse oximetry Branch Systolic blood 2021-10-11 14:02:00 114 mm[Hg] Univer sity of pressure [place] [facility] Diastolic blood 2021-10-11 14:02:00 79 mm[Hg] Unive rsity of pressure [place] [facility] Heart rate 2021-10-11 14:02:00 83 /min Universi ty of [place] [facility] Body temperature 2021-10-11 14:02:00 36.5 Zuly Univ ersity of [place] [facility] Respiratory rate 2021-10-11 14:02:00 16 /min Univ ersity of [place] [facility] Body height 2021-10-11 14:02:00 162.6 cm Universi ty of [place] [facility] Body weight 2021-10-11 14:02:00 59.875 kg Universi ty of [place] [facility] BMI 2021-10-11 14:02:00 22.66 kg/m2 Universi ty of [place] [facility] Oxygen saturation in 2021-10-11 14:02:00 97 /min University of Arterial blood by [place] [employer] justo Pulse oximetry Branch Systolic blood 2021-08-28 07:47:00 111 mm[Hg] Univer sity of pressure [facility] Diastolic blood 2021-08-28 07:47:00 70 mm[Hg] Unive rsity of pressure [facility] Heart rate 2021-08-28 07:47:00 74 /min Universi ty [facility] Respiratory rate 2021-08-28 07:47:00 16 /min [facility] O[facility] saturation in 2021-08-28 07:47:00 99 /min [facility] Arterial blood by [facility] Pulse oximetry Branch Body temperature 2021-08-28 06:00:00 36.67 Zuly [facility] Body height 2021-08-28 04:23:00 162.[address] [facility] Body weight 2021-08-28 04:23:00 70.716 kg Universi ty [facility] BMI 2021-08-28 04:23:00 26.76 kg/m2 Universi [facility] Systolic blood 2020-12-02 13:19:00 119 mm[Hg] Univer sity of pressure [facility] Diastolic blood 2020-12-02 13:19:00 82 mm[Hg] Unive rsity of [facility] Heart rate 2020-12-02 13:19:00 81 /min Universi ty of [facility] Body height 2020-12-02 13:19:00 162.6 cm Universi ty [facility] Body weight 2020-12-02 13:19:00 72.576 kg Universi ty [facility] BMI 2020-12-02 13:19:00 27.46 kg/m2 Universi [facility] Procedures Procedure Date / Time Performed Performing Clinician Sour e URINE CULTURE 2022-06-10 19:33:00 Obdulio Jones [facility] GC & CHLAMYDIA 2022-06-10 19:33:00 Obdulio Jones [facility] AMPLIFIED ASSAY [facility] POCT URINALYSIS 2022-06-10 18:43:00 Obdulio Jones [facility] ASSIGNMENT OF BENEFITS 2022-06-10 18:07:51 Doctor Unassigned, No [facility] URINALYSIS 2022-02-21 06:40:00 Janet Hernandez [facility] RAPID STREP SCREEN FOR 2022-02-21 06:35:00 Janet Hernandez [facility] GROUP A Medical Branch RAPID INFLUENZA A/B 2022-02-21 06:35:[address] [facility] COVID-19 (ID NOW RAPID 2022-02-21 06:35:00 Janet Hernandez [facility] TESTING) Medical Branch POCT TEST 2022-02-21 06:31:[address] [facility] CONSENT/REFUSAL FOR 2022-02-21 06:24:20 Doctor Unassigned, No Un iversity of [place] DIAGNOSIS AND Name Medical Branch TREATMENT COVID-19 (ID NOW RAPID 2021-11-19 02:58:00 Jamie Mora [facility] TESTING) Medical Branch CONSENT/REFUSAL FOR 2021-11-19 01:38:40 Doctor Unassigned, No Un [facility]ity of [place] DIAGNOSIS AND Name [facility] TREATMENT POCT TEST 2021-11-10 20:09:[address] [facility] FLU VACC (), 2021-11-10 20:07:40 Obdulio Jones [facility] 6 MO-64 YRS, .5ML, IM, Medical B ranch QUAD (FLUCELVAX) GARDASIL 9 (HPV 9V) 2021-11-10 19:59:13 Obdulio Jones [facility] VACCINE Medical Branch CONSENT/REFUSAL FOR 2021-10-11 14:01:22 Doctor Unassigned, No Un iversity of [place] DIAGNOSIS AND Name [facility] TREATMENT CT ABDOMEN PELVIS WO 2021-08-28 05:32:18 Jamie Mora [facility] CONTRAST Medical Branch AMYLASE 2021-08-28 04:37:00 Jamie Mora [facility] Branch LIPASE 2021-08-28 04:37:00 Jamie Mora [place] [facility] BASIC METABOLIC PANEL 2021-08-28 04:37:00 Jamie Mora [facility] (NA, K, CL, CO2, Medical Branch GLUCOSE, BUN, CREATININE, CA) CBC WITH DIFF 2021-08-28 04:37:00 Jamie Mora [place] [facility] URINALYSIS 2021-08-28 04:37:00 Jamie Mora [place] [facility] POCT TEST 2021-08-28 04:33:00 Jamie Mora [facility] NOTICE OF PRIVACY 2021-08-28 04:13:11 Doctor Unassigned, No Univ [facility] PRACTICES Name Medical Branch CONSENT/REFUSAL FOR 2021-08-28 04:07:28 [facility] Branch TREATMENT Encounters Start End Encounter Admission Attending Care Care Encounter Source Date/Time Date/Time Type Type Clinicians Facility Department ID 2020-12-09 Emergency [facility] [id number] Univers 04:57:[address] [facility] 2020-12-08 Emergency [facility] [id number] Univers 09:35:[address] [facility] 2020-12-07 Emergency [facility] [id number] Univers 22:08:[address] [facility] 2020-12-07 Emergency [facility] [id number] Univers 21:59:[address] [facility] 2020-12-07 Emergency [facility] [id number] Univers 21:51:[address] [facility] 2020-12-07 Emergency [facility] [id number] Univers 20:42:[address] [facility] 2020-12-07 Emergency [facility] [id number] Univers 20:21:[address] [facility] 2020-12-07 Emergency [facility] [id number] Univers 20:10:[address] [facility] 2020-12-07 Emergency [facility] [id number] Univers 18:32:[address] [facility] 2020-12-07 Emergency [facility] [id number] Univers 09:20:[address] [facility] 2020-12-07 Emergency [facility] [id number] Univers 02:10:[address] [facility] 2020-12-06 Emergency [facility] [id number] Univers 17:43:[address] [facility] 2020-12-06 Emergency [facility] [id number] Univers 09:53:[address] [facility] 2022-06-10 2022-06-10 Sounding Device Operator 2, Adc Lab [facility] [id number] Univers 14:30:00 14:45:00 Visit Obdulio Jones [id number] [id number] [phone] Vt dical NAL 353 [facility] 2022-06-10 2022-06-10 Outpatient R ROBERT [facility] [id number] Univers 13:40:00 14:23:04 OBDULIO ruiz [facility] 2022-06-10 2022-06-10 [facility] [id number] Univers 13:40:00 14:23:04 Visit Obdulio FOURNIER [id number] i [id number] [id number] Vt dical NAL 044 [facility] 2022-06-10 2022-06-10 Orders Doctor ADRIÁN [id number] Univers 00:00:00 00:00:00 Only Unassigned, THAIS [id number] ity of [place] [facility] [id number] Jeferson as [phone] [facility] 009 [place] 2022-02-21 2022-02-21 [facility] [id number] Univers 00:34:00 02:21:00 JANET ruiz [facility] 2022-02-21 2022-02-21 Emergency [facility] [id number] Univers 00:34:00 02:21:00 Janet FOUR[place] [id number] [id number] [id number] [facility] 084 [place] 2021-11-18 2021-11-18 Emergency X [facility] ERT [id number] Univers 20:51:00 22:26:00 JAMIE itdavid [facility] 2021-11-18 2021-11-18 Emergency [facility] [id number] Univers 20:51:00 22:26:00 Jamie S SHANTANU [id number] i ty of [place] [id number] [facility] [phone] [address] 2021-11-10 2021-11-10 Nurse Nurse, Isaak [facility] [id number] Univers 15:00:00 15:12:29 Visit Donald Tolbert [id number] ity of [place] [id number] [facility] PROFESSIO [id number] Vt dical [address] 2021-11-10 2021-11-10 Outpatient R CECILIA [facility] [id number] Univers 15:00:00 15:00:00 DONALD [facility] 2021-10-11 2021-10-11 Emergency X RADHA [facility] ERT [id number] Univers 09:04:00 09:29:00 SUPA [facility] 2021-10-11 2021-10-11 Emergency [facility] [id number] Univers 09:04:00 09:29:00 Supa FOURNI[place] [id number] i ty of [place] [id number] [place] [address] [id number] 2021-09-01 2021-09-01 Outpatient R LORRI BRODERICK [facility] [id number] Univers 13:30:00 13:30:00 LORRI BRODERICK [facility] 2021-08-27 2021-08-28 Emergency X [facility] ERT [id number] Univers 23:26:00 02:52:00 JAMIE [facility] 2021-08-27 2021-08-28 Emergency [facility] [id number] Univers 23:26:00 02:52:00 Jamie FOURNIER [id number] i ty of [place] [id number] [place] [address] [id number] [facility] 084 Branch 2021-05-15 2021-05-15 Telephone Robert [facility] [id number] Univers 00:00:00 00:00:00 Obdulio FOURNI[place] [id number] [id number] [facility] [phone] Vt dical NAL 044 [facility] 2021-02-27 2021-02-27 Outpatient R ROBERT [facility] [id number] Univers 08:40:00 08:40:00 OBDULIO david [facility] 2021-02-27 2021-02-27 Outpatient R ROBERT [facility] [id number] Univers 08:40:00 08:40:00 OBDULIO david [facility] 2021-02-27 2021-02-27 Outpatient R ROBERT [facility] [id number] Univers 08:40:00 08:40:00 OBDULIO [facility] 2021-01-22 2021-01-22 Outpatient R RICHIE ROSA [facility] [id number] Univers 12:30:00 12:30:00 RICHIE ROSA [facility] 2020-12-25 2020-12-25 Outpatient R SIDNEY [facility] [id number] Univers 08:30:00 08:30:00 BIRGIT [facility] 2020-12-25 2020-12-25 Outpatient R SIDNEY [facility] [id number] Univers 08:30:00 08:30:00 BIRGIT [facility] 2020-12-05 2020-12-05 Outpatient R ELENITA [facility] [id number] Univers 16:00:00 16:00:00 BRYCE [facility] [facility] 2020-12-02 2020-12-02 Sounding Device Operator Lab, Ang - Db [facility] 1.2.840.1 14 [id number] Univers 09:18:33 09:33:33 Visit Richie Rosa [facility] 350.1.13. 10 itJanell 4.2.7.2.686 Jeferson as Evangelist?Blea [phone] Me dical kney [address] [facility] 2020-12-02 2020-12-02 Office Moe [facility] 1.2.840.114 [id number] Univers 08:17:27 09:16:56 Visit Richie Farrar [facility] 350.1.13.10 itJanell 4.2.7.2.686 Jeferson as EVANGELIST?BLEA [phone] Vt diclaura GONZALEZ 092 [facility] OFFICE [facility] 2020-12-02 2020-12-02 Outpatient R RICHIE ROSA [facility] [id number] Univers 08:00:00 09:16:56 RICHIE ROSA [facility] 2020-12-02 2020-12-02 Outpatient R RICHIE ROSA [facility] [id number] Univers 08:00:00 09:16:56 RICHIE ROSA [facility] 2020-12-02 2020-12-02 Outpatient R RICHIE ROSA [facility] [id number] Univers 08:00:00 08:00:00 RICHIE ROSA [facility] 2020-11-28 2020-11-28 Office [facility] 1.2.840.114 [id number] Univers 08:14:28 08:45:39 Visit Obdulio FOURNIER 350.1.13.10 i ty monica [facility] [place].2.[place].2.[place] [phone] Vt agusto NAL 044 [facility] 2020-11-28 2020-11-28 Outpatient R ROBERT [facility] [id number] Univers 08:00:00 08:45:39 OBDULIO joseph [facility] 2020-11-28 2020-11-28 Outpatient R ROBERT [facility] [id number] Univers 08:00:00 08:45:39 OBDULIO mimsdavid [facility] 2020-11-28 2020-11-28 Patient [facility] 1.2.840.114 [id number] Univers 00:00:00 00:00:00 Secure Msg Obdulio Fournier 350.1.13.10 ity [facility] [place].2.7.[place] [phone] Vt dical nal 044 [facility] 2020-11-24 2020-11-24 Patient Robert [facility] 1.2.840.114 [id number] Univers 00:00:00 00:00:00 Secure Msg Obdulio Shantanu 350.1.13.10 [place] [phone] Vt dical nal 044 [facility] 2020-11-20 2020-11-20 Sounding Device Operator 2, Adc Lab [facility] 1.2.840.114 [id number] Univers 15:01:13 15:07:49 Visit Obdulio Jones 350.1.13.10 ity [place].7.2.[place] [phone] Vt dical nal 353 [facility] 2020-11-20 2020-11-20 [facility] [id number] [id number] Univers 13:40:00 14:57:39 OBDULIO mimsdavid [facility] 2020-11-20 2020-11-20 Office [facility] 1.2.840.114 [id number] Univers 13:35:59 14:57:39 Visit Obdulio Fournier 350.1.13.10 i ty [place].2.7.2.[place] [phone] Vt dical nal 044 [facility] 2020-11-20 2020-11-20 Outpatient R ROBERT [facility] [id number] [id number] Univers 13:40:00 13:40:00 OBDULIO ruiz [facility] 2020-11-20 2020-11-20 Orders Doctor ADRIÁN 1.2.840.114 [id number] Univers 00:00:00 00:00:00 Only Unassigned, THAIS 350.1.13.10 ity of [place] [facility] 4.2.7.2.686 Jeferson as [phone] [address] 2020-11-16 2020-11-17 Emergency [facility] 1.2.840.114 [id number] Univers 23:04:00 00:54:00 Maida Fournier 350.1.13.10 ity of [place] 4.2.7.2.686 [facility] [phone] [address] 2020-11-16 2020-11-17 Emergency X [facility] ERT [id number] Univers 23:04:00 00:54:00 MAIDA itdavid [facility] 2020-11-16 2020-11-17 Emergency X [facility] ERT [id number] Univers 23:04:00 00:54:00 MAIDA [facility] 2020-11-13 2020-11-13 Emergency [facility] 1.2.840.114 [id number] Univers 13:54:00 15:55:00 Otoniel Fournier 350.1.13.10 i ty of [place] 4.2.7.2.686 [facility] [phone] [address] 2020-11-13 2020-11-13 Emergency X [facility] ERT [id number] Univers 13:54:00 15:55:00 OTONIEL david [facility] 2020-10-09 2020-10-09 Office [place], [facility] 1.2.840.114 [id number] Univers 13:43:07 15:43:54 Visit Birgit [facility] 350.1.13.10 i ty of EYE 4.2.7.2.686 [facility] [phone] [facility] [address] 2020-10-09 2020-10-09 Outpatient R SIDNEY [facility] [id number] Univers 13:30:00 13:30:00 IBRGIT ruiz [facility] 2020-10-09 2020-10-09 Orders Doctor SAMPSON 1.2.840.114 [id number] Univers 00:00:00 00:00:00 Only UnassignedTHAIS 350.1.13.10 ity of [place] [facility] 4.2.7.2.686 Jeferson [phone] [facility] [address] 2020-10-09 2020-10-09 Orders Doctor SAMPSON 1.2.840.114 [id number] Univers 00:00:00 00:00:00 Only UnassignedTHAIS 350.1.13.10 ity of [place] [facility] 4.2.7.2.686 Jeferson as [phone] [facility] [address] 2020-08-27 2020-08-27 Emergency Cai, [facility] 1.2.151.704 [id number] Univers 00:08:00 00:46:00 Alex Shantanu 350.1.13.10 i ty of [place] 4.2.7.2.686 [facility] [phone] [facility] [address] 2020-08-27 2020-08-27 Orders Doctor ADRIÁN 1.2.840.114 [id number] Univers 00:00:00 00:00:00 Only Unassigned, THAIS 350.1.13.10 ity of [place] [facility] 4.2.7.2.686 Jeferson as [phone] [facility] [address] 2020-07-24 2020-07-24 Office Sidney [facility] 1.2.840.114 [id number] Univers 10:11:45 11:59:44 Visit Birgit [facility] 350.1.13.10 i ty of EYE 4.2.7.2.686 [facility] [phone] [facility] [address] 2020-07-24 2020-07-24 Outpatient R SIDNEY [facility] [id number] Univers 09:30:00 11:59:44 [facility] 2020-07-24 2020-07-24 Outpatient R SIDNEY [facility] [id number] Univers 09:30:00 09:30:00 [facility] 2020-07-08 2020-07-08 Urgent Provider, [facility] 1.2.840.114 [id number] Univers 17:36:37 18:40:59 Care Chapo Lo[facility] 350.1.13 .10 ity of [place] 4.2.7.2.686 Jeferson as Professio [phone] [facility]t [facility] [address] 2020-07-08 2020-07-08 Office Moe [facility] 1.2.840.114 [id number] Univers 14:58:30 16:11:22 Visit Richie Fournier 350.1.13.10 ity of [place] 4.2.7.2.686 [facility] [phone] Vt [place] 168112 [facility] 2020-07-08 2020-07-08 Outpatient RICHIE HERRERA [facility] [id number] Univers 15:00:00 15:00:00 RICHIE ROSA ity [facility] 2020-07-05 2020-07-05 Emergency [facility] 1.2.507.642 [id number] Univers 15:18:00 17:34:00 Janet Donald Shantanu 350.1.13.10 ity of [place] 4.2.7.2.686 [facility] [phone] [address] 2020-07-04 2020-07-04 Emergency Aufderide [facility] 1.2.840.114 [id number] Univers 12:50:00 13:35:00 , Carolyn Fournier 350.1.13.10 i ty of Corinne Ernandez 4.2.7.2.686 [facility] [phone] [address] 2020-07-03 2020-07-03 Emergency [facility] 1.2.165.133 [id number] Univers 18:04:00 19:30:00 Wen Fournier 350.1.13.10 i ty of [place] 4.2.7.2.686 [facility] [phone] [address] 2020-06-28 2020-06-28 Emergency [facility] 1.2.887.482 [id number] Univers 19:03:00 22:08:00 Alexis Fournier 350.1.13.10 i ty of [place] 4.2.7.2.686 [facility] [phone] [address] 2020-06-27 2020-06-27 Telemedici [facility]RE[facility] 1.2.840.114 [id number] Univers 07:48:14 10:30:57 ne Visit Obdulio Fournier 350.1.13.10 it[place].7.2.[place] [phone] [address] 2020-06-27 2020-06-27 Outpatient R ROBERT [facility] [id number] Univers 09:00:00 09:00:00 OBDULIO ruiz [facility] 2020-06-26 2020-06-26 Emergency [facility] 1.2.840.114 [id number] Univers 14:55:00 18:07:00 Otoniel Fournier 350.1.13.10 i [place].7.2.686 [place] [phone] [address] 2020-06-26 2020-06-26 Emergency [facility] 1.2.840.114 [id number] Univers 01:26:00 02:14:00 Otoniel Fournier 350.1.13.10 i ty of [place] 4.2.7.2.686 [facility] [phone] [address] 2020-06-26 2020-06-26 Telephone [facility] 1.2.840.114 [id number] Univers 00:00:00 00:00:00 Obdulio Fournier 350.1.13.10 i ty [place].2.7.2.686 [place] [phone] [address] 2020-06-18 2020-06-18 [facility] georgiapatriciaREHOB[facility] 1.2.840.114 [id number] Univers 15:03:08 15:55:55 Visit Obdulio Fournier 350.1.13.10 i ty [place] 4.2.7.2.686 [place] [phone] [address] 2020-06-18 2020-06-18 Outpatient R ROBERT [facility] [id number] Univers 15:00:00 15:00:00 OBDULIO ruiz [facility] 2020-06-17 2020-06-17 Emergency [facility] 1.2.840.114 [id number] Univers 22:12:00 23:29:00 Ibrahima Fournier 350.1.13.10 i ty [place].2.7.2.686 [place] [phone] [address] 2020-05-05 2020-05-05 Emergency Anand, [facility] 1.2.505.690 [id number] Univers 17:51:00 19:31:00 Morris Frausto Shantanu 350.1.13.10 ity [place]2.7.2.686 [place] [phone] [address] 2020-04-29 2020-04-29 Outpatient R ROBERT [facility] [id number] Univers 11:00:00 11:00:[address] [facility] 2020-04-07 2020-04-07 Emergency Staci Payan [facility] 1.2.840.114 [id number] Univers 14:20:00 19:23:00 Suzie Fournier 350.1.13.10 i [place].2.7.2.686 [place] [phone] [address] 2020-04-07 2020-04-07 Telephone Unknown, [facility] 1.2.840.114 [id number] Univers 00:00:00 00:00:00 Attending Health 350.1.13.10 ity of Surgical 4.2.7.2.686 Jeferson as Specialti [phone] Me dical es [address] [facility] 2020-04-02 2020-04-02 Office Tamiko Ceron [facility] 1.2.104.677 [id number] Univers 13:26:37 13:59:48 Visit Gonsalo Fournier 350.1.13.10 i ty [place] 4.2.7.2.686 [place] [phone] Me dical nal [address] [facility] 2020-04-02 2020-04-02 Outpatient R TAMIKO CERON [facility] [id number] Univers 13:30:00 13:30:[address] [facility] 2020-03-20 2020-03-20 Case Adum, [facility] 1.2.840.114 [id number] Univers 00:00:00 00:00:00 Management Rahel Fournier 350.1.13.10 [place].2.[place] [phone] [address] 2020-03-18 2020-03-18 [facility] 1.2.840.114 [id number] Univers 10:58:01 12:02:25 Visit Rahel Lawler Shantanu 350.1.13.10 it[place] 4.2.7.2.686 [place] [phone] [address] 2020-03-18 2020-03-18 Outpatient R AD, [facility] [id number] Univers 11:00:00 11:00:00 RAHEL itdavid [facility] 2020-03-18 2020-03-18 Orders Doctor ADRIÁN 1.2.840.114 [id number] Univers 00:00:00 00:00:00 Only Unassigned, THAIS 350.1.13.10 ity of [place] [facility] 4.2.7.2.686 Jeferson as [phone] [address] 2020 2020 Telephone [facility] 1.2.840.114 [id number] Univers 00:00:00 00:00:00 Joselin Fournier 350.1.13.10 i ty [place]2.7.2.686 [place] [id number] [address] 2020-03-04 2020-03-04 Telephone [facility] 1.2.840.114 [id number] Univers 00:00:00 00:00:00 Joselin Fournier 350.1.13.10 i [place] 4.2.7.2.686 [place] [phone] [address] 2020-02-23 2020-02-23 Emergency [facility] 1.2.607.630 [id number] Univers 12:17:00 12:50:00 Supa Fournier 350.1.13.10 i ty [place] 4.2.7.2.686 [place] [phone] [facility] [address] 2020-02-23 2020-02-23 Orders Doctor ADRIÁN 1.2.840.114 [id number] Univers 00:00:00 00:00:00 Only Unassigned, THAIS 350.1.13.10 ity of [place] [facility] 4.2.7.2.686 Jeferson as [phone] [facility] [address] 2020-02-21 2020-02-21 Outpatient R ROBERT [facility] [id number] Univers 16:20:00 16:20:00 OBDULIO ruiz [facility] 2020-02-20 2020-02-20 Sounding Device Operator 2, Adc Lab [facility] 1.2.840.114 [id number] Univers 16:13:25 16:28:25 Visit Joselin Qureshi 350.1.13.10 ity [place].2.7.2.686 [place] [phone] [facility] 353 [facility] 2020-02-20 2020-02-20 Office Titus [facility] 1.2.841.067 [id number] Univers 14:57:39 16:04:43 Visit Joselin Fournier 350.1.13.10 i ty [place] 4.2.7.2.686 [place] [phone] Vt dical nal 134 [facility] 2020-02-20 2020-02-20 Outpatient R TITUS [facility] [id number] Univers 15:00:00 15:00:00 JOSELIN ruiz [facility] 2020-01-29 2020-01-29 Office Robert [facility] 1.2.840.114 [id number] Univers 11:24:39 11:57:52 Visit Obdulio Fournier 350.1.13.10 i ty of [place] 4.2.7.2.686 [place] [phone] [facility]t [facility] 044 [facility] 2020-01-29 2020-01-29 Outpatient R ROBERT [facility] [id number] Univers 11:20:00 11:20:00 OBDULIO ruiz [facility] 2020-01-22 2020-01-22 Outpatient R [facility] [id number] Univers 15:00:00 [facility]:00[facility] 2020-01-22 Urgent Provider, [facility] 1.2.840.114 [id number] Univers 14:27:55 14:47:55 Care Mariely Hammond [facility] 350.1.13.10 ity of [place] 4.2.7.2.686 Jeferson as Professio [phone] [address] Office [facility] 2020-01-16 2020-01-16 [facility] [id number] Univers 10:40:00 10:40:00 OBDULIO [facility] 2020-01-15 2020-01-15 Emergency [facility] 1.2.303.506 [id number] Univers 11:02:00 12:14:00 Wen Fournier 350.1.13.10 i ty [place].2.686 [place] [phone] [address] 2020-01-07 2020-01-07 Telephone [facility] 1.2.840.114 [id number] Univers 00:00:00 00:00:00 Obdulio Fournier 350.1.13.10 i ty [place].2.7.2.686 [place] [phone] [address] 2019-12-20 2019-12-20 Office [facility] 1.2.840.114 [id number] Univers 12:58:20 13:40:50 Visit Obdulio Fournier 350.1.13.10 i ty [place] 4.2.7.2.686 [place] [phone] [address] 2019-12-20 2019-12-20 Outpatient [facility] [id number] Univers 13:00:00 13:00:00 OBDULIO joseph [facility] 2019-10-18 2019-10-18 Telephone [facility] 1.2.840.114 [id number] Univers 00:00:00 00:00:00 Obdulio Fournier 350.1.13.10 i ty [place] 4.2.7.2.686 [place] [phone] [address] 2019-10-18 2019-10-18 [facility] 1.2.840.114 [id number] Univers 00:00:00 00:00:00 Secure Msg Obdulio Fournier 350.1.13.10 ity [place].2.7.2.686 [place] [id number] [address] 2019-10-17 2019-10-17 Outpatient [facility] [id number] Univers 12:02:09 23:59:00 OBDULIO ruiz [facility] 2019-10-17 2019-10-17 Formerly [facility] 1.2.840.114 [id number] Univers 12:02:09 23:59:00 Encounter Obdulio Fournier 350.1.13.10 ity [place].2.686 [place] [phone] [address] 2019-10-17 2019-10-17 Office [facility] 1.2.840.114 [id number] Univers 10:02:33 11:42:57 Visit Obdulio Fournier 350.1.13.10 i ty [place] 4.2.7.2.686 [place] [phone] [address] 2019-10-17 2019-10-17 Outpatient R [facility] [id number] Univers 10:40:00 10:40:00 OBDULIO ruiz [facility] 2019-10-17 2019-10-17 Patient [facility] 1.2.840.114 [id number] Univers 00:00:00 00:00:00 Outreach Corinne De La Torre 350.1.13.10 i ty of [place] 4.2.7.2.686 [place]ef[place] as Professio [phone] [address] Office [facility] 2019-08-16 2019-08-16 Office [facility] 1.2.840.114 [id number] 08:54:20 09:41:28 Visit Obdulio Fournier 350.1.13.10 [place] 4.2.7.2.686 Professio [phone] [address] 2019-08-16 2019-08-16 Office [facility] 1.2.840.114 [id number] Univers 08:54:20 09:41:28 Visit Obdulio Fournier 350.1.13.10 i ty [place] 4.2.7.2.686 [place] [phone] [address] 2019-08-16 2019-08-16 Outpatient [facility] [id number] Univers 09:00:00 09:00:00 OBDULIO ruiz [facility] 2019-08-16 2019-08-16 Orders Doctor ADRIÁN 1.2.840.114 [id number] Univers 00:00:00 00:00:00 Only Unassigned, THAIS 350.1.13.10 ity of [place] [facility] 4.2.7.2.686 Jeferson as [phone] [address] 2019-08-01 2019-08-01 Urgent Provider, [facility] 1.2.840.114 [id number] Univers 11:33:03 13:22:19 Care Adrián Kelley [facility] 350.1.13.10 ity of [place] 4.2.7.2.686 [place] as Professio [phone] [address] One 2019-08-01 2019-08-01 Outpatient R [facility] [id number] Univers 11:40:00 11:40:[address] [facility] 2019-07-31 2019-07-31 Outpatient R [facility] [id number] Univers 15:20:00 15:20:00 ity [facility] 2019-07-15 2019-07-15 Refill [facility] 1.2.840.114 [id number] Univers 00:00:00 00:00:00 Obdulio Fournier 350.1.13.10 i ty [place]2.7.2.[place] [phone] [address] 2019-03-12 2019-03-12 Orders Doctor ADRIÁN 1.2.840.114 [id number] Univers 00:00:00 00:00:00 Only Unassigned, THAIS 350.1.13.10 ity of [place] [facility] 4.2.7.2.686 Jeferson as [phone] [place] [address] [address] 2019-02-28 2019-02-28 Telephone Gela, RAJ 1.2.840.114 [id number] Univers 00:00:00 00:00:00 Mary Fournire 350.1.13.10 i ty [place].7.2.[place] [phone] Me dical nal 134 [facility] Results Test Description Test Time Test Comments Results Result Comments Source POCT URINALYSIS W SPECIFIC GRAVITY 2022-06-10 18:44:00 Test Item Value Reference Range Interpretation Comme nts POCT U SP GRAV (test code = 3255) 1.020 mg/dl 1.005-1.025 POCT PH U (test code = 3254) 6 mg/dl 5-8 POCT U LEUK EST (test code = 3263) pos Negative - Negative POCT U NIT (test code = 3262) neg Negative - Negative POCT U PROT (test code = 3259) 30 Negative - Negative POCT U GLU (test code = 3256) neg Negative - Negative POCT U KETONE (test code = 3258) neg Negative - Negative POCT U UROBILI (test code = 3260) 0.2 mg/dl 0.2-1 POCT U BILI (test code = 3261) neg Negative - Negative POCT U BLD (test code = 3257) pos Negative - Negative POCT U COLOR (test code = 3266) yellow POCT U APPEAR (test code = 3267) cloudy Lab Interpretation (test code = 57023-5) [facility]CIFIC [id number] 18:44:00 Test Item Value Reference Range Interpretation Comments POCT U SP GRAV (test code = 1.020 mg/dl 1.005-1.025 3255) POCT PH U (test code = 3254) 6 mg/dl 5-8 POCT U LEUK EST (test code = pos Negative - Negative 3263) POCT U NIT (test code = 3262) neg Negative - Negative POCT U PROT (test code = 30 Negative - Negative 3259) POCT U GLU (test code = 3256) neg Negative - Negative POCT U KETONE (test code = neg Negative - Negative 3258) POCT U UROBILI (test code = 0.2 mg/dl 0.2-1 3260) POCT U BILI (test code = neg Negative - Negative 3261) POCT U BLD (test code = 3257) pos Negative - Negative POCT U COLOR (test code = yellow 3266) POCT U APPEAR (test code = cloudy 3267) Lab Interpretation (test code Abnormal = 71862-9) [facility] [id number] 06:31:00 Test Item Value Reference Range Interpretation Comments POCT PREG (test code = 1605) negative Lab Interpretation (test code = Normal 15309-1) [facility] [id number] 20:09:00 Test Item Value Reference Range Interpretation Comments POCT PREG (test code = 1605) Negative On board controls acceptable with C Yes Line (test code = 3574) POCT PREG LOT # (test code = 3575) POCT PREG TEST DATE (test 11/06/22 code = 3576) [facility] [id number] 04:33:00 Test Item Value Reference Range Interpretation Comments POCT PREG (test code = 1605) negative On board controls acceptable with present C Line (test code = 3574) POCT PREG LOT # (test code = 3575) [id number] POCT PREG TEST DATE (test 12/07/22 code = 3576) Lab Interpretation (test code = Normal 34866-8) [facility] A[facility] [id number] 08:58:00 Patient Name: PARAM BOSWELL Unit No: [id number] EXAMS: CPT CODE: [id number] CT ABDOMEN W/CONTRAST 78546 EXAMINATION: CT scan of the abdomen with [...] technique. DLP: 170.94 mGy-cm. FINDINGS: The lung ba ses, liver, gallbladder, pancreas, adrenal glands, and kidneys are within normal limits in appearance. The spleen is moderately to markedly enlarged measuring 11.9 x 8.3 x 13.3 cm. This corresponds to splenic volume of 792 mL. The spleen is also malpositioned, located in the left mid to lower abdomen,consistent with wandering spleen. The splenic vascular pedicle is noted to be rotated. No focal splenic parenchymal abnormalities are evident. There is a moderate amount of retained fecal material throughout the visualized portions of the colon. The ascending colon is displaced medially by the spleen.The appendix is visualized and of normal appearance. [...] The patient is at risk for [facility] NAME: RAFFYPARAM DALTON Radiology Department PHYS: Michelle Alicea MD [address] : 2000 AGE: 18 SEX: F [place], [place] [address] LOC: F.4602 A PHONE #: [phone] EXAMDATE: 12/05/2018 STATUS: DIS IN FAX #: [phone] RAD NO: Page 1 Signed Report 1 Patient Name: THEA BOSWELLANI FOSTER Unit No: [id number] EXAMS: CPT CODE: [id number] CT ABDOMEN W/CONTRAST 10542 (Continued) splenic torsion/infarction. There is no evidence of that at this time. 2. Moderate amount of retained fecal material throughout the visualized portions of the colon. at 0858 Reported and signed by: Alyssa Boss MD CC: Michelle Virgen MD Technologist: RT Ethel CTDI: DLP: Trnscrbd D/ ([id number]) [facility] Radiology Department PHYS: Michelle Alicea MD [address] : 2000 AGE: 18 SEX: F [place] [address] LOC: F.4602 APHONE #: [phone] EXAM DATE: 12/05/2018 STATUS: DIS IN FAX #: [phone] RAD NO: Page 2 Signed Report 1 Patient Name: PARAM BOSWELL Unit No: [id number] EXAMS: CPT CODE: [id number] CT ABDOMEN W/CONTRAST 48423 (Continued) Orig Print D/T: S: 12/06/2018 (0901) [facility] Radiology Department PHYS: Michelle Alicea MD [address] : 2000 AGE: 18 SEX: F [place] [address] LOC: F.4602 A PHONE #: [phone] EXAM DATE: 12/05/2018 STATUS: DIS IN FAX #: [phone] RAD NO: Page 3 Signed Report 1- US ABDOMEN [id number] 16:42:00 Patient Name: PARAM BOSWELL Unit No: [id number] EXAMS: CPT CODE: [id number] US ABDOMEN [id number] CLINICAL HISTORY: Enlarged spleen. COMPARISON: October 12, 2018. Limited real-time ultrasoundexamination was performed for evaluation of spleen. Spleen is enlarged and measures at least 14.7 cmin length. No focal abnormality is seen. Location of spleen is somewhat unusual and is more inferiorand anterior than one would normally expect. Blood flow is identified within the spleen. Possibilityof mild rotation or mild position of spleen is not excluded. Depending on clinical concern, further e valuation by means of computed tomography is recommended when clinically feasible. IMPRESSION: 1. Splenic enlargement without any focal abnormality. 2. Possible malposition of spleen. Computed tomography is recommended for further evaluation. [id number] Reported and signed by: Marco Obrien MD CC: Michelle Virgen MD Technologist: Petrona Sykes RDMS Probe: Trnscrbd D/ (1398) t.SDR.YOS Orig Print D/T: S: 12/05/2018 (4980) [facility] NAME: KOLTONLARRYPARAM Radiology Department PHYS: Michelle Alicea MD [address] : 2000 AGE: 18 SEX: F [place] [address] LOC: F.4602 A PHONE #: [phone] EXAM DATE: 12/05/2018 STATUS: ADM IN FAX #: [phone] RAD NO: Page 1 Signed Report Patient Name: RAFFYJOSE MIGUELJANAEPARAM FOSTER Unit No: [id number] EXAMS: CPT CODE: [id number] ABDOMEN LTD 91993 (Continued) [facility] NAME: PARAM BOSWELL Radiology Department PHYS: Michelle Alicea MD [address] : 2000 AGE: 18 SEX: F [place] [address] LOC: F.4602 A PHONE #: [phone] EXAM DATE: 12/05/2018 STATUS: ADM IN FAX #: [phone] RAD NO: Page 2 Signed ReportPLACENTA THIRD [id number] 14:06:00 RUN DATE: 12/05/18 [facility] PAGE 1 RUN TIME: 1744 Specimen Inquiry RUN USER: INTERFACE -PATIENT: PARAM BOSWELL LOC: ROBBIE U #: [id number] AGE/SX: 18/ ROOM: [facility] RE11/30/18REG DR: Michelle Virgen MD : [birth year] BED: A DIS: STATUS: ADM IN TLOC: SPEC #: [id number] RECD: 12/01/18 STATUS: FLAKO FATIMA #: [id number] MAGGIE: 12/01/18- [facility] DR: Michelle Virgen MD ENTERED: 12/04/18 SP TYPE: PLACIII OTHR DR: ORDERED: LEVEL V SURGICA CODES: [id number] - PLACENTA, NOS PROCEDURES: LEVEL V DRE GICA (Incomplete) TISSUES: PLACENTA, NOS - PLACENTA CLINICAL HISTORY 18 year old, 36.5 weeks, [id number], vaginal delivery, prematurity (kr) FINAL DIAGNOSIS Placenta, young gestation: - late third trimester villous architecture - umbilical cord: paramarginal insertion, 3-vessel, 23 cm length - decreased placental weight: 357 gms (less than 10th percentile) CPT Code: 81342 cds/wpd 12/05/18 GROSS DESCRIPTION The specimen was received in a container, labeled with the patient's name, unit number and designated "placenta and cord". The following attributes are observed: Cord insertion: 2.5 cm from margin Cord length: 23 cm Number of vessels: 3 Cord color: Blue-marin Other cord findings: None Fetalsurface findings: Steel blue, wrinkled, glistening Vasculature: Displays unremarkable blood vasculature Membranes rupture site: 5 cm to margin Membrane color: Marin Other membrane findings: Thickened andopaque The trimmed placental weight: 357 gm Disk measurement: 17 x 15 x 3.4 cm in greatest dimensionAccessory lobes: None Maternal surface: Lobulated and intact Parenchyma: Red, beefy, and spongy CONTINUED ON NEXT PAGE RUN DATE: 12/05/18 [facility] PAGE 2 RUN TIME: 1744 Specimen Inquiry RUN USER: INTERFACE SPEC #: [id number] PATIENT: PARAM BOSWELL #[id number] (Continued) GROSS DESCRIPTION (Continued) Parenchyma lesions: None Cassettes: A1 through A4 hz/wpd 12/04/18 @ 1114 Signed Elver Retana 12/05/18 1406 END OF REPORT CBC W/AUTO [id number] 22:06:00 Test Item Value Reference Range Interpretation Comments [...] 27-35 N MEAN CELL HGB CONCETRATION (test 33.0 gm/dL 32.2-34.1 N code = MCHC) RED CELL DISTRIBUTION WIDTH (test 13.4 % 12.4-16.5 N code = RDW) PLATELET COUNT (test code = PLT) 115 K/mm3 133-385 L IMMATURE PLATELET FRACTION (test 0.0 % 0.0-10.8 N code = IPF) MEAN PLATELET VOLUME (test code = 9.7 fl 9.1-12.7 N MPV) NEUTROPHIL % (test code = NT%) 89.3 [...] NORMAL code = PLTMR) AG HEPATITIS B [id number] 05:49:00 Test Item Value Reference Range Interpretation Comments AG HEPATITIS B SURFACE (test code NONREACTIVE NONREACTIVE = HBSAG) IS CONSENT FORM SIGNED FOR HIV TESTING? [facility] HEPATITIS C [id number] 05:49:00 Test Item Value Reference Range Interpretation Comments AB HEPATITIS C (test code = NONREACTIVE NONREACTIVE HCVAB) SIGNAL TO CUTOFF (test code = 0.10 <0.80 N CUTOFF) IS CONSENT FORM SIGNED FOR HIV TESTING? B [id number] 05:49:00 Test Item Value Reference Range Interpretation Comments AB TREPONEMA (test code = TREPAB) NONREACTIVE NONREACTIVE IS CONSENT FORM SIGNED FOR HIV TESTING? [facility] HIV 1 05:49:00 Test Item Value Reference Range Interpretation Comments AB HIV 1 2 (test NONREACTIVE NONREACTIVE [facility] code = [id number]) 4th Gen HIV Ag/Ab Combo Screen IS CONSENT FORM SIGNED FOR HIV TESTING? YCBC W/AUTO [id number] 00:01:00 Test Item Value Reference Range Interpretation [...] = PLTMR) - US FET BIO PH GA W/O [id number] 21:38:00 Patient Name: PARAM BOSWELL Unit No: [id number] EXAMS: CPT CODE: [id number] US FET BIO PH GA W/O NST 00410 PROCEDURE: BIOPHYSICAL PROFILE: INDICATION: 36.4 WKS CRAMPING, DFM COMPARISON:None FINDINGS: Limited scanning of the gravid uterus was performed as part of a biophysical profile. Presentation: Cephalic heart rate: 140 bpm Cervix: 2.3 cm YOVANI: 13.8 cm breathing movements: 2 Gross body movements: 2 tone: 2 Amniotic fluid volume: 2 IMPRESSION: BIOPHYSICAL PRO FILE 09/14. SL: LS-H at 2137 Reported andsigned by: Kobe Madrigal MD CC: Michelle Virgen MD Technologist: Corinne Dowling RDMS Probe: Trnscrbd D/ (2137) [email or web address] Orig Print D/T: S: 11/30/2018 (2141) [facility] NAME: RAFFYKRYSTLEPARAM FOSTER Radiology Department PHYS: Michelle Alicea MD [address] : 2000 AGE: 18 SEX: F [place] [address] LOC: Jean MarieNESSA PHONE #: [phone] EXAM DATE: 11/30/2018 STATUS: REG ER FAX #: [phone] RAD NO: Page 1 Signed Report Patient Name: NING LAPARAM FOSTER Unit No: [id number] EXAMS: CPT CODE: [id number] US FET BIO PH GA W/O NST 04300 (Continued) [facility] NAME: PARAM BOSWELL Radiology Department PHYS: Michelle Alicea MD [address] : 2000 AGE: 18 SEX: F [place] [address] LOC: Brianna.NESSA PHONE #: [phone] EXAM DATE: 11/30/2018 STATUS: REG ER FAX #: [phone] RAD NO: Page 2 Signed ReportURINALYSIS [id number] 20:15:00 Test Item Value Reference Range Interpretation [...] NONE SEEN URINE SAMPLE: CLEAN CATCHAMNISURE (ROM) [id number] 18:44:00 Test Item Value Reference Range Interpretation Comments AMNISURE (ROM) TEST (test code = NON-RUPTURED NON-RUPTURE AMNI) : *Amnisure QC OK? YESURINALYSIS [id number] 15:24:00 Test Item Value Reference Range Interpretation [...] NONE SEEN URINE SAMPLE: CLEAN CATCHCOMPREHENSIVE METABOLIC [id number] 13:04:00 Test Item Value Reference Range Interpretation [...] 113 units/L 46-116 N code = ALKP) [id number] 13:04:00 Test Item Value Reference Range Interpretation Comments AMYLASE (test code = KADEN) 34 units/L 30-110 N [id number] 13:04:00 Test Item Value Reference Range Interpretation Comments LIPASE (test code = LIP) 97 units/L 73-393 N CBC W/AUTO [id number] 12:55:00 Test Item Value Reference Range Interpretation [...] NORMAL code = PLTMR) AG HEPATITIS B [id number] 05:36:00 Test Item Value Reference Range Interpretation Comments AG HEPATITIS B SURFACE (test code NONREACTIVE NONREACTIVE = HBSAG) IS CONSENT FORM SIGNED FOR HIV TESTING? KENZIEB HEPATITIS C [id number] 05:36:00 Test Item Value Reference Range Interpretation Comments AB HEPATITIS C (test code = NONREACTIVE NONREACTIVE HCVAB) SIGNAL TO CUTOFF (test code = 0.12 <0.80 N CUTOFF) IS CONSENT FORM SIGNED FOR HIV TESTING? ANTONY [id number] 05:36:00 Test Item Value Reference Range Interpretation Comments AB TREPONEMA (test code = TREPAB) NONREACTIVE NONREACTIVE IS CONSENT FORM SIGNED FOR HIV TESTING? YAB HIV 1 05:36:00 Test Item Value Reference Range Interpretation Comments AB HIV 1 2 (test NONREACTIVE NONREACTIVE Done by [facility] code = [id number]) 4th Gen HIV Ag/Ab Combo Screen IS CONSENT FORM SIGNED FOR HIV TESTING? YAG HEPATITIS B [id number] 03:46:00 Test Item Value Reference Range Interpretation Comments AG HEPATITIS B SURFACE (test code NONREACTIVE NONREACTIVE = HBSAG) IS CONSENT FORM SIGNED FOR HIV TESTING? YAB HEPATITIS C [id number] 03:46:00 Test Item Value Reference Range Interpretation Comments AB HEPATITIS C (test code = HCVAB) NONREACTIVE SIGNAL TO CUTOFF (test code = CUTOFF) <0.80 IS CONSENT FORM SIGNED FOR HIV TESTING? YAB [id number] 03:46:00 Test Item Value Reference Range Interpretation Comments AB TREPONEMA (test code = TREPAB) NONREACTIVE NONREACTIVE IS CONSENT FORM SIGNED FOR HIV TESTING? YAB HIV 1 03:46:00 Test Item Value Reference Range Interpretation Comments AB HIV 1 2 (test code = CTL86MJ) NONREACTIVE IS CONSENT FORM SIGNED FOR HIV TESTING? YCBC W/AUTO [id number] 01:18:00 Test Item Value Reference Range Interpretation [...] (test NORMAL NORMAL code = PLTMR) URINALYSIS [id number] 19:10:00 Test Item Value Reference Range Interpretation [...] SEEN URINE SAMPLE: CLEAN CATCHAG HEPATITIS B [id number] 03:27:00 Test Item Value Reference Range Interpretation Comments AG HEPATITIS B SURFACE (test code NONREACTIVE NONREACTIVE = HBSAG) AB HEPATITIS C [id number] 03:27:00 Test Item Value Reference Range Interpretation Comments AB HEPATITIS C (test code = NONREACTIVE NONREACTIVE HCVAB) SIGNAL TO CUTOFF (test code = 0.12 <0.80 N CUTOFF) AB [id number] 03:27:00 Test Item Value Reference Range Interpretation Comments AB TREPONEMA (test code = TREPAB) NONREACTIVE NONREACTIVE CBC W/AUTO [id number] 01:52:00 Test Item Value Reference Range Interpretation [...] code = PLTMR) - US PREG UT [id number] 11:57:00 Patient Name: PARAM BOSWELL Unit No: [id number] EXAMS: CPT CODE: [id number] US PREG UT TRANSVAGINAL [address] [facility] [address], [place] [address] BIOPHYSICAL PROFILE ULTRASOUND REPORT Pat. Name: PARAM BOSWELL Pat. No: [id number] Study Date: 11/10/2018 11:20am , Age: 01 2000, 18 Pregnancies: 2, Para 0 LMP: 03/19/2018 GA by LMP: 33w5d GA Selected: 33w5d (LMP) JUAN M: 12/24/2018 Referring MD: Michelle Virgen Locker Room Supervisor: Tarun Duncan RDMS, RVT CPT4: USPRUTTRVG Admitting MD: Michelle Virgen Hist/Ind: SCAN 1 33 WEEKS DECREASED MOVEMENT Cervical Length: 2.2 cm Heart Rate: 151 bpm Amniotic Fluid Index: 15.1cm (08.2- 24.7) Q1: 3.8cm Q2: 4.9cm Q3: 4.6cm Q4: 1.8cm Biophysical Profile: 09/14 Breathin Tone:2 Movement: 2 AFV: 2 CLINICAL SUMMARY Type of Gestation: Young Intrauterine in vertex presentation. motion andorgans seen: heart motion seen body and limb [...] and signed by: Marco Obrien MD [facility] NAME:PARAM BOSWELL Radiology Department PHYS: Michelle Alicea MD [address] : 2000AGE: 18 SEX: F [place], [place] [address] LOC: Brianna.NESSA PHONE #: [phone] EXAM DATE: 11/10/2018 STATUS: DEP ER FAX #: [phone] RAD NO: Page 1 Signed Report (CONTINUED) Patient Name: PARAM BOSWELLORA Unit No: [id number] EXAMS: CPT CODE: [id number] US PREG UT TRANSVAGINAL [address]257 (Continued) CC: Michelle Virgen MD Technologist: Tarun Duncan RDMS, RVT Probe: [id number] Trnscrbd D/ (2177) t.SDR.YOS Orig Print D/T: S: 11/15/2018 (1016) [facility] Rad[facility] Department PHYS: Michelle Alicea MD [address] : 2000 AGE: 18 SEX: [place] [address] LOC: Jean MarieNESSA PHONE #: [phone] EXAM DATE: 11/10/2018 STATUS: DEP ER FAX #: [phone] RAD NO: Page 2 Signed Report Patient Name: PARAM BOSWELL Unit No: [id number] EXAMS: CPT CODE: [id number] US PREG UT TRANSVAGINAL [address]1957 (Continued) [facility] NAME: THEA BOSWELLANI FOSTER Radiology Department PHYS: Michelle Alicea MD [address] : 2000 AGE: 18 SEX: F [place] [address] LOC: Jean MarieNESSA PHONE #: [phone] EXAM DATE: 11/10/2018 STATUS: DEP ER FAX #: [phone] RAD NO: Page 3 Signed Report- US FET BIO PH GA W/O [id number] 11:57:00 Patient Name: PARAM BOSWELL Unit No: [id number] EXAMS: CPT CODE: [id number] US FET BIO PH GA W/O NST [address] [place] [address] BIOPHYSICAL PROFILE ULTRASOUND REPORT Pat. Name: PARAM BOSWELL Pat. No: [id number] Study Date: 11/10/2018 11:20am , Age: 01 2000, 18 Pregnancies: 2, Para 0 LMP: 03/19/2018 GA by LMP: 33w5d GA Selected: 33w5d (LMP) JUAN M: 12/24/2018 Referring MD: MICHELLE VIRGEN Locker Room Supervisor: Tarun Duncan RDMS, T CPT4: USBPPWONST Admitting MD: MICHELLE [...] signed by: Marco Obrien MD [facility] NAME: KOLTONLARRYPARAM CRISTIAN Radiology Department PHYS: Michelle Alicea MD [address] : 2000 AGE: 18 SEX: F [place], [place] [address] LOC: Jean MarieNESSA PHONE #: [phone] EXAM DATE: 11/10/2018 STATUS: REG ER FAX #: [phone] RAD NO: Page 1 Signed Report (CONTINUED) Patient Name: PARAM BOSWELL Unit No: [id number] EXAMS: CPT CODE: [id number] US FET BIO PH GA W/O [id number] (Continued) CC: Michelle Virgen MD Technologist: Tarun Duncan RDMS, RVT Probe: Trnscrbd D/ (1157) t.SDR.YOS Orig Print D/T: S: 11/10/2018 (1158) [facility] NAME:PARAM BOSWELL Radiology Department PHYS: Michelle Alicea MD [address] : 2000AGE: 18 SEX: [place] [address] LOC: Jean MarieNESSA PHONE #: [phone] EXAM DATE: 11/10/2018 STATUS: REG ER FAX #: [phone] RAD NO: Page 2 Signed Report Patient Name: PARAM BOSWELL Unit No: [id number] EXAMS: CPT CODE: [id number] US FET BIO PH GA W/O NST 82050 (Continued) [facility] NAME: PARAM BOSWELL CRISTIAN Radiology Department PHYS: Michelle Alicea MD [address] : 2000 AGE: 18 SEX: F [place] [address] LOC: Jean MarieNESSA PHONE #: [phone] EXAM DATE: 11/10/2018 STATUS: REG ER FAX #: [phone] RAD NO: Page 3 Signed ReportURINALYSIS [id number] 13:24:00 Test Item Value Reference Range Interpretation [...] 4+ NONE SEEN URINE SAMPLE: CLEAN CATCHURINALYSIS [id number] 12:15:00 Test Item Value Reference Range Interpretation [...] DIPSTICK (test code = 2+ NEG A NANDIIN) UA PH DIPSTICK (test code = 6.0 [...] NONE SEEN URINE SAMPLE: CLEAN CATCHCOMPREHENSIVE METABOLIC [id number] 11:47:00 Test Item Value Reference Range Interpretation [...] units/L 46-116 N code = ALKP) BILIRUBIN [id number] 11:47:00 Test Item Value Reference Range Interpretation Comments BILIRUBIN DIRECT (test code = <0.1 mg/dL <0.2 N BILD) [id number] 11:47:00 Test Item Value Reference Range Interpretation Comments AMYLASE (test code = KADEN) 35 units/L 30-110 N [id number] 11:47:00 Test Item Value Reference Range Interpretation Comments LIPASE (test code = LIP) 128 units/L 73-393 N - US ABDOMEN [id number] 10:42:00 Patient Name: PARAM BOSWELL Unit No: [id number] EXAMS: CPT CODE: [id number] US ABDOMEN COMPLETE 71356 ABDOMEN ULTRASOUND COMPLETE 10/12/2018: COMPARISON: None CLINICAL [...] measures 11.2cm. The left kidney measures 9.2 cm.Spleen is normal in echogenicity. It measures 13.5 [...] Orig Print D/T: S: 10/12/2018 (1045) [facility] NAME: PARAM BOSWELL Radiology Department PHYS: Michelle Alicea MD [address] : 2000 AGE: 18 SEX: F [place] [address] LOC: F.031 A PHONE #: [phone] EXAM DATE: 10/12/2018 STATUS: ADM IN FAX #: [phone] RAD NO: Page1 Signed Report Patient Name: THEA BOSWELLANI FOSTER Unit No: [id number] EXAMS: CPT CODE: [id number] US ABDOMEN COMPLETE 42236 (Continued) [facility] NAME: PARAM BOSWELL Radiology Department PHYS: Michelle Alicea MD [address] : 2000 AGE: 18 SEX: F [place] [address] LOC: F.031 A PHONE #: [phone] EXAM DATE: 10/12/2018 STATUS: ADMIN FAX #: [phone] [facility] NO: Page 2 Signed ReportDRUGS OF ABUSE [id number] 00:56:00 Test Item Value Reference Range Interpretation [...] PHENCU) 25 ng/m L AG HEPATITIS B [id number] 23:17:00 Test Item Value Reference Range Interpretation Comments AG HEPATITIS B SURFACE (test code NONREACTIVE NONREACTIVE = HBSAG) AB HEPATITIS C [id number] 23:17:00 Test Item Value Reference Range Interpretation Comments AB HEPATITIS C (test code = NONREACTIVE NONREACTIVE HCVAB) SIGNAL TO CUTOFF (test code = <0.02 <0.80 N CUTOFF) AB [id number] 23:17:00 Test Item Value Reference Range Interpretation Comments AB TREPONEMA (test code = TREPAB) NONREACTIVE NONREACTIVE AG HEPATITIS B [id number] 22:51:00 Test Item Value Reference Range Interpretation Comments AG HEPATITIS B SURFACE (test code NONREACTIVE NONREACTIVE = HBSAG) AB HEPATITIS C [id number] 22:51:00 Test Item Value Reference Range Interpretation Comments AB HEPATITIS C (test code = HCVAB) NONREACTIVE SIGNAL TO CUTOFF (test code = CUTOFF) <0.80 AB [id number] 22:51:00 Test Item Value Reference Range Interpretation Comments AB TREPONEMA (test code = TREPAB) NONREACTIVE NONREACTIVE COMPREHENSIVE METABOLIC [id number] 22:33:00 Test Item Value Reference Range Interpretation [...] units/L 46-116 N code = ALKP) BILIRUBIN [id number] 22:33:00 Test Item Value Reference Range Interpretation Comments BILIRUBIN DIRECT (test code = <0.1 mg/dL <0.2 N BILD) CBC W/AUTO [id number] 22:17:00 Test Item Value Reference Range Interpretation [...] REQUIRED (test NORMAL NORMAL code = PLTMR) Notes Date/Time Note Provider Source 2018-12-04 20:21:00-00:00 [facility] OB Disch REPORT#:[id number] REPORT STATUS: Signed DATE:12/04/18 TIME: 2020 PATIENT: PARAM BOSWELL UNIT #: [id number] ROOM/BED: [address] : [birth year] AGE: 18 SEX: F ATTEND: Michelle Virgen MD ADM AUTHOR: Michelle Virgen MD * ALL edits or amendments must be made on the el [employer]/computer document * Subjective Subjective Patient reports: Patient reports: Yes: normal lochia, pain management effective, tolerating po well, voiding well, tolerating ambulation, flatus. Comments: SEEN AROUND 12P SHE HAD INCREASED ABD PAIN Objective General VS: Last Documented: Result Date Time B/P 106/68 10/26 1614 Temp 98.6 12/02 1613 Pulse 73 12/02 1613 Resp 20 12/02 1613 B/P Mean 97.0 12/02 2031 Patient Weight Weight (lb): 142 Weight (oz): Weight (kg): 64.41 Physical Exam Abdomen: post gravid, soft, no abnormal tenderne ss Uterus: involution appropriate, non-tender Fundus: firm, below the umbilicus, non-tender Discharge Summary Discharge Summary Hospital course: augmentation of labor, nml post op/postpart care Plan: routine care, discharge tomorro w (DUE TO ABD PAIN, IF PAIN JOHNATHAN) Discharge meds: Stop taking the following medications: CEPHALEXIN (KEFLEX) 500 MG CAP 500 MILLIGRAM ORAL THREE TIMES A DAY. Days = 7 Qty = 21 ONDANSETRON (ZOFRAN) 4 MG TAB 4 MILLIGRAM ORAL EVERY 6 HOURS NEEDED. as ne eded for NAUSEA AND VOMITING Qty = 30 Continue taking these medications: PNV WITH FE FUMARATE/FA () 1 EACH TAB 1 TABLET ORAL DAILY. IRON (IRON) 18 MG TAB 18 MILLIGRAM ORAL DAILY. SERTRALINE (ZOLOFT) 100 MG TAB 100 MILLIGRAM ORAL DAILY. FAMOTIDINE (PEPCID) 20 MG TAB 20 MILLIGRAM ORAL TWICE DAILY. Qty = 60 Start taking the following new medications: HYDROcodone/APAP (NORCO 5/325) 1 TAB TAB 1 TABLET ORAL EVERY 6 HOURS NEEDED. as neede d for PAIN SCALE 4-6 (USE 2ND ) Qty = 15 No Refills IBUPROFEN (MOTRIN) 600 MG TAB 600 MILLIGRAM ORAL EVERY 6 HOURS NEEDED. as needed for MILD PAIN NOT RELIEVED BY TYL. Qty = 20 No Refills SERTRALINE (ZOLOFT) 50 MG TAB 100 MILLIGRAM ORAL BEDTIME. Qty = 30 Refills = 2 Electronically Signed by Michelle Virgen MD on 12/04 at 2023 RPT #:[id number] END OF REPORT 2018-12-03 12:31:00-00:00 [facility] OB Postpart Progr Note REPORT#:[id number] REPORT STATUS: Signed DATE:12/03/18 TIME: 1231 PATIENT: PARAM BOSWELL UNIT #: [id number] ROOM/BED: [address] : [birth year] AGE: 18 SEX: F ATTEND: Michelle Virgen MD ADM AUTHOR: Ottoniel Dan MD * ALL edits or amendments must be made on the 248 [employer] document * Subjective Subjective Patient reports: Patient reports: Yes: tolerating po well, voiding well. No: pain management effective. Objective Physical Exam Lungs: clear to auscultation Neuro: Exam: alert, oriented x3 Uterus: firm, non-tender Lower extremities: Edema: trace Ermelinda's sign: negative Diagnosis, Assessment Plan Diagnosis, Assessment Plan Assessment: nml progress, cont pp car e hopefully d/c home in am Electronically Signed by Ottoniel Dan MD on at 1232 RPT #:[id number] END OF REPORT 2018-12-02 12:08:00-00:00 [facility] ([facility]) OB Postpart Progr Note REPORT#:[id number] REPORT STATUS: Signed DATE:12/02/18 TIME: 1208 PATIENT: PARAM BOSWELL UNIT #: [id number] ROOM/BED: [address] : [birth year] AGE: 18 SEX: F ATTEND: Michelle Virgen MD ADM AUTHOR: Ottoniel Dan MD * ALL edits or amendments must be made on the 248 [employer] document * Subjective Subjective Patient reports: Patient reports: Yes: pain management effective, tolerating po w ell, voiding well. Objective Physical Exam Lungs: clear to auscultation Neuro: Exam: alert, oriented x3 Uterus: firm Diagnosis, Assessment Plan Diagnosis, Assessment Plan Assessment: nml progress Electronically Signed by Ottoniel Dan MD on at 1209 RPT #:[id number] END OF REPORT 2018-12-01 19:50:00-00:00 [id number] [facility] [address] [place] [id number] PATIENT NAME: PARAM BOSWELL ADMIT DATE: 11/30/18 ACCOUNT NO: [id number] ROOM NO: .4602 AGE: 18 SEX: F ADMITTING PHYSICIAN: Michelle Virgen MD ATTENDING PHYSICIAN: Michelle Virgen MD OPERATION DATE: 12/01/2018 PREOPERATIVE DIAGNOSIS: A 36-6/7th weeks' intrau terine . POSTDELIVERY DIAGNOSIS: A 36-6/7th weeks' intrau terine . OPERATION: Vaginal delivery. SURGEON: Ottoniel Dan M.D. SURVIVAL SPECIALIST: ANESTHESIA: Epidural. ESTIMATED BLOOD LOSS: 250 mL. BRIEF HISTORY: The patient is a 18-year- old who was found to be 4 cm. She went on to rupture of membranes a nd received penicillin for positive GBS and epidural catheter for pain control. She had been on Zoloft in the . She got to be completely dilated. PROCEDURE DESCRIPTION: A precipitous vertex vagi nal delivery of 6 and 8 female infant, appropriately grown and structura lly intact, was delivered atraumatically. The cord was clamped. Cord blood was collected. There was a 3-vessel umbilical cord and the placenta deliver ed shortly thereafter spontaneously intact. On examination of the cerv ix, the cervix was intact and there were no tears or lacerations. She had a fi rm uterus with stable vital signs and will be recovered in the labor and del juancarlos suite prior to being transferred to the floor. Dictated By: Ottoniel Dan MD WT: OP:FRACHNA/DESMOND/IBIS Conf#: [id number]#: [id number] Authenticated by Ottoniel Dan MD On 12/06/19 03:47:43 PM PATIENT NAME: PARAM BOSWELLORA Electronically Signed by Ottoniel Dan MD on at 1548 PATIENT NAME: PARAM BOSWELLORA 2018-12-01 18:33:00-00:00 [facility] ([facility]) OB Admission / H P REPORT#:[id number] REPORT STATUS: Signed DATE:12/01/18 TIME: 1832 PATIENT: PARAM BOSWELL UNIT #: [id number] ROOM/BED: [address] : [birth year] AGE: 18 SEX: F ATTEND: Michelle Virgen MD ADM AUTHOR: Michelle Virgen MD * ALL edits or amendments must be made on the 248 [employer]/computer document * OB Admission H P Hx Chief complaint: uterine contractions HPI: 18 Y OLD G1 AT 36+ WEEKS WITH CONTRACTIONS SEEN AROUND 8AM Past medical history: ANXIETY, SLOW DEVELOPMENMT Past surgical history: denies PSH Social history: no alcohol use, no tobacco use, no drug use Family history Relation not specified for: Family History: Diabetes Medications: Home Medications: PNV WITH FE FUMARATE/FA () 1 TAB PO BENTLEY Y IRON 18 MG PO DAILY SERTRALINE (ZOLOFT) 100 MG PO DAILY FAMOTIDINE (PEPCID) 20 MG PO BID CEPHALEXIN (KEFLEX) 500 MG PO TID ONDANSETRON (ZOFRAN) 4 MG PO Q6H PRN PRN NAUSEA AND VOMITING Allergies Coded Allergies: kiwi (Intermediate, rash 11/27/18) azithromycin (Mild, RASH 10/11/18) vancomycin (Mild, RASH 10/11/18) Objective General VS: Last Documented: Result Date Time B/P Mean 94.0 12/01 1748 B/P 120/77 12/01 174 Pulse 93 12/02 1747 Temp 98.4 12/01 1247 Resp 20 12/01 1247 Vital Signs Date Temp Pulse Resp B/P B/P Mean Pulse Ox FiO2 11/30-12/01 97.4-98.4 57-101 16-20 80-120/51-79 62.0-94.0 Patient Weight Weight (lb): 142 Weight (oz): Weight (kg): 64.41 Physical Exam HEENT: normocephalic w/o injury Cardiac: regular rate and rhythm Lungs: clear to auscultation Breasts: deferred Neuro: Exam: alert, oriented x3 Abdomen: gravid, soft, no abnormal tenderness Diagnosis, Assessment Plan Diagnosis, Assessment Plan Assessment/Impression: IUP 36+ WEEKS IN LABOR Plan: augmentation of labor Electronically Signed by Michelle Virgen MD on 12/01 at 1835 RPT #:[id number] END OF REPORT 2018-12-01 11:35:00-00:00 [facility] ([facility]) Clinical Note REPORT#:[id number] REPORT STATUS: Signed DATE:12/01/18 TIME: 1134 PATIENT: PARAM BOSWELL UNIT #: [id number] ROOM/BED: [address] : 98 AGE: 18 SEX: F ATTEND: Michelle Virgen MD ADM AUTHOR: Cheryl Cisneros MD * ALL edits or amendments must be made on the 248 [employer] document * Clinical Note Note: Called by RN to AROM pt request by . FH R Cat I pt +GBS treatedx3. pt agrees to AROM VE: /2 bulging AROM clear fluid FHT still C at 1 pt tolerated procedure well at 1136 RPT #:[id number] END OF REPORT 2018-11-27 19:51:00-00:00 [facility] ([facility]) EMERGENCY PROVIDER REPORT REPORT#:[id number] REPORT STATUS: Signed DATE:11/27/18 TIME: 1950 PATIENT: PARAM BOSWELL UNIT #: [id number] ROOM/BED: AGE: 18 SEX: F PCP PHYS: Michelle Virgen MD SERVICE AUTHOR: Sydney Huang MD * ALL edits or amendments must be made on the 248 [employer] document * NESSA History Chief complaint: suspected ruptured memb HPI: 18 yo at 36 1/7 weeks presents with conc ricardo for ROM. Pt awoke from a nap and noted her panties were wet with clear fl uid. Has not had further leaking of fluid but has not ed an increase in white d/c since [place] [facility] [place] Pt c/o constant l ow back pain radiating downward with no alleviating factors and aggravated by laying flat on back. N o contractions. Normal movement. No bleeding. Seen yesterday in [facility] [place] and given abx for uti. history: : 2 Abortus: 1 Living children: 0 Current : EDC: 12/24/18 EGA (weeks/days): 36 weeks (02/13) Past medical history: depression Past surgical history: right foot Social history: no alcohol use, no tobacco use, no drug use Family history Relation not specified for: Family History: Diabetes Medications: Home Medications: Medication Dose/Rte/Freq Days Qty Entered Last Max Daily Dose Reviewed PNV WITH FE 1 TAB PO DAILY 10/11/18 FUMARATE/FA 1950 () Strength: 1 EACH TAB IRON 18 MG PO DAILY 10/11/18 Strength: 18 MG TAB 1950 SERTRALINE (ZOLOFT) 100 MG PO DAILY 10/11/18 Strength: 100 MG TAB 1950 FAMOTIDINE (PEPCID) 20 MG PO BID 60 10/13/18 Strength: 20 MG TAB 175 CEPHALEXIN (KEFLEX) 500 MG PO TID 7 11/26/18 Strength: 500 MG CAP 1537 ONDANSETRON (ZOFRAN) 4 MG PO 30 11/26/18 Strength: 4 MG TAB Q6H PRN PRN NAUSEA 1539 AND VOMITING Allergies Coded Allergies: kiwi (Intermediate, rash 11/27/18) azithromycin (Mild, RASH 10/11/18) vancomycin (Mild, RASH 10/11/18) Review of Systems Constitutional: fatigue, lethargy. Denies: fever. Skin: Denies: bruising, itching. Allergy/Immun: Denies: allergic reaction. Respiratory: Denies: SOB. Cardiovascular: Denies: chest pain. GI: Reports: nausea. Denies: constipation, diarrhea, vomiting. : Reports: vaginal discharge. Denies: vaginal blee ding. Musculoskeletal: Denies: extremity swelling. All systems rev neg: except as marked Objective General VS: Last Documented: Result Date Time B/P Mean 68.0 11/28 1747 B/P 94/53 11/28 1747 Temp 98.4 11/28 1747 Pulse 89 11/28 1747 Resp 18 10/21 1748 Vital Signs Date Temp Pulse Resp B/P B/P Mean Pulse Ox FiO2 11/27 98.4 89 18 94/53 68.0 Patient Weight Weight (lb): 140 Weight (oz): Weight (kg): 63.503 Physical Exam HEENT: normocephalic w/o injury Cardiac: normal rhythm Lungs: clear to auscultation Breasts: deferred Neuro: Exam: alert, oriented x3, normal speech Abdomen: gravid, soft, no abnormal tenderness Uterine activity: Monitor: toco Frequency (description): irregular (q 6-8) Intensity: mild Pelvic exam: Pelvis clinically adequate: yes Cervical/ exam: Dilatation (cm): 3 Effacement (%): 60 station: - 3 FHR evaluation: Baseline: 125 bpm Variability: moderate 6-25 bpm Accelerations: 15 X 15 Decelerations: none FHR category: category 1 Membranes: Membranes: Intact Lower extremities: Edema: none Result Findings/Data: Laboratory Tests: 11/27 1841 Other Body Source Membranes Rupture (NON - RUPTURE) NON-RUP TURED Diagnosis, Assessment Plan Diagnosis, Assessment Plan Free Text A P: 36 1/7 weeks with concern for LOF with exam and labs showing no ROM or active labor. Pt with small cervical change since yeste rday and likely reason for increased discharge. FHT reactive d/c home Kick counts reviewed Reviewed s/sx to return to hospital Keep f/u appt in [address] Virgen Return prn Electronically Signed by Sydney Huang MD on at 1958 RPT #:[id number] END OF REPORT 2018-11-26 15:38:00-00:00 [facility] ([facility]) OB Admission / H P REPORT#:[id number] REPORT STATUS: Signed DATE:11/26/18 TIME: 1538 PATIENT: PARAM BOSWELL UNIT #: [id number] ROOM/BED: : 98 AGE: 18 SEX: F ATTEND: Michelle Virgen MD ADM DT: AUTHOR: Michelle Virgen MD * ALL edits or amendments must be made on the el [employer]/computer document * OB Admission H P Hx Chief complaint: uterine contractions HPI: 18 y old at 36+ weeks who pr esented with contractions, nausea and vomiting. She was hydrated and given zofran, she felt better a [place] [facility] [place] Past medical history: mild mental disorder Past surgical history: denies PSH Social history: no alcohol use, no tobacco use, no drug use Family history Relation not specified for: Family History: Diabetes Medications: Home Medications: PNV WITH FE FUMARATE/FA () 1 TAB PO BENTLEY Y IRON 18 MG PO DAILY SERTRALINE (ZOLOFT) 100 MG PO DAILY FAMOTIDINE (PEPCID) 20 MG PO BID CEPHALEXIN (KEFLEX) 500 MG PO TID ONDANSETRON (ZOFRAN) 4 MG PO Q6H PRN PRN NAUSEA AND VOMITING Allergies Coded Allergies: azithromycin (Mild, RASH 10/11/18) vancomycin (Mild, RASH 10/11/18) Review of Systems Constitutional: Denies: chills. Skin: Denies: abrasion. Allergy/Immun: Denies: allergic reaction. Eyes: Denies: redness. ENT: Denies: ear drainage, ear ringing, earache, hear ing loss, mouth pain, nasal congestion, nose bleeding, sinus problem, sore t hroat, throat pain, throat swelling, tongue pain, tongue swelling, toothach e, voice change, other. Respiratory: Denies: GARZA (dyspnea on exertion). Cardiovascular: Denies: chest pain. GI: Denies: abdominal pain. : Denies: dysuria. Musculoskeletal: Denies: arthritis. Objective General VS: Last Documented: Result Date Time B/P Mean 84.0 11/26 1103 B/P 10811/26 1103 Pulse 95 11/26 1103 Vital Signs Date Temp Pulse Resp B/P B/P Mean Pulse Ox FiO2 11/26 95 108/ 84.0 Patient Weight Weight (lb): Weight (oz): Weight (kg): Physical Exam HEENT: normocephalic w/o injury Cardiac: regular rate and rhythm Lungs: clear to auscultation Breasts: deferred Neuro: Exam: alert, oriented x3, normal speech Abdomen: gravid, soft, no abnormal tenderness Diagnosis, Assessment Plan Diagnosis, Assessment Plan Assessment/Impression: IUP 3 6 WEEKS, CONTRACTIONS, UTI, NAUSEA VOMITING, DOING BETTER Plan: D/C HOME, PRECATUIONS GIVEN, KEFLEX, PO HY DRATION, FU NEXT WEEK WITH ME Electronically Signed by Michelle Virgen MD on 11/26 at 1542 RPT #:[id number] END OF REPORT 2018-11-21 15:26:00-00:00 [facility] ([facility]) OB Disch Undelivered REPORT#:[id number] REPORT STATUS: Signed DATE:11/21/18 TIME: 1525 PATIENT: APRAM BOSWELL UNIT #: [id number] ROOM/BED: [address] : 98 AGE: 18 SEX: F ATTEND: Michelle Virgen MD ADM AUTHOR: Michelle Virgen MD * ALL edits or amendments must be made on the 248 [employer]/computer document * Subjective Subjective Patient reports: Patient reports: No: complaints, abdominal pain. Comments: seen around 8am Objective General VS: Last Documented: Result Date Time B/P Mean 79.0 11/21 756 B/P 101/69 11/21 075 Temp 98.6 11/21 075 Pulse 89 11/21 075 Resp 15 11/21 075 Vital Signs Date Temp Pulse Resp B/P B/P Mean Pulse Ox FiO2 11/20-11/21 98.0-98.7 75-89 15 101-108/55-69 75 .0-79.0 Patient Weight Weight (lb): 140 Weight (oz): Weight (kg): 63.503 Physical Exam Cervical/ exam: Dilatation (cm): 2.5 Effacement (%): 50 station: - 3 FHR evaluation: Baby A baseline: 140 bpm Baby A variability: moderate 6-25 bpm Baby A accelerations: 15 X 15 Baby A FHR category: category 1 HEENT: normocephalic w/o injury Lungs: clear to auscultation Neuro: Exam: alert, oriented x3 Abdomen: gravid, soft, no abnormal tenderness Discharge Undelivered Discharge Undelivered Assessment: Patient is a 18 year old at 35 weeks gestation a dmitted for labor Plan: d/c home with labor precautions Hospital course: she responded to IV hydration, now with rare CTX Discharge meds: Stop taking the following medications: MELATONIN (MELATONIN) 5 MG TAB.SL 2 TABLET SUBLINGUAL BEDTIME. Continue taking these medications: PNV WITH FE FUMARATE/FA () 1 EACH TAB 1 TABLET ORAL DAILY. IRON (IRON) 18 MG TAB 18 MILLIGRAM ORAL DAILY. SERTRALINE (ZOLOFT) 100 MG TAB 100 MILLIGRAM ORAL DAILY. FAMOTIDINE (PEPCID) 20 MG TAB 20 MILLIGRAM ORAL TWICE DAILY. Qty = 60 Electronically Signed by Michelle Virgen MD on 11/21 at 1528 RPT #:[id number] END OF REPORT 2018-11-21 15:14:00-00:00 [facility] ([facility]) OB Admission / H P REPORT#:[id number] REPORT STATUS: Signed DATE:11/21/18 TIME: 1514 PATIENT: PARAM BOSWELL UNIT #: [id number] ROOM/BED: [address] : 98 AGE: 18 SEX: F ATTEND: Michelle Virgen MD ADM AUTHOR: Michelle Virgen MD * ALL edits or amendments must be made on the 248 [employer]/computer document * OB Admission H P Hx Chief complaint: uterine contractions HPI: 18 y old G1 at 35+ weeks who pesemeted with uterine contractions. her cervix was 2 cm the night before yester day. I saw her around 8am and she was comfortable, c /o CTX of and on, every 30 min, no leaking, blee ding. she reported good FM Past medical history: psychiatric d/o Past surgical history: denies PSH Social history: no alcohol use, no tobacco use, no drug use Family history Relation not specified for: Family History: Diabetes Medications: Home Medications: PNV WITH FE FUMARATE/FA () 1 TAB PO BENTLEY Y IRON 18 MG PO DAILY SERTRALINE (ZOLOFT) 100 MG PO DAILY FAMOTIDINE (PEPCID) 20 MG PO BID Allergies Coded Allergies: azithromycin (Mild, RASH 10/11/18) vancomycin (Mild, RASH 10/11/18) Review of Systems Constitutional: Denies: chills. Skin: Denies: abrasion. Allergy/Immun: Denies: allergic reaction. Eyes: Denies: redness. ENT: Denies: ear drainage. Respiratory: Denies: GARZA (dyspnea on exertion). Cardiovascular: Denies: chest pain. GI: Denies: abdominal pain. : Denies: dysuria. Objective General VS: Last Documented: Result Date Time B/P Mean 79.0 11/21 0757 B/P 101/11/21 075 Temp 98.6 11/21 075 Pulse 89 11/21 0757 Resp 15 11/21 075 Vital Signs Date Temp Pulse Resp B/P B/P Mean Pulse Ox FiO2 11/20-11/21 98.0-98.7 75-89 15 101-108/55-69 75 .0-79.0 Patient Weight Weight (lb): 140 Weight (oz): Weight (kg):

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
[2022-06-26] MEDS ORDERED: CEFTRIAXONE 500 MG/VIAL ONE (06:13)
[2022-06-26] MEDS ORDERED: metroNIDAZOLE 500 MG TABLET ONE (06:13)
[2022-06-26] MEDS ORDERED: LIDOCAINE 1% MPF 2 ML AMPULE ONE (06:13)
[2022-06-26] MEDS ORDERED: DOXYCYCLINE 100 MG CAP PO ONE (06:14)
[2022-06-26] MEDS ORDERED: ONDANSETRON 4 MG (ODT) TAB ONE (06:14)
[2022-06-26 06:40] VITALS: TEMP 98.7; O2SAT 99
[2022-06-26 06:45] VITALS: BP 128/77
== END 2022-06-26 06:31 | disposition home or self-care (01) ==
LOC: ER 00:21
DX: T76.21XA Adult sexual abuse, suspected, initial encounter (principal); Z88.0 Allergy status to penicillin; Z88.1 Allergy status to other antibiotic agents; Z88.3 Allergy status to other anti-infective agents; Z88.8 Allergy status to other drugs, medicaments and biological substances; Z91.018 Allergy to other foods
CPT/HCPCS: Q0162